=== PATIENT | male | born 1990 | race American Indian/Alaskan Native ===

== ENCOUNTER 2019-09-25 15:46 | Emergency (ER) | payer OTHER ==
[~2019-09-25 15:46] MED LIST: LOTRIMIN AF24 GM TOP; PREDNISONE20 MG PO
== END 2019-09-25 16:51 | disposition short-term general hospital (02) ==
LOC: ED 15:46 → EDBD 15:47 → ED 15:47
DX: S06.5X9A Traumatic subdural hemorrhage with loss of consciousness of unspecified duration, initial encounter (principal); S02.0XXA Fracture of vault of skull, initial encounter for closed fracture; S12.600A Unspecified displaced fracture of seventh cervical vertebra, initial encounter for closed fracture; S01.01XA Laceration without foreign body of scalp, initial encounter; F10.129 Alcohol abuse with intoxication, unspecified; V49.9XXA Car occupant (driver) (passenger) injured in unspecified traffic accident, initial encounter
CPT/HCPCS: 31500; 70450; 70486; 71045; 71260; 72125; 74177; 80053; 81001; 82150; 82550; 83690; 85025; 86850; 86900; 86901; 94002; 99291; G0480

== ENCOUNTER 2020-05-07 10:44 | Emergency (ER) | payer OTHER ==
[~2020-05-07] VITALS: Ht 180.3 cm; Wt 86.2 kg
--- OUTSIDE RECORDS SUMMARY | ~2020-05-07 | XMS | Encounter Summary ---
Demographics + + + | Address | [address] | | | [place] [address] | + + + | Home Phone | | + + + | Preferred Language | Unknown | + + + | Marital Status | Single | + + + | Restorationist Affiliation | NON | + + + | Race | or | + + + | Ethnic Group | Not or | + + + Author + + + | Author | [facility] | + + + | Organization | [facility] | + + + | Address | Unknown | + + + | Phone | Unavailable | + + + Support + + + + + | Name | Relationship | Address | Phone | + + + + + | Kaila Oates | ECON | [place] | | | | | [address] | | + + + + + Care Team Providers + +------+ + | Care Lead Software Developer Name | Role | Phone | + +------+ + | Tomasz Solis MD | PCP | | + +------+ + Encounter Details +--------+ + + + + | Date | Type | Department | Care Team | Description | +--------+ + + + + | 04/29/ | MyChart | Otolaryngology | Cordell Hernandez MD | RE: FW: eye problems | | 2020 | Encounter | Facial Plastics & | [address] | | | | | Reconstructive | [place], | | | | | Services at [facility] | [place] [address] | | | | | [address] | [phone] | | | | | [facility] | | | | | | and Healing, | | | | | | [address], | | | | | | [place], [place] | | | | | | [address] | | | | | | [phone] | | | +--------+ + + + + Social History + + + +--------+ + | Tobacco Use | Types | Packs/Day | Years | Date | | | | | Used | | + + + +--------+ + | Former Smoker | Cigarettes | | | Quit: 2019 | + + + +--------+ + + +---+---+---+ | Smokeless Tobacco: | | | | | Never Used | | | | + +---+---+---+ + + +---------+ + | Alcohol Use | Drinks/Week | oz/Week | Comments | + + +---------+ + | Not Currently | | | | + + +---------+ + + + + | Sex Assigned at | Date Recorded | | | | + + + | Not on file | | + + + + + + + | Job Start Date | Occupation | Industry | + + + + | Not on file | Not on file | Not on file | + + + + + + + + | Travel History | Travel Start | Travel End | + + + + + + | No recent travel history available. | + + documented as of this encounter Functional Status + + + + | Functional Status | Response | Date of Assessment | + + + + | Because of a physical, mental, or emotional | No | 09/26/2019 | | condition, do you have serious difficulty | | | | doing errands alone such as visiting the | | | | doctor? | | | + + + + + + + + | Cognitive Status | Response | Date of Assessment | + + + + | Because of a physical, mental, or emotional | No | 09/26/2019 | | condition, do you have serious difficulty | | | | concentrating, remembering, or making | | | | decisions? (5 years old or older) | | | + + + + documented as of this encounter Plan of Treatment +--------+---------+ + + + | Date | Type | Specialty | Care Team | Description | +--------+---------+ + + + | 08/23/ | Office | Plastic Surgery | Paul Herrera, | | | 2020 | Visit | | MD,PhD [address] | | | | | | [place] | | | | | | [address] | | | | | | [phone] | | | | | | | | +--------+---------+ + + + documented as of this encounter Visit Diagnoses Not on filedocumented in this encounter"
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
--- OUTSIDE RECORDS SUMMARY | ~2020-05-07 | XMS | Encounter Summary ---
Demographics + + + | Address | [address] | | | [place] [address] | + + + | Home Phone | | + + + | Preferred Language | Unknown | + + + | Marital Status | Single | + + + | Moravian Affiliation | NON | + + + | Race | or | + + + | Ethnic Group | Not or | + + + Author + + + | Author | [email or web address] | + + + | Organization | [facility] [employer] [facility] [employer] | + + + | Address | Unknown | + + + | Phone | Unavailable | + + + Support + + + + + | Name | Relationship | Address | Phone | + + + + + | Kaila Oates | ECON | [place] | | | | | [address] | | + + + + + Care Team Providers + +------+ + | Care Buccaro Name | Role | Phone | + +------+ + | Tomasz Solis MD | PCP | | + +------+ + Encounter Details +--------+ + + + + | Date | Type | Department | Care Team | Description | +--------+ + + + + | 04/08/ | MyChart | [facility] | Lawanda Plaza MD | RE: eye surgery | | 2020 | Encounter | [place]/Ophthalmol | [address] | | | | | ogy at [facility] [address] | [address] [place], | | | | | [facility] | [place] [address] | | | | | Health and Healing, | [phone] | | | | | [facility] | | | | | | Floor [place], [place] | | | | | | [address] | | | | | | [phone] | | | +--------+ + + + [...] recent travel history available. | + + + + + + | COVID-19 Exposure | Response | Date Recorded | + + + + | In the last month, have you been in contact | No / Unsure | 03/26/2020 1:47 PM | | with someone who was confirmed or | | PDT | | suspected to have Coronavirus / COVID-19? | | | + + + + [...] Surgery | Paul Herrera, | | | 2019 | Visit | | ,PhD [address] | | | | | | [place], [place] | | | | | | [address] | | | | | | [phone] | | | | | | | | +--------+---------+ + + + documented as of this encounter Visit Diagnoses Not on filedocumented in this encounter"
--- OUTSIDE RECORDS SUMMARY | ~2020-05-07 | XMS | Encounter Summary ---
Demographics + + + | Address | [address] | | | [place] [address] | + + + | Home Phone | | + + + | Preferred Language | Unknown | + + + | Marital Status | Single | + + + | Sikh Affiliation | NON | + + + | Race | or | + + + | Ethnic Group | Not or | + + + Author + + + | Author | [facility] [facility] | + + + | Organization | [facility] | + + + | Address | Unknown | + + + | Phone | Unavailable | + + + Support + + + + + | Name | Relationship | Address | Phone | + + + + + | Kaila Oates | ECON | [place] | | | | | [address] | | + + + + + Care Team Providers + +------+ + | Care Willow Analyst Name | Role | Phone | + +------+ + | Tomasz Solis MD | PCP | | + +------+ + Encounter Details +--------+ + + + + | Date | Type | Department | Care Team | Description | +--------+ + + + + | 10/11/ | Ophth Exam | [facility] | Kyree Moran, | | | 2019 | | [place]/Ophthalmol | [address] [facility] | | | | | kelli at [facility] [address] | [address] | | | | | [address] [facility] for | [place], [place] | | | | | Health and Healing, | [address] | | | | | [facility] | [phone] | | | | | Floor [place], [place] | | | | | | [address] | | | | | | [phone] | | | +--------+ + + + + Social History + +-------+ +--------+------+ | Tobacco Use | Types | Packs/Day | Years | Date | | | | | Used | | + +-------+ +--------+------+ | Unknown If Ever | | | | | | Smoked | | | | | + +-------+ +--------+------+ + + +---------+ + | Alcohol Use | Drinks/Week | oz/Week | Comments | + + +---------+ + | Yes | | | | + + +---------+ [...] | 2019 | Visit | | ,PhD [address] | | | | | | [place], [place] | | | | | | [address] | | | | | | [phone] | | | | | | | | +--------+---------+ + + + documented as of this encounter Visit Diagnoses Not on filedocumented in this encounter"
--- OUTSIDE RECORDS SUMMARY | ~2020-05-07 | XMS | Encounter Summary ---
Demographics + + + | Address | [address] | | | [place] [address] | + + + | Home Phone | | + + + | Preferred Language | Unknown | + + + | Marital Status | Single | + + + | Latter-Day Affiliation | NON | + + + | Race | or | + + + | Ethnic Group | Not or | + + + Author + + + | Organization | Unknown | + + + | Address | Unknown | + + + | Phone | Unavailable | + + + Support + + + + + | Name | Relationship | Address | Phone | + + + + + | Kaila Oates | ECON | [place] | | | | | [address] | | + + + + + Care Team Providers + +------+ + | Care Telemarketing Manager Name | Role | Phone | + +------+ + | Tomasz Solis MD | PCP | | + +------+ + Encounter Details +--------+--------+ + + + | Date | Type | Department | Care Team | Description | +--------+--------+ + + + | 03/04/ | Travel | | | | | 2020 | | | | | +--------+--------+ + + + Social History + + [...] in contact | No / Unsure | 03/04/2020 7:36 AM | | with someone who was confirmed [...] | | 2020 | Visit | | ,PhD [address] | | | | | | [place], [place] | | | | | | [address] | | | | | | [phone] | | | | | | | | +--------+---------+ + + + documented as of this encounter Visit Diagnoses Not on filedocumented in this encounter"
--- OUTSIDE RECORDS SUMMARY | ~2020-05-07 | XMS | Encounter Summary ---
Demographics + + + | Address | [address] | | | [place] [address] | + + + | Home Phone | | + + + | Preferred Language | Unknown | + + + | Marital Status | Single | + + + | Mormonism Affiliation | Unknown | + + + | Race | Unknown | + + + | Ethnic Group | Unknown | + + + Author + + + | Author | [facility]ly [facility] | | | and Nabeelana | + + + | Organization | [facility] | | | and Nabeelana [...] Team Providers + +------+ + | Care Forestry Technical Officer Name | Role | Phone | + +------+ + | No, Physician | PCP | Unavailable | + +------+ + Encounter Details +--------+ + + + + | Date | Type | Department | Care Team | Description | +--------+ + + + + | 02/05/ | Hospital | [facility] | Cordell Dangelo, | Encounter for | | 2020 | Encounter | [facility] | [address] | imaging to screen | | | | [address] | [place], | for metal prior to | | | | [address] | [place] [address] | MRI | | | | [address] | [phone] | | | | | [phone] | | | +--------+ + + + [...] as of this encounter Plan of Treatment + +---------+--------+ + + | Name | Type | Priori | Associated Diagnoses | Order Schedule | | | | ty | | | + +---------+--------+ + + | XR Screening Orbits | Imaging | Routin | Encounter for | 1 Occurrences | | for MRI | | e | imaging to screen | starting 02/06/2020 | | | | | for metal prior to | until 02/06/2020 | | | | | MRI | | + +---------+--------+ + + documented as of this encounter Visit Diagnoses + + | Diagnosis | + + | Encounter for imaging to screen for metal prior to MRI Special screening for other | | specified conditions | + + documented in this encounter"
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
--- OUTSIDE RECORDS SUMMARY | ~2020-05-07 | XMS | Encounter Summary ---
Demographics + + + | Address | [address] | | | [place] [address] | + + + | Home Phone | | + + + | Preferred Language | Unknown | + + + | Marital Status | Single | + + + | Mormonism Affiliation | NON | + + + | Race | or | + + + | Ethnic Group | Not or | + + + Author + + + | Author | [facility] | + + + | Organization | [facility] [employer] [facility] | + + + | Address | Unknown | + + + | Phone | Unavailable | + + + Support + + + + + | Name | Relationship | Address | Phone | + + + + + | Kaila Oates | ECON | [place] | | | | | [address] | | + + + + + Care Team Providers + +------+ + | Care Director Of Hotel Operations Name | Role | Phone | + +------+ + | Tomasz Solis MD | PCP | | + +------+ + Reason for Visit + + + | Reason | Comments | + + + | housing accomodation | | + + + Encounter Details +--------+ + + + + | Date | Type | Department | Care Team | Description | +--------+ + + + + | 03/02/ | Telephone | SOCIAL WORK | Jeanne Pérez | housing accomodation | | 2019 | | [address] | | | | | [address] | [place], | | | | | Mailcode: CH[address]A | [place] [address] | | | | | [place], [place] | | | | | | [address] | | | | | | [phone] | | | +--------+ + + + [...] in contact | No / Unsure | 02/27/2020 9:35 AM | | with someone who was [...] | 2020 | Visit | | ,PhD [address] | | | | | | [place], [place] | | | | | | [address] | | | | | | [phone] | | | | | | | | +--------+---------+ + + + documented as of this encounter Visit Diagnoses Not on filedocumented in this encounter"
--- OUTSIDE RECORDS SUMMARY | ~2020-05-07 | XMS | Encounter Summary ---
Demographics + + + | Address | [address] | | | [place] [address] | + + + | Home Phone | | + + + | Preferred Language | Unknown | + + + | Marital Status | Single | + + + | Hoahaoism Affiliation | NON | + + + | Race | or | + + + | Ethnic Group | Not or | + + + Author + + + | Author | [facility] | + + + | Organization | [facility] | + + + | Address | Unknown | + + + | Phone | Unavailable | + + + Support + + + + + | Name | Relationship | Address | Phone | + + + + + | Kaila Oates | ECON | [place] | | | | | [address] | | + + + + + Care Team Providers + +------+ + | Care Paper Bag Making Machinist Name | Role | Phone | + +------+ + | Tomasz Solis MD | PCP | | + +------+ + Reason for Visit +--------+ + | Reason | Comments | +--------+ + | Other | xray orders | +--------+ + Encounter Details +--------+ + + + + | Date | Type | Department | Care Team | Description | +--------+ + + + + | 03/28/ | Telephone | [facility] | Denise Nicole, | Other (xray orders) | | 2020 | | [facility] [address] | [place] [address] | | | | | [facility] | [place], [place] | | | | | [facility], | [address] | | | | | [facility] [address] | [phone] | | | | | [place], [place] | | | | | | [address] | | | | | | [phone] | | | +--------+ + + + [...] 2019 | Visit | | ,PhD [address] | | | | | | [place] [facility] [place] | | | | | | [address] | | | | | | [phone] | | | | | | | | +--------+---------+ + + + documented as of this encounter Visit Diagnoses Not on filedocumented in this encounter"
--- OUTSIDE RECORDS SUMMARY | ~2020-05-07 | XMS | Encounter Summary ---
Demographics + + + | Address | [address] | | | [place] [address] | + + + | Home Phone | | + + + | Preferred Language | Unknown | + + + | Marital Status | Single | + + + | Restoration Affiliation | NON | + + + | Race | or | + + + | Ethnic Group | Not or | + + + Author + + + | Author | [facility] | + + + | Organization | [facility] | + + + | Address | Unknown | + + + | Phone | Unavailable | + + + Support + + + + + | Name | Relationship | Address | Phone | + + + + + | Kaila Oates | ECON | [place] | | | | | [address] | | + + + + + Care Team Providers + +------+ + | Care Aged Or Disabled Care Worker Name | Role | Phone | + +------+ + | Tomasz Solis MD | PCP | | + +------+ + Encounter Details +--------+ + + + + | Date | Type | Department | Care Team | Description | +--------+ + + + + | 09/25/ | Procedure | Diagnostic Imaging | | | | 2019 | Pass | Services at [facility] | | | | | | [address] | | | | | | [place] | | | | | | [address] | | | | | | [place], [place] | | | | | | [address] | | | | | | [phone] | | | +--------+ + + + [...] | Visit | | ,PhD [address] | | | | | | [place], [place] | | | | | | [address] | | | | | | [phone] | | | | | | | | +--------+---------+ + + + documented as of this encounter Visit Diagnoses Not on filedocumented in this encounter"
--- OUTSIDE RECORDS SUMMARY | ~2020-05-07 | XMS | Encounter Summary ---
Demographics + + + | Address | [address] | | | [place] [address] | + + + | Home Phone | | + + + | Preferred Language | Unknown | + + + | Marital Status | Single | + + + | Zoroastrian Affiliation | NON | + + + | Race | or | + + + | Ethnic Group | Not or | + + + Author + + + | Author | [facility] | + + + | Organization | [facility] [email or web address] [facility] | + + + | Address | Unknown | + + + | Phone | Unavailable | + + + Support + + + + + | Name | Relationship | Address | Phone | + + + + + | Kaila Oates | ECON | [place] | | | | | [address] | | + + + + + Care Team Providers + +------+ + | Care Department Secretary Name | Role | Phone | + +------+ + | Tomasz Solis MD | PCP | | + +------+ + Encounter Details +--------+ + + + + | Date | Type | Department | Care Team | Description | +--------+ + + + + | 09/26/ | Procedure | Diagnostic Imaging | | | | 2019 | Pass | Services at [facility] | | | | | | [address] | | | | | | [place] | | | | | | [facility] | | | | | | [place], [place] | | | | | | [address] | | | | | | [phone] | | | +--------+ + + + [...] 2019 | Visit | | MDPhD [address] | | | | | | [place], [place] | | | | | | [address] | | | | | | [phone] | | | | | | | | +--------+---------+ + + + documented as of this encounter Visit Diagnoses Not on filedocumented in this encounter"
--- OUTSIDE RECORDS SUMMARY | ~2020-05-07 | XMS | Encounter Summary ---
Demographics + + + | Address | [address] | | | [place] [address] | + + + | Home Phone | | + + + | Preferred Language | Unknown | + + + | Marital Status | Single | + + + | Caodaism Affiliation | NON | + + + | Race | or | + + + | Ethnic Group | Not or | + + + Author + + + | Author | [facility] | + + + | Organization | [facility] [employer] [facility] | + + + | Address | Unknown | + + + | Phone | Unavailable | + + + Support + + + + + | Name | Relationship | Address | Phone | + + + + + | Kaila Oates | ECON | [place] | | | | | [address] | | + + + + + Care Team Providers + +------+ + | Care Obstetrician And Gynaecologist Name | Role | Phone | + +------+ + | Tomasz Solis MD | PCP | | + +------+ + Encounter Details +--------+ + + + + | Date | Type | Department | Care Team | Description | +--------+ + + + + | 04/30/ | Hospital | Registration [address] | Michelle [address], | | | 2005 | Activity | [address] | [address] | | | | | [address] Mailcode: [address] | [place], [place] | | | | | [place], [place] | [address] | | | | | [address] | | | | | | [phone] | | | +--------+ + + + [...] | | | | | | [place], [place] | | | | | | [address] | | | | | | [phone] | | | | | | | | +--------+---------+ + + + documented as of this encounter Procedures + +--------+ + + + | Procedure Name | Priori | Date/Time | Associated Diagnosis | Comments | | | ty | | | | + +--------+ + + + | X-RAY SPINE CERVICAL | Routin | 04/30/2006 | | Results for this | | 1 VIEW | e | 3:00 AM | | procedure are in the | | | | PDT | | results section. | + +--------+ + + + documented in this encounter Results SPINE CERVICAL 1 VIEW (04/30/2006 3:00 AM PDT) + + + + + + | Component | Value | Ref Range | Performed | Pathologist | | | | | At | Signature | + + + + + + | SPINE | Radiologist 1: DRE, | | | | | CERVICAL 1 | LOUISSTUDY: Single | | | | | VIEW | lateral view cervical | | | | | | spine COMPARISON: NONE | | | | | | FINDINGS: the cervical | | | | | | spine is visualized from | | | | | | the skull base to the | | | | | | [id number]. | | | | | | Vertebral body height | | | | | | and alignment are normal | | | | | | on thesingle lateral | | | | | | view. There is no | | | | | | prevertebral soft | | | | | | tissueswelling. No | | | | | | radiopaque foreign body | | | | | | or soft tissue gas | | | | | | isidentified. | | | | | | IMPRESSION: Normal | | | | | | single lateral view of | | | | | | the cervical spine. | | | | + + + + + + + + | Specimen | + + | | + + + +---------+ + + | Performing | Address | City/State/Zipcode | Phone Number | | Organization | | | | + +---------+ + + | [facility] DEPARTMENT OF | | | | | RADIOLOGY | | | | + +---------+ + + documented in this encounter Visit Diagnoses Not on filedocumented in this encounter"
--- OUTSIDE RECORDS SUMMARY | ~2020-05-07 | XMS | Encounter Summary ---
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 change in lumbar spinal alignment between | | flexion and extension imaging. I have personally reviewed the images and, if necessary, | | edited the report. I agree with the report as now presented. Final signature: Abdirahman Bernstein | | MD Lexie 01/02/2020 9:28 AM Preliminary: Abdirahman Owen MD Dictation | | initiated: Abdirahman Owen MD 01/02/2020 9:25 AM | |IMPRESSION: | | | |Healed left L1, L2 and L3 transverse process fractures and left 11th and 12th rib fractures unchanged in alignment. | | | |The L4 anterior superior corner fractures are not well demonstrated radiographically. | | | |No significant change in lumbar spinal alignment between flexion and extension imaging. | | | |I have personally reviewed the images and, if necessary, edited the report. I agree with th e report as now presented. | | | |Final signature: Abdirahman Owen MD 01/02/2020 9:28 AM | |Preliminary: Abdirahman Owen MD | |Dictation initiated: Abdirahman Owen MD 01/02/2020 9:25 AM | + + + +---------+ + + | Performing | Address | City/State/Zipcode | Phone Number | | Organization | | | | + +---------+ + + | [facility] | | | | | [facility]ICE RECOGNITION [facility] | | | | + +---------+ + + documented in this encounter Visit Diagnoses + + | Diagnosis | + + | Other closed nondisplaced fracture of seventh cervical vertebra with routine healing, | | subsequent encounter - Primary | + + | Back pain, unspecified back location, unspecified back pain laterality, unspecified | | chronicity | + + | Neck pain Cervicalgia | + + | Injury of left brachial plexus, subsequent encounter | + + | Central cord syndrome, subsequent encounter (HCC) | + + documented in this encounter
--- OUTSIDE RECORDS SUMMARY | ~2020-05-07 | XMS | Encounter Summary ---
Demographics + + + | Address | [address] | | | [place] [address] | + + + | Home Phone | | + + + | Preferred Language | Unknown | + + + | Marital Status | Single | + + + | Orthodox Affiliation | NON | + + + | Race | or | + + + | Ethnic Group | Not or | + + + Author + + + | Author | [facility] [employer] [facility] | + + + | Organization | [facility] | + + + | Address | Unknown | + + + | Phone | Unavailable | + + + Support + + + + + | Name | Relationship | Address | Phone | + + + + + | Kaila Oates | ECON | [place] | | | | | [address] | | + + + + + Care Team Providers + +------+ + | Care Ship'S Electronic Warfare Officer Name | Role | Phone | + +------+ + | Tomasz Solis MD | PCP | | + +------+ + Encounter Details +--------+ + + + + | Date | Type | Department | Care Team | Description | +--------+ + + + + | 11/15/ | Hospital | Radiology/Imaging | Denise Nicole, | | | 2020 | Encounter | Lab at [facility] [address] | [place] [address] | | | | | [address] [facility] [facility] | [place], [place] | | | | | Health and Healing, | [address] | | | | | [facility] | [phone] | | | | | Floor [place], [place] | | | | | | [address] | | | | | | [phone] | | | +--------+ + + + [...] + + documented as of this encounter Medications at Time of Discharge + + + +---------+ + + | Medication | Sig | Dispensed | Refills | Start | End Date | | | | | | Date | | + + + +---------+ + + | aspirin chewable | Chew and swallow 1 | | 0 | 10/14/20 | | | 81 mg oral | tablet once daily. | | | 19 | | | tablet,chewable | | | | | | + + + +---------+ + + | baclofen 10 mg | Take 1 tablet by | | 0 | 10/14/20 | | | oral tablet | mouth three times | | | 19 | | | | daily. | | | | | + + + +---------+ + + | melatonin 3 mg | Take 1 tablet by | | 0 | 10/14/20 | | | oral tablet | mouth once daily in | | | 19 | | | | the evening. | | | | | + + + +---------+ + + documented as of this encounter Plan of Treatment +--------+---------+ + + + | Date | Type | Specialty | Care Team | Description | +--------+---------+ + + + | 08/23/ | Office | Plastic Surgery | Paul Herrera, | | | 2019 | Visit | | ,PhD [address] | | | | | | [place], [place] | | | | | | [address] | | | | | | [phone] | | | | | | | | +--------+---------+ + + + documented as of this encounter Procedures + +--------+ + + + | Procedure Name | Priori | Date/Time | Associated Diagnosis | Comments | | | ty | | | | + +--------+ + + + | X-RAY SPINE CERVICAL | Routin | 11/15/2019 | Neck pain | Results for this | | 3 VIEWS | e | 11:38 AM | | procedure are in the | | | | PST | | results section. | + +--------+ + + + documented in this encounter Results X-RAY SPINE CERVICAL 3 VIEWS (11/15/2019 11:38 AM PST) + + | Specimen | + + | | + + + + + | Narrative | Performed At | + + + | EXAM: SPINE CERVICAL 3 VIEWS HISTORY: neck pain COMPARISON: | [facility] | | 10/13/[address] 09/25/2019. FINDINGS: Right C7 facet/laminar | RADIOLOGY VOICE | | fracture and the fracture at the tip of the odontoid process are again | RECOGNITION 2 | | not well outlined. There is normal alignment of the vertebral bodies. | | | Vertebral body heights are maintained. Disc spaces are maintained | | | with trace endplate spurring. C1-C2 relationship is normal. | | | Prevertebral soft tissues are within normal limits. Plate and screws | | | are seen along the inferior left orbital margin. IMPRESSION: | | | Nonvisualization of known right C7 and odontoid fractures. No new | | | fracture or osseous abnormality. I have personally reviewed the | | | images and, if necessary, edited the report. I agree with the report | | | as now presented. Final signature: Emi Briceño MD | | | 11/15/2019 12:04 PM Preliminary: Emi Briceño MD | | | Dictation initiated: Emi Briceño MD 11/15/2019 11:58 AM | | + + + + + | Procedure Note | + + | Service Account, Radiant Res In Interface - 11/15/2019 12:10 PM PST EXAM: SPINE | | CERVICAL 3 VIEWS HISTORY: neck pain COMPARISON: 10/13/[address] 09/25/2019. FINDINGS: | | Right C7 facet/laminar fracture and the fracture at the tip of the odontoid process are | | again not well outlined. There is normal alignment of the vertebral bodies. Vertebral | | body heights are maintained. Disc spaces are maintained with trace endplate spurring. | | C1-C2 relationship is normal. Prevertebral soft tissues are within normal limits. Plate | | and screws are seen along the inferior left orbital margin. IMPRESSION: Nonvisualization | | of known right C7 and odontoid fractures. No new fracture or osseous abnormality. I | | have personally reviewed the images and, if necessary, edited the report. I agree with | | the report as now presented. Final signature: Emi Briceño MD 11/15/2019 12:04 | | PM Preliminary: Emi Briceño MD Dictation initiated: Emi Briceño MD | | 11/15/2019 11:58 AM | | | |Nonvisualization of known right C7 and odontoid fractures. | | | |No new fracture or osseous abnormality. | | | |I have personally reviewed the images and, if necessary, edited the report. I agree with th e report as now presented. | | | |Final signature: Emi Briceño MD 11/15/2019 12:04 PM | |Preliminary: Emi Briceño MD | |Dictation initiated: Emi Briceño MD 11/15/2019 11:58 AM | + + + +---------+ + + | Performing | Address | City/State/Zipcode | Phone Number | | Organization | | | | + +---------+ + + | [facility] | | | | | [facility] | | | | + +---------+ + + documented in this encounter Visit Diagnoses + + | Diagnosis | + + | Neck pain Cervicalgia | + + documented in this encounter"
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
--- OUTSIDE RECORDS SUMMARY | ~2020-05-07 | XMS | Encounter Summary ---
Demographics + + + | Address | [address] | | | [place] [address] | + + + | Home Phone | | + + + | Preferred Language | Unknown | + + + | Marital Status | Single | + + + | Judaism Affiliation | NON | + + + | Race | or | + + + | Ethnic Group | Not or | + + + Author + + + | Author | [facility] | + + + | Organization | [facility] [employer] [facility] | + + + | Address | Unknown | + + + | Phone | Unavailable | + + + Support + + + + + | Name | Relationship | Address | Phone | + + + + + | Kaila Oates | ECON | [place] | | | | | [address] | | + + + + + Care Team Providers + +------+ + | Care Select Banker Name | Role | Phone | + +------+ + | Tomasz Solis MD | PCP | | + +------+ + Encounter Details +--------+ + + + + | Date | Type | Department | Care Team | Description | +--------+ + + + + | 03/09/ | MyChart | Plastic and | Javier, Paul, | RE: [facility] Hand | | 2020 | Encounter | Reconstructive | ,PhD [address] | Pain | | | | Surgery at [facility] [address] [place], [place] | | | | | [address] [facility] | [address] | | | | | for Health and | [phone] | | | | | Healing, [address], | | | | | | 5th Floor | | | | | | [facility] [place] | | | | | | [address] | | | | | | [phone] | | | +--------+ + + + [...] in contact | No / Unsure | 03/06/2020 5:46 AM | | with someone who was [...] | 2019 | Visit | | ,PhD [address] | | | | | | [place] [facility] [place] | | | | | | [address] | | | | | | [phone] | | | | | | | | +--------+---------+ + + + documented as of this encounter Visit Diagnoses Not on filedocumented in this encounter"
--- OUTSIDE RECORDS SUMMARY | ~2020-05-07 | XMS | Encounter Summary ---
Demographics + + + | Address | [address] | | | [place] [address] | + + + | Home Phone [...] + + + | Author | [facility] [employer] [facility] | + + + | Organization | [facility] | + + + | Address | Unknown | + + + | Phone | Unavailable | + + + Support + + + + + | Name | Relationship | Address | Phone | + + + + + | Kaila Oates | ECON | [place] | | | | | [address] | | + + + + + Care Team Providers + +------+ + | Care Planning Director Name | Role | Phone | + [...] | | | Reconstructive | [address], | | | | | Services at [facility] | [place] [address] | | | | | [address] | [phone] | | | | | [facility] | | | | | | and Healing, | | | | | | [address], | | | | | | [place], [place] | | | | | | [address] | | | | | | [phone] | | | +--------+ + + + [...] | | | | | | [place] | | | | | | [address] | | | | | | [phone] | | | | | | | | +--------+---------+ + + + documented as of this encounter Visit Diagnoses Not on filedocumented in this encounter"
--- OUTSIDE RECORDS SUMMARY | ~2020-05-07 | XMS | Encounter Summary ---
Demographics + + + | Address | [address] | | | [place] [address] | + + + | Home Phone | | + + + | Preferred Language | Unknown | + + + | Marital Status | Single | + + + | Baptism Affiliation | NON | + + + | Race | or | + + + | Ethnic Group | Not or | + + + Author + + + | Author | [facility] [employer] [facility] | + + + | Organization | [facility] [employer] [facility] | + + + | Address | Unknown | + + + | Phone | Unavailable | + + + Support + + + + + | Name | Relationship | Address | Phone | + + + + + | Kaila Oates | ECON | [place] | | | | | [address] | | + + + + + Care Team Providers + +------+ + | Care Trader Fixed Income Name | Role | Phone | + +------+ + | Tomasz Solis MD | PCP | | + +------+ + Encounter Details +--------+ + + + + | Date | Type | Department | Care Team | Description | +--------+ + + + + | 09/26/ | Procedure | Diagnostic Imaging | | | | 2019 | Pass | Services at [facility] | | | | | | [address] | | | | | | [place] | | | | | | [facility] | | | | | | [place], [place] | | | | | | [address] | | | | | | [phone] | | | +--------+ + + + [...] | | | | | | [place], [place] | | | | | | [address] | | | | | | [phone] | | | | | | | | +--------+---------+ + + + documented as of this encounter Visit Diagnoses Not on filedocumented in this encounter"
--- OUTSIDE RECORDS SUMMARY | ~2020-05-07 | XMS | Encounter Summary ---
Demographics + + + | Address | [address] | | | [place] [address] | + + + | Home Phone | | + + + | Preferred Language | Unknown | + + + | Marital Status | Single | + + + | Buddhism Affiliation | NON | + + + | Race | or | + + + | Ethnic Group | Not or | + + + Author + + + | Author | [facility] [facility] | + + + | Organization | [facility] [employer] [facility] | + + + | Address | Unknown | + + + | Phone | Unavailable | + + + Support + + + + + | Name | Relationship | Address | Phone | + + + + + | Kaila Oates | ECON | [place] | | | | | [address] | | + + + + + Care Team Providers + +------+ + | Care Newspaper Columnist Name | Role | Phone | + [...] Pain | | | | Surgery at [facility] [address] [place], [place] | | | | | [address] [facility] | [address] | | | | | for Health and | [phone] | | | | | Healing, [address], | | | | | | 5th Floor | | | | | | [facility] [place] | | | | | | [address] | | | | | | [phone] | | | +--------+ + + + [...] | 2019 | Visit | | ,PhD [address] | | | | | | [place] [facility] [place] | | | | | | [address] | | | | | | [phone] | | | | | | | | +--------+---------+ + + + documented as of this encounter Visit Diagnoses Not on filedocumented in this encounter"
--- OUTSIDE RECORDS SUMMARY | ~2020-05-07 | XMS | Encounter Summary ---
Demographics + + + | Address | [address] | | | [place] [address] | + + + | Home Phone | | + + + | Preferred Language | Unknown | + + + | Marital Status | Single | + + + | Zoroastrianism Affiliation | NON | + + + [...] [place] | | | | | [address] | | + + + + + Care Team Providers + +------+ + | Care Founding Partner Name | Role | Phone | + +------+ + | No Pcp Per Patient | PCP | Unavailable | + +------+ + Encounter Details +--------+--------+ + + + | Date | Type | Department | Care Team | Description | +--------+--------+ + + + | 10/11/ | Travel | | | | | 2019 | | | | | +--------+--------+ + + + Social History + +-------+ [...] 2020 | Visit | | ,PhD [address] | | | | | | [place] | | | | | | [address] | | | | | | [phone] | | | | | | | | +--------+---------+ + + + documented as of this encounter Visit Diagnoses Not on filedocumented in this encounter"
--- OUTSIDE RECORDS SUMMARY | ~2020-05-07 | XMS | Encounter Summary ---
Demographics + + + | Address | [address] | | | [place] [address] | + + + | Home Phone | | + + + | Preferred Language | Unknown | + + + | Marital Status | Single | + + + | Taoism Affiliation | NON | + + + | Race | or | + + + | Ethnic Group | Not or | + + + Author + + + | Author | [facility] | + + + | Organization | [facility] | + + + | Address | Unknown | + + + | Phone | Unavailable | + + + Support + + + + + | Name | Relationship | Address | Phone | + + + + + | Kaila Oates | ECON | [place] | | | | | [address] | | + + + + + Care Team Providers + +------+ + | Care Milieu Manager Name | Role | Phone | + +------+ + | Tomasz Solis MD | PCP | | + +------+ + Encounter Details +--------+ + + + + | Date | Type | Department | Care Team | Description | +--------+ + + + + | 01/01/ | Hospital | Radiology/Imaging | Denise Nicole, | | | 2020 | Encounter | Lab at [facility] [address] | [place] [address] | | | | | [address] [place] for | [place], [place] | | | | | Health and Healing, | [address] | | | | | [facility] | [phone] | | | | | Floor [place], [place] | | | | | | [address] | | | | | | [phone] | | | +--------+ + + + [...] | 2020 | Visit | | ,PhD [address] | | | | | | [place], [place] | | | | | | [address] | | | | | | [phone] | | | | | | | | +--------+---------+ + + + documented as of this encounter Procedures + +--------+ + + + | Procedure Name | Priori | Date/Time | Associated Diagnosis | Comments | | | ty | | | | + +--------+ + + + | X-RAY SPINE | Routin | 01/02/2020 | Back pain, | Results for this | | LUMBOSACRAL 4 VIEWS | e | 9:20 AM | unspecified back | procedure are in the | | | | PDT | location, | results section. | | | | | unspecified back | | | | | | pain laterality, | | | | | | unspecified | | | | | | chronicity | | + +--------+ + + + documented in this encounter Results X-RAY SPINE LUMBOSACRAL 4 VIEWS (01/02/2020 9:20 [...] + | Diagnosis | + + | Back pain, unspecified back location, unspecified back pain laterality, unspecified | | chronicity | + + documented in this encounter"
--- OUTSIDE RECORDS SUMMARY | ~2020-05-07 | XMS | Encounter Summary ---
Demographics + + + | Address | [address] | | | [place] [address] | + + + | Home Phone | | + + + | Preferred Language | Unknown | + + + | Marital Status | Single | + + + | Mandaeism Affiliation | NON | + + + | Race | or | + + + | Ethnic Group | Not or | + + + Author + + + | Author | [facility] | + + + | Organization | [facility] | + + + | Address | Unknown | + + + | Phone | Unavailable | + + + Support + + + + + | Name | Relationship | Address | Phone | + + + + + | Kaila Oates | ECON | [place] | | | | | [address] | | + + + + + Care Team Providers + +------+ + | Care Vocational Auto Body Instructor Name | Role | Phone | + +------+ + | Tomasz Solis MD | PCP | | + +------+ + Encounter Details +--------+ + + + + | Date | Type | Department | Care Team | Description | +--------+ + + + + | 03/06/ | Procedure | 6A Intra Op [address] | | | | 2020 | Pass | [address] | | | | | | [facility] | | | | | | Hospital Admitting | | | | | | Desk Located on the | | | | | | 9th floor | | | | | | [place], [place] | | | | | | [address] | | | +--------+ + + + [...] | 2020 | Visit | | ,PhD [address] | | | | | | [place], [place] | | | | | | [address] | | | | | | [phone] | | | | | | | | +--------+---------+ + + + documented as of this encounter Visit Diagnoses Not on filedocumented in this encounter"
--- OUTSIDE RECORDS SUMMARY | ~2020-05-07 | XMS | Encounter Summary ---
Demographics + + + | Address | [address] | | | [place] [address] | + + + | Home Phone | | + + + | Preferred Language | Unknown | + + + | Marital Status | Single | + + + | Mormon Affiliation | NON | + + + | Race | or | + + + | Ethnic Group | Not or | + + + Author + + + | Author | [facility] | + + + | Organization | [email or web address] | + + + | Address | Unknown | + + + | Phone | Unavailable | + + + Support + + + + + | Name | Relationship | Address | Phone | + + + + + | Kaila Oates | ECON | [place] | | | | | [address] | | + + + + + Care Team Providers + +------+ + | Care Geospatial Systems Integrator Name | Role | Phone | + +------+ + | Tomasz Solis MD | PCP | | + +------+ + Encounter Details +--------+ + + + + | Date | Type | Department | Care Team | Description | +--------+ + + + + | 10/11/ | Ophth Exam | [facility] | Kyree Moran, | | | 2019 | | Barry/Ophthalmol | [address] [facility] | | | | | kelli at [facility] [address] | [address] | | | | | [address] [facility] for | [place], [place] | | | | | Health and Healing, | [address] | | | | | [facility] | [phone] | | | | | Floor [place], [place] | | | | | | [address] | | | | | | [phone] | | | +--------+ + + + [...] | 2019 | Visit | | ,PhD [address] | | | | | | [place], [place] | | | | | | [address] | | | | | | [phone] | | | | | | | | +--------+---------+ + + + documented as of this encounter Visit Diagnoses Not on filedocumented in this encounter"
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
--- OUTSIDE RECORDS SUMMARY | ~2020-05-07 | XMS | Encounter Summary ---
Demographics + + + | Address | [address] | | | [place] [address] | + + + | Home Phone | | + + + | Preferred Language | Unknown | + + + | Marital Status | Single | + + + | Confucianism Affiliation | NON | + + + [...] [place] | | | | | [address] | | + + + + + Care Team Providers + +------+ + | Care Lan Support Specialist Name | Role | Phone | + +------+ + | No Pcp Per Patient | PCP | Unavailable | + +------+ + Encounter Details +--------+--------+ + + + | Date | Type | Department | Care Team | Description | +--------+--------+ + + + | 10/28/ | Travel | | | | | [...] | | 2020 | Visit | | PhD PATRICIA [address] | | | | | | [place], [place] | | | | | | [address] | | | | | | [phone] | | | | | | | | +--------+---------+ + + + documented as of this encounter Visit Diagnoses Not on filedocumented in this encounter"
--- OUTSIDE RECORDS SUMMARY | ~2020-05-07 | XMS | Encounter Summary ---
Demographics + + + | Address | [address] | | | [place] [address] | + + + | Home Phone | | + + + | Preferred Language | Unknown | + + + | Marital Status | Single | + + + | Gnosticism Affiliation | NON | + + + | Race | or | + + + | Ethnic Group | Not or | + + + Author + + + | Author | [facility] [facility] | + + + | Organization | [facility] | + + + | Address | Unknown | + + + | Phone | Unavailable | + + + Support + + + + + | Name | Relationship | Address | Phone | + + + + + | Kaila Oates | ECON | [place] | | | | | [address] | | + + + + + Care Team Providers + +------+ + | Care Amortization Schedule Clerk Name | Role | Phone | + +------+ + | Tomasz Solis MD | PCP | | + +------+ + Encounter Details +--------+ + + + + | Date | Type | Department | Care Team | Description | +--------+ + + + + | 04/25/ | MyChart | Plastic and | Paul Herrera, | RE: Medicine | | 2020 | Encounter | Reconstructive | ,PhD [address] | | | | | Surgery at [facility] [address] | [address] [place], [place] | | | | | [address] [facility] | [address] | | | | | for Health and | [phone] | | | | | Healing, [facility] 1, | | | | | | 5th Floor | | | | | | [place], [place] | | | | | | [address] | | | | | | [phone] | | | +--------+ + + + [...] | | | | | | [place], [place] | | | | | | [address] | | | | | | [phone] | | | | | | | | +--------+---------+ + + + documented as of this encounter Visit Diagnoses Not on filedocumented in this encounter"
--- OUTSIDE RECORDS SUMMARY | ~2020-05-07 | XMS | Encounter Summary ---
Demographics + + + | Address | [address] | | | [place] [address] | + + + | Home Phone [...] + + | Author | [facility] | + + + | Organization | [facility] | + + + | Address | Unknown | + + + | Phone | Unavailable | + + + Support + + + + + | Name | Relationship | Address | Phone | + + + + + | Kaila Oates | ECON | [place] | | | | | [address] | | + + + + + Care Team Providers + +------+ + | Care Bench Examiner Name | Role | Phone | + +------+ + | Tomasz Solis MD | PCP | | + +------+ + Encounter Details +--------+ + + + + | Date | Type | Department | Care Team | Description | +--------+ + + + + | 09/26/ | Procedure | Diagnostic Imaging | | | | 2019 | Pass | Services at [facility] | | | | | | [address] | | | | | | [place] | | | | | | [facility] | | | | | | [place], [place] | | | | | | [address] | | | | | | [phone] | | | +--------+ + + + [...] | | | | | | [place], [place] | | | | | | [address] | | | | | | [phone] | | | | | | | | +--------+---------+ + + + documented as of this encounter Visit Diagnoses Not on filedocumented in this encounter"
--- OUTSIDE RECORDS SUMMARY | ~2020-05-07 | XMS | Encounter Summary ---
Demographics + + + | Address | [address] | | | [place] [address] | + + + | Home Phone [...] [place] | | | | | [address] | | + + + + + Care Team Providers + +------+ + | Care Sign Installer Name | Role | Phone | + +------+ + | Tomasz Solis MD | PCP | | + +------+ + Encounter Details +--------+--------+ + + + | Date | Type | Department | Care Team | Description | +--------+--------+ + + + | 12/18/ | Travel | | | | | [...] | | | | | | [place], [place] | | | | | | [address] | | | | | | [phone] | | | | | | | | +--------+---------+ + + + documented as of this encounter Visit Diagnoses Not on filedocumented in this encounter"
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
--- OUTSIDE RECORDS SUMMARY | ~2020-05-07 | XMS | Encounter Summary ---
Demographics + + + | Address | [address] | | | [place] [address] | + + + | Home Phone | | + + + | Preferred Language | Unknown | + + + | Marital Status | Single | + + + | Denominational Affiliation | NON | + + + | Race | or | + + + | Ethnic Group | Not or | + + + Author + + + | Author | [facility] | + + + | Organization | [facility] | + + + | Address | Unknown | + + + | Phone | Unavailable | + + + Support + + + + + | Name | Relationship | Address | Phone | + + + + + | Kaila Oates | ECON | [place] | | | | | [address] | | + + + + + Care Team Providers + +------+ + | Care Control Systems Specialist Name | Role | Phone | + +------+ + | Tmoasz Solis MD | PCP | | + +------+ + Encounter Details +--------+ + + + + | Date | Type | Department | Care Team | Description | +--------+ + + + + | 09/26/ | Procedure | Diagnostic Imaging | | | | 2019 | Pass | Services at [facility] | | | | | | [address] | | | | | | [place] | | | | | | [facility] | | | | | | [place], [place] | | | | | | [address] | | | | | | [phone] | | | +--------+ + + + [...] | | | | | | [place], [place] | | | | | | [address] | | | | | | [phone] | | | | | | | | +--------+---------+ + + + documented as of this encounter Visit Diagnoses Not on filedocumented in this encounter"
--- OUTSIDE RECORDS SUMMARY | ~2020-05-07 | XMS | Encounter Summary ---
Demographics + + + | Address | [address] | | | [place] [address] | + + + | Home Phone [...] + + | Author | [facility] | + + + | Organization | [facility] [employer] [facility] | + + + | Address | Unknown | + + + | Phone | Unavailable | + + + Support + + + + + | Name | Relationship | Address | Phone | + + + + + | Kaila Oates | ECON | [place] | | | | | [address] | | + + + + + Care Team Providers + +------+ + | Care Clinical Material Handler Name | Role | Phone | + +------+ + | Tomasz Solis MD | PCP | | + +------+ + Encounter Details +--------+ + + + + | Date | Type | Department | Care Team | Description | +--------+ + + + + | 03/04/ | MyChart | Screening Clinic - | | COVID-19 test | | 2020 | Encounter | [address] | | NEGATIVE | | | | [address] | | | | | | [place] [address] | | | +--------+ + + + [...] | | | | | | [place], [place] | | | | | | [address] | | | | | | [phone] | | | | | | | | +--------+---------+ + + + documented as of this encounter Visit Diagnoses Not on filedocumented in this encounter"
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
--- OUTSIDE RECORDS SUMMARY | ~2020-05-07 | XMS | Encounter Summary ---
Demographics + + + | Address | [address] | | | [place] [address] | + + + | Home Phone | | + + + | Preferred Language | Unknown | + + + | Marital Status | Single | + + + | Cheondoism Affiliation | NON | + + + | Race | or | + + + | Ethnic Group | Not or | + + + Author + + + | Author | [facility] | + + + | Organization | [facility] [employer] [facility] | + + + | Address | Unknown | + + + | Phone | Unavailable | + + + Support + + + + + | Name | Relationship | Address | Phone | + + + + + | Kaila Oates | ECON | [place] | | | | | [address] | | + + + + + Care Team Providers + +------+ + | Care Load Out Person Name | Role | Phone | + +------+ + | Tomasz Solis MD | PCP | | + +------+ + Encounter Details +--------+ + + + + | Date | Type | Department | Care Team | Description | +--------+ + + + + | 09/25/ | Procedure | Diagnostic Imaging | | | | 2019 | Pass | Services at [facility] | | | | | | [address] | | | | | | Emilia SUBRAMANIAN | | | | | | [address] | | | | | | [place], [place] | | | | | | [address] | | | | | | [phone] | | | +--------+ + + + [...] | | | | | | [place], [place] | | | | | | [address] | | | | | | [phone] | | | | | | | | +--------+---------+ + + + documented as of this encounter Visit Diagnoses Not on filedocumented in this encounter"
--- OUTSIDE RECORDS SUMMARY | ~2020-05-07 | XMS | Encounter Summary ---
Demographics + + + | Address | [address] | | | [place] [address] | + + + | Home Phone | | + + + | Preferred Language | Unknown | + + + | Marital Status | Single | + + + | Pentecostal Affiliation | NON | + + + | Race | or | + + + | Ethnic Group | Not or | + + + Author + + + | Author | [facility] [employer] [facility] | + + + | Organization | [facility] [employer] [facility] | + + + | Address | Unknown | + + + | Phone | Unavailable | + + + Support + + + + + | Name | Relationship | Address | Phone | + + + + + | Kaila Oates | ECON | [place] | | | | | [address] | | + + + + + Care Team Providers + +------+ + | Care Caustic Cresylate Shift Superintendent Name | Role | Phone | + [...] Encounter | Reconstructive | ,PhD [address] | | | | | Surgery at [facility] [address] [place], [place] | | | | | [address] [facility] | [address] | | | | | for Health and | [phone] | | | | | Healing, [facility] 1, | | | | | | 5th Floor | | | | | | [place], [place] | | | | | | [address] | | | | | | [phone] | | | +--------+ + + + [...] | | | | | | [place], [place] | | | | | | [address] | | | | | | [phone] | | | | | | | | +--------+---------+ + + + documented as of this encounter Visit Diagnoses Not on filedocumented in this encounter"
--- OUTSIDE RECORDS SUMMARY | ~2020-05-07 | XMS | Encounter Summary ---
Demographics + + + | Address | [address] | | | [place] [address] | + + + | Home Phone | | + + + | Preferred Language | Unknown | + + + | Marital Status | Single | + + + | Church Affiliation | NON | + + + | Race | or | + + + | Ethnic Group | Not or | + + + Author + + + | Author | [facility] [employer] [facility] | + + + | Organization | [facility] [employer] [facility] | + + + | Address | Unknown | + + + | Phone | Unavailable | + + + Support + + + + + | Name | Relationship | Address | Phone | + + + + + | Kaila Oates | ECON | [place] | | | | | [address] | | + + + + + Care Team Providers + +------+ + | Care Manager Research And Development Name | Role | Phone | + +------+ + | Tomasz Solis MD | PCP | | + +------+ + Encounter Details +--------+ + + + + | Date | Type | Department | Care Team | Description | +--------+ + + + + | 05/04/ | MyChart | [facility] | Lawanda Plaza MD | RE: Eye Surgery | | 2020 | Encounter | [place]/Ophthalmol | [address] | Referral | | | | ogy at [facility] [address] | [place], | | | | | [facility] | [place] [address] | | | | | Health and Healing, | [phone] | | | | | [facility] | | | | | | Floor [place], [place] | | | | | | [address] | | | | | | [phone] | | | +--------+ + + + [...] | 2020 | Visit | | ,PhD [address] | | | | | | [place], [place] | | | | | | [address] | | | | | | [phone] | | | | | | | | +--------+---------+ + + + documented as of this encounter Visit Diagnoses Not on filedocumented in this encounter"
--- OUTSIDE RECORDS SUMMARY | ~2020-05-07 | XMS | Encounter Summary ---
Demographics + + + | Address | [address] | | | [place] [address] | + + + | Home Phone | | + + + | Preferred Language | Unknown | + + + | Marital Status | Single | + + + | Scientologist Affiliation | NON | + + + [...] [place] | | | | | [address] | | + + + + + Care Team Providers + +------+ + | Care Automatic Dry Starch Operator Name | Role | Phone | + +------+ + | Tomasz Solis MD | PCP | | + +------+ + Encounter Details +--------+--------+ + + + | Date | Type | Department | Care Team | Description | +--------+--------+ + + + | 03/26/ | Travel | | | | | [...] | 2020 | Visit | | ,PhD [address] | | | | | | [place], [place] | | | | | | [address] | | | | | | [phone] | | | | | | | | +--------+---------+ + + + documented as of this encounter Visit Diagnoses Not on filedocumented in this encounter"
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
--- OUTSIDE RECORDS SUMMARY | ~2020-05-07 | XMS | Encounter Summary ---
Demographics + + + | Address | [address] | | | [place] [address] | + + + | Home Phone | | + + + | Preferred Language | Unknown | + + + | Marital Status | Single | + + + | Catholic Affiliation | NON | + + + | Race | or | + + + | Ethnic Group | Not or | + + + Author + + + | Author | [facility] [employer] [facility] | + + + | Organization | [facility] [employer] [facility] | + + + | Address | Unknown | + + + | Phone | Unavailable | + + + Support + + + + + | Name | Relationship | Address | Phone | + + + + + | Kaila Oates | ECON | [place] | | | | | [address] | | + + + + + Care Team Providers + +------+ + | Care Communication Consultant Name | Role | Phone | + +------+ + | Tomasz Solis MD | PCP | | + +------+ + Encounter Details +--------+ + + + + | Date | Type | Department | Care Team | Description | +--------+ + + + + | 09/26/ | Procedure | Diagnostic Imaging | | | | 2019 | Pass | Services at [facility] | | | | | | [address] | | | | | | [place] | | | | | | [facility] | | | | | | [place], [place] | | | | | | [address] | | | | | | [phone] | | | +--------+ + + + [...] | | | | | | [place], [place] | | | | | | [address] | | | | | | [phone] | | | | | | | | +--------+---------+ + + + documented as of this encounter Visit Diagnoses Not on filedocumented in this encounter"
--- OUTSIDE RECORDS SUMMARY | ~2020-05-07 | XMS | Encounter Summary ---
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 Specimen | + + | Blood - Blood | | (substance) | + + + + + + + | Performing | Address | City/State/Zipcode | Phone Number | | Organization | | | | + + + + + | [facility] | [address] | [place] [address] | | | SERVICES, CORE | [address] | | | + + + + + RENAL FUNCTION SET (NA,K,CL,CO2,BUN,CREAT,GLUC,CA,PHOS,ALB ) (03/06/2020 11:01 PM PDT) + + + + + + | Component | Value | Ref Range | Performed | Pathologist | | | | | At | Signature | + + + + + + | GLUCOSE, | 135 (H) | 70 - 99 mg/dL | [facility] | | | PLASMA | | | LABORATORY | | | (LAB) | | | SERVICES, | | | | | | CORE | | + + + + + + | BUN, PLASMA | 12 | 6 - 20 mg/dL | [facility] | | | (LAB) | | | LABORATORY | | | | | | SERVICES, | | | | | | CORE | | + + + + + + | CREATININE | 0.63 (L) | 0.70 - 1.30 | [facility] | | | PLASMA | | mg/dL | LABORATORY | | | (LAB) | | | SERVICES, | | | | | | CORE | | + + + + + + | EGFR | >60 | >60 mL/min | [facility] | | | - | | | LABORATORY | | | MALDIVIAN | | | SERVICES, | | | | | | CORE | | + + + + + + | EGFR NON | >60 | >60 mL/min | [facility] | | | -MARIELLA | | | LABORATORY | | | RICAN | | | SERVICES, | | | | | | CORE | | + + + + + + | SODIUM, | 139 | 136 - 145 | [facility] | | | PLASMA | | mmol/L | LABORATORY | | | (LAB) | | | SERVICES, | | | | | | CORE | | + + + + + + | POTASSIUM, | 3.6 | 3.4 - 5.0 | [facility] | | | PLASMA | | mmol/L | LABORATORY | | | (LAB) | | | SERVICES, | | | | | | CORE | | + + + + + + | CHLORIDE, | 107 | 97 - 108 mmol/L | [facility] | | | PLASMA | | | LABORATORY | | | (LAB) | | | SERVICES, | | | | | | CORE | | + + + + + + | TOTAL CO2, | 28 | 21 - 32 mmol/L | [facility] | | | PLASMA | | | LABORATORY | | | (LAB) | | | SERVICES, | | | | | | CORE | | + + + + + + | CALCIUM, | 8.3 (L) | 8.6 - 10.2 | [facility] | | | PLASMA | | mg/dL | LABORATORY | | | (LAB) | | | SERVICES, | | | | | | CORE | | + + + + + + | CALCIUM(ALB | 8.6 | 8.6 - 10.2 | [facility] | | | CORRECTED) | | mg/dL | LABORATORY | | | | | | SERVICES, | | | | | | CORE | | + + + + + + | ALBUMIN, | 3.6 | 3.5 - 4.7 g/dL | [facility] | | | PLASMA | | | LABORATORY | | | (LAB) | | | SERVICES, | | | | | | CORE | | + + + + + + | PHOSPHORUS, | 2.6 | 2.4 - 4.7 mg/dL | [facility] | | | PLASMA | | | LABORATORY | | | (LAB) | | | SERVICES, | | | | | | CORE | | + + + + + + | POTASSIUM | No Hemo | | [facility] | | | CMNT | | | LABORATORY | | | | | | SERVICES, | | | | | | CORE | | + + + + + + | ANION GAP | 4 | 4 - 11 mmol/L | [facility] | | | | | | LABORATORY | | | | | | SERVICES, | | | | | | CORE | | + + + + + + | ANION | 5 | 4 - 11 mmol/L | [facility] | | | GAP(ALB | | | LABORATORY | | | CORRECTED) | | | SERVICES, | | | | | | CORE | | + + + + + + | BUN/CREATIN | 19 | 8 - 25 | [facility] | | | INE RATIO | | | LABORATORY | | | | | | SERVICES, | | | | | | CORE | | + + + + + + + + | Specimen | + + | Blood - Blood | | (substance) | + + + + + | Narrative | Performed At | + + + | GFR is estimated using the MDRD equation recommended by the National | [facility] | | Kidney Disease Education Program. Estimated GFR Interpretive | LABORATORY | | Information: <60 mL/min/1.73 sq m Chronic Kidney | SERVICES, CORE | | Disease <15 mL/min/1.73 sq m Kidney Failure | | | Estimated GFR greater than 60 mL/min/1.73 sq m is of limited clinical | | | value. The MDRD equation is not valid in the following situations: | | | - Patients under 18 years of age - Severe malnutrition or obesity | | | - Vegetarian diet - Rapidly changing kidney function - Amputees, | | | paraplegics, or other muscle-wasting diseases | | + + + + + + + + | Performing | Address | City/State/Zipcode | Phone Number | | Organization | | | | + + + + + | [facility] | [address] | [place] [address] | | | SERVICES, CORE | [address] | | | + + + + + CAPILLARY BLOOD GLUCOSE (NO CHG), POC (03/06/2020 1:55 PM PDT) + +---------+ + + + | Component | Value | Ref Range | Performed | Pathologist | | | | | At | Signature | + +---------+ + + + | BLOOD | 135 (H) | 70 - 99 mg/dL | [facility] - | | | GLUCOSE, | | | [facility] | | | POC | | | [facility] | | | | | | OF CARE | | | | | | TESTS | | + +---------+ + + + + + | Specimen | + + | Blood | + + + + + + + | Performing | Address | City/State/Zipcode | Phone Number | | Organization | | | | + + + + + | [facility] | [address] | [place], [place] | | | [facility] | [facility] | [address] | | | TESTS | | | | + + + + + CARDIOLOGY (03/06/2020 12:00 AM PDT) + + + | Narrative | Performed At | + + + | | | + + + documented in this encounter Visit Diagnoses + + | Diagnosis | + + | Brachial plexus disorders Brachial plexus lesions | + + documented in this encounter Admitting Diagnoses + + | Diagnosis | + + | Brachial plexus disorders Brachial plexus lesions | + + documented in this encounter Administered Medications + +--------+ + +------+------+ | Medication Order | MAR | Action | Dose | Rate | Site | | | Action | Date | | | | + +--------+ + +------+------+ | acetaminophen (TYLENOL) tablet | Given | 03/07/20 | 1,000 mg | | | | 1,000 mg 1,000 mg, oral, EVERY 6 | | 20 9:29 | | | | | HOURS, First dose on Thu03/06/20 | | AM PDT | | | | | at 1800, Until Discontinued | | | | | | + +--------+ + +------+------+ +-------+ + +---+---+ | Given | 03/06/20 | 1,000 mg | | | | | 20 6:51 | | | | | | PM PDT | | | | +-------+ + +---+---+ +---+---+ | | | +---+---+ + +-------+ +-------+---+---+ | baclofen (LIORESAL) tablet 10 | Given | 03/07/20 | 10 mg | | | | mg 10 mg, oral, THREE TIMES | | 20 9:29 | | | | | DAILY, First dose on Thu03/06/20 | | AM PDT | | | | | at 1600, Until Discontinued | | | | | | + +-------+ +-------+---+---+ +-------+ +-------+---+---+ | Given | 03/06/20 | 10 mg | | | | | 20 9:54 | | | | | | PM PDT | | | | +-------+ +-------+---+---+ +---+---+ | | | +---+---+ + +-------+ +-------+---+ + | bupivacaine | Given | 03/06/20 | 10 mL | | Left Arm | | (MARCAINE,SENSORCAINE) 0.25 % | | 20 1:11 | | | | | (2.5 mg/mL) injection | | PM PDT | | | | | INTRAPROCEDURE PRN, Starting Thu | | | | | | | 03/06/20 at 1100, Until Tue | | | | | | | 03/06/20 at 1400 | | | | | | + +-------+ +-------+---+ + +-------+ +-------+---+------+ | Given | 03/06/20 | 10 mL | | Neck | | | 20 11:00 | | | | | | AM PDT | | | | +-------+ +-------+---+------+ +---+---+ | | | +---+---+ + +-------+ +--------+---+---+ | gabapentin (NEURONTIN) capsule | Given | 03/06/20 | 300 mg | | | | 300 mg 300 mg, oral, THREE TIMES | | 20 9:54 | | | | | DAILY, First dose on Thu03/06/20 | | PM PDT | | | | | at 1600, Until Discontinued | | | | | | + +-------+ +--------+---+---+ +---+---+ | | | +---+---+ + +-------+ +--------+---+---+ | gabapentin (NEURONTIN) capsule | Given | 03/07/20 | 300 mg | | | | 300 mg 300 mg, oral, TWICE | | 20 9:29 | | | | | DAILY, First dose (after last | | AM PDT | | | | | modification) on Thu03/07/20 at | | | | | | | 0900, Until Discontinued | | | | | | + +-------+ +--------+---+---+ + +---+ | | | + +---+ | gabapentin (NEURONTIN) capsule | | | 600 mg 600 mg, oral, AT BEDTIME, | | | First dose on Thu03/07/20 at | | | 2200, Until Discontinued | | + +---+ | | | + +---+ + +---------+ + + +---+ | lactated ringers (LR) infusion | New Bag | 03/06/20 | 10 mL/hr | 10 mL/hr | | | 10 mL/hr, intravenous, PROCEDURE | | 20 6:24 | | | | | CONTINUOUS, Starting Thu03/06/20 | | AM PDT | | | | | at 0615, Until Thu03/06/20 at | | | | | | | 1649 | | | | | | + +---------+ + + +---+ +---+---+ | | | +---+---+ + +-------+ +------+---+---+ | melatonin tablet 3 mg 3 mg, | Given | 03/06/20 | 3 mg | | | | oral, EVERY EVENING, First dose | | 20 9:54 | | | | | on Thu03/06/20 at 2100, Until | | PM PDT | | | | | Discontinued | | | | | | + +-------+ +------+---+---+ +---+---+ | | | +---+---+ + +-------+ +-------+---+---+ | morphine ER (MS CONTIN) tablet | Given | 03/07/20 | 30 mg | | | | 30 mg 30 mg, oral, EVERY 12 | | 20 9:29 | | | | | HOURS, First dose on Thu03/06/20 | | AM PDT | | | | | at 2100, Until Discontinued | | | | | | + +-------+ +-------+---+---+ +-------+ +-------+---+---+ | Given | 03/06/20 | 30 mg | | | | | 20 9:53 | | | | | | PM PDT | | | | +-------+ +-------+---+---+ +---+---+ | | | +---+---+ + +-------+ +------+---+---+ | oxyCODONE (immediate release) | Given | 03/06/20 | 5 mg | | | | (ROXICODONE) tablet 5-15 mg 5-15 | | 20 6:51 | | | | | mg, oral, EVERY 4 HOURS | | PM PDT | | | | | NEEDED, Starting Thu03/06/20 at | | | | | | | 1443, Until Thu03/06/20 at 2347, | | | | | | | moderate pain, unresponsive to | | | | | | | non-opioid medication | | | | | | + +-------+ +------+---+---+ +---+---+ | | | +---+---+ + +-------+ +------+---+---+ | oxyCODONE (immediate release) | Given | 03/07/20 | 5 mg | | | | (ROXICODONE) tablet 5-15 mg 5-15 | | 20 2:12 | | | | | mg, oral, EVERY 3 HOURS | | AM PDT | | | | | NEEDED, Starting Thu03/07/20 at | | | | | | | 0000, Until Thu03/07/20 at 1807, | | | | | | | moderate pain, unresponsive to | | | | | | | non-opioid medication | | | | | | + +-------+ +------+---+---+ +---+---+ | | | +---+---+ + +-------+ +------+---+---+ | polyethylene glycol (MIRALAX) | Given | 03/07/20 | 17 g | | | | packet 17 g 17 g, oral, DAILY, | | 20 9:51 | | | | | First dose on Thu03/06/20 at | | AM PDT | | | | | 1700, Until Discontinued | | | | | | + +-------+ +------+---+---+ +---+---+ | | | +---+---+ + +-------+ +--------+---+---+ | QUEtiapine (SEROQUEL) tablet | Given | 03/06/20 | 100 mg | | | | 100 mg 100 mg, oral, AT BEDTIME, | | 20 9:54 | | | | | First dose on Thu03/06/20 at | | PM PDT | | | | | 2200, Until Discontinued | | | | | | + +-------+ +--------+---+---+ +---+---+ | | | +---+---+ + +-------+ +---------+---+---+ | senna-docusate (SENOKOT S) | Given | 03/07/20 | 2 | | | | 8.6-50 mg 2 tablet 2 tablet, | | 20 8:34 | tablets | | | | oral, TWICE DAILY, First dose on | | AM PDT | | | | | Thu03/06/20 at 2100, Until | | | | | | | Discontinued | | | | | | + +-------+ +---------+---+---+ +-------+ +---------+---+---+ | Given | 03/06/20 | 2 | | | | | 20 9:54 | tablets | | | | | PM PDT | | | | +-------+ +---------+---+---+ +---+---+ | | | +---+---+ documented in this encounter
--- OUTSIDE RECORDS SUMMARY | ~2020-05-07 | XMS | Encounter Summary ---
Demographics + + + | Address | [address] | | | [place] [address] | + + + | Home Phone | | + + + | Preferred Language | Unknown | + + + | Marital Status | Single | + + + | Anabaptist Affiliation | NON | + + + | Race | or | + + + | Ethnic Group | Not or | + + + Author + + + | Author | [facility] | + + + | Organization | [facility] | + + + | Address | Unknown | + + + | Phone | Unavailable | + + + Support + + + + + | Name | Relationship | Address | Phone | + + + + + | Kaila Oates | ECON | [place] | | | | | [address] | | + + + + + Care Team Providers + +------+ + | Care Boot Trimmer Name | Role | Phone | + +------+ + | Tomasz Solis MD | PCP | | + +------+ + Encounter Details +--------+ + + + + | Date | Type | Department | Care Team | Description | +--------+ + + + + | 10/11/ | Ophth Exam | [facility] | Kyree Moran, | | | 2019 | | [place]/Ophthalmol | [address] | | | | | kelli at [facility] [address] | [address]o | | | | | [facility] | [place], [place] | | | | | [facility] and He[facility], | [address] | | | | | [facility] | [phone] | | | | | Floor [place], [place] | | | | | | [address] | | | | | | [phone] | | | +--------+ + + + [...] | 2019 | Visit | | ,PhD [address] | | | | | | [place], [place] | | | | | | [address] | | | | | | [phone] | | | | | | | | +--------+---------+ + + + documented as of this encounter Visit Diagnoses Not on filedocumented in this encounter"
--- OUTSIDE RECORDS SUMMARY | ~2020-05-07 | XMS | Encounter Summary ---
Demographics + + + | Address | [address] | | | [place] [address] | + + + | Home Phone | | + + + | Preferred Language | Unknown | + + + | Marital Status | Single | + + + | Jew Affiliation | NON | + + + [...] [place] | | | | | [address] | | + + + + + Care Team Providers + +------+ + | Care Jv Baseball Coach Name | Role | Phone | + +------+ + | Tomasz Solis MD | PCP | | + +------+ + Encounter Details +--------+--------+ + + + | Date | Type | Department | Care Team | Description | +--------+--------+ + + + | 01/01/ | Travel | | | | | [...] | 2019 | Visit | | ,PhD [address] | | | | | | [place], [place] | | | | | | [address] | | | | | | [phone] | | | | | | | | +--------+---------+ + + + documented as of this encounter Visit Diagnoses Not on filedocumented in this encounter"
--- OUTSIDE RECORDS SUMMARY | ~2020-05-07 | XMS | Encounter Summary ---
Demographics + + + | Address | [address] | | | [place] [address] | + + + | Home Phone | | + + + | Preferred Language | Unknown | + + + | Marital Status | Single | + + + | Voodoo Affiliation | NON | + + + | Race | or | + + + | Ethnic Group | Not or | + + + Author + + + | Author | [facility] | + + + | Organization | [facility] | + + + | Address | Unknown | + + + | Phone | Unavailable | + + + Support + + + + + | Name | Relationship | Address | Phone | + + + + + | Kaila Oates | ECON | [place] | | | | | [address] | | + + + + + Care Team Providers + +------+ + | Care Manager Employment Name | Role | Phone | + +------+ + | Tomasz Solis MD | PCP | | + +------+ + Encounter Details +--------+ + + + + | Date | Type | Department | Care Team | Description | +--------+ + + + + | 09/25/ | Ophth Exam | [facility] | Lynne Lazo MD | | | 2019 | | [place]/[facility]hthalmol | [address] | | | | | ogy at [address] | [place], [place] | | | | | [facility] | [address] | | | | | Health and Healing, | [phone] | | | | | [facility] | | | | | | Floor [place], [place] | | | | | | [address] | | | | | | [phone] | | | +--------+ + + + [...] | | | | | | [place], [place] | | | | | | [address] | | | | | | [phone] | | | | | | | | +--------+---------+ + + + documented as of this encounter Visit Diagnoses Not on filedocumented in this encounter"
--- OUTSIDE RECORDS SUMMARY | ~2020-05-07 | XMS | Encounter Summary ---
Demographics + + + | Address | [address] | | | [place] [address] | + + + | Home Phone | | + + + | Preferred Language | Unknown | + + + | Marital Status | Single | + + + | Anglican Affiliation | NON | + + + [...] [place] | | | | | [address] | | + + + + + Care Team Providers + +------+ + | Care Tag Press Operator Name | Role | Phone | + +------+ + | No Pcp Per Patient | PCP | Unavailable | + +------+ + Encounter Details +--------+--------+ + + + | Date | Type | Department | Care Team | Description | +--------+--------+ + + + | /03/ | Travel | | | | | [...] | | | | | | [place], [place] | | | | | | [address] | | | | | | [phone] | | | | | | | | +--------+---------+ + + + documented as of this encounter Visit Diagnoses Not on filedocumented in this encounter"
--- OUTSIDE RECORDS SUMMARY | ~2020-05-07 | XMS | Encounter Summary ---
Demographics + + + | Address | [address] | | | [place] [address] | + + + | Home Phone | | + + + | Preferred Language | Unknown | + + + | Marital Status | Single | + + + | Islam Affiliation | NON | + + + | Race | or | + + + | Ethnic Group | Not or | + + + Author + + + | Author | [facility] | + + + | Organization | [facility] [employer] [facility] | + + + | Address | Unknown | + + + | Phone | Unavailable | + + + Support + + + + + | Name | Relationship | Address | Phone | + + + + + | Kaila Oates | ECON | [place] | | | | | [address] | | + + + + + Care Team Providers + +------+ + | Care Ice Guard Skating Rink Name | Role | Phone | + [...] + + + + | 03/06/ | Anesthesia | 6A Intra Op 3181 | Alena Roach MD | | | 2020 | Event | [address] | [address] | | | | | [facility] | [place] [facility] | | | | | Hospital Admitting | [place] [address] | | | | | Desk Located on the | [phone] | | | | | 9th floor | | | | | | [facility] [place] | Quentin Harrison CRNA | | | | | [address] | [address] | | | | | | [place] | | | | | | [place] [address] | | | | | | [phone] | | | | | | | | +--------+ + + + + Anesthesia Record + + + + + | Procedure Name | Responsible | Anesthesia Start | Anesthesia Stop Time | | | Anesthesiologist | Time | | + + + + + | LEFT BRACHIAL PLEXUS | Alena Roach MD | 03/06/20 0722 | 03/06/20 1400 | | RECONSTRUCTION WITH | | | | | NERVE TRANSFER | | | | | (Left Arm) | | | | + + + + + +----+---+ + + | Da | T | Event | Comment | | te | i | | | | | m | | | | | e | | | +----+---+ + + | 05 | 0 | Eq Check | Anesthesia machine checked Equipment verified | | /1 | 6 | | | | 9/ | 5 | | | | 20 | 9 | | | | 20 | | | | +----+---+ + + | | 0 | | | | | 7 | | | | | 2 | | | | | 0 | | | +----+---+ + + | | 0 | Pt. Check | Prior to anesthesia start, pt. Identified, examined, chart | | | 7 | | reviewed, PARQ held, anesthetic plan made or approved by | | | 2 | | attending anesthesiologist. NPO status confirmed as appropriate | | | 0 | | for procedure Preoperative evaluation: unchanged | +----+---+ + + | | 0 | An Start | | | | 7 | | | | | 2 | | | | | 2 | | | +----+---+ + + | | 0 | An Start | | | | 7 | Data | | | | 3 | | | | | 5 | | | +----+---+ + + | | 0 | Vitals | Monitors applied Vital signs checked Patient ready for anesthesia | | | 7 | Checked | | | | 4 | | | | | 0 | | | +----+---+ + + | | 0 | ETT | | | | 7 | | | | | 5 | | | | | 0 | | | +----+---+ + + | | 0 | Ready | | | | 7 | | | | | 5 | | | | | 3 | | | +----+---+ + + | | 0 | Abx | | | | 8 | Administere | | | | 1 | d | | | | 0 | | | +----+---+ + + | | 0 | Quick Note | Variability in time interval of data due to previous lack of | | | 8 | | capture of Epic software. | | | 2 | | | | | 0 | | | +----+---+ + + | | 0 | Timeout | | | | 8 | | | | | 2 | | | | | 5 | | | +----+---+ + + | | 0 | Incision | | | | 8 | | | | | 2 | | | | | 6 | | | +----+---+ + + | | 1 | Local | | | | 0 | Anesthetic | | | | 5 | by Surgeon | | | | 9 | | | +----+---+ + + | | 1 | Quick Note | Pulse ox site changed | | | 2 | | | | | 0 | | | | | 2 | | | +----+---+ + + | | 1 | Surgery end | | | | 3 | | | | | 2 | | | | | 8 | | | +----+---+ + + | | 1 | An Extubate | Neuromuscular function Intact. Pharynx suctioned. Patient obeys | | | 3 | | commands. Adequate pulmonary mechanics. | | | 5 | | | | | 1 | | | +----+---+ + + | | 1 | O2 by FM | | | | 3 | | | | | 5 | | | | | 1 | | | +----+---+ + + | | 1 | an stop | | | | 3 | data | | | | 5 | | | | | 1 | | | +----+---+ + + | | 1 | PACU Rpt | | | | 4 | Given | | | | 0 | | | | | 0 | | | +----+---+ + + | | 1 | Anesthesia | | | | 4 | End | | | | 0 | | | | | 0 | | | +----+---+ + + | | 1 | Post-Op | | | | 5 | Page | | | | 3 | | | | | 0 | | | +----+---+ + + +------+ | Meds | +------+ + + + | Name | Total | + + + | midazolam | 2 mg | + + + | lidocaine 2% | 100 mg | + + + | propofoL (DIPRIVAN) 200 mg | 200 mg | + + + | SUFentanil | 10 mcg | + + + | SUFentanil (SUFENTA) INF 50 mcg | 86.63 mcg | + + + | succinylcholine | 140 mg | + + + | ceFAZolin (ANCEF) injection 2 g | 4 g | + + + | ketamine | 30 mg | + + + | ketamine (KETALAR) INF 200 mg | 84,728 mcg | + + + | dexamethasone | 8 mg | + + + | ondansetron | 4 mg | + + + | LR bolus | 1,700 mL | + + + | LR infusion | 250.83 mL | + + + + + | Name | + + | O2 FR Avance (Total Liters) | + + | Air FR Avance (l/min) | + + | Insp Sevo | + + | Et Sevo | + + + + | No blood administrations on file. | + + +--------+ + + + | Type | Details | Placement | Removal | +--------+ + + + | Incisi | 09/26/19; 2149; Mary GOMEZ; Left; | 09/26/192149 by | | | on | face | Carmelita Caban RN | | +--------+ + + + | Drain | 09/26/19; 2338; MD Mary; Katharine | 09/26/192338 by | | | | (10/20"); Left; scalp | Ary Yen RN | | +--------+ + + + | Wound | 09/28/19; 1300; Left; Medial, | 09/28/19 1300 by | | | | Upper; scalp; Laceration | Marguerite Arthur RN | | +--------+ + + + | Wound | 10/06/19; 0800; Yes; Left; | 10/06/19 0800 by | | | | Anterior; knee; Abrasion | Saroj Ruggiero RN | | +--------+ + + + | Wound | 10/06/19; 0800; Yes; Left; | 10/06/19 0800 by | | | | shoulder | Saroj Ruggiero RN | | +--------+ + + + | Wound | 10/07/19; 0800; Yes; Lower, | 10/07/19 08 by | | | | Posterior; head; Laceration | Saroj Ruggiero RN | | +--------+ + + + | Periph | 12/19/19; 1658; Right; | 12/19/191658 by | | | eral | Antecubital; 20 g; None; No; | Comfort Bal RN | | | IV | Positive | | | +--------+ + + + | Incisi | 03/06/20; dr platt; Left; | 03/06/20 0000 by | | | on | Upper; arm | Ray De Dios RN | | +--------+ + + + | Incisi | 03/06/20; 0842; Dr. Platt; | 03/06/20 0842 by | | | on | Left; Lateral, Lower; neck | Susi I | | | | | ALCIDES Norris | | +--------+ + + + | Periph | 03/06/20; 0632; Right; Hand; 20 | 03/06/20 0632 by | 03/07/20 1027 by | | eral | g; 03/07/20; 1027; Discharge | Trina Hassan RN | Gabriela Sanabria RN | | IV | | | | +--------+ + + + | ETT | 03/06/20; 0750 (created via | 03/06/20 0750 by | 03/06/20 1351 by | | | procedure documentation); Quentin | Quentin Harrison CRNA | Quentin Harrison CRNA | | | TRICIA Harrison; Endotracheal Tube; | | | | | 8; Oral; Cuffed; 03/06/20; 1351 | | | +--------+ + + + | Urethr | 03/06/20; 0800; H. rJ, | 03/06/20 0800 by | 03/06/20 1321 by | | delia | ALCIDES; Temp-loyda Croft; 16 Fr.; 10 | Susi I | Susi I | | Cathet | mL; 03/06/20; 1321 | ALCIDES Norris | ALCIDES Norris | | er | | | | +--------+ + + + | Periph | 03/06/20; 0800; Right; | 03/06/20 0800 by | 03/07/20 1026 by | | eral | Antecubital; 16 g; Positive; | Quentin Harrison CRNA | Gabriela Sanabria RN | | IV | 03/07/20; 1026; Discharge | | | +--------+ + + + documented in this encounter Social History + + + +--------+ + [...] | Office | Plastic Surgery | Paul Platt, | | | 2019 | Visit | | MDPhD [address] | | | | | | [place], [place] | | | | | | [address] | | | | | | [phone] | | | | | | | | +--------+---------+ + + + documented as of this encounter Procedures + +--------+ + + + | Procedure Name | Priori | Date/Time | Associated Diagnosis | Comments | | | ty | | | | + +--------+ + + + | ANE ETT | Routin | 03/06/2020 | | Results for this | | | e | 8:54 AM | | procedure are in the | | | | PDT | | results section. | + +--------+ + + + documented in this encounter Results ETT (03/06/2020 8:54 AM PDT) + + + | Narrative | Performed At | + + + | Quentin Harrison CRNA 03/06/2020 8:55 AM AIRWAY MANAGEMENT - ETT | | | Time of Placement: 03/06/2020 7:50 AM Intubation Reason: For | | | surgical procedure Positioning: Supine Location Performed:OR | | | OXYGENATION Patient was preoxygenated Grade: Grade 1 - Ventilated by | | | mask Induction:Routine INTUBATION ATTEMPT 1 | | | Videolaryngoscopy: Glidescope Intubation Adjuncts: w/ Stylet | | | Laryngoscopic View: Grade I ETT DETAILS ETT Type:Standard, Hi-Lo | | | Cuffed Intubation Type: Oral Cuff Status: Cuffed Size: 8 ETT | | | secured with adhesive tape Depth at Teeth: 22 cm Airway Leak: No | | | CONFIRMATION airway not difficult Number of Attempts: 1 | | | Atraumatic placement Positive for EtCO2:Waveform capnography Breath | | | Sounds: Bilateral and equal NARRATIVE Attending was physically | | | present for the critical portions of the procedure as described in | | | the procedure note Attending/Authorizing Provider: Alena Roach MD | | | Performing Provider: Quentin Harrison CRNA | | + + + documented in this encounter Visit Diagnoses Not on filedocumented in this encounter Administered Medications + +--------+ +------+------+------+ | Medication Order | MAR | Action | Dose | Rate | Site | | | Action | Date | | | | + +--------+ +------+------+------+ | ceFAZolin (ANCEF) injection 2 g | Given | 03/06/20 | 2 g | | | | 2 g, intravenous, PREPROCEDURE | | 20 11:57 | | | | | ONCE, 1 dose, Starting Tue | | AM PDT | | | | | 03/06/20 at 0611, Until Tue | | | | | | | 03/06/20 at 1157 | | | | | | + +--------+ +------+------+------+ +-------+ +-----+---+---+ | Given | 03/06/20 | 2 g | | | | | 20 8:10 | | | | | | AM PDT | | | | +-------+ +-----+---+---+ +---+---+ | | | +---+---+ + +-------+ +------+---+---+ | dexamethasone (DECADRON) | Given | 03/06/20 | 8 mg | | | | injection INTRAPROCEDURE PRN, | | 20 8:15 | | | | | Starting e 03/06/20 at 0815, | | AM PDT | | | | | Until e 03/06/20 at 1400 | | | | | | + +-------+ +------+---+---+ +---+---+ | | | +---+---+ + +---------+ + +---+---+ | ketamine (KETALAR) INF 200 mg | New Bag | 03/06/20 | 4 | | | | INTRAPROCEDURE CONTINUOUS PRN, | | 20 9:07 | mcg/kg/m | | | | Starting 03/06/20 at 0907, | | AM PDT | in | | | | Until e 03/06/20 at 1400 | | | | | | + +---------+ + +---+---+ +---+---+ | | | +---+---+ + +-------+ +-------+---+---+ | ketamine (KETALAR) injection | Given | 03/06/20 | 30 mg | | | | INTRAPROCEDURE PRN, Starting Tue | | 20 9:07 | | | | | 03/06/20 at 0907, Until Tue | | AM PDT | | | | | 03/06/20 at 1400 | | | | | | + +-------+ +-------+---+---+ +---+---+ | | | +---+---+ + + + +---+---+---+ | lactated ringers (LR) bolus | given by | 03/06/20 | | | | | INTRAPROCEDURE CONTINUOUS PRN, | | 20 1:11 | | | | | Starting 03/06/20 at 0722, | anesthes | PM PDT | | | | | Until 03/06/20 at 1400 | iology | | | | | + + + +---+---+---+ + + +---+---+---+ | given by anesthesiology | 03/06/20 | | | | | | 20 11:35 | | | | | | AM PDT | | | | + + +---+---+---+ | given by anesthesiology | 03/06/20 | | | | | | 20 8:54 | | | | | | AM PDT | | | | + + +---+---+---+ +---+---+ | | | +---+---+ + +---------+ +---+ +---+ | lactated ringers (LR) infusion | New Bag | 03/06/20 | | 50 mL/hr | | | INTRAPROCEDURE CONTINUOUS PRN, | | 20 8:10 | | | | | Starting 03/06/20 at 0810, | | AM PDT | | | | | Until 03/06/20 at 1400 | | | | | | + +---------+ +---+ +---+ +---+---+ | | | +---+---+ + +-------+ +--------+---+---+ | lidocaine (XYLOCAINE MPF) 2 % | Given | 03/06/20 | 100 mg | | | | (20 mg/mL) injection | | 20 7:47 | | | | | intravenous, INTRAPROCEDURE PRN, | | AM PDT | | | | | Starting 03/06/20 at 0747, | | | | | | | Until 03/06/20 at 1400 | | | | | | + +-------+ +--------+---+---+ +---+---+ | | | +---+---+ + +-------+ +------+---+---+ | midazolam (PF) (VERSED) | Given | 03/06/20 | 2 mg | | | | injection intravenous, | | 20 7:30 | | | | | INTRAPROCEDURE PRN, Starting Tue | | AM PDT | | | | | 03/06/20 at 0730, Until Tue | | | | | | | 03/06/20 at 1400 | | | | | | + +-------+ +------+---+---+ +---+---+ | | | +---+---+ + +-------+ +------+---+---+ | ondansetron (ZOFRAN) injection | Given | 03/06/20 | 4 mg | | | | INTRAPROCEDURE PRN, Starting Tue | | 20 1:04 | | | | | 03/06/20 at 1304, Until Tue | | PM PDT | | | | | 03/06/20 at 1400 | | | | | | + +-------+ +------+---+---+ +---+---+ | | | +---+---+ + +-------+ +-------+---+---+ | propofoL (DIPRIVAN) 200 mg | Bolus | 03/06/20 | 50 mg | | | | intravenous, INTRAPROCEDURE | | 20 7:50 | | | | | CONTINUOUS PRN, Starting Tue | | AM PDT | | | | | 03/06/20 at 0749, Until Tue | | | | | | | 03/06/20 at 1400 | | | | | | + +-------+ +-------+---+---+ +---------+ +--------+---+---+ | New Bag | 03/06/20 | 150 mg | | | | | 20 7:49 | | | | | | AM PDT | | | | +---------+ +--------+---+---+ +---+---+ | | | +---+---+ + +-------+ +--------+---+---+ | succinylcholine (ANECTINE) | Given | 03/06/20 | 140 mg | | | | injection INTRAPROCEDURE PRN, | | 20 7:49 | | | | | Starting 03/06/20 at 0749, | | AM PDT | | | | | Until 03/06/20 at 1400 | | | | | | + +-------+ +--------+---+---+ +---+---+ | | | +---+---+ + +---------+ + +---+---+ | SUFentanil (SUFENTA) INF 50 mcg | New Bag | 03/06/20 | 0.2 | | | | INTRAPROCEDURE CONTINUOUS PRN, | | 20 8:10 | mcg/kg/h | | | | Starting 5/19/20 at 0810, | | AM PDT | r | | | | Until 03/06/20 at 1400 | | | | | | + +---------+ + +---+---+ +---+---+ | | | +---+---+ + +-------+ +-------+---+---+ | SUFentanil (SUFENTA) injection | Given | 03/06/20 | 5 mcg | | | | INTRAPROCEDURE PRN, Starting Tu | | 20 7:55 | | | | | 03/06/20 at 0747, Until Tue | | AM PDT | | | | | 03/06/20 at 1400 | | | | | | + +-------+ +-------+---+---+ +-------+ +-------+---+---+ | Given | 03/06/20 | 5 mcg | | | | | 20 7:47 | | | | | | AM PDT | | | | +-------+ +-------+---+---+ +---+---+ | | | +---+---+ documented in this encounter
--- OUTSIDE RECORDS SUMMARY | ~2020-05-07 | XMS | Encounter Summary ---
Demographics + + + | Address | [address] | | | [place] [address] | + + + | Home Phone [...] | Author | [facility] | + + + | Organization | [facility] | + + + | Address | Unknown | + + + | Phone | Unavailable | + + + Support + + + + + | Name | Relationship | Address | Phone | + + + + + | Kaila Oates | ECON | [place] | | | | | [address] | | + + + + + Care Team Providers + +------+ + | Care New Car Make Ready Mechanic Name | Role | Phone | + +------+ + | Tomasz Solis MD | PCP | | + +------+ + Encounter Details +--------+ + + + + | Date | Type | Department | Care Team | Description | +--------+ + + + + | 04/10/ | MyChart | Plastic and | Paul Herrera, | RE: delma | | 2020 | Encounter | Reconstructive | ,PhD [address] | | | | | Surgery at [facility] [address] [place], [place] | | | | | [address] [facility] | [address] | | | | | for Health and | [phone] | | | | | Healing, [facility] 1, | | | | | | 5th Floor | | | | | | [facility] [place] | | | | | | [address] | | | | | | [phone] | | | +--------+ + + + [...] | Visit | | MDPhD [address] | | | | | | [place], [place] | | | | | | [address] | | | | | | [phone] | | | | | | | | +--------+---------+ + + + documented as of this encounter Visit Diagnoses Not on filedocumented in this encounter"
--- OUTSIDE RECORDS SUMMARY | ~2020-05-07 | XMS | Encounter Summary ---
Demographics + + + | Address | [address] | | | [place] [address] | + + + | Home Phone | | + + + | Preferred Language | Unknown | + + + | Marital Status | Single | + + + | Yarsanism Affiliation | NON | + + + | Race | or | + + + | Ethnic Group | Not or | + + + Author + + + | Author | [facility] | + + + | Organization | [facility] | + + + | Address | Unknown | + + + | Phone | Unavailable | + + + Support + + + + + | Name | Relationship | Address | Phone | + + + + + | Kaila Oates | ECON | [place] | | | | | [address] | | + + + + + Care Team Providers + +------+ + | Care Manager Art Name | Role | Phone | + +------+ + | Tomasz Solis MD | PCP | | + +------+ + Reason for Visit + + + | Reason | Comments | + + + | Covid19 Screening | | + + + Encounter Details +--------+ + + + + | Date | Type | Department | Care Team | Description | +--------+ + + + + | 03/04/ | Clinical | Preoperative | | Covid19 Screening | | 2020 | Support | Medicine Clinic at | | | | | Staff | [facility] | | | | | | [address] | | | | | | [facility] | | | | | | and Healing, | | | | | | [address] | | | | | | [place], [place] | | | | | | [address] | | | | | | [phone] | | | +--------+ + + + [...] | | 2020 | Visit | | MDPhD [address] | | | | | | [place] [facility] [place] | | | | | | [address] | | | | | | [phone] | | | | | | | | +--------+---------+ + + + documented as of this encounter Procedures + +--------+ + + + | Procedure Name | Priori | Date/Time | Associated Diagnosis | Comments | | | ty | | | | + +--------+ + + + | COVID-19 | Urgent | 03/04/2020 | Encounter for | Results for this | | | | 7:55 AM | screening for other | procedure are in the | | | | PDT | viral diseases | results section. | + +--------+ + + + documented in this encounter Results COVID-19 (03/04/2020 7:55 AM PDT) + + + + + + | Component | Value | Ref Range | Performed | Pathologist | | | | | At | Signature | + + + + + + | COVID-19 | Not Detected | Not Detected | [facility] | | | | | | MOLE[facility]ULAR | | | | | | [facility]CRO[facility] | | | | | | Y LAB | | + + + + + + + + | Specimen | + + | Swab - Nasopharynx | + + + + + | Narrative | Performed At | + + + | Not Detected results do not preclude SARS-CoV-2 infection and should | [facility] | | not be used as the sole basis for treatment or other patient | MOLECULAR | | management decisions. Not Detected results must be combined with | MICROBIOLIGY | | clinical observations, patient history, and epidemiological | LAB | | information. Analyte specific reagents are used in many laboratory | | | tests necessary for standard medical care. This test was developed and | | | its performance characteristics determined by [email or web address]. It | | | has not been cleared or approved by the US Food and Drug | | | Administration (FDA). FDA does not require this test to go through | | | premarket FDA review. This test is used for clinical purposes. It | | | should not be regarded as investigational or for research. The | | | laboratory is certified under the Clinical Laboratory Improvement | | | Amendments (CLIA) as qualified to perform high complexity clinical | | | laboratory testing. | | + + + + + + + + | Performing | Address | City/State/Zipcode | Phone Number | | Organization | | | | + + + + + | [facility] | [address] | [place] [address] | | | MICROBIOLOGY LAB | [address] | | | + + + + + | [facility] | [address] | [place], [place] | | | MICROBIOLIGY LAB | [address] | [address], [place] | | + + + + + documented in this encounter Visit Diagnoses + + | Diagnosis | + + | Encounter for screening for other viral diseases - Primary | + + documented in this encounter"
--- OUTSIDE RECORDS SUMMARY | ~2020-05-07 | XMS | Encounter Summary ---
Demographics + + + | Address | [address] | | | [place] [address] | + + + | Home Phone | | + + + | Preferred Language | Unknown | + + + | Marital Status | Single | + + + | Alevism Affiliation | NON | + + + | Race | or | + + + | Ethnic Group | Not or | + + + Author + + + | Author | [facility] | + + + | Organization | [facility] | + + + | Address | Unknown | + + + | Phone | Unavailable | + + + Support + + + + + | Name | Relationship | Address | Phone | + + + + + | Kaila Oates | ECON | [place] | | | | | [address] | | + + + + + Care Team Providers + +------+ + | Care Chief Nurse Executive Name | Role | Phone | + [...] | +--------+ + + + + | 10/06/ | Anesthesia | 6A Intra Op 3181 | Milind Ordonez | | | 2019 | Event | [address] | RMD [address] | | | | | [facility] | [address] | | | | | Hospital Admitting | [place], [place] | | | | | Desk Located on the | [address] | | | | | 9th floor | [phone] | | | | | [place], [place] | | | | | | [address] | Brittny Monge | | | | | | TRICIA Stephenson [address] | | | | | | [address] | | | | | | [place], [place] | | | | | | [address] | | | | | | [phone] | | | | | | | | +--------+ + + + + Anesthesia Record + + + + + | Procedure Name | Responsible | Anesthesia Start | Anesthesia Stop Time | | | Anesthesiologist | Time | | + + + + + | OPEN REDUCTION | Milind Ordonez, | 10/06/190 | 10/07/190 | | INTERNAL FIXATION | MD | | | | left MIDFACE AND | | | | | ORBITAL FRACTUREs, | | | | | revision repair of | | | | | facial and scalp | | | | | lacerations (N/A ) | | | | + + + + + +----+---+ + + | Da | T | Event | Comment | | te | i | | | | | m | | | | | e | | | +----+---+ + + | 12 | 2 | An Start | | | /1 | 2 | | | | 9/ | 0 | | | | 20 | 0 | | | | 19 | | | | +----+---+ + + | | 2 | An Start | | | | 2 | Data | | | | 0 | | | | | 3 | | | +----+---+ + + | | 2 | Vitals | Monitors applied Vital signs checked Patient ready for anesthesia | | | 2 | Checked | | | | 1 | | | | | 1 | | | +----+---+ + + | | 2 | ETT | | | | 2 | | | | | 1 | | | | | 6 | | | +----+---+ + + | | 2 | Ready | | | | 2 | | | | | 2 | | | | | 1 | | | +----+---+ + + | | 2 | Abx | | | | 2 | Administere | | | | 3 | d | | | | 5 | | | +----+---+ + + | | 2 | Local | | | | 2 | Anesthetic | | | | 4 | by Surgeon | | | | 5 | | | +----+---+ + + | | 2 | Incision | | | | 2 | | | | | 4 | | | | | 8 | | | +----+---+ + + | | 2 | Intraop and | - Patient/Allergies/Procedure - Relevant PMH - Relevant data | | | 2 | Med | (labs/imaging) - Anesthetic (airway, infusions, drug redoses) - | | | 5 | Handoff | Lines/Drains - I/O - Current Phase and significant events - | | | 8 | | Emergence/dispo plans, post-op concerns Fentanyl 400 mcg | | | | | Hydromorphone 2mg Other | +----+---+ + + | 12 | 0 | Surgery end | | | /2 | 2 | | | | 0/ | 0 | | | | 20 | 8 | | | | 19 | | | | +----+---+ + + | | 0 | An Extubate | Neuromuscular function Intact. Pharynx suctioned. Patient obeys | | | 2 | | commands. Adequate pulmonary mechanics. | | | 1 | | | | | 2 | | | +----+---+ + + | | 0 | an stop | | | | 2 | data | | | | 2 | | | | | 0 | | | +----+---+ + + | | 0 | Anesthesia | | | | 2 | End | | | | 2 | | | | | 0 | | | +----+---+ + + | | 0 | PACU Rpt | | | | 2 | Given | | | | 3 | | | | | 8 | | | +----+---+ + + | | 0 | Post-Op | | | | 3 | Page | | | | 1 | | | | | 5 | | | +----+---+ + + +------+ | Meds | +------+ + + + | Name | Total | + + + | ceFAZolin | 2,000 mg | + + + | lidocaine 2% | 60 mg | + + + | fentaNYL | 300 mcg | + + + | propofol | 230 mg | + + + | rocuronium | 100 mg | + + + | dexamethasone | 10 mg | + + + | HYDROmorphone | 1 mg | + + + | dexmedetomidine | 40 mcg | + + + | LR bolus | 1,100 mL | + + + + + | Name | + + | O2 FR Avance (Total Liters) | + + | Air FR Avance (l/min) | + + | Insp Sevo | + + | Et Sevo | + + | Insp N2O % | + + + + | No blood administrations on file. | + + +--------+ + + + | Type | Details | Placement | Removal | +--------+ + + + | Incisi | 09/26/19; 2149; Mary GOMEZ; Ruddy; | 09/26/192149 by | | | on | face | Carmelita Caban RN | | +--------+ + + + | Drain | 09/26/19; 233; MD Mary; Katharine | 09/26/192338 by | [...] +--------+ + + + | Periph | Clinic Staff; tova; Right; | 10/06/19 2242 by | 10/07/19 0327 by | | eral | Hand; 18 g; No; Other (comment) | | Hermila Bryant RN | | IV | (IA); No; Positive; 10/07/19; | | | | | 0327; Removed by patient | | | +--------+ + + + | Periph | 10/06/19; 611; Cynthia PRADHAN ; Right; | 10/06/19 06 by | 10/11/19920 by | | eral | Forearm; 22 g; No; None; No; | Karin Silva RN | Aleta Malik RN | | IV | Positive; 10/11/19; 920; | | | | | Infiltrated | | | +--------+ + + + | ETT | 10/06/19; 2215 (created via | 10/06/192215 by | 10/07/19211 by | | | procedure documentation); 7.5; | Brittny Monge, | Lisa So MD | | | Oral; Cuffed; 10/07/19; 211 | CROWN BUFFER | | +--------+ + + + | Urethr | 10/06/19; 2218; Seema Benavides RN; | 10/06/192218 by | 10/07/19248 by | | al | Guerda; 16 Fr.; 10 mL; 10/07/19; | Ibis Benavides, | Ary Yen RN | | Cathet | 248 | RN | | | er | | | | +--------+ + + + documented in this encounter Social History + +-------+ +--------+------+ | Tobacco [...] | 2020 | Visit | | ,PhD [address] | | | | | | [place], [place] | | | | | | [address] | | | | | | [phone] | | | | | | | | +--------+---------+ + + + documented as of this encounter Procedures + +--------+ + + + | Procedure Name | Priori | Date/Time | Associated Diagnosis | Comments | | | ty | | | | + +--------+ + + + | ANE ETT | Routin | 10/06/2019 | | Results for this | | | e | 10:37 PM | | procedure are in the | | | | PST | | results section. | + +--------+ + + + documented in this encounter Results ETT (10/06/2019 10:37 PM PST) + + + | Narrative | Performed At | + + + | Brittny Monge CRNA 10/06/2019 10:40 PM AIRWAY | | | MANAGEMENT - ETT Time of Placement: 10/06/2019 10:16 PM Intubation | | | Reason: For surgical procedure Location Performed:OR OXYGENATION | | | Patient was preoxygenated No apneic oxygenation Grade: Grade 1 - | | | Ventilated by mask Manual in-Line Stabilization: Yes | | | Induction:Routine INTUBATION ATTEMPT 1 Videolaryngoscopy: | | | CMAC Hyperangulated D-blade Intubation Adjuncts: w/ Stylet | | | Laryngoscopic View: Grade I Surgical Airway: Surgical Airway ETT | | | DETAILS ETT Type:Standard, Hi-Lo Cuffed Intubation Type: Oral Cuff | | | Status: Cuffed Size: 7.5 ETT secured with adhesive tape Depth at | | | Lip: 23 cm Airway Leak: No CONFIRMATION airway not difficult | | | Number of Attempts: 1 Atraumatic placement Positive for | | | EtCO2:Waveform capnography Breath Sounds: Bilateral and equal | | | NARRATIVE Attending was physically present for the critical portions | | | of the procedure as described in the procedure note | | | Attending/Authorizing Provider: Milind Ordonez MD Performing | | | Provider: Brittny Monge CRNA Procedure Comments: Kept C | | | collar in place with stabilization. Able to fully view vocal | | | cords, but difficult to reach cords with ETT. Blade and ETT | | | adjusted. Passed ETT atraumatically. C Collar remained in place | | | for entirety of procedure. | | + + + documented in this encounter Visit Diagnoses Not on filedocumented in this encounter Administered Medications + +--------+ + +------+------+ | Medication Order | MAR | Action | Dose | Rate | Site | | | Action | Date | | | | + +--------+ + +------+------+ | ceFAZolin (ANCEF) injection | Given | 10/06/20 | 2,000 mg | | | | INTRAPROCEDURE PRN, Starting Cecile | | 19 10:35 | | | | | 10/06/19 at 2235, Until Fri | | PM PST | | | | | 10/07/19 at 0220 | | | | | | + +--------+ + +------+------+ +---+---+ | | | +---+---+ + +-------+ +-------+---+---+ | dexamethasone (DECADRON) | Given | 10/06/20 | 10 mg | | | | injection INTRAPROCEDURE PRN, | | 19 10:47 | | | | | Starting Cecile 10/06/19 at 2247, | | PM PST | | | | | Until Thu10/07/19 at 0220 | | | | | | + +-------+ +-------+---+---+ +---+---+ | | | +---+---+ + +-------+ +--------+---+---+ | dexMEDEtomidine (PRECEDEX) | Given | 10/07/20 | 20 mcg | | | | injection INTRAPROCEDURE PRN, | | 19 2:51 | | | | | Starting 10/07/19 at 0241, | | AM PST | | | | | Until 10/07/19 at 0242 | | | | | | + +-------+ +--------+---+---+ +-------+ +--------+---+---+ | Given | 10/07/20 | 20 mcg | | | | | 19 2:41 | | | | | | AM PST | | | | +-------+ +--------+---+---+ +---+---+ | | | +---+---+ + +-------+ +--------+---+---+ | fentaNYL (SUBLIMAZE) injection | Given | 10/07/20 | 50 mcg | | | | INTRAPROCEDURE PRN, Starting Cecile | | 19 2:39 | | | | | 10/06/19 at 2215, Until Fri | | AM PST | | | | | 10/07/19 at 0220 | | | | | | + +-------+ +--------+---+---+ +-------+ +--------+---+---+ | Given | 10/07/20 | 50 mcg | | | | | 19 12:48 | | | | | | AM PST | | | | +-------+ +--------+---+---+ | Given | 10/07/20 | 50 mcg | | | | | 19 12:40 | | | | | | AM PST | | | | +-------+ +--------+---+---+ +---+---+ | | | +---+---+ + +-------+ +--------+---+---+ | HYDROmorphone (DILAUDID) | Given | 10/07/20 | 0.5 mg | | | | injection INTRAPROCEDURE PRN, | | 19 12:28 | | | | | Starting Cecile 10/06/19 at 2312, | | AM PST | | | | | Until Thu10/07/19 at 0220 | | | | | | + +-------+ +--------+---+---+ +-------+ +--------+---+---+ | Given | 10/06/20 | 0.5 mg | | | | | 19 11:12 | | | | | | PM PST | | | | +-------+ +--------+---+---+ +---+---+ | | | +---+---+ + + + +---+---+---+ | lactated ringers (LR) bolus | given by | 10/07/20 | | | | | INTRAPROCEDURE CONTINUOUS PRN, | | 19 1:56 | | | | | Starting Cecile 10/06/19 at 2200, | anesthes | AM PST | | | | | Until Thu10/07/19 at 0220 | iology | | | | | + + + +---+---+---+ + + +---+---+---+ | given by anesthesiology | 10/07/20 | | | | | | 19 1:35 | | | | | | AM PST | | | | + + +---+---+---+ | given by anesthesiology | 10/07/20 | | | | | | 19 12:54 | | | | | | AM PST | | | | + + +---+---+---+ +---+---+ | | | +---+---+ + +-------+ +-------+---+---+ | lidocaine (XYLOCAINE MPF) 2 % | Given | 10/06/20 | 60 mg | | | | (20 mg/mL) injection | | 19 10:15 | | | | | INTRAPROCEDURE PRN, Starting Cecile | | PM PST | | | | | 10/06/19 at 2215, Until Fri | | | | | | | 10/07/19 at 0220 | | | | | | + +-------+ +-------+---+---+ +---+---+ | | | +---+---+ + +-------+ +-------+---+---+ | propofol (DIPRIVAN) injection | Given | 10/07/20 | 30 mg | | | | INTRAPROCEDURE PRN, Starting Cecile | | 19 1:52 | | | | | 10/06/19 at 2216, Until Fri | | AM PST | | | | | 10/07/19 at 0220 | | | | | | + +-------+ +-------+---+---+ +-------+ +--------+---+---+ | Given | 10/06/20 | 80 mg | | | | | 19 10:17 | | | | | | PM PST | | | | +-------+ +--------+---+---+ | Given | 10/06/20 | 120 mg | | | | | 19 10:16 | | | | | | PM PST | | | | +-------+ +--------+---+---+ +---+---+ | | | +---+---+ + +-------+ +--------+---+---+ | rocuronium injection | Given | 10/06/20 | 100 mg | | | | INTRAPROCEDURE PRN, Starting Cecile | | 19 10:17 | | | | | 10/06/19 at 2217, Until Fri | | PM PST | | | | | 10/07/19 at 0220 | | | | | | + +-------+ +--------+---+---+ +---+---+ | | | +---+---+ documented in this encounter
--- OUTSIDE RECORDS SUMMARY | ~2020-05-07 | XMS | Encounter Summary ---
Demographics + + + | Address | [address] | | | [place] [address] | + + + | Home Phone | | + + + | Preferred Language | Unknown | + + + | Marital Status | Single | + + + | Latter Day Affiliation | NON | + + + | Race | or | + + + | Ethnic Group | Not or | + + + Author + + + | Author | [facility] | + + + | Organization | [facility] | + + + | Address | Unknown | + + + | Phone | Unavailable | + + + Support + + + + + | Name | Relationship | Address | Phone | + + + + + | Kaila Oates | ECON | [place] | | | | | [address] | | + + + + + Care Team Providers + +------+ + | Care Metal Sprayer Machined Parts Name | Role | Phone | + +------+ + | Tomasz Solis MD | PCP | | + +------+ + Encounter Details +--------+ + + + + | Date | Type | Department | Care Team | Description | +--------+ + + + + | 03/11/ | MyChart | Plastic and | Paul Herrera, | RE: Question | | 2020 | Encounter | Reconstructive | ,PhD [address] | regarding CBC AND | | | | Surgery at [facility] [address] [place], [place] | AUTO DIFF | | | | [address] [place] | [address] | | | | | for Health and | [phone] | | | | | Healing, [address], | | | | | | 5th Floor | | | | | | [place], [place] | | | | | | [address] | | | | | | [phone] | | | +--------+ + + + [...] | | | | | | [place], [place] | | | | | | [address] | | | | | | [phone] | | | | | | | | +--------+---------+ + + + documented as of this encounter Visit Diagnoses Not on filedocumented in this encounter"
--- OUTSIDE RECORDS SUMMARY | ~2020-05-07 | XMS | Encounter Summary ---
Demographics + + + | Address | [address] | | | [place] [address] | + + + | Home Phone | | + + + | Preferred Language | Unknown | + + + | Marital Status | Single | + + + | Holiness Affiliation | NON | + + + [...] [place] | | | | | [address] | | + + + + + Care Team Providers + +------+ + | Care Diesel Truck Crane Operator Name | Role | Phone | [...] | 2020 | Visit | | ,PhD [address] | | | | | | [place], [place] | | | | | | [address] | | | | | | [phone] | | | | | | | | +--------+---------+ + + + documented as of this encounter Visit Diagnoses Not on filedocumented in this encounter"
--- OUTSIDE RECORDS SUMMARY | ~2020-05-07 | XMS | Encounter Summary ---
Demographics + + + | Address | [address] | | | [place] [address] | + + + | Home Phone | | + + + | Preferred Language | Unknown | + + + | Marital Status | Single | + + + | Mu-Ism Affiliation | NON | + + + [...] [place] | | | | | [address] | | + + + + + Care Team Providers + +------+ + | Care Herbologist Name | Role | Phone | + +------+ + | Tomasz Solis MD | PCP | | + +------+ + Encounter Details +--------+--------+ + + + | Date | Type | Department | Care Team | Description | +--------+--------+ + + + | 02/26/ | Travel | | | | | [...] | 2019 | Visit | | ,PhD [address] | | | | | | [place], [place] | | | | | | [address] | | | | | | [phone] | | | | | | | | +--------+---------+ + + + documented as of this encounter Visit Diagnoses Not on filedocumented in this encounter"
--- OUTSIDE RECORDS SUMMARY | ~2020-05-07 | XMS | Encounter Summary ---
Demographics + + + | Address | [address] | | | [place] [address] | + + + | Home Phone [...] + | Author | [facility] | + + + | Organization | [facility] | + + + | Address | Unknown | + + + | Phone | Unavailable | + + + Support + + + + + | Name | Relationship | Address | Phone | + + + + + | Kaila Oates | ECON | [place] | | | | | [address] | | + + + + + Care Team Providers + +------+ + | Care Brazer Furnace Name | Role | Phone | + [...] | | | [facility] | [place], [place] | | | | | Health and Healing, | [address] | | | | | [facility] [address] | [phone] | | | | | [place], [place] | | | | | | [address] | | | | | | [phone] | | | +--------+ + + + [...] | | | | | | [place] [facility] [place] | | | | | | [address] | | | | | | [phone] | | | | | | | | +--------+---------+ + + + documented as of this encounter Visit Diagnoses Not on filedocumented in this encounter"
--- OUTSIDE RECORDS SUMMARY | ~2020-05-07 | XMS | Encounter Summary ---
Demographics + + + | Address | [address] | | | [place] [address] | + + + | Home Phone | | + + + | Preferred Language | Unknown | + + + | Marital Status | Single | + + + | Quaker Affiliation | NON | + + + | Race | or | + + + | Ethnic Group | Not or | + + + Author + + + | Author | [facility] | + + + | Organization | [facility] | + + + | Address | Unknown | + + + | Phone | Unavailable | + + + Support + + + + + | Name | Relationship | Address | Phone | + + + + + | Kaila Oates | ECON | [place] | | | | | [address] | | + + + + + Care Team Providers + +------+ + | Care Wax Pattern Coater Name | Role | Phone | + [...] floor | | | | | | [place], [place] | | | | | | [address] | | | +--------+ + + + [...] | 2020 | Visit | | ,PhD [address] | | | | | | [place], [place] | | | | | | [address] | | | | | | [phone] | | | | | | | | +--------+---------+ + + + documented as of this encounter Visit Diagnoses Not on filedocumented in this encounter"
--- OUTSIDE RECORDS SUMMARY | ~2020-05-07 | XMS | Encounter Summary ---
Demographics + + + | Address | [address] | | | [place] [address] | + + + | Home Phone | | + + + | Preferred Language | Unknown | + + + | Marital Status | Single | + + + | Worship Affiliation | NON | + + + | Race | or | + + + | Ethnic Group | Not or | + + + Author + + + | Author | [facility] | + + + | Organization | [facility] | + + + | Address | Unknown | + + + | Phone | Unavailable | + + + Support + + + + + | Name | Relationship | Address | Phone | + + + + + | Kaila Oates | ECON | [place] | | | | | [address] | | + + + + + Care Team Providers + +------+ + | Care Jet Handler Name | Role | Phone | + +------+ + | Tomasz Solis MD | PCP | | + +------+ + Encounter Details +--------+ + + + + | Date | Type | Department | Care Team | Description | +--------+ + + + + | 10/21/ | Telephone | Otolaryngology | Cordell Hernandez MD | | | 2020 | | Facial Plastics & | [address] | | | | | Fel[place] | [facility], | | | | | Services at [facility] | [place] [address] | | | | | [address] | [phone] | | | | | [facility] | | | | | | and Healing, | | | | | | Building [address], 5th | | | | | | Floor [place], [place] | | | | | | [address] | | | | | | [phone] | | | +--------+ + + + [...] | 2020 | Visit | | MDPhD [address] | | | | | | [place], [place] | | | | | | [address] | | | | | | [phone] | | | | | | | | +--------+---------+ + + + documented as of this encounter Visit Diagnoses Not on filedocumented in this encounter"
--- OUTSIDE RECORDS SUMMARY | ~2020-05-07 | XMS | Encounter Summary ---
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 09/25/2019 | | Results for this | | | e | 8:31 PM | | procedure are in the | | | | PST | | results section. | + +--------+ + + + | ART LINE | Routin | 09/25/2019 | | Results for this | | | e | 8:29 PM | | procedure are in the | | | | PST | | results section. | + +--------+ + + + | CBC (HEMOGRAM) ONLY | Urgent | 09/25/2019 | | Results for this | | | | 8:21 PM | | procedure are in the | | | | PST | | results section. | + +--------+ + + + | CBC ONLY | Urgent | 09/25/2019 | | Results for this | | | | 8:21 PM | | procedure are in the | | | | PST | | results section. | + +--------+ + + + | LACTATE | Urgent | 09/25/2019 | | Results for this | | | | 8:21 PM | | procedure are in the | | | | PST | | results section. | + +--------+ + + + | BLOOD GASES, | Routin | 09/25/2019 | | Results for this | | ARTERIAL - LAB | e | 8:21 PM | | procedure are in the | | | | PST | | results section. | + +--------+ + + + | THROMBELASTOGRAPH, | Urgent | 09/25/2019 | | Results for this | | POC | | 8:18 PM | | procedure are in the | | | | PST | | results section. | + +--------+ + + + | CTA NECK W CONTRAST | Urgent | 09/25/2019 | | Results for this | | | | 7:56 PM | | procedure are in the | | | | PST | | results section. | + +--------+ + + + | CT CHEST, ABDOMEN | Urgent | 09/25/2019 | | Results for this | | AND PELVIS W IV | | 7:55 PM | | procedure are in the | | CONTRAST | | PST | | results section. | + +--------+ + + + | CT MAXILLOFACIAL WO | Urgent | 09/25/2019 | | Results for this | | CONTRAST | | 7:50 PM | | procedure are in the | | | | PST | | results section. | + +--------+ + + + | CT SPINE TOTAL WO | Urgent | 09/25/2019 | | Results for this | | CONTRAST | | 7:49 PM | | procedure are in the | | | | PST | | results section. | + +--------+ + + + | CT HEAD WO CONTRAST | Urgent | 09/25/2019 | | Results for this | | | | 7:49 PM | | procedure are in the | | | | PST | | results section. | + +--------+ + + + | PRODUCT - WHOLE | Routin | 09/25/2019 | | Results for this | | BLOOD | e | 7:02 PM | | procedure are in the | | | | PST | | results section. | + +--------+ + + + | PRODUCT - WHOLE | Routin | 09/25/2019 | | Results for this | | BLOOD | e | 7:02 PM | | procedure are in the | | | | PST | | results section. | + +--------+ + + + | PRODUCT - WHOLE | Routin | 09/25/2019 | | Results for this | | BLOOD | e | 7:02 PM | | procedure are in the | | | | PST | | results section. | + +--------+ + + + | PRODUCT - WHOLE | Routin | 09/25/2019 | | Results for this | | BLOOD | e | 7:02 PM | | procedure are in the | | | | PST | | results section. | + +--------+ + + + | PRODUCT - WHOLE | Routin | 09/25/2019 | | Results for this | | BLOOD | e | 7:02 PM | | procedure are in the | | | | PST | | results section. | + +--------+ + + + documented in this encounter Results X-RAY SPINE CERVICAL 2 VIEWS (10/13/2019 3:11 PM PST) + + | Specimen | + + | | + + + + + | Narrative | Performed At | + + + | EXAM: SPINE CERVICAL 2 VIEWS HISTORY: eval fracture | [facility] | | COMPARISON: 10/07/2019, 09/28/2019, 09/25/2019 FINDINGS: | RADIOLOGY VOICE | | Limited examination due to patient factors. The cervical spine is | RECOGNITION 2 | | well-visualized through the level of C6. The previously noted right C7 | | | facet fracture extending into the lamina and C2 tip of the dens | | | fracture are better appreciated on prior cross-sectional imaging. | | | There is straightening of normal cervical lordosis. The visualized | | | vertebral body heights are maintained. The intervertebral disc spaces | | | are relatively maintained. There is no abnormal prevertebral soft | | | tissue swelling. The previously noted facial fractures are better | | | appreciated on prior cross-sectional imaging. IMPRESSION: The | | | previously noted right C7 fracture which extends into the lamina, tip | | | of the dens fracture, and multiple facial fractures are better | | | appreciated prior cross-sectional imaging. No evidence of new fracture | | | or focal osseous destruction. I have personally reviewed the | | | images and, if necessary, edited the report. I agree with the report | | | as now presented. Final signature: Abdirahman Owen MD | | | 10/13/2019 3:30 PM Preliminary: Enrique Noel MD Dictation | | | initiated: Enrique Noel MD 10/13/2019 3:11 PM | | + + + + + | Procedure Note | + + | Service Account, Radiant Res In Interface - 10/13/2019 3:32 PM PST EXAM: SPINE | | CERVICAL 2 VIEWS HISTORY: eval fracture COMPARISON: 10/07/2019, 09/28/2019, 09/25/2019 | | FINDINGS: Limited examination due to patient factors. The cervical spine is | | well-visualized through the level of C6. The previously noted right C7 facet fracture | | extending into the lamina and C2 tip of the dens fracture are better appreciated on | | prior cross-sectional imaging. There is straightening of normal cervical lordosis. The | | visualized vertebral body heights are maintained. The intervertebral disc spaces are | | relatively maintained. There is no abnormal prevertebral soft tissue swelling. The | | previously noted facial fractures are better appreciated on prior cross-sectional | | imaging. IMPRESSION: The previously noted right C7 fracture which extends into the | | lamina, tip of the dens fracture, and multiple facial fractures are better appreciated | | prior cross-sectional imaging. No evidence of new fracture or focal osseous destruction. | | I have personally reviewed the images and, if necessary, edited the report. I agree | | with the report as now presented. Final signature: Abdirahman Owen MD 10/13/2019 | | 3:30 PM Preliminary: Enrique Noel MD Dictation initiated: Enrique Noel MD | | 10/13/2019 3:11 PM | |I have personally reviewed the images and, if necessary, edited the report. I agree with e report as now presented. | | | |Final signature: Abdirahman Owen MD 10/13/2019 3:30 PM | |Preliminary: Enrique Noel MD | |Dictation initiated: Enrique Noel MD 10/13/2019 3:11 PM | + + + +---------+ + + | Performing | Address | City/State/Zipcode | Phone Number | | Organization | | | | + +---------+ + + | [facility] | | | | | VOICE RECOGNITION 2 | | | | + +---------+ + + VASC LAB VENOUS DUPLEX LOWER EXTREMITY BILAT COMP (10/13/2019 11:47 AM PST) + + | Specimen | + + | | + + + + + | Narrative | Performed At | + + + | Bilateral: The duplex scanner was used to examine the deep and | [facility] | | superficial veins of the right and left lower extremities. The | RADIOLOGY VASC | | veins are patent bilaterally with normal flow and responses to | US | | augmentation and compression maneuvers and no thrombus is noted. | | | Conclusions: A normal venous examination of the bilateral lower | | | extremities. No venous thrombosis was detected. I have | | | personally reviewed the images and, if necessary, edited the report. | | | I agree with the report as now presented. | | + + + + + | Procedure Note | + + | Service Account, Retention Education Res In Interface - 10/13/2019 4:14 PM PST Bilateral: The | | duplex scanner was used to examine the deep and superficial veins of the right and left | | lower extremities. The veins are patent bilaterally with normal flow and responses to | | augmentation and compression maneuvers and no thrombus is noted.Conclusions: A normal | | venous examination of the bilateral lower extremities. No venous thrombosis was | | detected.I have personally reviewed the images and, if necessary, edited the report. I | | agree with the report as now presented. | | | | | |I have personally reviewed the images and, if necessary, edited the report. I agree with t he report as now presented. | + + + +---------+ + + | Performing | Address | City/State/Zipcode | Phone Number | | Organization | | | | + +---------+ + + | [facility] | | | | | VASC US | | | | + +---------+ + + CBC (HEMOGRAM) ONLY (10/13/2019 7:50 AM PST) + + + + + + | Component | Value | Ref Range | Performed | Pathologist | | | | | At | Signature | + + + + + + | WHITE CELL | 12.72 (H) | 3.50 - 10.80 | [facility] | | | COUNT | | K/cu mm | LABORATORY | | | | | | SERVICES, | | | | | | CORE | | + + + + + + | RED CELL | 3.35 (L) | 4.50 - 6.00 | [facility] | | | COUNT | | M/cu mm | LABORATORY | | | | | | SERVICES, | | | | | | CORE | | + + + + + + | HEMOGLOBIN | 8.7 (L) | 13.5 - 17.5 | [facility] | | | | | g/dL | LABORATORY | | | | | | SERVICES, | | | | | | CORE | | + + + + + + | HEMATOCRIT | 29.1 (L) | 41.0 - 53.0 % | [facility] | | | | | | LABORATORY | | | | | | SERVICES, | | | | | | CORE | | + + + + + + | MCV | 86.9 | 80.0 - 100.0 fL | [facility] | | | | | | LABORATORY | | | | | | SERVICES, | | | | | | CORE | | + + + + + + | MCHC | 29.9 (L) | 32.0 - 36.0 | [facility] | | | | | g/dL | LABORATORY | | | | | | SERVICES, | | | | | | CORE | | + + + + + + | RDW SD | 53.4 (H) | 35.1 - 46.3 fL | [facility] | | | | | | LABORATORY | | | | | | SERVICES, | | | | | | CORE | | + + + + + + | PLATELET | 559 (H) | 150 - 400 K/cu | [facility] | | | COUNT | | mm | LABORATORY | | | | | | SERVICES, | | | | | | CORE | | + + + + + + | MPV | 9.2 (L) | 9.7 - 12.3 fL | [facility] [...] + | [facility] | [address] | [place] [address] | | | SERVICES, CORE | [address] | | | + + + + + X-RAY PORTABLE CHEST 1 VIEW (10/12/2019 9:05 AM PST) + + | Specimen | + + | | + + + + + | Narrative | Performed At | + + + | EXAM: [place] CHEST 1 VIEW HISTORY: cough, fever COMPARISON: | [facility] | | 10/03/2019 FINDINGS: There are low lung volumes. Right pleural | RADIOLOGY VOICE | | effusion has resolved. Decreased trace left pleural effusion. | RECOGNITION 2 | | Persistent retrocardiac opacification/atelectasis. The cardiac and | | | mediastinal borders are stable. There is no pulmonary edema, focal | | | consolidation or pulmonary edema. No acute osseous abnormality | | | IMPRESSION: Low lung volumes with trace left pleural effusion and | | | persistent left basilar atelectasis. I have personally reviewed | | | the images and, if necessary, edited the report. I agree with the | | | report as now presented. Final signature: Emi Briceño MD | | | 10/12/2019 10:08 AM Preliminary: Emi Briceño MD | | | Dictation initiated: Emi Briceño MD 10/12/2019 10:04 AM | | + + + + + | Procedure Note | + + | Service Account, Radiant Res In Interface - 10/12/2019 10:09 AM PST EXAM: [place] CHEST 1 | | VIEW HISTORY: cough, fever COMPARISON: 10/03/2019 FINDINGS: There are low lung | | volumes. Right pleural effusion has resolved. Decreased trace left pleural effusion. | | Persistent retrocardiac opacification/atelectasis. The cardiac and mediastinal borders | | are stable. There is no pulmonary edema, focal consolidation or pulmonary edema. No | | acute osseous abnormality IMPRESSION: Low lung volumes with trace left pleural effusion | | and persistent left basilar atelectasis. I have personally reviewed the images and, if | | necessary, edited the report. I agree with the report as now presented. Final | | signature: Emi Briceño MD 10/12/2019 10:08 AM Preliminary: Emi Briceño | | Dictation initiated: Emi Briceño MD 10/12/2019 10:04 AM | | | |IMPRESSION: | | | |Low lung volumes with trace left pleural effusion and persistent left basilar atelectasis. | | | |I have personally reviewed the images and, if necessary, edited the report. I agree with e report as now presented. | | | |Final signature: Emi Briceño MD 10/12/2019 10:08 AM | |Preliminary: Emi Briceño MD | |Dictation initiated: Emi Briceño MD 10/12/2019 10:04 AM | + + + +---------+ + + | Performing | Address | City/State/Zipcode | Phone Number | | Organization | | | | + +---------+ + + | [facility] | | | | | VOICE RECOGNITION 2 | | | | + +---------+ + + CULTURE, SPUTUM (10/12/2019 8:32 AM PST) + + + + + + | Component | Value | Ref Range | Performed | Pathologist | | | | | At | Signature | + + + + + + | CULTURE | Staphylococcus aureus | | [facility] | | | RESULT | (A) | | [facility] | | | | | | [facility] | | + + + + + + + + | Specimen | + + | Sputum - Airway | + + + + + | Narrative | Performed At | + + + | Culture Report: 1+ Staphylococcus aureus 3+ Oral Cyndi Gram | [facility] | | Stain: No squamous epithelial cells Few polymorphonuclear cells | [facility] - | | Few Mixed cyndi | [place] | + + + + + + + + | Organism | Antibiotic | Method | Susceptibility | + + + + + | Staphylococcus | Cefazolin | [facility]US[facility]-JENNIF[facility] | Sensitive | | aureus | | | | + + + + + | Staphylococcus | Clindamycin | SUSCEPTIBILITY-JENNIFER | Sensitive | | aureus | | | | + + + + + | Staphylococcus | Erythromycin | SUSCEPTIBILITY-JENNIFER | Sensitive | | aureus | | | | + + + + + | Staphylococcus | Oxacillin | SUSCEPTIBILITY-JENNIFER | Sensitive | | aureus | | | | + + + + + | Staphylococcus | Trimethoprim/Sulfa | SUSCEPTIBILITY-JENNIFER | Sensitive | | aureus | | | | + + + + + | Staphylococcus | Tetracycline | SUSCEPTIBILITY-JENNIFER | Sensitive | | aureus | | | | + + + + + | Staphylococcus | Vancomycin | SUSCEPTIBILITY-JENNIFER | Sensitive | | aureus | | | | + + + + + + + + + + | Performing | Address | City/State/Zipcode | Phone Number | | Organization | | | | + + + + + | [facility] | [address] | [place] [address] | | | [place] | | | | + + + + + URINE SCREEN FOR CULTURE (10/12/2019 8:04 AM PST) + + + + + + | Component | Value | Ref Range | Performed | Pathologist | | | | | At | Signature | + + + + + + | URINE | Negative | Negative | [facility] | | | SCREEN FOR | | | LABORATORY | | | CULTURE | | | SERVICES, | | | | | | CORE | | + + + + + + + + | Specimen | + + | Urine - Voided | + + + + + | Narrative | Performed At | + + + | Culture Screen Negative. Culture not indicated. | [facility] | | | LABORATORY | | | SERVICES, CORE | + + + + + + + + | Performing | Address | City/State/Zipcode | Phone Number | | Organization | | | | + + + + + | [facility] | [address] | [place] [address] | | | SERVICES, CORE | [address] | | | + + + + + CULTURE, BLOOD BACTI & YEAST [facility] (10/12/2019 7:23 AM PST) + + + + + + | Component | Value | Ref Range | Performed | Pathologist | | | | | At | Signature | + + + + + + | CULTURE | Final Report:No Bacteria | | [facility] | | | RESULT | or Yeast isolated at 5 | | LABORATORY | | | | days. | | SERVICES, | | | | | | CORE | | + + + + + + + + | Specimen | + + | Blood - Antecubital | | region structure | | (body structure) | + + + + + + + | Performing | Address | City/State/Zipcode | Phone Number | | Organization | | | | + + + + + | [facility] | [address] | [place] [address] | | | SERVICES, [place] | [address] | | | + + + + + CBC (HEMOGRAM) ONLY (10/12/2019 7:23 AM PST) + + + + + + | Component | Value | Ref Range | Performed | Pathologist | | | | | At | Signature | + + + + + + | WHITE CELL | 17.16 (H) | 3.50 - 10.80 | [facility] | | | COUNT | | K/cu mm | LABORATORY | | | | | | SERVICES, | | | | | | CORE | | + + + + + + | RED CELL | 3.65 (L) | 4.50 - 6.00 | [facility] | | | COUNT | | M/cu mm | LABORATORY | | | | | | SERVICES, | | | | | | CORE | | + + + + + + | HEMOGLOBIN | 9.5 (L) | 13.5 - 17.5 | [facility] | | | | | g/dL | LABORATORY | | | | | | SERVICES, | | | | | | CORE | | + + + + + + | HEMATOCRIT | 31.5 (L) | 41.0 - 53.0 % | [facility] | | | | | | LABORATORY | | | | | | SERVICES, | | | | | | CORE | | + + + + + + | MCV | 86.3 | 80.0 - 100.0 fL | [facility] | | | | | | LABORATORY | | | | | | SERVICES, | | | | | | CORE | | + + + + + + | MCHC | 30.2 (L) | 32.0 - 36.0 | [facility] | | | | | g/dL | LABORATORY | | | | | | SERVICES, | | | | | | CORE | | + + + + + + | RDW SD | 53.1 (H) | 35.1 - 46.3 fL | [facility] | | | | | | LABORATORY | | | | | | SERVICES, | | | | | | CORE | | + + + + + + | PLATELET | 651 (H) | 150 - 400 K/cu | [facility] | | | COUNT | | mm | LABORATORY | | | | | | SERVICES, | | | | | | CORE | | + + + + + + | MPV | 9.3 (L) | 9.7 - 12.3 fL | [facility] [...] | + + + + + | [facility] | [address] | [place] [address] | | | SERVICES, CORE | [address] | | | + + + + + RENAL FUNCTION SET (NA,K,CL,CO2,BUN,CREAT,GLUC,CA,PHOS,ALB ) (10/12/2019 1:39 AM PST) + + + + + + | Component | Value | Ref Range | Performed | Pathologist | | | | | At | Signature | + + + + + + | GLUCOSE, | 137 (H) | 70 - 99 mg/dL | [facility] | | | PLASMA | | | LABORATORY | | | (LAB) | | | SERVICES, | | | | | | CORE | | + + + + + + | BUN, PLASMA | 8 | 6 - 20 mg/dL | [facility] | | | (LAB) | | | LABORATORY | | | | | | SERVICES, | | | | | | CORE | | + + + + + + | CREATININE | 0.53 (L) | 0.70 - 1.30 | [facility] | | | PLASMA | | mg/dL | LABORATORY | | | (LAB) | | | SERVICES, | | | | | | CORE | | + + + + + + | EGFR | >60 | >60 mL/min | [facility] | | | - | | | LABORATORY | | | [place] | | | SERVICES, | | | | | | CORE | | + + + + + + | EGFR NON | >60 | >60 mL/min | [facility] | | | -MARIELLA | | | LABORATORY | | | RICAN | | | SERVICES, | | | | | | CORE | | + + + + + + | SODIUM, | 137 | 136 - 145 | [facility] | | | PLASMA | | mmol/L | LABORATORY | | | (LAB) | | | SERVICES, | | | | | | CORE | | + + + + + + | POTASSIUM, | 4.0 | 3.4 - 5.0 | [facility] | | | PLASMA | | mmol/L | LABORATORY | | | (LAB) | | | SERVICES, | | | | | | CORE | | + + + + + + | CHLORIDE, | 104 | 97 - 108 mmol/L | [facility] | | | PLASMA | | | LABORATORY | | | (LAB) | | | SERVICES, | | | | | | CORE | | + + + + + + | TOTAL CO2, | 25 | 21 - 32 mmol/L | [facility] | | | PLASMA | | | LABORATORY | | | (LAB) | | | SERVICES, | | | | | | CORE | | + + + + + + | CALCIUM, | 8.5 (L) | 8.6 - 10.2 | [facility] | | | PLASMA | | mg/dL | LABORATORY | | | (LAB) | | | SERVICES, | | | | | | CORE | | + + + + + + | CALCIUM(ALB | 9.4 | 8.6 - 10.2 | [facility] | | | CORRECTED) | | mg/dL | LABORATORY | | | | | | SERVICES, | | | | | | CORE | | + + + + + + | ALBUMIN, | 2.9 (L) | 3.5 - 4.7 g/dL | [facility] | | | PLASMA | | | LABORATORY | | | (LAB) | | | SERVICES, | | | | | | CORE | | + + + + + + | PHOSPHORUS, | 4.4 | 2.4 - 4.7 mg/dL | [facility] [...] + + + | ANION GAP | 8 | 4 - 11 mmol/L | [facility] | | | | | | LABORATORY | | | | | | SERVICES, | | | | | | CORE | | + + + + + + | ANION | 10 | 4 - 11 mmol/L | [facility] | | | GAP(ALB | | | LABORATORY | | | CORRECTED) | | | SERVICES, | | | | | | CORE | | + + + + + + | BUN/CREATIN | 15 | 8 - 25 | [facility] | [...] MDRD equation recommended by the National | [facility] | | Kidney Disease Education Program. Estimated [...] | + + + + + | [employer] [facility] | [address] | [place] [address] | | | SERVICES, CORE | [address] | | | + + + + + CBC (HEMOGRAM) ONLY (10/11/2019 3:51 AM PST) + + + + + + | Component | Value | Ref Range | Performed | Pathologist | | | | | At | Signature | + + + + + + | WHITE CELL | 9.35 | 3.50 - 10.80 | [facility] | | | COUNT | | K/cu mm | LABORATORY | | | | | | SERVICES, | | | | | | CORE | | + + + + + + | RED CELL | 3.73 (L) | 4.50 - 6.00 | [facility] | | | COUNT | | M/cu mm | LABORATORY | | | | | | SERVICES, | | | | | | CORE | | + + + + + + | HEMOGLOBIN | 9.9 (L) | 13.5 - 17.5 | [facility] | | | | | g/dL | LABORATORY | | | | | | SERVICES, | | | | | | CORE | | + + + + + + | HEMATOCRIT | 32.2 (L) | 41.0 - 53.0 % | [facility] | | | | | | LABORATORY | | | | | | SERVICES, | | | | | | CORE | | + + + + + + | MCV | 86.3 | 80.0 - 100.0 fL | [facility] | | | | | | LABORATORY | | | | | | SERVICES, | | | | | | CORE | | + + + + + + | MCHC | 30.7 (L) | 32.0 - 36.0 | [facility] | | | | | g/dL | LABORATORY | | | | | | SERVICES, | | | | | | CORE | | + + + + + + | RDW SD | 54.4 (H) | 35.1 - 46.3 fL | [facility] | | | | | | LABORATORY | | | | | | SERVICES, | | | | | | CORE | | + + + + + + | PLATELET | 684 (H) | 150 - 400 K/cu | [facility] | | | COUNT | | mm | LABORATORY | | | | | | SERVICES, | | | | | | CORE | | + + + + + + | MPV | 9.1 (L) | 9.7 - 12.3 fL | [facility] [...] + | [facility] | [address] | [place] [address] | | | SERVICES, CORE | [address] | | | + + + + + MAGNESIUM, PLASMA (10/11/2019 3:51 AM PST) + +-------+ + + + | Component | Value | Ref Range | Performed | Pathologist | | | | | At | Signature | + +-------+ + + + | MAGNESIUM,P | 2.3 | 1.6 - 2.6 mg/dL | [facility] | | | LASMA | | | LABORATORY | | | | | | GARRY, | | | | | | CORE | | + +-------+ + + + + + | Specimen | + + | Blood - Blood | | (substance) | + + + + + + + | Performing | Address | City/State/Zipcode | Phone Number | | Organization | | | | + + + + + | [facility] | [address] | [place] [address] | | | SERVICES, CORE | [address] | | | + + + + + RENAL FUNCTION SET (NA,K,CL,CO2,BUN,CREAT,GLUC,CA,PHOS,ALB ) (10/11/2019 3:51 AM PST) + + + + + + | Component | Value | Ref Range | Performed | Pathologist | | | | | At | Signature | + + + + + + | GLUCOSE, | 128 (H) | 70 - 99 mg/dL | [facility] | | | PLASMA | | | LABORATORY | | | (LAB) | | | SERVICES, | | | | | | CORE | | + + + + + + | BUN, PLASMA | 10 | 6 - 20 mg/dL | [facility] | | | (LAB) | | | LABORATORY | | | | | | SERVICES, | | | | | | CORE | | + + + + + + | CREATININE | 0.58 (L) | 0.70 - 1.30 | [facility] | | | PLASMA | | mg/dL | LABORATORY | | | (LAB) | | | SERVICES, | | | | | | CORE | | + + + + + + | EGFR | >60 | >60 mL/min | [facility] | | | - | | | LABORATORY | | | [facility] | | | SERVICES, | | | | | | CORE | | + + + + + + | EGFR NON | >60 | >60 mL/min | [facility] | | | -[facility] | | | LABORATORY | | | [facility] | | | SERVICES, | | | | | | CORE | | + + + + + + | SODIUM, | 136 | 136 - 145 | [facility] | | | PLASMA | | mmol/L | LABORATORY | | | (LAB) | | | SERVICES, | | | | | | CORE | | + + + + + + | POTASSIUM, | 3.7 | 3.4 - 5.0 | [facility] | | | PLASMA | | mmol/L | LABORATORY | | | (LAB) | | | SERVICES, | | | | | | CORE | | + + + + + + | CHLORIDE, | 104 | 97 - 108 mmol/L | [facility] | | | PLASMA | | | LABORATORY | | | (LAB) | | | SERVICES, | | | | | | CORE | | + + + + + + | TOTAL CO2, | 26 | 21 - 32 mmol/L | [facility] | | | PLASMA | | | LABORATORY | | | (LAB) | | | SERVICES, | | | | | | CORE | | + + + + + + | CALCIUM, | 8.8 | 8.6 - 10.2 | [facility] | | | PLASMA | | mg/dL | LABORATORY | | | (LAB) | | | SERVICES, | | | | | | CORE | | + + + + + + | CALCIUM(ALB | 9.7 | 8.6 - 10.2 | [facility] | | | CORRECTED) | | mg/dL | LABORATORY | | | | | | SERVICES, | | | | | | CORE | | + + + + + + | ALBUMIN, | 2.9 (L) | 3.5 - 4.7 g/dL | [facility] | | | PLASMA | | | LABORATORY | | | (LAB) | | | SERVICES, | | | | | | CORE | | + + + + + + | PHOSPHORUS, | 4.5 | 2.4 - 4.7 mg/dL | [facility] [...] + + + | ANION GAP | 6 | 4 - 11 mmol/L | [facility] | | | | | | LABORATORY | | | | | | SERVICES, | | | | | | CORE | | + + + + + + | ANION | 8 | 4 - 11 mmol/L | [facility] | | | GAP(ALB | | | LABORATORY | | | CORRECTED) | | | SERVICES, | | | | | | CORE | | + + + + + + | BUN/CREATIN | 17 | 8 - 25 | [facility] | | | INE RATIO | | [...] MDRD equation recommended by the National | [facility] | | Kidney Disease Education Program. Estimated [...] | + + + + + | [facility] | [address] | [place] [address] | | | SERVICES, CORE | [address] | | | + + + + + PROCEDURE NOTE (10/10/2019 1:45 PM PST)CBC (HEMOGRAM) ONLY (10/10/2019 3:55 AM PST) + + + + + + | Component | Value | Ref Range | Performed | Pathologist | | | | | At | Signature | + + + + + + | WHITE CELL | 12.52 (H) | 3.50 - 10.80 | [facility] | | | COUNT | | K/cu mm | LABORATORY | | | | | | SERVICES, | | | | | | CORE | | + + + + + + | RED CELL | 3.97 (L) | 4.50 - 6.00 | [facility] | | | COUNT | | M/cu mm | LABORATORY | | | | | | SERVICES, | | | | | | CORE | | + + + + + + | HEMOGLOBIN | 10.4 (L) | 13.5 - 17.5 | [facility] | | | | | g/dL | LABORATORY | | | | | | SERVICES, | | | | | | CORE | | + + + + + + | HEMATOCRIT | 34.2 (L) | 41.0 - 53.0 % | [facility] | | | | | | LABORATORY | | | | | | SERVICES, | | | | | | CORE | | + + + + + + | MCV | 86.1 | 80.0 - 100.0 fL | [facility] | | | | | | LABORATORY | | | | | | SERVICES, | | | | | | CORE | | + + + + + + | MCHC | 30.4 (L) | 32.0 - 36.0 | [facility] | | | | | g/dL | LABORATORY | | | | | | SERVICES, | | | | | | CORE | | + + + + + + | RDW SD | 55.9 (H) | 35.1 - 46.3 fL | [facility] | | | | | | LABORATORY | | | | | | SERVICES, | | | | | | CORE | | + + + + + + | PLATELET | 782 (H) | 150 - 400 K/cu | [facility] | | | COUNT | | mm | LABORATORY | | | | | | SERVICES, | | | | | | CORE | | + + + + + + | MPV | 9.0 (L) | 9.7 - 12.3 fL | [facility] [...] | + + + + + | [facility] | [address] | [place] [address] | | | SERVICES, CORE | [address] | | | + + + + + RENAL FUNCTION SET (NA,K,CL,CO2,BUN,CREAT,GLUC,CA,PHOS,ALB ) (10/10/2019 3:55 AM PST) + + + + + + | Component | Value | Ref Range | Performed | Pathologist | | | | | At | Signature | + + + + + + | GLUCOSE, | 113 (H) | 70 - 99 mg/dL | [facility] | | | PLASMA | | | LABORATORY | | | (LAB) | | | SERVICES, | | | | | | CORE | | + + + + + + | BUN, PLASMA | 8 | 6 - 20 mg/dL | [facility] | | | (LAB) | | | LABORATORY | | | | | | SERVICES, | | | | | | CORE | | + + + + + + | CREATININE | 0.56 (L) | 0.70 - 1.30 | [facility] | | | PLASMA | | mg/dL | LABORATORY | | | (LAB) | | | SERVICES, | | | | | | CORE | | + + + + + + | EGFR | >60 | >60 mL/min | [facility] | | | - | | | LABORATORY | | | [facility] | | | SERVICES, | | | | | | CORE | | + + + + + + | EGFR NON | >60 | >60 mL/min | [facility] | | | -MARIELL[facility] | | | LABORATORY | | | RICAN | | | SERVICES, | | | | | | CORE | | + + + + + + | SODIUM, | 136 | 136 - 145 | [facility] | | | PLASMA | | mmol/L | LABORATORY | | | (LAB) | | | SERVICES, | | | | | | CORE | | + + + + + + | POTASSIUM, | 4.3 | 3.4 - 5.0 | [facility] | | | PLASMA | | mmol/L | LABORATORY | | | (LAB) | | | SERVICES, | | | | | | CORE | | + + + + + + | CHLORIDE, | 106 | 97 - 108 mmol/L | [facility] | | | PLASMA | | | LABORATORY | | | (LAB) | | | SERVICES, | | | | | | CORE | | + + + + + + | TOTAL CO2, | 24 | 21 - 32 mmol/L | [facility] | | | PLASMA | | | LABORATORY | | | (LAB) | | | SERVICES, | | | | | | CORE | | + + + + + + | CALCIUM, | 8.8 | 8.6 - 10.2 | [facility] | | | PLASMA | | mg/dL | LABORATORY | | | (LAB) | | | SERVICES, | | | | | | CORE | | + + + + + + | CALCIUM(ALB | 9.6 | 8.6 - 10.2 | [facility] | | | CORRECTED) | | mg/dL | LABORATORY | | | | | | SERVICES, | | | | | | CORE | | + + + + + + | ALBUMIN, | 3.0 (L) | 3.5 - 4.7 g/dL | [facility] | | | PLASMA | | | LABORATORY | | | (LAB) | | | SERVICES, | | | | | | CORE | | + + + + + + | PHOSPHORUS, | 5.2 (H) | 2.4 - 4.7 mg/dL | [facility] [...] + + + | ANION GAP | 6 | 4 - 11 mmol/L | [facility] | | | | | | LABORATORY | | | | | | SERVICES, | | | | | | CORE | | + + + + + + | ANION | 8 | 4 - 11 mmol/L | [facility] | | | GAP(ALB | | | LABORATORY | | | CORRECTED) | | | SERVICES, | | | | | | CORE | | + + + + + + | BUN/CREATIN | 14 | 8 - 25 | [facility] | [...] MDRD equation recommended by the National | [facility] | | Kidney Disease Education Program. Estimated [...] | + + + + + | [facility] | [address] | [place] [address] | | | SERVICES, CORE | [address] | | | + + + + + CBC (HEMOGRAM) ONLY (10/08/2019 12:23 AM PST) + + + + + + | Component | Value | Ref Range | Performed | Pathologist | | | | | At | Signature | + + + + + + | WHITE CELL | 11.42 (H) | 3.50 - 10.80 | [facility] | | | COUNT | | K/cu mm | LABORATORY | | | | | | SERVICES, | | | | | | CORE | | + + + + + + | RED CELL | 3.46 (L) | 4.50 - 6.00 | [facility] | | | COUNT | | M/cu mm | LABORATORY | | | | | | SERVICES, | | | | | | CORE | | + + + + + + | HEMOGLOBIN | 8.9 (L) | 13.5 - 17.5 | [facility] | | | | | g/dL | LABORATORY | | | | | | SERVICES, | | | | | | CORE | | + + + + + + | HEMATOCRIT | 30.1 (L) | 41.0 - 53.0 % | [facility] | | | | | | LABORATORY | | | | | | SERVICES, | | | | | | CORE | | + + + + + + | MCV | 87.0 | 80.0 - 100.0 fL | [facility] | | | | | | LABORATORY | | | | | | SERVICES, | | | | | | CORE | | + + + + + + | MCHC | 29.6 (L) | 32.0 - 36.0 | [facility] | | | | | g/dL | LABORATORY | | | | | | SERVICES, | | | | | | CORE | | + + + + + + | RDW SD | 55.9 (H) | 35.1 - 46.3 fL | [facility] | | | | | | LABORATORY | | | | | | SERVICES, | | | | | | CORE | | + + + + + + | PLATELET | 727 (H) | 150 - 400 K/cu | [facility] | | | COUNT | | mm | LABORATORY | | | | | | SERVICES, | | | | | | CORE | | + + + + + + | MPV | 9.1 (L) | 9.7 - 12.3 fL | [facility] | | | | | | LABORATORY | | | | | | SERVICES, | | | | | | CORE | | + + + + + + | NRBC% | 0.2 | 0.0 - 0.3 % | [facility] | | | | | | LABORATORY | | | | | | SERVICES, | | | | | | CORE | | + + + + + + | NRBC# | 0.02 | 0.00 - 0.02 | [facility] | [...] | + + + + + | [facility] | [address] | [place] [address] | | | SERVICES, CORE | [address] | | | + + + + + RENAL FUNCTION SET (NA,K,CL,CO2,BUN,CREAT,GLUC,CA,PHOS,ALB ) (10/08/2019 12:23 AM PST) + + + + + + | Component | Value | Ref Range | Performed | Pathologist | | | | | At | Signature | + + + + + + | GLUCOSE, | 132 (H) | 70 - 99 mg/dL | [facility] | | | PLASMA | | | LABORATORY | | | (LAB) | | | SERVICES, | | | | | | CORE | | + + + + + + | BUN, PLASMA | 18 | 6 - 20 mg/dL | [facility] | | | (LAB) | | | LABORATORY | | | | | | SERVICES, | | | | | | CORE | | + + + + + + | CREATININE | 0.52 (L) | 0.70 - 1.30 | [facility] | | | PLASMA | | mg/dL | LABORATORY | | | (LAB) | | | SERVICES, | | | | | | CORE | | + + + + + + | EGFR | >60 | >60 mL/min | [facility] | | | - | | | LABORATORY | | | [facility] | | | SERVICES, | | | [...] + + + + | POTASSIUM, | 3.4 | 3.4 - 5.0 | [facility] | [...] + + + | TOTAL CO2, | 25 | 21 - 32 mmol/L | [facility] | | | PLASMA | | | LABORATORY | | | (LAB) | | | SERVICES, | | | | | | CORE | | + + + + + + | CALCIUM, | 8.2 (L) | 8.6 - 10.2 | [facility] | | | PLASMA | | mg/dL | LABORATORY | | | (LAB) | | | SERVICES, | | | | | | CORE | | + + + + + + | CALCIUM(ALB | 9.2 | 8.6 - 10.2 | [facility] | | | CORRECTED) | | mg/dL | LABORATORY | | | | | | SERVICES, | | | | | | CORE | | + + + + + + | ALBUMIN, | 2.7 (L) | 3.5 - 4.7 g/dL | [facility] | | | PLASMA | | | LABORATORY | | | (LAB) | | | SERVICES, | | | | | | CORE | | + + + + + + | PHOSPHORUS, | 3.5 | 2.4 - 4.7 mg/dL | [facility] [...] + + + | ANION GAP | 7 | 4 - 11 mmol/L | [facility] | | | | | | LABORATORY | | | | | | SERVICES, | | | | | | CORE | | + + + + + + | ANION | 10 | 4 - 11 mmol/L | [facility] | | | GAP(ALB | | | LABORATORY | | | CORRECTED) | | | SERVICES, | | | | | | CORE | | + + + + + + | BUN/CREATIN | 35 (H) | 8 - 25 | [facility] | [...] MDRD equation recommended by the National | [facility] | | Kidney Disease Education Program. Estimated [...] | + + + + + | [facility] | [address] | [place] [address] | | | SERVICES, CORE | [address] | | | + + + + + CT HEAD AND MAXFACIAL WO CONT AND 3D (10/07/2019 4:09 PM PST) + + | Specimen | + + | | + + + + + | Narrative | Performed At | + + + | EXAM: CT HEAD AND FACE WITH 3D RECONSTRUCTIONS HISTORY: Post-op | [facility] | | s/p ORIF COMPARISON: 09/26/2019 TECHNIQUE: CT head and face | RADIOLOGY VOICE | | without contrast, with 3D reconstructions created on an independent | RECOGNITION 2 | | workstation FINDINGS: 3D SKULL AND SKULL BASE: The fractures | | | of the left frontal bone, temporal bone, and left-sided facial | | | structures is again noted. Since the previous exam there is been | | | fixation of the anterior maxillary fracture and some renal alignment | | | of fracture fragments. The overall appearance of the skull fracture is | | | essentially unchanged. Sagittal reattachment of scalp flap is noted. | | | Mastoids and middle ears are unremarkable. 3-D reconstruction images | | | reveal alignment of left-sided fractures and position of fixation | | | plate. BRAIN: The area of hemorrhage in the left temporal lobe is | | | again noted although this study is not optimized for intracranial | | | imaging thus comparison is difficult however no gross change. No | | | definite new intracranial findings. Ventricles are stable in | | | appearance. FACE/ORBITS: Left-sided facial fractures are again | | | noted now with fixation plate in place. PARANASAL SINUSES: Partial | | | opacification of paranasal sinuses with the exception of the frontal | | | sinuses. IMPRESSION: Interval surgical changes including | | | fixation plate of the anterior maxillary fracture and scalp | | | reattachment. Imaging is not optimized for intracranial findings | | | however hemorrhage in the left temporal lobe is again noted and does | | | not appear substantially changed. No definite new intracranial | | | abnormalities. I have personally reviewed the images and, if | | | necessary, edited the report. I agree with the report as now | | | presented. Final signature: Dariel Faustin MD 10/07/2019 7:41 | | | PM Preliminary: Dariel Faustin MD Dictation initiated: Dariel | | | MD Clifford 10/07/2019 7:36 PM | | + + + + + | Procedure Note | + + | Service Account, Radiant Res In Interface - 10/07/2019 7:42 PM PST EXAM: CT HEAD AND | | FACE WITH 3D RECONSTRUCTIONS HISTORY: Post-op s/p ORIF COMPARISON: 09/26/2019 | | TECHNIQUE: CT head and face without contrast, with 3D reconstructions created on an | | independent workstation FINDINGS: 3D SKULL AND SKULL BASE: The fractures of the left | | frontal bone, temporal bone, and left-sided facial structures is again noted. Since the | | previous exam there is been fixation of the anterior maxillary fracture and some renal | | alignment of fracture fragments. The overall appearance of the skull fracture is | | essentially unchanged. Sagittal reattachment of scalp flap is noted. Mastoids and middle | | ears are unremarkable. 3-D reconstruction images reveal alignment of left-sided | | fractures and position of fixation plate. BRAIN: The area of hemorrhage in the left | | temporal lobe is again noted although this study is not optimized for intracranial | | imaging thus comparison is difficult however no gross change. No definite new | | intracranial findings. Ventricles are stable in appearance. FACE/ORBITS: Left-sided | | facial fractures are again noted now with fixation plate in place. PARANASAL SINUSES: | | Partial opacification of paranasal sinuses with the exception of the frontal sinuses. | | IMPRESSION: Interval surgical changes including fixation plate of the anterior maxillary | | fracture and scalp reattachment. Imaging is not optimized for intracranial findings | | however hemorrhage in the left temporal lobe is again noted and does not appear | | substantially changed. No definite new intracranial abnormalities. I have personally | | reviewed the images and, if necessary, edited the report. I agree with the report as now | | presented. Final signature: Dariel Faustin MD 10/07/2019 7:41 PM Preliminary: Dariel | | MD Clifford Dictation initiated: Dariel Faustin MD 10/07/2019 7:36 PM | | | |Interval surgical changes including fixation plate of the anterior maxillary fracture and s calp reattachment. | | | |Imaging is not optimized for intracranial findings however hemorrhage in the left temporal lobe is again noted and does not appear substantially changed. No definite new intracranial abnormalities. | | | |I have personally reviewed the images and, if necessary, edited the report. I agree with th e report as now presented. | | | |Final signature: Dariel Faustin MD 10/07/2019 7:41 PM | |Preliminary: Dariel Faustin MD | |Dictation initiated: Dariel Faustin MD 10/07/2019 7:36 PM | + + + +---------+ + + | Performing | Address | City/State/Zipcode | Phone Number | | Organization | | | | + +---------+ + + | [facility] | | | | | VOICE RECOGNITION 2 | | | | + +---------+ + + CBC (HEMOGRAM) ONLY (10/07/2019 6:50 AM PST) + + + + + + | Component | Value | Ref Range | Performed | Pathologist | | | | | At | Signature | + + + + + + | WHITE CELL | 16.02 (H) | 3.50 - 10.80 | [facility] | | | COUNT | | K/cu mm | LABORATORY | | | | | | SERVICES, | | | | | | CORE | | + + + + + + | RED CELL | 3.70 (L) | 4.50 - 6.00 | [facility] | | | COUNT | | M/cu mm | LABORATORY | | | | | | SERVICES, | | | | | | CORE | | + + + + + + | HEMOGLOBIN | 9.5 (L) | 13.5 - 17.5 | [facility] | | | | | g/dL | LABORATORY | | | | | | SERVICES, | | | | | | CORE | | + + + + + + | HEMATOCRIT | 31.6 (L) | 41.0 - 53.0 % | [facility] | | | | | | LABORATORY | | | | | | SERVICES, | | | | | | CORE | | + + + + + + | MCV | 85.4 | 80.0 - 100.0 fL | [facility] | | | | | | LABORATORY | | | | | | SERVICES, | | | | | | CORE | | + + + + + + | MCHC | 30.1 (L) | 32.0 - 36.0 | [facility] | | | | | g/dL | LABORATORY | | | | | | SERVICES, | | | | | | CORE | | + + + + + + | RDW SD | 53.8 (H) | 35.1 - 46.3 fL | [facility] | | | | | | LABORATORY | | | | | | SERVICES, | | | | | | CORE | | + + + + + + | PLATELET | 824 (H) | 150 - 400 K/cu | [facility] | | | COUNT | | mm | LABORATORY | | | | | | SERVICES, | | | | | | CORE | | + + + + + + | MPV | 8.8 (L) | 9.7 - 12.3 fL | [facility] [...] | + + + + + | [facility] | [address] | [place] [address] | | | SERVICES, CORE | [address] | | | + + + + + CAPILLARY BLOOD GLUCOSE (NO CHG), POC (10/06/2019 9:40 PM PST) + +---------+ + + + | Component | Value | Ref Range | Performed | Pathologist | | | | | At | Signature | + +---------+ + + + | BLOOD | 109 (H) | 70 - 99 mg/dL | [facility] - | | | GLUCOSE, | | [...] + | [facility] | [address] | [place], [place] | | | [facility] POINT OF CARE | [address] | [address] | | | TESTS | | | | + + + + + CAPILLARY BLOOD GLUCOSE (NO CHG), POC (10/06/2019 5:23 PM PST) + +---------+ + + + | Component | Value | Ref Range | Performed | Pathologist | | | | | At | Signature | + +---------+ + + + | BLOOD | 127 (H) | 70 - 99 mg/dL | [facility] - | | | GLUCOSE, | | [...] + + + + + | [facility] | [address] | [place], [place] | | | EMM[facility] POINT OF CARE | [address] | [address] | | | TESTS | | | | + + + + + ANTIBODY SCREEN (10/06/2019 12:57 AM PST) + + + + + + | Component | Value | Ref Range | Performed | Pathologist | | | | | At | Signature | + + + + + + | Antibody | Negative | | [facility] | | | Screen | | | LABORATORY | | | | | | SERVICES, | | | | | | TRANSFUSION | | | | | | MEDICINE | | + + + + + + + + | Specimen | + + | Blood - Blood | | (substance) | + + + + + + + | Performing | Address | City/State/Zipcode | Phone Number | | Organization | | | | + + + + + | [facility] | [address] | [place] [address] | | | SERVICES, | [address] | | | | TRANSFUSION MEDICINE | | | | + + + + + ABO & RH TYPE (10/06/2019 12:57 AM PST) + + + + + + | Component | Value | Ref Range | Performed | Pathologist | | | | | At | Signature | + + + + + + | ABO Group | O | | [facility] | | | | | | LABORATORY | | | | | | SERVICES, | | | | | | TRANSFUSION | | | | | | MEDICINE | | + + + + + + | Rh Type | Positive | | [facility] | | | | | | LABORATORY | | | | | | SERVICES, | | | | | | TRANSFUSION | | | | | | MEDICINE | | + + + + + + + + | Specimen | + + | Blood - Blood | | (substance) | + + + + + + + | Performing | Address | City/State/Zipcode | Phone Number | | Organization | | | | + + + + + | [facility] | [address] | [place] [address] | | | SERVICES, | [address] | | | | TRANSFUSION MEDICINE | | | | + + + + + CBC (HEMOGRAM) ONLY (10/06/2019 12:57 AM PST) + + + + + + | Component | Value | Ref Range | Performed | Pathologist | | | | | At | Signature | + + + + + + | WHITE CELL | 15.44 (H) | 3.50 - 10.80 | [facility] | | | COUNT | | K/cu mm | LABORATORY | | | | | | SERVICES, | | | | | | CORE | | + + + + + + | RED CELL | 3.72 (L) | 4.50 - 6.00 | [facility] | | | COUNT | | M/cu mm | LABORATORY | | | | | | SERVICES, | | | | | | CORE | | + + + + + + | HEMOGLOBIN | 9.9 (L) | 13.5 - 17.5 | [facility] | | | | | g/dL | LABORATORY | | | | | | SERVICES, | | | | | | CORE | | + + + + + + | HEMATOCRIT | 31.1 (L) | 41.0 - 53.0 % | [facility] | | | | | | LABORATORY | | | | | | SERVICES, | | | | | | CORE | | + + + + + + | MCV | 83.6 | 80.0 - 100.0 fL | [facility] | | | | | | LABORATORY | | | | | | SERVICES, | | | | | | CORE | | + + + + + + | MCHC | 31.8 (L) | 32.0 - 36.0 | [facility] | | | | | g/dL | LABORATORY | | | | | | SERVICES, | | | | | | CORE | | + + + + + + | RDW SD | 51.5 (H) | 35.1 - 46.3 fL | [facility] | | | | | | LABORATORY | | | | | | SERVICES, | | | | | | CORE | | + + + + + + | PLATELET | 768 (H) | 150 - 400 K/cu | [facility] | | | COUNT | | mm | LABORATORY | | | | | | SERVICES, | | | | | | CORE | | + + + + + + | MPV | 9.1 (L) | 9.7 - 12.3 fL | [facility] [...] | + + + + + | [facility] | [address] | [place] [address] | | | SERVICES, ENRIKE | [address] | | | + + + + + RENAL FUNCTION SET (NA,K,CL,CO2,BUN,CREAT,GLUC,CA,PHOS,ALB ) (10/06/2019 12:57 AM PST) + + + + + + | Component | Value | Ref Range | Performed | Pathologist | | | | | At | Signature | + + + + + + | GLUCOSE, | 141 (H) | 70 - 99 mg/dL | [facility] | | | PLASMA | | | LABORATORY | | | (LAB) | | | SERVICES, | | | | | | CORE | | + + + + + + | BUN, PLASMA | 15 | 6 - 20 mg/dL | [facility] | | | (LAB) | | | LABORATORY | | | | | | SERVICES, | | | | | | CORE | | + + + + + + | CREATININE | 0.44 (L) | 0.70 - 1.30 | [facility] | | | PLASMA | | mg/dL | LABORATORY | | | (LAB) | | | SERVICES, | | | | | | CORE | | + + + + + + | EGFR | >60 | >60 mL/min | [facility] | | | - | | | LABORATORY | | | [facility] | | | SERVICES, | | | | | | CORE | | + + + + + + | EGFR NON | >60 | >60 mL/min | [facility] | | | -[facility] | | | LABORATORY | | | RICAN | | | SERVICES, | | | | | | CORE | | + + + + + + | SODIUM, | 137 | 136 - 145 | [facility] | | | PLASMA | | mmol/L | LABORATORY | | | (LAB) | | | SERVICES, | | | | | | CORE | | + + + + + + | POTASSIUM, | 4.3 | 3.4 - 5.0 | [facility] | | | PLASMA | | mmol/L | LABORATORY | | | (LAB) | | | SERVICES, | | | | | | CORE | | + + + + + + | CHLORIDE, | 106 | 97 - 108 mmol/L | [facility] | | | PLASMA | | | LABORATORY | | | (LAB) | | | SERVICES, | | | | | | CORE | | + + + + + + | TOTAL CO2, | 24 | 21 - 32 mmol/L | [facility] | | | PLASMA | | | LABORATORY | | | (LAB) | | | SERVICES, | | | | | | CORE | | + + + + + + | CALCIUM, | 8.5 (L) | 8.6 - 10.2 | [facility] | | | PLASMA | | mg/dL | LABORATORY | | | (LAB) | | | SERVICES, | | | | | | CORE | | + + + + + + | CALCIUM(ALB | 9.5 | 8.6 - 10.2 | [facility] | | | CORRECTED) | | mg/dL | LABORATORY | | | | | | SERVICES, | | | | | | CORE | | + + + + + + | ALBUMIN, | 2.8 (L) | 3.5 - 4.7 g/dL | [facility] | | | PLASMA | | | LABORATORY | | | (LAB) | | | SERVICES, | | | | | | CORE | | + + + + + + | PHOSPHORUS, | 3.0 | 2.4 - 4.7 mg/dL | [facility] [...] + + + | ANION GAP | 7 | 4 - 11 mmol/L | [facility] | | | | | | LABORATORY | | | | | | SERVICES, | | | | | | CORE | | + + + + + + | ANION | 10 | 4 - 11 mmol/L | [facility] | | | GAP(ALB | | | LABORATORY | | | CORRECTED) | | | SERVICES, | | | | | | CORE | | + + + + + + | BUN/CREATIN | 34 (H) | 8 - 25 | [facility] | | | INE RATIO | | [...] MDRD equation recommended by the National | [facility] | | Kidney Disease Education [...] | + + + + + | [facility] | [id number] | [place] [address] | | | SERVICES, CORE | [address] | | | + + + + + VASC LAB VENOUS DUPLEX LOWER EXTREMITY BILAT COMP (10/05/2019 10:43 AM PST) + + | Specimen | + + | | + + + + + | Narrative | Performed At | + + + | Bilateral: The duplex scanner was used to examine the deep and | [facility] | | superficial veins of the right and left lower extremities. The | RADIOLOGY VASC | | veins are patent bilaterally with normal flow and responses to | US | | augmentation and compression maneuvers and no thrombus is noted. | | | Conclusions: A normal venous examination of the bilateral lower | | | extremities. No venous thrombosis was detected. I have | | | personally reviewed the images and, if necessary, edited the report. | | | I agree with the report as now presented. | | + + + + + | Procedure Note | + + | Service Account, [place] In Interface - 10/05/2019 11:05 AM PST Bilateral: The | | duplex scanner was used to examine the deep and superficial veins of the right and left | | lower extremities. The veins are patent bilaterally with normal flow and responses to | | augmentation and compression maneuvers and no thrombus is noted.Conclusions: A normal | | venous examination of the bilateral lower extremities. No venous thrombosis was | | detected.I have personally reviewed the images and, if necessary, edited the report. I | | agree with the report as now presented. | | | | | |I have personally reviewed the images and, if necessary, edited the report. I agree with t he report as now presented. | + + + +---------+ + + | Performing | Address | City/State/Zipcode | Phone Number | | Organization | | | | + +---------+ + + | [facility] | | | | | VASC US | | | | + +---------+ + + CBC (HEMOGRAM) ONLY (10/05/2019 3:54 AM PST) + + + + + + | Component | Value | Ref Range | Performed | Pathologist | | | | | At | Signature | + + + + + + | WHITE CELL | 12.16 (H) | 3.50 - 10.80 | [facility] | | | COUNT | | K/cu mm | LABORATORY | | | | | | SERVICES, | | | | | | CORE | | + + + + + + | RED CELL | 3.68 (L) | 4.50 - 6.00 | [facility] | | | COUNT | | M/cu mm | LABORATORY | | | | | | SERVICES, | | | | | | CORE | | + + + + + + | HEMOGLOBIN | 9.7 (L) | 13.5 - 17.5 | [facility] | | | | | g/dL | LABORATORY | | | | | | SERVICES, | | | | | | CORE | | + + + + + + | HEMATOCRIT | 31.0 (L) | 41.0 - 53.0 % | [facility] | | | | | | LABORATORY | | | | | | SERVICES, | | | | | | CORE | | + + + + + + | MCV | 84.2 | 80.0 - 100.0 fL | [facility] | | | | | | LABORATORY | | | | | | SERVICES, | | | | | | CORE | | + + + + + + | MCHC | 31.3 (L) | 32.0 - 36.0 | [facility] | | | | | g/dL | LABORATORY | | | | | | SERVICES, | | | | | | CORE | | + + + + + + | RDW SD | 51.6 (H) | 35.1 - 46.3 fL | [facility] | | | | | | LABORATORY | | | | | | SERVICES, | | | | | | CORE | | + + + + + + | PLATELET | 654 (H) | 150 - 400 K/cu | [facility] | | | COUNT | | mm | LABORATORY | | | | | | SERVICES, | | | | | | CORE | | + + + + + + | MPV | 9.1 (L) | 9.7 - 12.3 fL | [facility] [...] + + + + + | [facility] | [id number] | [place] [address] | | | GARRY, CORE | [address] | | | + + + + + RENAL FUNCTION SET (NA,K,CL,CO2,BUN,CREAT,GLUC,CA,PHOS,ALB ) (10/05/2019 3:54 AM PST) + + + + + + | Component | Value | Ref Range | Performed | Pathologist | | | | | At | Signature | + + + + + + | GLUCOSE, | 124 (H) | 70 - 99 mg/dL | [facility] | | | PLASMA | | | LABORATORY | | | (LAB) | | | SERVICES, | | | | | | CORE | | + + + + + + | BUN, PLASMA | 20 | 6 - 20 mg/dL | [facility] | | | (LAB) | | | LABORATORY | | | | | | SERVICES, | | | | | | CORE | | + + + + + + | CREATININE | 0.54 (L) | 0.70 - 1.30 | [facility] | | | PLASMA | | mg/dL | LABORATORY | | | (LAB) | | | SERVICES, | | | | | | CORE | | + + + + + + | EGFR | >60 | >60 mL/min | [facility] | | | - | | | LABORATORY | | | [facility] | | | SERVICES, | | | | | | CORE | | + + + + + + | EGFR NON | >60 | >60 mL/min | [facility] | | | -[facility] | | | LABORATORY | | | RICAN | | | SERVICES, | | | | | | CORE | | + + + + + + | SODIUM, | 137 | 136 - 145 | [facility] | | | PLASMA | | mmol/L | LABORATORY | | | (LAB) | | | SERVICES, | | | | | | CORE | | + + + + + + | POTASSIUM, | 3.7 | 3.4 - 5.0 | [facility] | | | PLASMA | | mmol/L | LABORATORY | | | (LAB) | | | SERVICES, | | | | | | CORE | | + + + + + + | CHLORIDE, | 105 | 97 - 108 mmol/L | [facility] | | | PLASMA | | | LABORATORY | | | (LAB) | | | SERVICES, | | | | | | CORE | | + + + + + + | TOTAL CO2, | 26 | 21 - 32 mmol/L | [facility] | | | PLASMA | | | LABORATORY | | | (LAB) | | | SERVICES, | | | | | | CORE | | + + + + + + | CALCIUM, | 8.6 | 8.6 - 10.2 | [facility] | | | PLASMA | | mg/dL | LABORATORY | | | (LAB) | | | SERVICES, | | | | | | CORE | | + + + + + + | CALCIUM(ALB | 9.6 | 8.6 - 10.2 | [facility] | | | CORRECTED) | | mg/dL | LABORATORY | | | | | | SERVICES, | | | | | | CORE | | + + + + + + | ALBUMIN, | 2.7 (L) | 3.5 - 4.7 g/dL | [facility] | | | PLASMA | | | LABORATORY | | | (LAB) | | | SERVICES, | | | | | | CORE | | + + + + + + | PHOSPHORUS, | 3.9 | 2.4 - 4.7 mg/dL | [facility] [...] + + + | ANION GAP | 6 | 4 - 11 mmol/L | [facility] | | | | | | LABORATORY | | | | | | SERVICES, | | | | | | CORE | | + + + + + + | ANION | 9 | 4 - 11 mmol/L | [facility] [...] MDRD equation recommended by the National | [facility] | | Kidney Disease Education [...] | + + + + + | [facility] | [address] | [place] [address] | | | SERVICES, CORE | [address] | | | + + + + + X-RAY ABD LTD FEEDING TUBE EVAL PORTABLE (10/05/2019 12:45 AM PST) + + | Specimen | + + | | + + + + + | Narrative | Performed At | + + + | EXAM: [place] ABD LTD FEEDING TUBE EVAL INDICATION: 29M s/p DHT | [facility] | | placement traumatic brain injury TECHNIQUE: Semi-upright | RADIOLOGY VOICE | | portable view of the upper abdomen. Comparison: Abdominal | RECOGNITION 2 | | radiograph 10/04/2019 FINDINGS/IMPRESSION: The weighted tip | | | feeding tube has been repositioned, with the distal tip and side port | | | terminating within the distal gastric body. The bowel gas pattern is | | | nonobstructive. Unchanged dense left retrocardiac opacification. | | | Unchanged small bilateral pleural effusions. I have personally | | | reviewed the images and, if necessary, edited the report. I agree with | | | the report as now presented. Final signature: Joaquina Norton | | | 10/05/2019 10:30 AM Preliminary: Neil Vaughan MD | | | 10/05/2019 10:15 AM Dictation initiated: Neil Vaughan MD | | | 10/05/2019 9:01 AM | | + + + + + | Procedure Note | + + | Service Account, Radiant Res In Interface - 10/05/2019 10:31 AM PST EXAM: KY OTONIEL LTD | | FEEDING TUBE EVAL INDICATION: 29M s/p DHT placement traumatic brain injury TECHNIQUE: | | Semi-upright portable view of the upper abdomen. Comparison: Abdominal radiograph | | 10/04/2019 FINDINGS/IMPRESSION: The weighted tip feeding tube has been repositioned, | | with the distal tip and side port terminating within the distal gastric body. The bowel | | gas pattern is nonobstructive. Unchanged dense left retrocardiac opacification. | | Unchanged small bilateral pleural effusions. I have personally reviewed the images and, | | if necessary, edited the report. I agree with the report as now presented. Final | | signature: Joaquina Norton MD 10/05/2019 10:30 AM Preliminary: Neil Vaughan MD | | 10/05/2019 10:15 AM Dictation initiated: Neil Vaughan MD 10/05/2019 9:01 AM | |The weighted tip feeding tube has been repositioned, with the distal tip and side port term inating within the distal gastric body. The bowel gas pattern is nonobstructive. Unchanged d ense left retrocardiac | |opacification. Unchanged small bilateral pleural effusions. | | | |I have personally reviewed the images and, if necessary, edited the report. I agree with th e report as now presented. | | | |Final signature: Joaquina Norton MD 10/05/2019 10:30 AM | |Preliminary: Neil Vaughan MD 10/05/2019 10:15 AM | |Dictation initiated: Neil Vaughan MD 10/05/2019 9:01 AM | + + + +---------+ + + | Performing | Address | City/State/Zipcode | Phone Number | | Organization | | | | + +---------+ + + | [facility] | | | | | VOICE RECOGNITION 2 | | | | + +---------+ + + CAPILLARY BLOOD GLUCOSE (NO CHG), POC (10/04/2019 11:03 PM PST) + +---------+ + + + | Component | Value | Ref Range | Performed | Pathologist | | | | | At | Signature | + +---------+ + + + | BLOOD | 107 (H) | 70 - 99 mg/dL | [facility] - | | | GLUCOSE, | | [...] + | [facility] | [address] | [place], [place] | | | [facility] | [address] | [address] | | | TESTS | | | | + + + + + CAPILLARY BLOOD GLUCOSE (NO CHG), POC (10/04/2019 8:46 PM PST) + +-------+ + + + | Component | Value | Ref Range | Performed | Pathologist | | | | | At | Signature | + +-------+ + + + | BLOOD | 98 | 70 - 99 mg/dL | [facility] | | | GLUCOSE, | | | [facility] | | | POC | | | [facility] | | | | | | OF CARE | | | | | | TESTS | | + +-------+ + + + + + | Specimen | + + | Blood | + + + + + + + | Performing | Address | City/State/Zipcode | Phone Number | | Organization | | | | + + + + + | [facility] | [address] | [place], [place] | | | [facility] | [address] | [address] | | | TESTS | | | | + + + + + X-RAY ABD LTD FEEDING TUBE EVAL (10/04/2019 8:43 AM PST) + + | Specimen | + + | | + + + + + | Narrative | Performed At | + + + | EXAM: ABD LTD FEEDING TUBE EVAL INDICATION: feeding tube eval | [facility] | | TBI TECHNIQUE: Semi-upright portable view of the upper abdomen. | RADIOLOGY VOICE | | Comparison: Abdominal radiograph 09/30/2019. | RECOGNITION 2 | | FINDINGS/IMPRESSION: The weighted tip feeding tube has been | | | advanced with the distal tip and sidehole terminating in the proximal | | | gastric body. The bowel gas pattern is non-obstructive. Bibasilar | | | atelectasis is noted. I have personally reviewed the images and, | | | if necessary, edited the report. I agree with the report as now | | | presented. Final signature: Jj Dobbs MD 10/04/2019 9:54 | | | AM Preliminary: Neil Vaughan MD Dictation initiated: | | | Neil Vaughan MD 10/04/2019 9:16 AM | | + + + + + | Procedure Note | + + | Service Account, Radiant Res In Interface - 10/04/2019 9:55 AM PST EXAM: ABD LTD | | FEEDING TUBE EVAL INDICATION: feeding tube eval TBI TECHNIQUE: Semi-upright portable | | view of the upper abdomen. Comparison: Abdominal radiograph 09/30/2019. | | FINDINGS/IMPRESSION: The weighted tip feeding tube has been advanced with the distal | | tip and sidehole terminating in the proximal gastric body. The bowel gas pattern is | | non-obstructive. Bibasilar atelectasis is noted. I have personally reviewed the images | | and, if necessary, edited the report. I agree with the report as now presented. Final | | signature: Jj Dobbs MD 10/04/2019 9:54 AM Preliminary: Neil Vaughan MD | | Dictation initiated: Neil Vaughan MD 10/04/2019 9:16 AM | | | |The weighted tip feeding tube has been advanced with the distal tip and sidehole terminatin g in the proximal gastric body. The bowel gas pattern is non-obstructive. Bibasilar atelecta sis is noted. | | | |I have personally reviewed the images and, if necessary, edited the report. I agree with th e report as now presented. | | | |Final signature: Jj Dobbs MD 10/04/2019 9:54 AM | |Preliminary: Neil Vaughan MD | |Dictation initiated: Neil Vaughan MD 10/04/2019 9:16 AM | + + + +---------+ + + | Performing | Address | City/State/Zipcode | Phone Number | | Organization | | | | + +---------+ + + | [facility] | | | | | VOICE RECOGNITION 2 | | | | + +---------+ + + LACTATE (10/04/2019 7:45 AM PST) + +-------+ + + + | Component | Value | Ref Range | Performed | Pathologist | | | | | At | Signature | + +-------+ + + + | LACTATE | 0.7 | mmol/L | [facility] | | | | | | LABORATORY | | | | | | SERVICES, | | | | | | CORE | | + +-------+ + + + + + | Specimen | + + | Blood - Blood | | (substance) | + + + + + | Narrative | Performed At | + + + | Reference Range: Venous blood: 0.5 - 2.2 mmol/L Critical >= | [facility] | | 4.0 mmol/L Arterial blood: 0.5 - 1.6 mmol/L Critical >= 4.0 | LABORATORY | | mmol/L | SERVICES, CORE | + + + + + + + + | Performing | Address | City/State/Zipcode | Phone Number | | Organization | | | | + + + + + | [facility] | [address] | [place] [address] | | | SERVICES, CORE | [address] | | | + + + + + BLOOD GASES, ARTERIAL - LAB (10/04/2019 7:45 AM PST) + + + + + + | Component | Value | Ref Range | Performed | Pathologist | | | | | At | Signature | + + + + + + | FIO2 | Comment: room air | | [facility] | | | ARTERIAL | | | LABORATORY | | | | | | SERVICES, | | | | | | CORE | | + + + + + + | PH ARTERIAL | 7.42 | 7.37 - 7.44 | [facility] | | | | | | LABORATORY | | | | | | SERVICES, | | | | | | CORE | | + + + + + + | PCO2 | 38 | 32 - 43 mmHg | [facility] | | | ARTERIAL | | | LABORATORY | | | | | | SERVICES, | | | | | | CORE | | + + + + + + | PO2 | 60 (L) | 83 - 108 mmHg | [facility] | | | ARTERIAL | | | LABORATORY | | | | | | SERVICES, | | | | | | CORE | | + + + + + + | HCO3 | 24 | 21 - 28 mmol/L | [facility] | | | ARTERIAL | | | LABORATORY | | | | | | SERVICES, | | | | | | CORE | | + + + + + + | TOTAL CO2 | 25 | 22 - 28 mmol/L | [facility] | | | ARTERIAL | | | LABORATORY | | | | | | SERVICES, | | | | | | CORE | | + + + + + + | BASE EXCESS | 0.2 | -2.0 - 2.0 | [facility] | | | ARTERIAL | | mmol/L | LABORATORY | | | | | | SERVICES, | | | | | | CORE | | + + + + + + | O2 SAT, | 89.7 (L) | 92.0 - 98.0 % | [facility] | | | ARTERIAL | | | LABORATORY | | | | | | SERVICES, | | | | | | CORE | | + + + + + + | PAT TEMP | 37.9 | Degree C | [facility] | | | ARTERIAL | | | LABORATORY | | | [...] | + + + + + | [facility] | [address] | [place] [address] | | | SERVICES, CORE | [address] | | | + + + + + DIFFERENTIAL, ADD ON (10/04/2019 1:20 AM PST) + + + + + + | Component | Value | Ref Range | Performed | Pathologist | | | | | At | Signature | + + + + + + | NEUTROPHIL | 81.8 (H) | 50.0 - 70.0 % | [facility] | | | % | | | LABORATORY | | | | | | SERVICES, | | | | | | CORE | | + + + + + + | LYMPHOCYTE | 10.0 (L) | 18.0 - 42.0 % | [facility] | | | % | | | LABORATORY | | | | | | SERVICES, | | | | | | CORE | | + + + + + + | MONOCYTE % | 5.6 | 3.5 - 9.0 % | [facility] | | | | | | LABORATORY | | | | | | SERVICES, | | | | | | CORE | | + + + + + + | EOS % | 1.5 | 1.0 - 3.0 % | [facility] | | | | | | LABORATORY | | | | | | SERVICES, | | | | | | CORE | | + + + + + + | BASO % | 0.2 | 0.0 - 2.0 % | [facility] | | | | | | LABORATORY | | | | | | SERVICES, | | | | | | CORE | | + + + + + + | IG% | 0.9 | 0.0 - 1.0 % | [facility] | | | | | | LABORATORY | | | | | | SERVICES, | | | | | | CORE | | + + + + + + | NEUTROPHIL | 13.79 (H) | 1.80 - 7.70 | [facility] | | | # | | K/cu mm | LABORATORY | | | | | | SERVICES, | | | | | | CORE | | + + + + + + | LYMPHOCYTE | 1.69 | 1.00 - 4.80 | [facility] | | | # | | K/cu mm | LABORATORY | | | | | | SERVICES, | | | | | | CORE | | + + + + + + | MONOCYTE # | 0.94 (H) | 0.10 - 0.90 | [facility] | | | | | K/cu mm | LABORATORY | | | | | | SERVICES, | | | | | | CORE | | + + + + + + | EOS # | 0.26 | 0.00 - 0.50 | [facility] | | | | | K/cu mm | LABORATORY | | | | | | SERVICES, | | | | | | CORE | | + + + + + + | BASO # | 0.04 | 0.00 - 0.10 | [facility] | | | | | K/cu mm | LABORATORY | | | | | | SERVICES, | | | | | | CORE | | + + + + + + | IG# | 0.16 (H) | 0.00 - 0.10 | [facility] | [...] | + + + + + | [facility] | [address] | [place] [address] | | | SERVICES, CORE | [address] | | | + + + + + CBC (HEMOGRAM) ONLY (10/04/2019 1:20 AM PST) + + + + + + | Component | Value | Ref Range | Performed | Pathologist | | | | | At | Signature | + + + + + + | WHITE CELL | 16.35 (H) | 3.50 - 10.80 | [facility] | | | COUNT | | K/cu mm | LABORATORY | | | | | | SERVICES, | | | | | | CORE | | + + + + + + | RED CELL | 3.98 (L) | 4.50 - 6.00 | [facility] | | | COUNT | | M/cu mm | LABORATORY | | | | | | SERVICES, | | | | | | CORE | | + + + + + + | HEMOGLOBIN | 10.6 (L) | 13.5 - 17.5 | [facility] | | | | | g/dL | LABORATORY | | | | | | SERVICES, | | | | | | CORE | | + + + + + + | HEMATOCRIT | 33.6 (L) | 41.0 - 53.0 % | [facility] | | | | | | LABORATORY | | | | | | SERVICES, | | | | | | CORE | | + + + + + + | MCV | 84.4 | 80.0 - 100.0 fL | [facility] | | | | | | LABORATORY | | | | | | SERVICES, | | | | | | CORE | | + + + + + + | MCHC | 31.5 (L) | 32.0 - 36.0 | [facility] | | | | | g/dL | LABORATORY | | | | | | SERVICES, | | | | | | CORE | | + + + + + + | RDW SD | 51.3 (H) | 35.1 - 46.3 fL | [facility] | | | | | | LABORATORY | | | | | | SERVICES, | | | | | | CORE | | + + + + + + | PLATELET | 506 (H) | 150 - 400 K/cu | [facility] | | | COUNT | | mm | LABORATORY | | | | | | SERVICES, | | | | | | CORE | | + + + + + + | MPV | 10.3 | 9.7 - 12.3 fL | [facility] [...] + | [facility] | [address] | [place] [address] | | | SERVICES, CORE | [address] | | | + + + + + RENAL FUNCTION SET (NA,K,CL,CO2,BUN,CREAT,GLUC,CA,PHOS,ALB ) (10/04/2019 1:20 AM PST) + + + + + + | Component | Value | Ref Range | Performed | Pathologist | | | | | At | Signature | + + + + + + | GLUCOSE, | 117 (H) | 70 - 99 mg/dL | [facility] | | | PLASMA | | | LABORATORY | | | (LAB) | | | SERVICES, | | | | | | CORE | | + + + + + + | BUN, PLASMA | 32 (H) | 6 - 20 mg/dL | [facility] | | | (LAB) | | | LABORATORY | | | | | | SERVICES, | | | | | | CORE | | + + + + + + | CREATININE | 0.66 (L) | 0.70 - 1.30 | [facility] | | | PLASMA | | mg/dL | LABORATORY | | | (LAB) | | | SERVICES, | | | | | | CORE | | + + + + + + | EGFR | >60 | >60 mL/min | [facility] | | | - | | | LABORATORY | | | [facility] | | | SERVICES, | | | | | | CORE | | + + + + + + | EGFR NON | >60 | >60 mL/min | [facility] | | | -[facility] | | | LABORATORY | | | RICAN | | | SERVICES, | | | | | | CORE | | + + + + + + | SODIUM, | 141 | 136 - 145 | [facility] | | | PLASMA | | mmol/L | LABORATORY | | | (LAB) | | | SERVICES, | | | | | | CORE | | + + + + + + | POTASSIUM, | 4.2 | 3.4 - 5.0 | [facility] | | | PLASMA | | mmol/L | LABORATORY | | | (LAB) | | | SERVICES, | | | | | | CORE | | + + + + + + | CHLORIDE, | 113 (H) | 97 - 108 mmol/L | [facility] | | | PLASMA | | | LABORATORY | | | (LAB) | | | SERVICES, | | | | | | CORE | | + + + + + + | TOTAL CO2, | 15 (L) | 21 - 32 mmol/L | [facility] | | | PLASMA | | | LABORATORY | | | (LAB) | | | SERVICES, | | | | | | CORE | | + + + + + + | CALCIUM, | 8.5 (L) | 8.6 - 10.2 | [facility] | | | PLASMA | | mg/dL | LABORATORY | | | (LAB) | | | SERVICES, | | | | | | CORE | | + + + + + + | CALCIUM(ALB | 9.6 | 8.6 - 10.2 | [facility] | | | CORRECTED) | | mg/dL | LABORATORY | | | | | | SERVICES, | | | | | | CORE | | + + + + + + | ALBUMIN, | 2.6 (L) | 3.5 - 4.7 g/dL | [facility] | | | PLASMA | | | LABORATORY | | | (LAB) | | | SERVICES, | | | | | | CORE | | + + + + + + | PHOSPHORUS, | 3.8 | 2.4 - 4.7 mg/dL | [facility] [...] + + + | ANION GAP | 13 (H) | 4 - 11 mmol/L | [facility] | | | | | | LABORATORY | | | | | | SERVICES, | | | | | | CORE | | + + + + + + | ANION | 16 (H) | 4 - 11 mmol/L | [facility] [...] MDRD equation recommended by the National | [facility] | | Kidney Disease Education Program. Estimated [...] | + + + + + | [facility] | [address] | [place] [address] | | | ENRIKE CASTAÑEDA | [address] | | | + + + + + CAPILLARY BLOOD GLUCOSE (NO CHG), POC (10/03/2019 8:38 PM PST) + +---------+ + + + | Component | Value | Ref Range | Performed | Pathologist | | | | | At | Signature | + +---------+ + + + | BLOOD | 134 (H) | 70 - 99 mg/dL | [facility] - | | | GLUCOSE, | | [...] + + + + + | [facility] | [address] | [place], [place] | | | [facility] | [address] | [address] | | | TESTS | | | | + + + + + 12 LEAD ECG (10/03/2019 5:30 PM PST) + + + + + + | Component | Value | Ref Range | Performed | Pathologist | | | | | At | Signature | + + + + + + | VENTRICULAR | 115 | bpm | [facility] | | | RATE | | | OF | | | | | | CARDIOLOGY | | + + + + + + | ATRIAL RATE | 115 | ms | [facility] | | | | | | OF | | | | | | CARDIOLOGY | | + + + + + + | P-R | 143 | ms | [facility] | | | INTERVAL | | | OF | | | | | | CARDIOLOGY | | + + + + + + | P AXIS | 4 | deg | [facility] | | | | | | OF | | | | | | CARDIOLOGY | | + + + + + + | QRS | 99 | ms | [facility] | | | DURATION | | | OF | | | | | | CARDIOLOGY | | + + + + + + | QT | 316 | ms | [facility] | | | | | | OF | | | | | | CARDIOLOGY | | + + + + + + | QTC[place] | 437 | ms | [facility] | | | | | | OF | | | | | | CARDIOLOGY | | + + + + + + | R AXIS | -75 | deg | [facility] | | | | | | OF | | | | | | CARDIOLOGY | | + + + + + + | T AXIS | 5 | deg | [facility] | | [...] DEPT | | | IMPRESSION | by: PRESLEY DALAL | | OF | | | | 10-03-2019 18:05:07 | | CARDIOLOGY | | + + [...] + | [facility] | [address] | [place], [place] | | | CARDIOLOGY | [address] | [address] | | + + + + + X-RAY PORTABLE CHEST 1 VIEW (10/03/2019 8:15 AM PST) + + | Specimen | + + | | + + + + + | Narrative | Performed At | + + + | EXAM: [place] CHEST 1 VIEW HISTORY: hypoxia COMPARISON: | [facility] | | 10/01/2019, 09/30/2019, CT from 09/28/2019 FINDINGS: Feeding | RADIOLOGY VOICE | | tube coursing into the stomach beyond the [id number]. Lung | RECOGNITION 2 | | volumes are small with bibasilar and perihilar atelectasis, worsened | | | compared to prior imaging. Small bilateral pleural effusions noted. No | | | pneumothorax. Left retrocardiac opacity is favored to reflect | | | atelectasis. The cardiomediastinal silhouette is stable in appearance. | | | No new acute osseous abnormality. IMPRESSION: Lung | | | volumes are small with bibasilar and perihilar atelectasis that, | | | worsened compared to prior imaging. Left retrocardiac opacity is | | | favored to reflect atelectasis. Small bilateral pleural effusions. | | | I have personally reviewed the images and, if necessary, edited | | | the report. I agree with the report as now presented. Final | | | signature: Janneth Flores MD 10/03/2019 9:43 AM Preliminary: Janneth Jimenez | | MD Mark Dictation initiated: Janneth Flores MD 10/03/2019 | | | 9:40 AM | | + + + + + | Procedure Note | + + | Service Account, Radiant Res In Interface - 10/03/2019 9:44 AM PST EXAM: [place] CHEST 1 | | VIEW HISTORY: hypoxia COMPARISON: 10/01/2019, 09/30/2019, CT from 09/28/2019 FINDINGS: | | Feeding tube coursing into the stomach beyond the [id number]. Lung volumes are small | | with bibasilar and perihilar atelectasis, worsened compared to prior imaging. Small | | bilateral pleural effusions noted. No pneumothorax. Left retrocardiac opacity is favored | | to reflect atelectasis. The cardiomediastinal silhouette is stable in appearance. No | | new acute osseous abnormality. IMPRESSION: Lung volumes are small with bibasilar and | | perihilar atelectasis that, worsened compared to prior imaging. Left retrocardiac | | opacity is favored to reflect atelectasis. Small bilateral pleural effusions. I have | | personally reviewed the images and, if necessary, edited the report. I agree with the | | report as now presented. Final signature: Janneth Flores MD 10/03/2019 9:43 AM | | Preliminary: Janneth Flores MD Dictation initiated: Janneth Flores MD 10/03/2019 9:40 | | AM | |No new acute osseous abnormality. | | | |IMPRESSION: | | | |Lung volumes are small with bibasilar and perihilar atelectasis that, worsened compared to prior imaging. Left retrocardiac opacity is favored to reflect atelectasis. | | | |Small bilateral pleural effusions. | | | |I have personally reviewed the images and, if necessary, edited the report. I agree with th e report as now presented. | | | |Final signature: Janneth Flores MD 10/03/2019 9:43 AM | |Preliminary: Janneth Flores MD | |Dictation initiated: Janneth Flores MD 10/03/2019 9:40 AM | + + + +---------+ + + | Performing | Address | City/State/Zipcode | Phone Number | | Organization | | | | + +---------+ + + | [facility] | | | | | VOICE RECOGNITION 2 | | | | + +---------+ + + BLOOD GASES, ARTERIAL - LAB (10/03/2019 2:18 AM PST) + + + + + + | Component | Value | Ref Range | Performed | Pathologist | | | | | At | Signature | + + + + + + | FIO2 | Comment: 5LNC | | [facility] | | | ARTERIAL | | | LABORATORY | | | | | | SERVICES, | | | | | | CORE | | + + + + + + | PH ARTERIAL | 7.39 | 7.37 - 7.44 | [facility] | | | | | | LABORATORY | | | | | | SERVICES, | | | | | | CORE | | + + + + + + | PCO2 | 37 | 32 - 43 mmHg | [facility] | | | ARTERIAL | | | LABORATORY | | | | | | SERVICES, | | | | | | CORE | | + + + + + + | PO2 | 69 (L) | 83 - 108 mmHg | [facility] | | | ARTERIAL | | | LABORATORY | | | | | | SERVICES, | | | | | | CORE | | + + + + + + | HCO3 | 22 | 21 - 28 mmol/L | [facility] | | | ARTERIAL | | | LABORATORY | | | | | | SERVICES, | | | | | | CORE | | + + + + + + | TOTAL CO2 | 23 | 22 - 28 mmol/L | [facility] | | | ARTERIAL | | | LABORATORY | | | | | | SERVICES, | | | | | | CORE | | + + + + + + | BASE EXCESS | -2.5 (L) | -2.0 - 2.0 | [facility] | | | ARTERIAL | | mmol/L | LABORATORY | | | | | | SERVICES, | | | | | | CORE | | + + + + + + | O2 SAT, | 92.1 | 92.0 - 98.0 % | [facility] | | | ARTERIAL | | | LABORATORY | | | | | | SERVICES, | | | | | | CORE | | + + + + + + | PAT TEMP | 37.6 | Degree C | [facility] | | | ARTERIAL | | | LABORATORY | | | [...] + | [facility] | [id number] | [place] [address] | | | SERVICES, CORE | [address] | | | + + + + + CBC (HEMOGRAM) ONLY (10/03/2019 1:40 AM PST) + + + + + + | Component | Value | Ref Range | Performed | Pathologist | | | | | At | Signature | + + + + + + | WHITE CELL | 12.25 (H) | 3.50 - 10.80 | [facility] | | | COUNT | | K/cu mm | LABORATORY | | | | | | SERVICES, | | | | | | CORE | | + + + + + + | RED CELL | 4.16 (L) | 4.50 - 6.00 | [facility] | | | COUNT | | M/cu mm | LABORATORY | | | | | | SERVICES, | | | | | | CORE | | + + + + + + | HEMOGLOBIN | 10.7 (L) | 13.5 - 17.5 | [facility] | | | | | g/dL | LABORATORY | | | | | | SERVICES, | | | | | | CORE | | + + + + + + | HEMATOCRIT | 35.1 (L) | 41.0 - 53.0 % | [facility] | | | | | | LABORATORY | | | | | | SERVICES, | | | | | | CORE | | + + + + + + | MCV | 84.4 | 80.0 - 100.0 fL | [facility] | | | | | | LABORATORY | | | | | | SERVICES, | | | | | | CORE | | + + + + + + | MCHC | 30.5 (L) | 32.0 - 36.0 | [facility] | | | | | g/dL | LABORATORY | | | | | | SERVICES, | | | | | | CORE | | + + + + + + | RDW SD | 50.0 (H) | 35.1 - 46.3 fL | [facility] | | | | | | LABORATORY | | | | | | SERVICES, | | | | | | CORE | | + + + + + + | PLATELET | 531 (H) | 150 - 400 K/cu | [facility] | | | COUNT | | mm | LABORATORY | | | | | | SERVICES, | | | | | | CORE | | + + + + + + | MPV | 9.8 | 9.7 - 12.3 fL | [facility] | | | | | | LABORATORY | | | | | | SERVICES, | | | | | | CORE | | + + + + + + | NRBC% | 0.2 | 0.0 - 0.3 % | [facility] | | | | | | LABORATORY | | | | | | SERVICES, | | | | | | CORE | | + + + + + + | NRBC# | 0.02 | 0.00 - 0.02 | [facility] | [...] + + + + + | [facility] | [address] | [place] [address] | | | GARR[place], CORE | [address] | | | + + + + + RENAL FUNCTION SET (NA,K,CL,CO2,BUN,CREAT,GLUC,CA,PHOS,ALB ) (10/03/2019 1:40 AM PST) + + + + + + | Component | Value | Ref Range | Performed | Pathologist | | | | | At | Signature | + + + + + + | GLUCOSE, | 111 (H) | 70 - 99 mg/dL | [facility] | | | PLASMA | | | LABORATORY | | | (LAB) | | | SERVICES, | | | | | | CORE | | + + + + + + | BUN, PLASMA | 25 (H) | 6 - 20 mg/dL | [facility] | | | (LAB) | | | LABORATORY | | | | | | SERVICES, | | | | | | CORE | | + + + + + + | CREATININE | 0.56 (L) | 0.70 - 1.30 | [facility] | | | PLASMA | | mg/dL | LABORATORY | | | (LAB) | | | SERVICES, | | | | | | CORE | | + + + + + + | EGFR | >60 | >60 mL/min | [facility] | | | - | | | LABORATORY | | | [facility] | | | SERVICES, | | | | | | CORE | | + + + + + + | EGFR NON | >60 | >60 mL/min | [facility] | | | -[facility] | | | LABORATORY | | | RICAN | | | SERVICES, | | | | | | CORE | | + + + + + + | SODIUM, | 142 | 136 - 145 | [facility] | | | PLASMA | | mmol/L | LABORATORY | | | (LAB) | | | SERVICES, | | | | | | CORE | | + + + + + + | POTASSIUM, | 4.2 | 3.4 - 5.0 | [facility] | | | PLASMA | | mmol/L | LABORATORY | | | (LAB) | | | SERVICES, | | | | | | CORE | | + + + + + + | CHLORIDE, | 113 (H) | 97 - 108 mmol/L | [facility] | | | PLASMA | | | LABORATORY | | | (LAB) | | | SERVICES, | | | | | | CORE | | + + + + + + | TOTAL CO2, | 23 | 21 - 32 mmol/L | [facility] | | | PLASMA | | | LABORATORY | | | (LAB) | | | SERVICES, | | | | | | CORE | | + + + + + + | CALCIUM, | 8.7 | 8.6 - 10.2 | [facility] | | | PLASMA | | mg/dL | LABORATORY | | | (LAB) | | | SERVICES, | | | | | | CORE | | + + + + + + | CALCIUM(ALB | 9.8 | 8.6 - 10.2 | [facility] | | | CORRECTED) | | mg/dL | LABORATORY | | | | | | SERVICES, | | | | | | CORE | | + + + + + + | ALBUMIN, | 2.6 (L) | 3.5 - 4.7 g/dL | [facility] | | | PLASMA | | | LABORATORY | | | (LAB) | | | SERVICES, | | | | | | CORE | | + + + + + + | PHOSPHORUS, | 4.3 | 2.4 - 4.7 mg/dL | [facility] [...] + + + | ANION GAP | 6 | 4 - 11 mmol/L | [facility] | | | | | | LABORATORY | | | | | | SERVICES, | | | | | | CORE | | + + + + + + | ANION | 9 | 4 - 11 mmol/L | [facility] | | | GAP(ALB | | | [...] MDRD equation recommended by the National | [facility] | | Kidney Disease Education Program. Estimated [...] | + + + + + | [facility] | [address] | [place] [address] | | | SERVICES, CORE | [address] | | | + + + + + CBC (HEMOGRAM) ONLY (10/02/2019 1:18 AM PST) + + + + + + | Component | Value | Ref Range | Performed | Pathologist | | | | | At | Signature | + + + + + + | WHITE CELL | 11.30 (H) | 3.50 - 10.80 | [facility] | | | COUNT | | K/cu mm | LABORATORY | | | | | | SERVICES, | | | | | | CORE | | + + + + + + | RED CELL | 3.70 (L) | 4.50 - 6.00 | [facility] | | | COUNT | | M/cu mm | LABORATORY | | | | | | SERVICES, | | | | | | CORE | | + + + + + + | HEMOGLOBIN | 9.7 (L) | 13.5 - 17.5 | [facility] | | | | | g/dL | LABORATORY | | | | | | SERVICES, | | | | | | CORE | | + + + + + + | HEMATOCRIT | 30.8 (L) | 41.0 - 53.0 % | [facility] | | | | | | LABORATORY | | | | | | SERVICES, | | | | | | CORE | | + + + + + + | MCV | 83.2 | 80.0 - 100.0 fL | [facility] | | | | | | LABORATORY | | | | | | SERVICES, | | | | | | CORE | | + + + + + + | MCHC | 31.5 (L) | 32.0 - 36.0 | [facility] | | | | | g/dL | LABORATORY | | | | | | SERVICES, | | | | | | CORE | | + + + + + + | RDW SD | 48.9 (H) | 35.1 - 46.3 fL | [facility] | | | | | | LABORATORY | | | | | | SERVICES, | | | | | | CORE | | + + + + + + | PLATELET | 420 (H) | 150 - 400 K/cu | [facility] | | | COUNT | | mm | LABORATORY | | | | | | SERVICES, | | | | | | CORE | | + + + + + + | MPV | 9.5 (L) | 9.7 - 12.3 fL | [facility] | | | | | | LABORATORY | | | | | | SERVICES, | | | | | | CORE | | + + + + + + | NRBC% | 0.2 | 0.0 - 0.3 % | [facility] | | | | | | LABORATORY | | | | | | SERVICES, | | | | | | CORE | | + + + + + + | NRBC# | 0.02 | 0.00 - 0.02 | [facility] | [...] | + + + + + | [facility] | [address] | [place] [address] | | | SERVICES, CORE | [address] | | | + + + + + RENAL FUNCTION SET (NA,K,CL,CO2,BUN,CREAT,GLUC,CA,PHOS,ALB ) (10/02/2019 1:18 AM PST) + + + + + + | Component | Value | Ref Range | Performed | Pathologist | | | | | At | Signature | + + + + + + | GLUCOSE, | 116 (H) | 70 - 99 mg/dL | [facility] | | | PLASMA | | | LABORATORY | | | (LAB) | | | SERVICES, | | | | | | CORE | | + + + + + + | BUN, PLASMA | 18 | 6 - 20 mg/dL | [facility] | | | (LAB) | | | LABORATORY | | | | | | SERVICES, | | | | | | CORE | | + + + + + + | CREATININE | 0.49 (L) | 0.70 - 1.30 | [facility] | | | PLASMA | | mg/dL | LABORATORY | | | (LAB) | | | SERVICES, | | | | | | CORE | | + + + + + + | EGFR | >60 | >60 mL/min | [facility] | | | - | | | LABORATORY | | | BANGLADESHI | | | SERVICES, | | | | | | CORE | | + + + + + + | EGFR NON | >60 | >60 mL/min | [facility] | | | -MAREILL[facility] | | | LABORATORY | | | RICAN | | | SERVICES, | | | | | | CORE | | + + + + + + | SODIUM, | 144 | 136 - 145 | [facility] | | | PLASMA | | mmol/L | LABORATORY | | | (LAB) | | | SERVICES, | | | | | | CORE | | + + + + + + | POTASSIUM, | 3.7 | 3.4 - 5.0 | [facility] | | | PLASMA | | mmol/L | LABORATORY | | | (LAB) | | | SERVICES, | | | | | | CORE | | + + + + + + | CHLORIDE, | 114 (H) | 97 - 108 mmol/L | [facility] | | | PLASMA | | | LABORATORY | | | (LAB) | | | SERVICES, | | | | | | CORE | | + + + + + + | TOTAL CO2, | 24 | 21 - 32 mmol/L | [facility] | | | PLASMA | | | LABORATORY | | | (LAB) | | | SERVICES, | | | | | | CORE | | + + + + + + | CALCIUM, | 8.5 (L) | 8.6 - 10.2 | [facility] | | | PLASMA | | mg/dL | LABORATORY | | | (LAB) | | | SERVICES, | | | | | | CORE | | + + + + + + | CALCIUM(ALB | 9.9 | 8.6 - 10.2 | [facility] | | | CORRECTED) | | mg/dL | LABORATORY | | | | | | SERVICES, | | | | | | CORE | | + + + + + + | ALBUMIN, | 2.3 (L) | 3.5 - 4.7 g/dL | [facility] | | | PLASMA | | | LABORATORY | | | (LAB) | | | SERVICES, | | | | | | CORE | | + + + + + + | PHOSPHORUS, | 3.0 | 2.4 - 4.7 mg/dL | [facility] [...] + + + | ANION GAP | 6 | 4 - 11 mmol/L | [facility] | | | | | | LABORATORY | | | | | | SERVICES, | | | | | | CORE | | + + + + + + | ANION | 10 | 4 - 11 mmol/L | [facility] [...] MDRD equation recommended by the National | [facility] | | Kidney Disease Education [...] | + + + + + | [facility] | [address] | [place] [address] | | | GARRY, CORE | [address] | | | + + + + + BLOOD GASES, ARTERIAL - LAB (10/02/2019 1:18 AM PST) + + + + + + | Component | Value | Ref Range | Performed | Pathologist | | | | | At | Signature | + + + + + + | FIO2 | 0.40 | | [facility] | | | ARTERIAL | | | LABORATORY | | | | | | GARRY, | | | | | | CORE | | + + + + + + | PH ARTERIAL | 7.47 (H) | 7.37 - 7.44 | [facility] | | | | | | LABORATORY | | | | | | SERVICES, | | | | | | CORE | | + + + + + + | PCO2 | 32 | 32 - 43 mmHg | [facility] | | | ARTERIAL | | | LABORATORY | | | | | | SERVICES, | | | | | | CORE | | + + + + + + | PO2 | 95 | 83 - 108 mmHg | [facility] | | | ARTERIAL | | | LABORATORY | | | | | | SERVICES, | | | | | | CORE | | + + + + + + | HCO3 | 23 | 21 - 28 mmol/L | [facility] | | | ARTERIAL | | | LABORATORY | | | | | | SERVICES, | | | | | | CORE | | + + + + + + | TOTAL CO2 | 24 | 22 - 28 mmol/L | [facility] | | | ARTERIAL | | | LABORATORY | | | | | | SERVICES, | | | | | | CORE | | + + + + + + | BASE EXCESS | 0.1 | -2.0 - 2.0 | [facility] | | | ARTERIAL | | mmol/L | LABORATORY | | | | | | SERVICES, | | | | | | CORE | | + + + + + + | O2 SAT, | 97.5 | 92.0 - 98.0 % | [facility] | | | ARTERIAL | | | LABORATORY | | | | | | SERVICES, | | | | | | CORE | | + + + + + + | PAO2/FIO2 | 238 (L) | >300 mmHg | [facility] | | | RATIO | | | LABORATORY | | | | | | SERVICES, | | | | | | CORE | | + + + + + + | PAT TEMP | 37.2 | Degree C | [facility] | | | ARTERIAL | | | LABORATORY | | | [...] | + + + + + | [facility] | [address] | [place] [address] | | | SERVICES, CORE | [address] | | | + + + + + BLOOD GASES, ARTERIAL - LAB (10/01/2019 3:51 PM PST) + + + + + + | Component | Value | Ref Range | Performed | Pathologist | | | | | At | Signature | + + + + + + | FIO2 | 0.40Comment: This is an | | [facility] | | | ARTERIAL | addended result. | | LABORATORY | | | | Previous result was | | SERVICES, | | | | blank on 10/01/2019 at | | CORE | | | | 1607 PST. | | | | + + + + + + | PH ARTERIAL | 7.46 (H) | 7.37 - 7.44 | [facility] | | | | | | LABORATORY | | | | | | SERVICES, | | | | | | CORE | | + + + + + + | PCO2 | 35 | 32 - 43 mmHg | [facility] | | | ARTERIAL | | | LABORATORY | | | | | | SERVICES, | | | | | | CORE | | + + + + + + | PO2 | 102 | 83 - 108 mmHg | [facility] | | | ARTERIAL | | | LABORATORY | | | | | | SERVICES, | | | | | | CORE | | + + + + + + | HCO3 | 24 | 21 - 28 mmol/L | [facility] | | | ARTERIAL | | | LABORATORY | | | | | | SERVICES, | | | | | | CORE | | + + + + + + | TOTAL CO2 | 25 | 22 - 28 mmol/L | [facility] | | | ARTERIAL | | | LABORATORY | | | | | | SERVICES, | | | | | | CORE | | + + + + + + | BASE EXCESS | 1.1 | -2.0 - 2.0 | [facility] | | | ARTERIAL | | mmol/L | LABORATORY | | | | | | SERVICES, | | | | | | CORE | | + + + + + + | O2 SAT, | 97.9 | 92.0 - 98.0 % | [facility] | | | ARTERIAL | | | LABORATORY | | | | | | SERVICES, | | | | | | CORE | | + + + + + + | PAO2/FIO2 | 255 (L)Comment: This is | >300 mmHg | [facility] | | | RATIO | an addended result. | | LABORATORY | | | | Previous result was | | SERVICES, | | | | blank on 10/01/2019 at | | CORE | | | | 1607 PST. | | | | + + + + + + + + | Specimen | + + | Blood - Blood | | (substance) | + + + + + + + | Performing | Address | City/State/Zipcode | Phone Number | | Organization | | | | + + + + + | [facility] | [address] | [place] [address] | | | SERVICES, CORE | [address] | | | + + + + + BLOOD GASES, ARTERIAL - LAB (10/01/2019 12:50 PM PST) + + + + + + | Component | Value | Ref Range | Performed | Pathologist | | | | | At | Signature | + + + + + + | FIO2 | 0.40 | | [facility] | | | ARTERIAL | | | LABORATORY | | | | | | SERVICES, | | | | | | CORE | | + + + + + + | PH ARTERIAL | 7.44 | 7.37 - 7.44 | [facility] | | | | | | LABORATORY | | | | | | SERVICES, | | | | | | CORE | | + + + + + + | PCO2 | 35 | 32 - 43 mmHg | [facility] | | | ARTERIAL | | | LABORATORY | | | | | | SERVICES, | | | | | | CORE | | + + + + + + | PO2 | 59 (L) | 83 - 108 mmHg | [facility] | | | ARTERIAL | | | LABORATORY | | | | | | SERVICES, | | | | | | CORE | | + + + + + + | HCO3 | 23 | 21 - 28 mmol/L | [facility] | | | ARTERIAL | | | LABORATORY | | | | | | SERVICES, | | | | | | CORE | | + + + + + + | TOTAL CO2 | 24 | 22 - 28 mmol/L | [facility] | | | ARTERIAL | | | LABORATORY | | | | | | SERVICES, | | | | | | CORE | | + + + + + + | BASE EXCESS | 0.3 | -2.0 - 2.0 | [facility] | | | ARTERIAL | | mmol/L | LABORATORY | | | | | | SERVICES, | | | | | | CORE | | + + + + + + | O2 SAT, | 89.2 (L) | 92.0 - 98.0 % | [facility] | | | ARTERIAL | | | LABORATORY | | | | | | SERVICES, | | | | | | CORE | | + + + + + + | PAO2/FIO2 | 148 (L) | >300 mmHg | [facility] | | | RATIO | | | LABORATORY | | | | | | SERVICES, | | | | | | CORE | | + + + + + + | PAT TEMP | 37.3 | Degree C | [facility] | | | ARTERIAL | | | LABORATORY | | | [...] | + + + + + | [facility] | [address] | [place] [address] | | | SERVICES, ENRIKE | [address] | | | + + + + + X-RAY CHEST 1 VIEW (10/01/2019 3:59 AM PST) + + | Specimen | + + | | + + + + + | Narrative | Performed At | + + + | EXAM: CHEST 1 VIEW HISTORY: evaluate for pulmonary edema, | [facility] | | pneumonia, LLL COMPARISON: 09/30/2019 FINDINGS: | RADIOLOGY VOICE | | Endotracheal tube has been removed. Enteric tube has been removed. | RECOGNITION 2 | | Feeding tube with tip below the diaphragm and beyond the | | | [id number]. Stable dense left lower lobe retrocardiac | | | opacification. Stable patchy right basilar opacity. Small left pleural | | | effusion. No right pleural effusion. No pneumothorax. No definite | | | pulmonary edema. IMPRESSION: Stable dense left lower lobe | | | retrocardiac opacification, most likely related to a combination of | | | atelectasis and aspiration. Stable patchy right basilar opacity also | | | most likely related to atelectasis and aspiration. I have | | | personally reviewed the images and, if necessary, edited the report. I | | | agree with the report as now presented. Final signature: Enrique | | | MD Bert 10/01/2019 10:01 AM Preliminary: Zakia Chau MD | | | Dictation initiated: Zkaia Chau MD 10/01/2019 8:29 AM | | + + + + + | Procedure Note | + + | Service Account, Radiant Res In Interface - 10/01/2019 10:02 AM PST EXAM: CHEST 1 | | VIEW HISTORY: evaluate for pulmonary edema, pneumonia, LLL COMPARISON: 09/30/2019 | | FINDINGS: Endotracheal tube has been removed. Enteric tube has been removed. Feeding | | tube with tip below the diaphragm and beyond the [id number]. Stable dense left lower | | lobe retrocardiac opacification. Stable patchy right basilar opacity. Small left pleural | | effusion. No right pleural effusion. No pneumothorax. No definite pulmonary edema. | | IMPRESSION: Stable dense left lower lobe retrocardiac opacification, most likely related | | to a combination of atelectasis and aspiration. Stable patchy right basilar opacity | | also most likely related to atelectasis and aspiration. I have personally reviewed the | | images and, if necessary, edited the report. I agree with the report as now presented. | | Final signature: Enrique Noel MD 10/01/2019 10:01 AM Preliminary: Zakia Chau MD | | Dictation initiated: Zakia Chau MD 10/01/2019 8:29 AM | | | |Stable dense left lower lobe retrocardiac opacification, most likely related to a combinati on of atelectasis and aspiration. Stable patchy right basilar opacity also most likely relat ed to atelectasis and aspiration. | | | |I have personally reviewed the images and, if necessary, edited the report. I agree with th e report as now presented. | | | |Final signature: Enrique Noel MD 10/01/2019 10:01 AM | |Preliminary: Zakia Chau MD | |Dictation initiated: Zakia Chau MD 10/01/2019 8:29 AM | + + + +---------+ + + | Performing | Address | City/State/Zipcode | Phone Number | | Organization | | | | + +---------+ + + | [facility] | | | | | VOICE RECOGNITION 2 | | | | + +---------+ + + BLOOD GASES, ARTERIAL - LAB (10/01/2019 3:48 AM PST) + + + + + + | Component | Value | Ref Range | Performed | Pathologist | | | | | At | Signature | + + + + + + | FIO2 | 0.40 | | [facility] | | | ARTERIAL | | | LABORATORY | | | | | | SERVICES, | | | | | | CORE | | + + + + + + | PH ARTERIAL | 7.45 (H) | 7.37 - 7.44 | [facility] | | | | | | LABORATORY | | | | | | SERVICES, | | | | | | CORE | | + + + + + + | PCO2 | 36 | 32 - 43 mmHg | [facility] | | | ARTERIAL | | | LABORATORY | | | | | | SERVICES, | | | | | | CORE | | + + + + + + | PO2 | 86 | 83 - 108 mmHg | [facility] | | | ARTERIAL | | | LABORATORY | | | | | | SERVICES, | | | | | | CORE | | + + + + + + | HCO3 | 24 | 21 - 28 mmol/L | [facility] | | | ARTERIAL | | | LABORATORY | | | | | | SERVICES, | | | | | | CORE | | + + + + + + | TOTAL CO2 | 25 | 22 - 28 mmol/L | [facility] | | | ARTERIAL | | | LABORATORY | | | | | | SERVICES, | | | | | | CORE | | + + + + + + | BASE EXCESS | 1.0 | -2.0 - 2.0 | [facility] | | | ARTERIAL | | mmol/L | LABORATORY | | | | | | SERVICES, | | | | | | CORE | | + + + + + + | O2 SAT, | 96.3 | 92.0 - 98.0 % | [facility] | | | ARTERIAL | | | LABORATORY | | | | | | SERVICES, | | | | | | CORE | | + + + + + + | PAO2/FIO2 | 215 (L) | >300 mmHg | [facility] | | | RATIO | | | LABORATORY | | | | | | SERVICES, | | | | | | CORE | | + + + + + + | PAT TEMP | 38.4 | Degree C | [facility] | | | ARTERIAL | | | LABORATORY | | | [...] | + + + + + | [facility] | [address] | [place] [address] | | | GARRY, ENRIKE | [address] | | | + + + + + 12 LEAD ECG (10/01/2019 2:45 AM PST) + + + + + + | Component | Value | Ref Range | Performed | Pathologist | | | | | At | Signature | + + + + + + | VENTRICULAR | 85 | bpm | [facility] | | | RATE | | | OF | | | | | | CARDIOLOGY | | + + + + + + | ATRIAL RATE | 85 | ms | [facility] | | | | | | OF | | | | | | CARDIOLOGY | | + + + + + + | P-R | 150 | ms | [facility] | | | INTERVAL | | | OF | | | | | | CARDIOLOGY | | + + + + + + | P AXIS | 4 | deg | [facility] | | | | | | OF | | | | | | CARDIOLOGY | | + + + + + + | QRS | 98 | ms | [facility] | | | DURATION | | | OF | | | | | | CARDIOLOGY | | + + + + + + | QT | 370 | ms | [facility] | | | | | | OF | | | | | | CARDIOLOGY | | + + + + + + | QTC-BAZETT | 440 | ms | [facility] | | | | | | OF | | | | | | CARDIOLOGY | | + + + + + + | R AXIS | -52 | deg | [facility] | | | | | | OF | | | | | | CARDIOLOGY | | + + + + + + | T AXIS | 1 | deg | [facility] | | | | | | OF | | | | | | CARDIOLOGY | | + + + + + + | ECG | Sinus rhythm- NORMAL ECG | | [facility] | | | IMPRESSION | - | | OF | | | | | | CARDIOLOGY | | + + + + + + | ECG | Electronically signed | | [facility] | | | IMPRESSION | by: ARNIE WONG | | OF | | | | 10-02-2019 20:44:47 | | CARDIOLOGY | | + + [...] + + + + + | [facility] | [address] | [place], [place] | | | CARDIOLOGY | [address] | [id number] | | + + + + + TROPONIN I, PLASMA (09/30/2019 11:59 PM PST) + +-------+ + + + | Component | Value | Ref Range | Performed | Pathologist | | | | | At | Signature | + +-------+ + + + | TROPONIN I | <0.02 | <0.80 ng/mL | [facility] | | | | | | LABORATORY | | | | | | SERVICES, | | | | | | CORE | | + +-------+ + + + + + | Specimen | + + | Blood - Blood | | (substance) | + + + + + + + | Performing | Address | City/State/Zipcode | Phone Number | | Organization | | | | + + + + + | [facility] | [address] | [place] [address] | | | SERVICES, CORE | [address] | | | + + + + + BLOOD GASES, ARTERIAL - LAB (09/30/2019 11:59 PM PST) + + + + + + | Component | Value | Ref Range | Performed | Pathologist | | | | | At | Signature | + + + + + + | FIO2 | 0.40 | | [facility] | | | ARTERIAL | | | LABORATORY | | | | | | SERVICES, | | | | | | CORE | | + + + + + + | PH ARTERIAL | 7.51 (H) | 7.37 - 7.44 | [facility] | | | | | | LABORATORY | | | | | | SERVICES, | | | | | | CORE | | + + + + + + | PCO2 | 29 (L) | 32 - 43 mmHg | [facility] | | | ARTERIAL | | | LABORATORY | | | | | | SERVICES, | | | | | | CORE | | + + + + + + | PO2 | 94 | 83 - 108 mmHg | [facility] | | | ARTERIAL | | | LABORATORY | | | | | | SERVICES, | | | | | | CORE | | + + + + + + | HCO3 | 23 | 21 - 28 mmol/L | [facility] | | | ARTERIAL | | | LABORATORY | | | | | | SERVICES, | | | | | | CORE | | + + + + + + | TOTAL CO2 | 24 | 22 - 28 mmol/L | [facility] | | | ARTERIAL | | | LABORATORY | | | | | | SERVICES, | | | | | | CORE | | + + + + + + | BASE EXCESS | 1.1 | -2.0 - 2.0 | [facility] | | | ARTERIAL | | mmol/L | LABORATORY | | | | | | SERVICES, | | | | | | CORE | | + + + + + + | O2 SAT, | 97.5 | 92.0 - 98.0 % | [facility] | | | ARTERIAL | | | LABORATORY | | | | | | SERVICES, | | | | | | CORE | | + + + + + + | PAO2/FIO2 | 235 (L) | >300 mmHg | [facility] | | | RATIO | | | LABORATORY | | | | | | SERVICES, | | | | | | CORE | | + + + + + + | PAT TEMP | 38.5 | Degree C | [facility] | | | ARTERIAL | | | LABORATORY | | | [...] | + + + + + | [facility] | [address] | [place] [address] | | | SERVICES, CORE | [address] | | | + + + + + CBC (HEMOGRAM) ONLY (09/30/2019 11:59 PM PST) + + + + + + | Component | Value | Ref Range | Performed | Pathologist | | | | | At | Signature | + + + + + + | WHITE CELL | 15.61 (H) | 3.50 - 10.80 | [facility] | | | COUNT | | K/cu mm | LABORATORY | | | | | | SERVICES, | | | | | | CORE | | + + + + + + | RED CELL | 3.72 (L) | 4.50 - 6.00 | [facility] | | | COUNT | | M/cu mm | LABORATORY | | | | | | SERVICES, | | | | | | CORE | | + + + + + + | HEMOGLOBIN | 9.7 (L) | 13.5 - 17.5 | [facility] | | | | | g/dL | LABORATORY | | | | | | SERVICES, | | | | | | CORE | | + + + + + + | HEMATOCRIT | 30.5 (L) | 41.0 - 53.0 % | [facility] | | | | | | LABORATORY | | | | | | SERVICES, | | | | | | CORE | | + + + + + + | MCV | 82.0 | 80.0 - 100.0 fL | [facility] | | | | | | LABORATORY | | | | | | SERVICES, | | | | | | CORE | | + + + + + + | MCHC | 31.8 (L) | 32.0 - 36.0 | [facility] | | | | | g/dL | LABORATORY | | | | | | SERVICES, | | | | | | CORE | | + + + + + + | RDW SD | 48.8 (H) | 35.1 - 46.3 fL | [facility] | | | | | | LABORATORY | | | | | | SERVICES, | | | | | | CORE | | + + + + + + | PLATELET | 327 | 150 - 400 K/cu | [facility] | | | COUNT | | mm | LABORATORY | | | | | | SERVICES, | | | | | | CORE | | + + + + + + | MPV | 9.8 | 9.7 - 12.3 fL | [facility] | | | | | | LABORATORY | | | | | | SERVICES, | | | | | | CORE | | + + + + + + | NRBC% | 0.8 (H) | 0.0 - 0.3 % | [facility] | | | | | | LABORATORY | | | | | | SERVICES, | | | | | | CORE | | + + + + + + | NRBC# | 0.12 (H) | 0.00 - 0.02 | [facility] | [...] + | [facility] | [address] | [place] [address] | | | SERVICES, CORE | [address] | | | + + + + + RENAL FUNCTION SET (NA,K,CL,CO2,BUN,CREAT,GLUC,CA,PHOS,ALB ) (09/30/2019 11:59 PM PST) + + + + + + | Component | Value | Ref Range | Performed | Pathologist | | | | | At | Signature | + + + + + + | GLUCOSE, | 127 (H) | 70 - 99 mg/dL | [facility] | | | PLASMA | | | LABORATORY | | | (LAB) | | | SERVICES, | | | | | | CORE | | + + + + + + | BUN, PLASMA | 17 | 6 - 20 mg/dL | [facility] | | | (LAB) | | | LABORATORY | | | | | | SERVICES, | | | | | | CORE | | + + + + + + | CREATININE | 0.46 (L) | 0.70 - 1.30 | [facility] | | | PLASMA | | mg/dL | LABORATORY | | | (LAB) | | | SERVICES, | | | | | | CORE | | + + + + + + | EGFR | >60 | >60 mL/min | [facility] | | | - | | | LABORATORY | | | [facility] | | | SERVICES, | | | | | | CORE | | + + + + + + | EGFR NON | >60 | >60 mL/min | [facility] | | | -MARIELL[facility] | | | LABORATORY | | | RICAN | | | SERVICES, | | | | | | CORE | | + + + + + + | SODIUM, | 141 | 136 - 145 | [facility] | | | PLASMA | | mmol/L | LABORATORY | | | (LAB) | | | SERVICES, | | | | | | CORE | | + + + + + + | POTASSIUM, | 4.0 | 3.4 - 5.0 | [facility] | | | PLASMA | | mmol/L | LABORATORY | | | (LAB) | | | SERVICES, | | | | | | CORE | | + + + + + + | CHLORIDE, | 110 (H) | 97 - 108 mmol/L | [facility] | | | PLASMA | | | LABORATORY | | | (LAB) | | | SERVICES, | | | | | | CORE | | + + + + + + | TOTAL CO2, | 25 | 21 - 32 mmol/L | [facility] | | | PLASMA | | | LABORATORY | | | (LAB) | | | SERVICES, | | | | | | CORE | | + + + + + + | CALCIUM, | 8.4 (L) | 8.6 - 10.2 | [facility] | | | PLASMA | | mg/dL | LABORATORY | | | (LAB) | | | SERVICES, | | | | | | CORE | | + + + + + + | CALCIUM(ALB | 9.8 | 8.6 - 10.2 | [facility] | | | CORRECTED) | | mg/dL | LABORATORY | | | | | | SERVICES, | | | | | | CORE | | + + + + + + | ALBUMIN, | 2.3 (L) | 3.5 - 4.7 g/dL | [facility] | | | PLASMA | | | LABORATORY | | | (LAB) | | | SERVICES, | | | | | | CORE | | + + + + + + | PHOSPHORUS, | 3.5 | 2.4 - 4.7 mg/dL | [facility] [...] + + + | ANION GAP | 6 | 4 - 11 mmol/L | [facility] | | | | | | LABORATORY | | | | | | SERVICES, | | | | | | CORE | | + + + + + + | ANION | 10 | 4 - 11 mmol/L | [facility] [...] MDRD equation recommended by the National | [facility] | | Kidney Disease Education [...] | + + + + + | [facility] | [address] | [place] [address] | | | GARRY, ENRIKE | [address] | | | + + + + + CAPILLARY BLOOD GLUCOSE (NO CHG), POC (09/30/2019 11:45 PM PST) + +---------+ + + + | Component | Value | Ref Range | Performed | Pathologist | | | | | At | Signature | + +---------+ + + + | BLOOD | 122 (H) | 70 - 99 mg/dL | [facility] - | | | GLUCOSE, | | [...] + + | MARILYNN LARA | [address] [address] | [place], [place] | | | [facility] | [address] | [phone] | | | TESTS | | | | + + + + + X-RAY ABD LTD FEEDING TUBE EVAL (09/30/2019 9:28 PM PST) + + | Specimen | + + | | + + + + + | Narrative | Performed At | + + + | EXAM: ABD LTD FEEDING TUBE EVAL INDICATION: evaluate DHT | [facility] | | TECHNIQUE: Semi-upright portable view of the upper abdomen. | RADIOLOGY VOICE | | Comparison: 09/30/2019. FINDINGS/IMPRESSION: Interval removal | RECOGNITION 2 | | of NG tube and placement of enteric feeding tube with tip coiled at | | | the gastric fundus. Bibasilar atelectasis/opacities are again noted. | | | I have personally reviewed the images and, if necessary, edited the | | | report. I agree with the report as now presented. Final | | | signature: Enrique Noel MD 10/01/2019 9:28 AM Preliminary: Enrique Jimenez | | MD Bert Dictation initiated: Enrique Noel MD | | | 10/01/2019 9:27 AM | | + + + + + | Procedure Note | + + | Service Account, KassiGELI Res In Interface - 10/01/2019 9:29 AM PST EXAM: ABD LTD | | FEEDING TUBE EVAL INDICATION: evaluate DHT TECHNIQUE: Semi-upright portable view of | | the upper abdomen. Comparison: 09/30/2019. FINDINGS/IMPRESSION: Interval removal of NG | | tube and placement of enteric feeding tube with tip coiled at the gastric fundus. | | Bibasilar atelectasis/opacities are again noted. I have personally reviewed the images | | and, if necessary, edited the report. I agree with the report as now presented. Final | | signature: Enrique Noel MD 10/01/2019 9:28 AM Preliminary: Enrique Noel MD | | Dictation initiated: Enrique Noel MD 10/01/2019 9:27 AM | |FINDINGS/IMPRESSION: | | | |Interval removal of NG tube and placement of enteric feeding tube with tip coiled at the ga stric fundus. Bibasilar atelectasis/opacities are again noted. | | | |I have personally reviewed the images and, if necessary, edited the report. I agree with th e report as now presented. | | | |Final signature: Enrique Noel MD 10/01/2019 9:28 AM | |Preliminary: Enrique Noel MD | |Dictation initiated: Enrique Noel MD 10/01/2019 9:27 AM | + + + +---------+ + + | Performing | Address | City/State/Zipcode | Phone Number | | Organization | | | | + +---------+ + + | [facility] | | | | | VOICE RECOGNITION 2 | | | | + +---------+ + + CULTURE, BLOOD BACTI & YEAST [facility] (09/30/2019 9:12 PM PST) + + + + + + | Component | Value | Ref Range | Performed | Pathologist | | | | | At | Signature | + + + + + + | CULTURE | Final Report:No Bacteria | | [facility] | | | RESULT | or Yeast isolated at 5 | | LABORATORY | | | | days. | | SERVICES, | | | | | | CORE | | + + + + + + + + | Specimen | + + | Blood - Entire right | | upper arm (body | | structure) | + + + + + + + | Performing | Address | City/State/Zipcode | Phone Number | | Organization | | | | + + + + + | [facility] | [address] | [place] [address] | | | GARRY, ENRIKE | [address] | | | + + + + + CULTURE, BLOOD BACTI & YEAST [facility] (09/30/2019 8:39 PM PST) + + + + + + | Component | Value | Ref Range | Performed | Pathologist | | | | | At | Signature | + + + + + + | CULTURE | Final Report:No Bacteria | | [facility] | | | RESULT | or Yeast isolated at 5 | | LABORATORY | | | | days. | | SERVICES, | | | | | | CORE | | + + + + + + + + | Specimen | + + | Blood - Entire right | | upper arm (body | | structure) | + + + + + + + | Performing | Address | City/State/Zipcode | Phone Number | | Organization | | | | + + + + + | [facility] | [address] | [place] [address] | | | SERVICES, CORE | [address] | | | + + + + + URINE SCREEN FOR CULTURE (09/30/2019 8:30 PM PST) + + + + + + | Component | Value | Ref Range | Performed | Pathologist | | | | | At | Signature | + + + + + + | URINE | Negative | Negative | [facility] | | | SCREEN FOR | | | LABORATORY | | | CULTURE | | | SERVICES, | | | | | | CORE | | + + + + + + + + | Specimen | + + | Urine - Catheter, | | device (physical | | object) | + + + + + | Narrative | Performed At | + + + | Culture Screen Negative. Culture not indicated. | [facility] | | | LABORATORY | | | SERVICES, CORE | + + + + + + + + | Performing | Address | City/State/Zipcode | Phone Number | | Organization | | | | + + + + + | [facility] | [address] | [place] [address] | | | SERVICES, CORE | [address] | | | + + + + + URINE, MICROSCOPIC EXAM (09/30/2019 8:30 PM PST) + +-------+ + + + | Component | Value | Ref Range | Performed | Pathologist | | | | | At | Signature | + +-------+ + + + | RED CELLS | 1 | 0 - 3 /hpf | [facility] | | | | | | LABORATORY | | | | | | SERVICES, | | | | | | CORE | | + +-------+ + + + | WHITE CELLS | 1 | 0 - 5 /hpf | [facility] | | | | | | LABORATORY | | | | | | SERVICES, | | | | | | CORE | | + +-------+ + + + | BACTERIA | None | None /hpf | [facility] | | | | | | LABORATORY | | | | | | SERVICES, | | | | | | CORE | | + +-------+ + + + | YEAST (LAB) | None | None /hpf | [facility] | | | | | | LABORATORY | | | | | | SERVICES, | | | | | | CORE | | + +-------+ + + + | SQUAMOUS | None | None, Few /hpf | [facility] | | | EPITHELIAL | | | LABORATORY | | | | | | SERVICES, | | | | | | CORE | | + +-------+ + + + | MUCOUS | None | None, Few /hpf | [facility] | | | | | | LABORATORY | | | | | | SERVICES, | | | | | | CORE | | + +-------+ + + + | NON-SQUAMOU | None | None /hpf | [facility] | | | S EPITH | | | LABORATORY | | | | | | SERVICES, | | | | | | CORE | | + +-------+ + + + | HYALINE | 0 | 0 - 2 /lpf | [facility] | | | CASTS | | | LABORATORY | | | | | | SERVICES, | | | | | | CORE | | + +-------+ + + + | GRANULAR | 0 | 0 - 2 /lpf | [facility] | | | CASTS | | | LABORATORY | | | | | | SERVICES, | | | | | | CORE | | + +-------+ + + + | CELLULAR | 0 | <=0 /lpf | [facility] | | | CASTS | | | LABORATORY | | | | | | SERVICES, | | | | | | CORE | | + +-------+ + + + | TRIPLE P04 | None | None, Few /hpf | [facility] | | | CRYSTALS | | | LABORATORY | | | | | | SERVICES, | | | | | | CORE | | + +-------+ + + + | CALCIUM | None | None, Few /hpf | [facility] | | | OXALATE | | | LABORATORY | | | NANCY | | | SERVICES, | | | | | | CORE | | + +-------+ + + + | URIC ACID | None | None, Few /hpf | [facility] | | | CRYSTALS | | | LABORATORY | | | | | | SERVICES, | | | | | | CORE | | + +-------+ + + + | AMORPHOUS | None | None, Few /hpf | [facility] | | | CRYSTALS | | | LABORATORY | | | | | | SERVICES, | | | | | | CORE | | + +-------+ + + + + + | Specimen | + + | Urine - Catheter, | | device (physical | | object) | + + + + + + + | Performing | Address | City/State/Zipcode | Phone Number | | Organization | | | | + + + + + | [facility] | [address] | [place] [address] | | | GARRY, CORE | [address] | | | + + + + + BLOOD GASES, ARTERIAL - LAB (09/30/2019 8:28 PM PST) + + + + + + | Component | Value | Ref Range | Performed | Pathologist | | | | | At | Signature | + + + + + + | FIO2 | 0.50 | | [facility] | | | ARTERIAL | | | LABORATORY | | | | | | GARRY, | | | | | | CORE | | + + + + + + | PH ARTERIAL | 7.48 (H) | 7.37 - 7.44 | [facility] | | | | | | LABORATORY | | | | | | SERVICES, | | | | | | CORE | | + + + + + + | PCO2 | 34 | 32 - 43 mmHg | [facility] | | | ARTERIAL | | | LABORATORY | | | | | | SERVICES, | | | | | | CORE | | + + + + + + | PO2 | 78 (L) | 83 - 108 mmHg | [facility] | | | ARTERIAL | | | LABORATORY | | | | | | SERVICES, | | | | | | CORE | | + + + + + + | HCO3 | 25 | 21 - 28 mmol/L | [facility] | | | ARTERIAL | | | LABORATORY | | | | | | SERVICES, | | | | | | CORE | | + + + + + + | TOTAL CO2 | 26 | 22 - 28 mmol/L | [facility] | | | ARTERIAL | | | LABORATORY | | | | | | SERVICES, | | | | | | CORE | | + + + + + + | BASE EXCESS | 2.1 (H) | -2.0 - 2.0 | [facility] | | | ARTERIAL | | mmol/L | LABORATORY | | | | | | SERVICES, | | | | | | CORE | | + + + + + + | O2 SAT, | 95.6 | 92.0 - 98.0 % | [facility] | | | ARTERIAL | | | LABORATORY | | | | | | SERVICES, | | | | | | CORE | | + + + + + + | PAO2/FIO2 | 156 (L) | >300 mmHg | [facility] | | | RATIO | | | LABORATORY | | | | | | SERVICES, | | | | | | CORE | | + + + + + + | PAT TEMP | 38.5 | Degree C | [facility] | | | ARTERIAL | | | LABORATORY | | | [...] | + + + + + | [facility] | [address] | [place] [address] | | | SERVICES, CORE | [address] | | | + + + + + CBC (HEMOGRAM) ONLY (09/30/2019 1:26 PM PST) + + + + + + | Component | Value | Ref Range | Performed | Pathologist | | | | | At | Signature | + + + + + + | WHITE CELL | 11.50 (H) | 3.50 - 10.80 | [facility] | | | COUNT | | K/cu mm | LABORATORY | | | | | | SERVICES, | | | | | | CORE | | + + + + + + | RED CELL | 3.60 (L) | 4.50 - 6.00 | [facility] | | | COUNT | | M/cu mm | LABORATORY | | | | | | SERVICES, | | | | | | CORE | | + + + + + + | HEMOGLOBIN | 9.3 (L) | 13.5 - 17.5 | [facility] | | | | | g/dL | LABORATORY | | | | | | SERVICES, | | | | | | CORE | | + + + + + + | HEMATOCRIT | 30.0 (L) | 41.0 - 53.0 % | [facility] | | | | | | LABORATORY | | | | | | SERVICES, | | | | | | CORE | | + + + + + + | MCV | 83.3 | 80.0 - 100.0 fL | [facility] | | | | | | LABORATORY | | | | | | SERVICES, | | | | | | CORE | | + + + + + + | MCHC | 31.0 (L) | 32.0 - 36.0 | [facility] | | | | | g/dL | LABORATORY | | | | | | SERVICES, | | | | | | CORE | | + + + + + + | RDW SD | 49.5 (H) | 35.1 - 46.3 fL | [facility] | | | | | | LABORATORY | | | | | | SERVICES, | | | | | | CORE | | + + + + + + | PLATELET | 225 | 150 - 400 K/cu | [facility] | | | COUNT | | mm | LABORATORY | | | | | | SERVICES, | | | | | | CORE | | + + + + + + | MPV | 11.4 | 9.7 - 12.3 fL | [facility] | | | | | | LABORATORY | | | | | | SERVICES, | | | | | | CORE | | + + + + + + | NRBC% | 2.1 (H) | 0.0 - 0.3 % | [facility] | | | | | | LABORATORY | | | | | | SERVICES, | | | | | | CORE | | + + + + + + | NRBC# | 0.24 (H) | 0.00 - 0.02 | [facility] | [...] | + + + + + | [facility] | [address] | [place] [address] | | | SERVICES, CORE | [address] | | | + + + + + X-RAY PORTABLE CHEST 1 VIEW (09/30/2019 11:01 AM PST) + + | Specimen | + + | | + + + + + | Narrative | Performed At | + + + | EXAM: [place] CHEST 1 VIEW HISTORY: interval assessment | [facility] | | COMPARISON: 09/29/2019 FINDINGS: Endotracheal tube and enteric | RADIOLOGY VOICE | | tube remain in place. Left lower lobe retrocardiac opacification has | RECOGNITION 2 | | increased. Left-sided pleural effusion has increased. Minimal patchy | | | right basilar opacity slightly more conspicuous. There is no | | | pneumothorax. No definite pulmonary edema. IMPRESSION: | | | Increased dense left lower lobe retrocardiac opacification most likely | | | related to a combination of atelectasis and aspiration. Evolving | | | pneumonia could be considered. Increased patchy right basilar opacity | | | also most likely related to atelectasis and aspiration. Increased | | | left pleural effusion. I have personally reviewed the images and, | | | if necessary, edited the report. I agree with the report as now | | | presented. Final signature: Aaron Morel MD 09/30/2019 12:06 | | | PM Preliminary: Aaron Morel MD Dictation initiated: Aaron | | | MD Maria Teresa 09/30/2019 12:04 PM | | + + + + + | Procedure Note | + + | Service Account, Retention Education Res In Interface - 09/30/2019 12:07 PM PST EXAM: [place] CHEST 1 | | VIEW HISTORY: interval assessment COMPARISON: 09/29/2019 FINDINGS: Endotracheal tube | | and enteric tube remain in place. Left lower lobe retrocardiac opacification has | | increased. Left-sided pleural effusion has increased. Minimal patchy right basilar | | opacity slightly more conspicuous. There is no pneumothorax. No definite pulmonary | | edema. IMPRESSION: Increased dense left lower lobe retrocardiac opacification most | | likely related to a combination of atelectasis and aspiration. Evolving pneumonia could | | be considered. Increased patchy right basilar opacity also most likely related to | | atelectasis and aspiration. Increased left pleural effusion. I have personally reviewed | | the images and, if necessary, edited the report. I agree with the report as now | | presented. Final signature: Aaron Morel MD 09/30/2019 12:06 PM Preliminary: Aaron | | MD Maria Teresa Dictation initiated: Aaron Morel MD 09/30/2019 12:04 PM | | | |Increased dense left lower lobe retrocardiac opacification most likely related to a combina tion of atelectasis and aspiration. Evolving pneumonia could be considered. Increased patchy right basilar opacity also most | |likely related to atelectasis and aspiration. | | | |Increased left pleural effusion. | | | |I have personally reviewed the images and, if necessary, edited the report. I agree with e report as now presented. | | | |Final signature: Aaron Morel MD 09/30/2019 12:06 PM | |Preliminary: Aaron Morel MD | |Dictation initiated: Aaron Morel MD 09/30/2019 12:04 PM | + + + +---------+ + + | Performing | Address | City/State/Zipcode | Phone Number | | Organization | | | | + +---------+ + + | [facility] | | | | | VOICE RECOGNITION 2 | | | | + +---------+ + + TRIGLYCERIDES, PLASMA (09/30/2019 5:48 AM PST) + +---------+ + + + | Component | Value | Ref Range | Performed | Pathologist | | | | | At | Signature | + +---------+ + + + | TRIGLYCERID | 357 (H) | <150 mg/dL | [facility] | | | ES | | | LABORATORY | | | | | | SERVICES, | | | | | | CORE | | + +---------+ + + + + + | Specimen | + + | Blood - Blood | | (substance) | + + + + + | Narrative | Performed At | + + + | Triglyceride Reference Range: Normal: <150 mg/dL | [facility] | | Borderline High: 150-199 mg/dL High: | LABORATORY | | 200-499 mg/dL Very High: >=500 mg/dL | SERVICES, CORE | + + + + + + + + | Performing | Address | City/State/Zipcode | Phone Number | | Organization | | | | + + + + + | [facility] | [address] | [place] [address] | | | SERVICES, CORE | [address] | | | + + + + + CBC (HEMOGRAM) ONLY (09/30/2019 12:14 AM PST) + + + + + + | Component | Value | Ref Range | Performed | Pathologist | | | | | At | Signature | + + + + + + | WHITE CELL | 9.68 | 3.50 - 10.80 | [facility] | | | COUNT | | K/cu mm | LABORATORY | | | | | | SERVICES, | | | | | | CORE | | + + + + + + | RED CELL | 3.29 (L) | 4.50 - 6.00 | [facility] | | | COUNT | | M/cu mm | LABORATORY | | | | | | SERVICES, | | | | | | CORE | | + + + + + + | HEMOGLOBIN | 8.5 (L) | 13.5 - 17.5 | [facility] | | | | | g/dL | LABORATORY | | | | | | SERVICES, | | | | | | CORE | | + + + + + + | HEMATOCRIT | 27.3 (L) | 41.0 - 53.0 % | [facility] | | | | | | LABORATORY | | | | | | SERVICES, | | | | | | CORE | | + + + + + + | MCV | 83.0 | 80.0 - 100.0 fL | [facility] | | | | | | LABORATORY | | | | | | SERVICES, | | | | | | CORE | | + + + + + + | MCHC | 31.1 (L) | 32.0 - 36.0 | [facility] | | | | | g/dL | LABORATORY | | | | | | SERVICES, | | | | | | CORE | | + + + + + + | RDW SD | 49.8 (H) | 35.1 - 46.3 fL | [facility] | | | | | | LABORATORY | | | | | | SERVICES, | | | | | | CORE | | + + + + + + | PLATELET | 219 | 150 - 400 K/cu | [facility] | | | COUNT | | mm | LABORATORY | | | | | | SERVICES, | | | | | | CORE | | + + + + + + | MPV | 11.0 | 9.7 - 12.3 fL | [facility] | | | | | | LABORATORY | | | | | | SERVICES, | | | | | | CORE | | + + + + + + | NRBC% | 2.1 (H) | 0.0 - 0.3 % | [facility] | | | | | | LABORATORY | | | | | | SERVICES, | | | | | | CORE | | + + + + + + | NRBC# | 0.20 (H) | 0.00 - 0.02 | [facility] | [...] + | [facility] | [address] | [place] [address] | | | SERVICES, CORE | [address] | | | + + + + + SODIUM TOTAL, URINE (09/30/2019 12:14 AM PST) + +--------+ + + + | Component | Value | Ref Range | Performed | Pathologist | | | | | At | Signature | + +--------+ + + + | SODIUM CONC | 64 | mmol/L | [facility] | | | URINE | | | LABORATORY | | | | | | SERVICES, | | | | | | CORE | | + +--------+ + + + | URINE | Random | | [facility] | | | INTERVAL | | | LABORATORY | | | | | | SERVICES, | | | | | | CORE | | + +--------+ + + + | URINE | Spot | | [facility] | | | VOLUME | | | LABORATORY | | | | | | SERVICES, | | | | | | CORE | | + +--------+ + + + + + | Specimen | + + | Urine - Urine | | (substance) | + + + + + | Narrative | Performed At | + + + | Reference range based on 24 hour collection time. Patient results | [facility] | | are calculated from actual collection time. | LABORATORY | | | SERVICES, CORE | + + + + + + + + | Performing | Address | City/State/Zipcode | Phone Number | | Organization | | | | + + + + + | [facility] | [address] | [place] [address] | | | SERVICES, CORE | [address] | | | + + + + + CREATININE, URINE (09/30/2019 12:14 AM PST) + +--------+ + + + | Component | Value | Ref Range | Performed | Pathologist | | | | | At | Signature | + +--------+ + + + | CREATININE | 28.90 | mg/dL | [facility] | | | CONC UR | | | LABORATORY | | | | | | SERVICES, | | | | | | CORE | | + +--------+ + + + | URINE | Random | | [facility] | | | INTERVAL | | | LABORATORY | | | | | | SERVICES, | | | | | | CORE | | + +--------+ + + + | URINE | Spot | | [facility] | | | VOLUME | | | LABORATORY | | | | | | SERVICES, | | | | | | CORE | | + +--------+ + + + + + | Specimen | + + | Urine - Urine | | (substance) | + + + + + | Narrative | Performed At | + + + | Reference range based on 24 hour collection time. Patient results | [facility] | | are calculated from actual collection time. | LABORATORY | | | SERVICES, CORE | + + + + + + + + | Performing | Address | City/State/Zipcode | Phone Number | | Organization | | | | + + + + + | [facility] | [address] | [place] [address] | | | SERVICES, CORE | [address] | | | + + + + + RENAL FUNCTION SET (NA,K,CL,CO2,BUN,CREAT,GLUC,CA,PHOS,ALB ) (09/30/2019 12:14 AM PST) + + + + + + | Component | Value | Ref Range | Performed | Pathologist | | | | | At | Signature | + + + + + + | GLUCOSE, | 121 (H) | 70 - 99 mg/dL | [...] + + + + | CREATININE | 0.53 (L) | 0.70 - 1.30 | [facility] | | | PLASMA | | mg/dL | LABORATORY | | | (LAB) | | | SERVICES, | | | | | | CORE | | + + + + + + | EGFR | >60 | >60 mL/min | [facility] | | | - | | | LABORATORY | | | BANGLADESHI | | | SERVICES, | | | | | | CORE | | + + + + + + | EGFR NON | >60 | >60 mL/min | [facility] | | | -MARIELLA | | | LABORATORY | | | RICAN | | | SERVICES, | | | | | | CORE | | + + + + + + | SODIUM, | 146 (H) | 136 - 145 | [facility] | | | PLASMA | | mmol/L | LABORATORY | | | (LAB) | | | SERVICES, | | | | | | CORE | | + + + + + + | POTASSIUM, | 3.7 | 3.4 - 5.0 | [facility] | | | PLASMA | | mmol/L | LABORATORY | | | (LAB) | | | SERVICES, | | | | | | CORE | | + + + + + + | CHLORIDE, | 115 (H) | 97 - 108 mmol/L | [facility] | | | PLASMA | | | LABORATORY | | | (LAB) | | | SERVICES, | | | | | | CORE | | + + + + + + | TOTAL CO2, | 26 | 21 - 32 mmol/L | [facility] | | | PLASMA | | | LABORATORY | | | (LAB) | | | SERVICES, | | | | | | CORE | | + + + + + + | CALCIUM, | 7.8 (L) | 8.6 - 10.2 | [facility] | | | PLASMA | | mg/dL | LABORATORY | | | (LAB) | | | SERVICES, | | | | | | CORE | | + + + + + + | CALCIUM(ALB | 9.5 | 8.6 - 10.2 | [facility] | | | CORRECTED) | | mg/dL | LABORATORY | | | | | | SERVICES, | | | | | | CORE | | + + + + + + | ALBUMIN, | 1.9 (L) | 3.5 - 4.7 g/dL | [facility] | | | PLASMA | | | LABORATORY | | | (LAB) | | | SERVICES, | | | | | | CORE | | + + + + + + | PHOSPHORUS, | 2.9 | 2.4 - 4.7 mg/dL | [facility] | | | PLASMA | | | LABORATORY | | | (LAB) | | | SERVICES, | | | | | | CORE | | + + + + + + | POTASSIUM | Sl Hemo | | [facility] | | | CMNT | | | LABORATORY | | | | | | SERVICES, | | | | | | CORE | | + + + + + + | ANION GAP | 5 | 4 - 11 mmol/L | [facility] | | | | | | LABORATORY | | | | | | SERVICES, | | | | | | CORE | | + + + + + + | ANION | 10 | 4 - 11 mmol/L | [facility] [...] Performed At | + + + | Sample hemolyzed. Results for LD, K, and AST may be inaccurate. | [facility] | | Refer to comment under test. GFR is estimated using the MDRD | LABORATORY | | equation recommended by the National Kidney Disease Education Program. | SERVICES, CORE | | Estimated GFR Interpretive Information: <60 mL/min/1.73 sq m | | | Chronic Kidney Disease <15 mL/min/1.73 sq m | | | Kidney Failure Estimated GFR greater than 60 | | | mL/min/1.73 sq m is of limited clinical value. The MDRD equation | | | is not valid in the following situations: - Patients under 18 years | | | of age - Severe malnutrition or obesity - Vegetarian diet - Rapidly | | | changing kidney function - Amputees, paraplegics, or other | | | muscle-wasting diseases | | + + + + + + + + | Performing | Address | City/State/Zipcode | Phone Number | | Organization | | | | + + + + + | [facility] | [address] | [place] [address] | | | SERVICES, CORE | [address] | | | + + + + + CBC (HEMOGRAM) ONLY (09/29/2019 3:54 PM PST) + + + + + + | Component | Value | Ref Range | Performed | Pathologist | | | | | At | Signature | + + + + + + | WHITE CELL | 10.25 | 3.50 - 10.80 | [facility] | | | COUNT | | K/cu mm | LABORATORY | | | | | | SERVICES, | | | | | | CORE | | + + + + + + | RED CELL | 3.06 (L) | 4.50 - 6.00 | [facility] | | | COUNT | | M/cu mm | LABORATORY | | | | | | SERVICES, | | | | | | CORE | | + + + + + + | HEMOGLOBIN | 8.3 (L) | 13.5 - 17.5 | [facility] | | | | | g/dL | LABORATORY | | | | | | SERVICES, | | | | | | CORE | | + + + + + + | HEMATOCRIT | 24.8 (L) | 41.0 - 53.0 % | [facility] | | | | | | LABORATORY | | | | | | SERVICES, | | | | | | CORE | | + + + + + + | MCV | 81.0 | 80.0 - 100.0 fL | [facility] | | | | | | LABORATORY | | | | | | SERVICES, | | | | | | CORE | | + + + + + + | MCHC | 33.5 | 32.0 - 36.0 | [facility] | | | | | g/dL | LABORATORY | | | | | | SERVICES, | | | | | | CORE | | + + + + + + | RDW SD | 48.1 (H) | 35.1 - 46.3 fL | [facility] | | | | | | LABORATORY | | | | | | SERVICES, | | | | | | CORE | | + + + + + + | PLATELET | 278 | 150 - 400 K/cu | [facility] | | | COUNT | | mm | LABORATORY | | | | | | SERVICES, | | | | | | CORE | | + + + + + + | MPV | 10.7 | 9.7 - 12.3 fL | [facility] | | | | | | LABORATORY | | | | | | SERVICES, | | | | | | CORE | | + + + + + + | NRBC% | 1.8 (H) | 0.0 - 0.3 % | [facility] | | | | | | LABORATORY | | | | | | SERVICES, | | | | | | CORE | | + + + + + + | NRBC# | 0.18 (H) | 0.00 - 0.02 | [facility] | [...] + | [facility] | [address] | [place] [address] | | | SERVICES, CORE | [address] | | | + + + + + X-RAY CHEST 1 VIEW (09/29/2019 5:44 AM PST) + + | Specimen | + + | | + + + + + | Narrative | Performed At | + + + | EXAM: CHEST 1 VIEW HISTORY: atelectasis COMPARISON: | [facility] | | 09/28/2019 FINDINGS: Endotracheal tube in place approximately | RADIOLOGY VOICE | | 2.5 cm above the level of the kameron. Enteric tube coiled in the | RECOGNITION 2 | | fundus of the stomach. Interval removal of the right subclavian | | | catheter. Layering small left pleural effusion. Bibasilar | | | atelectasis that greater on the left than the right. Left retrocardiac | | | opacity may reflect component of consolidation. No pneumothorax | | | demonstrated. No pulmonary edema. The cardiomediastinal silhouette is | | | stable in appearance. No new acute osseous abnormality | | | IMPRESSION: Layering small left pleural effusion and bibasilar | | | atelectasis greater on the left than the right. Left retrocardiac | | | opacity may reflect component of consolidation possibly related to | | | aspiration. Interval removal of right subclavian catheter. No | | | pneumothorax. I have personally reviewed the images and, if | | | necessary, edited the report. I agree with the report as now | | | presented. Final signature: Janneth Flores MD 09/29/2019 10:08 | | | AM Preliminary: Janneth Flores MD Dictation initiated: Janneth Jimenze | Barbara Flores MD 09/29/2019 10:05 AM | | + + + + + | Procedure Note | + + | Service Account, Radiant Res In Interface - 09/29/2019 10:09 AM PST EXAM: CHEST 1 | | VIEW HISTORY: atelectasis COMPARISON: 09/28/2019 FINDINGS: Endotracheal tube in place | | approximately 2.5 cm above the level of the kameron. Enteric tube coiled in the fundus of | | the stomach. Interval removal of the right subclavian catheter. Layering small left | | pleural effusion. Bibasilar atelectasis that greater on the left than the right. Left | | retrocardiac opacity may reflect component of consolidation. No pneumothorax | | demonstrated. No pulmonary edema. The cardiomediastinal silhouette is stable in | | appearance. No new acute osseous abnormality IMPRESSION: Layering small left pleural | | effusion and bibasilar atelectasis greater on the left than the right. Left retrocardiac | | opacity may reflect component of consolidation possibly related to aspiration. Interval | | removal of right subclavian catheter. No pneumothorax. I have personally reviewed the | | images and, if necessary, edited the report. I agree with the report as now presented. | | Final signature: Janneth Flores MD 09/29/2019 10:08 AM Preliminary: Janneth Flores MD | | Dictation initiated: Janneth Flores MD 09/29/2019 10:05 AM | | | |IMPRESSION: | | | |Layering small left pleural effusion and bibasilar atelectasis greater on the left than the right. Left retrocardiac opacity may reflect component of consolidation possibly related to aspiration. | | | |Interval removal of right subclavian catheter. No pneumothorax. | | | |I have personally reviewed the images and, if necessary, edited the report. I agree with e report as now presented. | | | |Final signature: Janneth Flores MD 09/29/2019 10:08 AM | |Preliminary: Janneth Flores MD | |Dictation initiated: Janneth Flores MD 09/29/2019 10:05 AM | + + + +---------+ + + | Performing | Address | City/State/Zipcode | Phone Number | | Organization | | | | + +---------+ + + | [facility] | | | | | [facility] | | | | + +---------+ + + CBC (HEMOGRAM) ONLY (09/29/2019 4:31 AM PST) + + + + + + | Component | Value | Ref Range | Performed | Pathologist | | | | | At | Signature | + + + + + + | WHITE CELL | 9.65 | 3.50 - 10.80 | [facility] | | | COUNT | | K/cu mm | LABORATORY | | | | | | SERVICES, | | | | | | CORE | | + + + + + + | RED CELL | 3.00 (L) | 4.50 - 6.00 | [facility] | | | COUNT | | M/cu mm | LABORATORY | | | | | | SERVICES, | | | | | | CORE | | + + + + + + | HEMOGLOBIN | 7.8 (L) | 13.5 - 17.5 | [facility] | | | | | g/dL | LABORATORY | | | | | | SERVICES, | | | | | | CORE | | + + + + + + | HEMATOCRIT | 24.6 (L) | 41.0 - 53.0 % | [facility] | | | | | | LABORATORY | | | | | | SERVICES, | | | | | | CORE | | + + + + + + | MCV | 82.0 | 80.0 - 100.0 fL | [facility] | | | | | | LABORATORY | | | | | | SERVICES, | | | | | | CORE | | + + + + + + | MCHC | 31.7 (L) | 32.0 - 36.0 | [facility] | | | | | g/dL | LABORATORY | | | | | | SERVICES, | | | | | | CORE | | + + + + + + | RDW SD | 48.7 (H) | 35.1 - 46.3 fL | [facility] | | | | | | LABORATORY | | | | | | SERVICES, | | | | | | CORE | | + + + + + + | PLATELET | 189 | 150 - 400 K/cu | [facility] | | | COUNT | | mm | LABORATORY | | | | | | SERVICES, | | | | | | CORE | | + + + + + + | MPV | 10.4 | 9.7 - 12.3 fL | [facility] | | | | | | LABORATORY | | | | | | SERVICES, | | | | | | CORE | | + + + + + + | NRBC% | 1.6 (H) | 0.0 - 0.3 % | [facility] | | | | | | LABORATORY | | | | | | SERVICES, | | | | | | CORE | | + + + + + + | NRBC# | 0.15 (H) | 0.00 - 0.02 | [facility] | [...] | + + + + + | [facility] | [address] | [place] [address] | | | SERVICES, CORE | [address] | | | + + + + + TRIGLYCERIDES, PLASMA (09/29/2019 4:31 AM PST) + +---------+ + + + | Component | Value | Ref Range | Performed | Pathologist | | | | | At | Signature | + +---------+ + + + | TRIGLYCERID | 370 (H) | <150 mg/dL | [facility] | | | ES | | | LABORATORY | | | | | | SERVICES, | | | | | | CORE | | + +---------+ + + + + + | Specimen | + + | Blood - Blood | | (substance) | + + + + + | Narrative | Performed At | + + + | Triglyceride Reference Range: Normal: <150 mg/dL | [facility] | | Borderline High: 150-199 mg/dL High: | LABORATORY | | 200-499 mg/dL Very High: >=500 mg/dL | SERVICES, CORE | + + + + + + + + | Performing | Address | City/State/Zipcode | Phone Number | | Organization | | | | + + + + + | [facility] | [address] | [place] [address] | | | SERVICES, CORE | [address] | | | + + + + + RENAL FUNCTION SET (NA,K,CL,CO2,BUN,CREAT,GLUC,CA,PHOS,ALB ) (09/29/2019 4:31 AM PST) + + + + + + | Component | Value | Ref Range | Performed | Pathologist | | | | | At | Signature | + + + + + + | GLUCOSE, | 113 (H) | 70 - 99 mg/dL | [facility] | | | PLASMA | | | LABORATORY | | | (LAB) | | | SERVICES, | | | | | | CORE | | + + + + + + | BUN, PLASMA | 14 | 6 - 20 mg/dL | [facility] | | | (LAB) | | | LABORATORY | | | | | | SERVICES, | | | | | | CORE | | + + + + + + | CREATININE | 0.56 (L) | 0.70 - 1.30 | [facility] | | | PLASMA | | mg/dL | LABORATORY | | | (LAB) | | | SERVICES, | | | | | | CORE | | + + + + + + | EGFR | >60 | >60 mL/min | [facility] | | | - | | | LABORATORY | | | BANGLADESHI | | | SERVICES, | | | | | | CORE | | + + + + + + | EGFR NON | >60 | >60 mL/min | [facility] | | | -MARIELLA | | | LABORATORY | | | RICAN | | | SERVICES, | | | | | | CORE | | + + + + + + | SODIUM, | 145 | 136 - 145 | [facility] | | | PLASMA | | mmol/L | LABORATORY | | | (LAB) | | | SERVICES, | | | | | | CORE | | + + + + + + | POTASSIUM, | 3.2 (L) | 3.4 - 5.0 | [facility] | | | PLASMA | | mmol/L | LABORATORY | | | (LAB) | | | SERVICES, | | | | | | CORE | | + + + + + + | CHLORIDE, | 114 (H) | 97 - 108 mmol/L | [facility] | | | PLASMA | | | LABORATORY | | | (LAB) | | | SERVICES, | | | | | | CORE | | + + + + + + | TOTAL CO2, | 24 | 21 - 32 mmol/L | [facility] | | | PLASMA | | | LABORATORY | | | (LAB) | | | SERVICES, | | | | | | CORE | | + + + + + + | CALCIUM, | 7.7 (L) | 8.6 - 10.2 | [facility] | | | PLASMA | | mg/dL | LABORATORY | | | (LAB) | | | SERVICES, | | | | | | CORE | | + + + + + + | CALCIUM(ALB | 9.5 | 8.6 - 10.2 | [facility] | | | CORRECTED) | | mg/dL | LABORATORY | | | | | | SERVICES, | | | | | | CORE | | + + + + + + | ALBUMIN, | 1.8 (L) | 3.5 - 4.7 g/dL | [facility] | | | PLASMA | | | LABORATORY | | | (LAB) | | | SERVICES, | | | | | | CORE | | + + + + + + | PHOSPHORUS, | 2.2 (L) | 2.4 - 4.7 mg/dL | [facility] [...] + + + | ANION GAP | 7 | 4 - 11 mmol/L | [facility] | | | | | | LABORATORY | | | | | | SERVICES, | | | | | | CORE | | + + + + + + | ANION | 12 (H) | 4 - 11 mmol/L | [facility] [...] MDRD equation recommended by the National | [facility] | | Kidney Disease Education [...] | + + + + + | [facility] | [address] | [place] [address] | | | SERVICES, CORE | [address] | | | + + + + + STAPH SCREEN, MRSA BY PCR, NASAL ONLY (09/28/2019 6:12 PM PST) + + + + + + | Component | Value | Ref Range | Performed | Pathologist | | | | | At | Signature | + + + + + + | MRSA/MSSA | MSSA (methicillin | Not Detected | [facility] | | | | susceptible S. aureus) | | LABORATORY | | | | detected (A) | | SERVICES, | | | | | | CORE | | + + + + + + + + | Specimen | + + | Swab - Nasal | | (qualifier value) | + + + + + + + | Performing | Address | City/State/Zipcode | Phone Number | | Organization | | | | + + + + + | [facility] | [address] | [place] [address] | | | SERVICES, CORE | [address] | | | + + + + + BRONCHOSCOPY (09/28/2019 4:16 PM PST) + + + | Narrative | Performed At | + + + | Sasha Harrington MD 09/28/2019 6:29 PM BRONCHOSCOPY | | | Performed by: Sasha Harrington MD Authorized by: Corina Ruiz MD | | | Written consent obtained: Yes Consent given by: Next of kin | | | Patient identity confirmed per policy: Yes Procedural pause: | | | Immediately prior to the procedure a pause per universal protocol | | | was called . A pause verifies correct patient, procedure, | | | equipment, underwriting support manager and site/side marked as required. With | | | questions refer to [facility] policy: Indications:: Diagnostic and | | | therapeutic Diagnosis indicating procedure:: Respiratory | | | insufficiency Location performed: Responsible Provider: | | | Operators: Fellow Attending physically present: Yes | | | Fellow name: Juany Sedation: Sedation: Propofol and | | | fentanyl Vital signs monitored during sedation The | | | patient | | | | | | s endotracheal tube was connected to a Topical anesthesia mL of 2% | | | plain lidocaineLubricated bronchoscope type: Adult Mainstem bronci | | | Bronchoscope advanced to: RUL, RML, RLL, SHILPI and LLL Airway | | | advanced to: subsegmental The airways were other Left lower | | | lower lobe with some mucous but overall there was minimal secretions | | | in the left lung. Right middle lobe also had some mucous | | | secretions but overall had minimal secretions.BAL: Not performed | | | At the end of the procedure, the bronchoscope was withdrawn | | | carefully and removed from the endotracheal tube without incident. | | | | | + + + CBC (HEMOGRAM) ONLY (09/28/2019 2:58 PM PST) + + + + + + | Component | Value | Ref Range | Performed | Pathologist | | | | | At | Signature | + + + + + + | WHITE CELL | 10.40 | 3.50 - 10.80 | [facility] | | | COUNT | | K/cu mm | LABORATORY | | | | | | SERVICES, | | | | | | CORE | | + + + + + + | RED CELL | 3.23 (L) | 4.50 - 6.00 | [facility] | | | COUNT | | M/cu mm | LABORATORY | | | | | | SERVICES, | | | | | | CORE | | + + + + + + | HEMOGLOBIN | 8.4 (L) | 13.5 - 17.5 | [facility] | | | | | g/dL | LABORATORY | | | | | | SERVICES, | | | | | | CORE | | + + + + + + | HEMATOCRIT | 26.6 (L) | 41.0 - 53.0 % | [facility] | | | | | | LABORATORY | | | | | | SERVICES, | | | | | | CORE | | + + + + + + | MCV | 82.4 | 80.0 - 100.0 fL | [facility] | | | | | | LABORATORY | | | | | | SERVICES, | | | | | | CORE | | + + + + + + | MCHC | 31.6 (L) | 32.0 - 36.0 | [facility] | | | | | g/dL | LABORATORY | | | | | | SERVICES, | | | | | | CORE | | + + + + + + | RDW SD | 48.7 (H) | 35.1 - 46.3 fL | [facility] | | | | | | LABORATORY | | | | | | SERVICES, | | | | | | CORE | | + + + + + + | PLATELET | 180 | 150 - 400 K/cu | [facility] | | | COUNT | | mm | LABORATORY | | | | | | SERVICES, | | | | | | CORE | | + + + + + + | MPV | 10.7 | 9.7 - 12.3 fL | [facility] | | | | | | LABORATORY | | | | | | SERVICES, | | | | | | CORE | | + + + + + + | NRBC% | 1.3 (H) | 0.0 - 0.3 % | [facility] | | | | | | LABORATORY | | | | | | SERVICES, | | | | | | CORE | | + + + + + + | NRBC# | 0.13 (H) | 0.00 - 0.02 | [facility] | | | | | K/cu mm | LABORATORY | | | | | | GARRY, | | | | | | CORE [...] + | [facility] | [address] | [place] [address] | | | GARRY, CORE | [address] | | | + + + + + CT CHEST, ABDOMEN AND PELVIS W IV CONTRAST (09/28/2019 12:49 PM PST) + + | Specimen | + + | | + + + + + | Narrative | Performed At | + + + | EXAM: CT of the chest, abdomen and pelvis WITH intravenous contrast. | [facility] | | HISTORY: ongoing bleeding of known etiology COMPARISON: | RADIOLOGY VOICE | | 09/25/2019. TECHNIQUE: CT of the chest, abdomen and pelvis WITH | RECOGNITION 2 | | intravenous contrast. Coronal and sagittal reformats were generated | | | and reviewed. FINDINGS: CHEST: Endotracheal tube tip | | | terminates 3 cm above the kameron. The heart and great vessels are | | | unremarkable. No thoracic adenopathy. Lower lobe predominant | | | tree-in-bud nodularity and airway debris with near complete left lower | | | lobe atelectasis/aspiration and moderate right lower lobe | | | atelectasis/aspiration. Trace left pleural effusion, new since | | | 09/25/2019. LIVER: Mild hepatic steatosis. BILIARY: Unremarkable. | | | PANCREAS: Unremarkable. SPLEEN: Few linear hypoattenuating foci | | | in the spleen reflecting known small lacerations, not significantly | | | changed. Decreased, small perisplenic blood products. No active | | | bleeding identified. ADRENALS: Unremarkable. KIDNEYS/URETERS: | | | Unremarkable. PELVIC ORGANS/BLADDER: The bladder is mildly distended | | | with Croft catheter in place. Anti--dependent gas is likely due to | | | instrumentation. GI TRACT: Enteric tube tip at the gastric fundus. | | | No obstruction. PERITONEUM: Trace hemoperitoneum, likely | | | redistributed from the previously noted perisplenic blood. No free | | | air. No new hematoma identified. LYMPH NODES: No | | | lymphadenopathy. VESSELS: Unremarkable. BONES AND SOFT TISSUES: | | | Mildly displaced left seventh, 10th, 11th ribs, as before. Soft tissue | | | hematoma at the left flank is less conspicuous. Fracture at the | | | superior L4 vertebral body and left L1 and L2 transverse process | | | fractures, unchanged. IMPRESSION: 1. Lower lobe predominant | | | aspiration with near complete left lower lobe atelectasis/aspiration | | | and moderate right lower lobe atelectasis/aspiration. 2. | | | Redemonstrated small splenic lacerations with slightly redistributed, | | | trace pneumoperitoneum. No new hematoma identified. Discussed with | | | Olga RASHEED at 1347 on 09/28/[address] Nuñez. 3. | | | Redemonstrated fractures, as described above. I have personally | | | reviewed the images and, if necessary, edited the report. I agree with | | | the report as now presented. Final signature: Willie Nuñez MD | | | 09/28/2019 1:52 PM Preliminary: Willie Nuñez MD | | | Dictation initiated: Willie Nuñez MD 09/28/2019 12:45 PM | | + + + + + | Procedure Note | + + | Service Account, Radiant Res In Interface - 09/28/2019 1:53 PM PST EXAM: CT of the | | chest, abdomen and pelvis WITH intravenous contrast. HISTORY: ongoing bleeding of known | | etiology COMPARISON: 09/25/2019. TECHNIQUE: CT of the chest, abdomen and pelvis WITH | | intravenous contrast. Coronal and sagittal reformats were generated and reviewed. | | FINDINGS: CHEST: Endotracheal tube tip terminates 3 cm above the kameron. The heart and | | great vessels are unremarkable. No thoracic adenopathy. Lower lobe predominant | | tree-in-bud nodularity and airway debris with near complete left lower lobe | | atelectasis/aspiration and moderate right lower lobe atelectasis/aspiration. Trace left | | pleural effusion, new since 09/25/2019. LIVER: Mild hepatic steatosis.BILIARY: | | Unremarkable.PANCREAS: Unremarkable. SPLEEN: Few linear hypoattenuating foci in the | | spleen reflecting known small lacerations, not significantly changed. Decreased, small | | perisplenic blood products. No active bleeding identified.ADRENALS: | | Unremarkable.KIDNEYS/URETERS: Unremarkable.PELVIC ORGANS/BLADDER: The bladder is mildly | | distended with Croft catheter in place. Anti--dependent gas is likely due to | | instrumentation. GI TRACT: Enteric tube tip at the gastric fundus. No | | obstruction.PERITONEUM: Trace hemoperitoneum, likely redistributed from the previously | | noted perisplenic blood. No free air. No new hematoma identified. LYMPH NODES: No | | lymphadenopathy.VESSELS: Unremarkable. BONES AND SOFT TISSUES: Mildly displaced left | | seventh, 10th, 11th ribs, as before. Soft tissue hematoma at the left flank is less | | conspicuous. Fracture at the superior L4 vertebral body and left L1 and L2 transverse | | process fractures, unchanged. IMPRESSION: 1. Lower lobe predominant aspiration with | | near complete left lower lobe atelectasis/aspiration and moderate right lower lobe | | atelectasis/aspiration. 2. Redemonstrated small splenic lacerations with slightly | | redistributed, trace pneumoperitoneum. No new hematoma identified. Discussed with | | Olga RASHEED at 1347 on 09/28/[address] Nuñez. 3. Redemonstrated fractures, as | | described above. I have personally reviewed the images and, if necessary, edited the | | report. I agree with the report as now presented. Final signature: Willie Nuñez MD | | 09/28/2019 1:52 PM Preliminary: Willie Nuñez MD Dictation initiated: Willie Nuñez | | 09/28/2019 12:45 PM | | | |BONES AND SOFT TISSUES: Mildly displaced left seventh, 10th, 11th ribs, as before. Soft tis harshal hematoma at the left flank is less conspicuous. Fracture at the superior L4 vertebral asher dy and left L1 and L2 transverse process fractures, unchanged. | | | |IMPRESSION: | | | |1. Lower lobe predominant aspiration with near complete left lower lobe atelectasis/aspirat ion and moderate right lower lobe atelectasis/aspiration. | | | |2. Redemonstrated small splenic lacerations with slightly redistributed, trace pneumoperito neum. No new hematoma identified. | | | |Discussed with Olga RASHEED at 1347 on 09/28/[address] Nuñez. | | | |3. Redemonstrated fractures, as described above. | | | |I have personally reviewed the images and, if necessary, edited the report. I agree with e report as now presented. | | | |Final signature: Willie Nuñez MD 09/28/2019 1:52 PM | |Preliminary: Willie Nuñez MD | |Dictation initiated: Willie Nuñez MD 09/28/2019 12:45 PM | + + + +---------+ + + | Performing | Address | City/State/Zipcode | Phone Number | | Organization | | | | + +---------+ + + | [facility] | | | | | VOICE RECOGNITION 2 | | | | + +---------+ + + CULTURE, BLOOD BACTI & YEAST [facility] (09/28/2019 11:39 AM PST) + + + + + + | Component | Value | Ref Range | Performed | Pathologist | | | | | At | Signature | + + + + + + | CULTURE | Final Report:No Bacteria | | [facility] | | | RESULT | or Yeast isolated at 5 | | LABORATORY | | | | days. | | SERVICES, | | | | | | CORE | | + + + + + + + + | Specimen | + + | Blood - Structure of | | right foot (body | | structure) | + + + + + + + | Performing | Address | City/State/Zipcode | Phone Number | | Organization | | | | + + + + + | [facility] | [address] | [place] [address] | | | SERVICES, CORE | [address] | | | + + + + + CULTURE, BLOOD BACTI & YEAST [facility] (09/28/2019 11:39 AM PST) + + + + + + | Component | Value | Ref Range | Performed | Pathologist | | | | | At | Signature | + + + + + + | CULTURE | Final Report:No Bacteria | | [facility] | | | RESULT | or Yeast isolated at 5 | | LABORATORY | | | | days. | | SERVICES, | | | | | | CORE | | + + + + + + + + | Specimen | + + | Blood - Structure of | | left foot (body | | structure) | + + + + + + + | Performing | Address | City/State/Zipcode | Phone Number | | Organization | | | | + + + + + | [facility] | [address] | [place] [address] | | | SERVICES, CORE | [address] | | | + + + + + PRODUCT - RED CELLS LEUKOREDUCED (09/28/2019 11:09 AM PST) + + + + + + | Component | Value | Ref Range | Performed | Pathologist | | | | | At | Signature | + + + + + + | PRODUCT | -1 RED BLOOD CELLS | | [facility] | | | DESCRIPTION | LEUKOREDUCED | | LABORATORY | | | | | | SERVICES, | | | | | | TRANSFUSION | | | | | | MEDICINE | | + + + + + + | PRODUCT | [id number] | | [facility] | | | UNIT # | | | LABORATORY | | | | | | SERVICES, | | | | | | TRANSFUSION | | | | | | MEDICINE | | + + + + + + | UNIT ABO | O | | [facility] | | | | | | LABORATORY | | | | | | SERVICES, | | | | | | TRANSFUSION | | | | | | MEDICINE | | + + + + + + | UNIT RH | POS | | [facility] | | | | | | LABORATORY | | | | | | SERVICES, | | | | | | TRANSFUSION | | | | | | MEDICINE | | + + + + + + | STATUS OF | Returned to Blood Bank | | [facility] | | | UNIT | | | LABORATORY | | | | | | SERVICES, | | | | | | TRANSFUSION | | | | | | MEDICINE | | + + + + + + | EXPIRATION | [id number] | | [facility] | | | DATE | | | LABORATORY | | | | | | SERVICES, | | | | | | TRANSFUSION | | | | | | MEDICINE | | + + + + + + | BLOOD TYPE | [phone] | | [facility] | | | BARCODE | | | LABORATORY | | | | | | SERVICES, | | | | | | TRANSFUSION | | | | | | MEDICINE | | + + + + + + | BLOOD | [id number] | | [facility] | | | PRODUCT | | | LABORATORY | | | CODE | | | SERVICES, | | | | | | TRANSFUSION | | | | | | MEDICINE | | + + + + + + + + | Specimen | + + | | + + + + + + + | Performing | Address | City/State/Zipcode | Phone Number | | Organization | | | | + + + + + | [facility] | [address] | [place] [address] | | | SERVICES, | [address] | | | | TRANSFUSION MEDICINE | | | | + + + + + PRODUCT - RED CELLS LEUKOREDUCED (09/28/2019 11:09 AM PST) + + + + + + | Component | Value | Ref Range | Performed | Pathologist | | | | | At | Signature | + + + + + + | PRODUCT | -1 RED BLOOD CELLS | | [facility] | | | DESCRIPTION | LEUKOREDUCED | | LABORATORY | | | | | | SERVICES, | | | | | | TRANSFUSION | | | | | | MEDICINE | | + + + + + + | PRODUCT | [id number] | | [facility] | | | UNIT # | | | LABORATORY | | | | | | SERVICES, | | | | | | TRANSFUSION | | | | | | MEDICINE | | + + + + + + | UNIT ABO | O | | [facility] | | | | | | LABORATORY | | | | | | SERVICES, | | | | | | TRANSFUSION | | | | | | MEDICINE | | + + + + + + | UNIT RH | POS | | [facility] | | | | | | LABORATORY | | | | | | SERVICES, | | | | | | TRANSFUSION | | | | | | MEDICINE | | + + + + + + | STATUS OF | Presumed Transfused | | [facility] | | | UNIT | | | LABORATORY | | | | | | SERVICES, | | | | | | TRANSFUSION | | | | | | MEDICINE | | + + + + + + | EXPIRATION | [id number] | | [facility] | | | DATE | | | LABORATORY | | | | | | SERVICES, | | | | | | TRANSFUSION | | | | | | MEDICINE | | + + + + + + | BLOOD TYPE | 5100 | | [facility] | | | BARCODE | | | LABORATORY | | | | | | SERVICES, | | | | | | TRANSFUSION | | | | | | MEDICINE | | + + + + + + | BLOOD | [id number] | | [facility] | | | PRODUCT | | | LABORATORY | | | CODE | | | SERVICES, | | | | | | TRANSFUSION | | | | | | MEDICINE | | + + + + + + + + | Specimen | + + | | + + + + + + + | Performing | Address | City/State/Zipcode | Phone Number | | Organization | | | | + + + + + | [facility] | [address] | [place] [address] | | | SERVICES, | [address] | | | | TRANSFUSION MEDICINE | | | | + + + + + VASC LAB VENOUS DUPLEX LOWER EXTREMITY BILAT COMP (09/28/2019 10:13 AM PST) + + | Specimen | + + | | + + + + + | Narrative | Performed At | + + + | Bilateral: The duplex scanner was used to examine the deep and | [facility] | | superficial veins of the right and left lower extremities. The | RADIOLOGY VASC | | veins are patent bilaterally with normal flow and responses to | US | | augmentation and compression maneuvers and no thrombus is noted. | | | Conclusions: A normal venous examination of the bilateral lower | | | extremities. No venous thrombosis was detected. I have | | | personally reviewed the images and, if necessary, edited the report. | | | I agree with the report as now presented. | | + + + + + | Procedure Note | + + | Service Account, [facility] yourdelivery In Interface - 09/28/2019 10:53 AM PST Bilateral: The | | duplex scanner was used to examine the deep and superficial veins of the right and left | | lower extremities. The veins are patent bilaterally with normal flow and responses to | | augmentation and compression maneuvers and no thrombus is noted.Conclusions: A normal | | venous examination of the bilateral lower extremities. No venous thrombosis was | | detected.I have personally reviewed the images and, if necessary, edited the report. I | | agree with the report as now presented. | | | | | |I have personally reviewed the images and, if necessary, edited the report. I agree with t he report as now presented. | + + + +---------+ + + | Performing | Address | City/State/Zipcode | Phone Number | | Organization | | | | + +---------+ + + | [facility] | | | | | [facility] | | | | + +---------+ + + CBC (HEMOGRAM) ONLY (09/28/2019 8:54 AM PST) + + + + + + | Component | Value | Ref Range | Performed | Pathologist | | | | | At | Signature | + + + + + + | WHITE CELL | 9.44 | 3.50 - 10.80 | [facility] | | | COUNT | | K/cu mm | LABORATORY | | | | | | SERVICES, | | | | | | CORE | | + + + + + + | RED CELL | 2.50 (L) | 4.50 - 6.00 | [facility] | | | COUNT | | M/cu mm | LABORATORY | | | | | | SERVICES, | | | | | | CORE | | + + + + + + | HEMOGLOBIN | 6.6 (L) | 13.5 - 17.5 | [facility] | | | | | g/dL | LABORATORY | | | | | | SERVICES, | | | | | | CORE | | + + + + + + | HEMATOCRIT | 20.4 (L) | 41.0 - 53.0 % | [facility] | | | | | | LABORATORY | | | | | | SERVICES, | | | | | | CORE | | + + + + + + | MCV | 81.6 | 80.0 - 100.0 fL | [facility] | | | | | | LABORATORY | | | | | | SERVICES, | | | | | | CORE | | + + + + + + | MCHC | 32.4 | 32.0 - 36.0 | [facility] | | | | | g/dL | LABORATORY | | | | | | SERVICES, | | | | | | CORE | | + + + + + + | RDW SD | 47.9 (H) | 35.1 - 46.3 fL | [facility] | | | | | | LABORATORY | | | | | | SERVICES, | | | | | | CORE | | + + + + + + | PLATELET | 161 | 150 - 400 K/cu | [facility] | | | COUNT | | mm | LABORATORY | | | | | | SERVICES, | | | | | | CORE | | + + + + + + | MPV | 10.4 | 9.7 - 12.3 fL | [facility] | | | | | | LABORATORY | | | | | | SERVICES, | | | | | | CORE | | + + + + + + | NRBC% | 1.0 (H) | 0.0 - 0.3 % | [facility] | | | | | | LABORATORY | | | | | | SERVICES, | | | | | | CORE | | + + + + + + | NRBC# | 0.09 (H) | 0.00 - 0.02 | [facility] | [...] | + + + + + | [facility] | [address] | [place] [address] | | | SERVICES, CORE | [address] | | | + + + + + BLOOD GASES, ARTERIAL - LAB (09/28/2019 8:54 AM PST) + + + + + + | Component | Value | Ref Range | Performed | Pathologist | | | | | At | Signature | + + + + + + | FIO2 | 0.25 | | [facility] | | | ARTERIAL | | | LABORATORY | | | | | | SERVICES, | | | | | | CORE | | + + + + + + | PH ARTERIAL | 7.48 (H) | 7.37 - 7.44 | [facility] | | | | | | LABORATORY | | | | | | SERVICES, | | | | | | CORE | | + + + + + + | PCO2 | 37 | 32 - 43 mmHg | [facility] | | | ARTERIAL | | | LABORATORY | | | | | | SERVICES, | | | | | | CORE | | + + + + + + | PO2 | 68 (L) | 83 - 108 mmHg | [facility] | | | ARTERIAL | | | LABORATORY | | | | | | SERVICES, | | | | | | CORE | | + + + + + + | HCO3 | 27 | 21 - 28 mmol/L | [facility] | | | ARTERIAL | | | LABORATORY | | | | | | SERVICES, | | | | | | CORE | | + + + + + + | TOTAL CO2 | 28 | 22 - 28 mmol/L | [facility] | | | ARTERIAL | | | LABORATORY | | | | | | SERVICES, | | | | | | CORE | | + + + + + + | BASE EXCESS | 3.4 (H) | -2.0 - 2.0 | [facility] | | | ARTERIAL | | mmol/L | LABORATORY | | | | | | SERVICES, | | | | | | CORE | | + + + + + + | O2 SAT, | 94.5 | 92.0 - 98.0 % | [facility] | | | ARTERIAL | | | LABORATORY | | | | | | SERVICES, | | | | | | CORE | | + + + + + + | PAO2/FIO2 | 272 (L) | >300 mmHg | [facility] | | | RATIO | | | LABORATORY | | | | | | SERVICES, | | | | | | CORE | | + + + + + + | PAT TEMP | 37.4 | Degree C | [facility] | | | ARTERIAL | | | LABORATORY | | | [...] + | [facility] | [id number] | [place] [address] | | | SERVICES, CORE | [address] | | | + + + + + CTA NECK W CONTRAST (09/28/2019 5:55 AM PST) + + | Specimen | + + | | + + + + + | Narrative | Performed At | + + + | EXAM: CTA NECK HISTORY: Vertebral artery injury, history of | [facility] | | trauma COMPARISON: 09/25/2019 TECHNIQUE: CT angiogram of the | RADIOLOGY VOICE | | neck with iodine based intravenous contrast. Multiplanar MIP 3D | RECOGNITION 2 | | reconstructions. Stenoses are reported relative to the distal normal | | | vessel. FINDINGS: LEFT CAROTID: No aneurysm, dissection, | | | traumatic vascular injury, or hemodynamically significant stenoses. | | | RIGHT CAROTID: No aneurysm, dissection, traumatic vascular injury, | | | or hemodynamically significant stenoses. VERTEBROBASILAR: | | | Redemonstration of a dissection flap involving the V2 segment of the | | | right vertebral artery at the level of the C3 vertebral body. | | | Contrast opacification distally. Limited evaluation of the | | | intracranial portions of the vessels due to poor bolus timing and | | | venous contamination. NON-VASCULAR STRUCTURES: Endotracheal tube | | | present within the trachea. Enteric tube within the esophagus. Right | | | subclavian approach central line is partially visualized. Minimal | | | dependent atelectasis in the visualized lungs. Incompletely evaluated | | | left frontal and temporal calvarium fractures, and left | | | zygomaticomaxillary fracture. There is persistent partially visualized | | | blood products along the left temporal lobe and left temporal lobe | | | contusion. Swelling within the left supraclavicular fossa is partially | | | visualized as seen on prior imaging. Redemonstration of right C7 | | | facet fracture which extends into the lamina, similar in appearance to | | | prior imaging. 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 I have personally reviewed the images and, if | | | necessary, edited the report. I agree with the report as now | | | presented. Final signature: Natividad Salgado MD 09/28/2019 | | | 10:47 AM Preliminary: Teodora Latif MD 09/28/2019 10:23 AM | | | Dictation initiated: Teodora Latif MD 09/28/2019 7:15 AM | | + + + + + | Procedure Note | + + | Service Account, Radiant Res In Interface - 09/28/2019 10:48 AM PST EXAM: CTA NECK | | HISTORY: Vertebral artery injury, history of trauma COMPARISON: 09/25/2019 TECHNIQUE: CT | | angiogram of the neck with iodine based intravenous contrast. Multiplanar MIP 3D | | reconstructions. Stenoses are reported relative to the distal normal vessel. FINDINGS: | | LEFT CAROTID: No aneurysm, dissection, traumatic vascular injury, or hemodynamically | | significant stenoses.RIGHT CAROTID: No aneurysm, dissection, traumatic vascular injury, | | or hemodynamically significant stenoses.VERTEBROBASILAR: Redemonstration of a | | dissection flap involving the V2 segment of the right vertebral artery at the level of | | the C3 vertebral body. Contrast opacification distally. Limited evaluation of the | | intracranial portions of the vessels due to poor bolus timing and venous contamination. | | NON-VASCULAR STRUCTURES: Endotracheal tube present within the trachea. Enteric tube | | within the esophagus. Right subclavian approach central line is partially visualized. | | Minimal dependent atelectasis in the visualized lungs. Incompletely evaluated left | | frontal and temporal calvarium fractures, and left zygomaticomaxillary fracture. There | | is persistent partially visualized blood products along the left temporal lobe and left | | temporal lobe contusion. Swelling within the left supraclavicular fossa is partially | | visualized as seen on prior imaging. Redemonstration of right C7 facet fracture which | | extends into the lamina, similar in appearance to prior imaging. 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 I have personally reviewed the images and, if necessary, edited | | the report. I agree with the report as now presented. Final signature: Natividad Rivas | | MD Damian 09/28/2019 10:47 AM Preliminary: Teodora Latif MD 09/28/2019 10:23 | | AM Dictation initiated: Teodora Latif MD 09/28/2019 7:15 AM | | | |I have personally reviewed the images and, if necessary, edited the report. I agree with héctor bardales report as now presented. | | | |Final signature: Natividad Salgado MD 09/28/2019 10:47 AM | |Preliminary: Teodora Latif MD 09/28/2019 10:23 AM | |Dictation initiated: Teodora Latif MD 09/28/2019 7:15 AM | + + + +---------+ + + | Performing | Address | City/State/Zipcode | Phone Number | | Organization | | | | + +---------+ + + | [facility] | | | | | VOICE RECOGNITION 2 | | | | + +---------+ + + X-RAY CHEST 1 VIEW (09/28/2019 5:39 AM PST) + + | Specimen | + + | | + + + + + | Narrative | Performed At | + + + | EXAM: CHEST 1 VIEW HISTORY: increased secretions | [facility] | | COMPARISON: Yesterday FINDINGS: The support equipment is | RADIOLOGY VOICE | | unchanged. The cardiomediastinal silhouette is stable. Bilateral | RECOGNITION 2 | | nodular groundglass and consolidative opacities have increased in | | | conspicuity. There is trace left but no right-sided pleural effusion. | | | There is no pneumothorax. IMPRESSION: Worsening dependent | | | bilateral groundglass and consolidative opacities likely a combination | | | of mucous plugging/retained secretion and possible aspiration. I | | | have personally reviewed the images and, if necessary, edited the | | | report. I agree with the report as now presented. Final | | | signature: Briseyda Genao MD 09/28/2019 8:41 AM Preliminary: | | | Briseyda Genao MD Dictation initiated: Briseyda Genao MD | | | 09/28/2019 8:40 AM | | + + + + + | Procedure Note | + + | Service Account, Radiant Res In Interface - 09/28/2019 8:42 AM PST EXAM: CHEST 1 | | VIEW HISTORY: increased secretions COMPARISON: Yesterday FINDINGS: The support | | equipment is unchanged. The cardiomediastinal silhouette is stable. Bilateral nodular | | groundglass and consolidative opacities have increased in conspicuity. There is trace | | left but no right-sided pleural effusion. There is no pneumothorax. IMPRESSION: | | Worsening dependent bilateral groundglass and consolidative opacities likely a | | combination of mucous plugging/retained secretion and possible aspiration. I have | | personally reviewed the images and, if necessary, edited the report. I agree with the | | report as now presented. Final signature: Briseyda Genao MD 09/28/2019 8:41 AM | | Preliminary: Briseyda Genao MD Dictation initiated: Briseyda Genao MD 09/28/2019 | | 8:40 AM | | | |Worsening dependent bilateral groundglass and consolidative opacities likely a combination of mucous plugging/retained secretion and possible aspiration. | | | |I have personally reviewed the images and, if necessary, edited the report. I agree with th e report as now presented. | | | |Final signature: Briseyda Genao MD 09/28/2019 8:41 AM | |Preliminary: Briseyda Genao MD | |Dictation initiated: Briseyda Genao MD 09/28/2019 8:40 AM | + + + +---------+ + + | Performing | Address | City/State/Zipcode | Phone Number | | Organization | | | | + +---------+ + + | [facility] | | | | | VOICE RECOGNITION 2 | | | | + +---------+ + + PRODUCT - RED CELLS LEUKOREDUCED (09/28/2019 2:39 AM PST) + + + + + + | Component | Value | Ref Range | Performed | Pathologist | | | | | At | Signature | + + + + + + | PRODUCT | -1 RED BLOOD CELLS | | [facility] | | | DESCRIPTION | LEUKOREDUCED | | LABORATORY | | | | | | SERVICES, | | | | | | TRANSFUSION | | | | | | MEDICINE | | + + + + + + | PRODUCT | [id number] | | [facility] | | | UNIT # | | | LABORATORY | | | | | | SERVICES, | | | | | | TRANSFUSION | | | | | | MEDICINE | | + + + + + + | UNIT ABO | O | | [facility] | | | | | | LABORATORY | | | | | | SERVICES, | | | | | | TRANSFUSION | | | | | | MEDICINE | | + + + + + + | UNIT RH | POS | | [facility] | | | | | | LABORATORY | | | | | | SERVICES, | | | | | | TRANSFUSION | | | | | | MEDICINE | | + + + + + + | STATUS OF | Presumed Transfused | | [facility] | | | UNIT | | | LABORATORY | | | | | | SERVICES, | | | | | | TRANSFUSION | | | | | | MEDICINE | | + + + + + + | EXPIRATION | [id number] | | [facility] | | | DATE | | | LABORATORY | | | | | | SERVICES, | | | | | | TRANSFUSION | | | | | | MEDICINE | | + + + + + + | BLOOD TYPE | [phone] | | [facility] | | | BARCODE | | | LABORATORY | | | | | | SERVICES, | | | | | | TRANSFUSION | | | | | | MEDICINE | | + + + + + + | BLOOD | [id number] | | [facility] | | | PRODUCT | | | LABORATORY | | | CODE | | | SERVICES, | | | | | | TRANSFUSION | | | | | | MEDICINE | | + + + + + + + + | Specimen | + + | | + + + + + + + | Performing | Address | City/State/Zipcode | Phone Number | | Organization | | | | + + + + + | [facility] | [id number] | [place] [address] | | | SERVICES, | [address] | | | | TRANSFUSION MEDICINE | | | | + + + + + ANTIBODY SCREEN (09/28/2019 2:01 AM PST) + + + + + + | Component | Value | Ref Range | Performed | Pathologist | | | | | At | Signature | + + + + + + | Antibody | Negative | | [facility] | | | Screen | | | LABORATORY | | | | | | SERVICES, | | | | | | TRANSFUSION | | | | | | MEDICINE | | + + + + + + + + | Specimen | + + | Blood - Blood | | (substance) | + + + + + + + | Performing | Address | City/State/Zipcode | Phone Number | | Organization | | | | + + + + + | [facility] | [phone] | [place] [address] | | | SERVICES, | [address] | | | | TRANSFUSION MEDICINE | | | | + + + + + ABO & RH TYPE (09/28/2019 2:01 AM PST) + + + + + + | Component | Value | Ref Range | Performed | Pathologist | | | | | At | Signature | + + + + + + | ABO Group | O | | [facility] | | | | | | LABORATORY | | | | | | SERVICES, | | | | | | TRANSFUSION | | | | | | MEDICINE | | + + + + + + | Rh Type | Positive | | [facility] | | | | | | LABORATORY | | | | | | SERVICES, | | | | | | TRANSFUSION | | | | | | MEDICINE | | + + + + + + + + | Specimen | + + | Blood - Blood | | (substance) | + + + + + + + | Performing | Address | City/State/Zipcode | Phone Number | | Organization | | | | + + + + + | [facility] | [id number] | [place] [address] | | | SERVICES, | [address] | | | | TRANSFUSION MEDICINE | | | | + + + + + PRODUCT - RED CELLS LEUKOREDUCED (09/28/2019 1:50 AM PST) + + + + + + | Component | Value | Ref Range | Performed | Pathologist | | | | | At | Signature | + + + + + + | PRODUCT | -3 RED BLOOD CELLS | | [facility] | | | DESCRIPTION | LEUKOREDUCED | | LABORATORY | | | | | | SERVICES, | | | | | | TRANSFUSION | | | | | | MEDICINE | | + + + + + + | PRODUCT | [id number] | | [facility] | | | UNIT # | | | LABORATORY | | | | | | SERVICES, | | | | | | TRANSFUSION | | | | | | MEDICINE | | + + + + + + | UNIT ABO | O | | [facility] | | | | | | LABORATORY | | | | | | SERVICES, | | | | | | TRANSFUSION | | | | | | MEDICINE | | + + + + + + | UNIT RH | POS | | [facility] | | | | | | LABORATORY | | | | | | SERVICES, | | | | | | TRANSFUSION | | | | | | MEDICINE | | + + + + + + | STATUS OF | Presumed Transfused | | [facility] | | | UNIT | | | LABORATORY | | | | | | SERVICES, | | | | | | TRANSFUSION | | | | | | MEDICINE | | + + + + + + | EXPIRATION | [id number] | | [facility] | | | DATE | | | LABORATORY | | | | | | SERVICES, | | | | | | TRANSFUSION | | | | | | MEDICINE | | + + + + + + | BLOOD TYPE | [phone] | | [facility] | | | BARCODE | | | LABORATORY | | | | | | SERVICES, | | | | | | TRANSFUSION | | | | | | MEDICINE | | + + + + + + | BLOOD | [id number] | | [facility] | | | PRODUCT | | | LABORATORY | | | CODE | | | SERVICES, | | | | | | TRANSFUSION | | | | | | MEDICINE | | + + + + + + + + | Specimen | + + | | + + + + + + + | Performing | Address | City/State/Zipcode | Phone Number | | Organization | | | | + + + + + | [facility] | [id number] | [place] [address] | | | SERVICES, | [address] | | | | TRANSFUSION MEDICINE | | | | + + + + + CBC (HEMOGRAM) ONLY (09/28/2019 12:09 AM PST) + + + + + + | Component | Value | Ref Range | Performed | Pathologist | | | | | At | Signature | + + + + + + | WHITE CELL | 10.54 | 3.50 - 10.80 | [facility] | | | COUNT | | K/cu mm | LABORATORY | | | | | | SERVICES, | | | | | | CORE | | + + + + + + | RED CELL | 2.40 (L) | 4.50 - 6.00 | [facility] | | | COUNT | | M/cu mm | LABORATORY | | | | | | SERVICES, | | | | | | CORE | | + + + + + + | HEMOGLOBIN | 6.4 (L) | 13.5 - 17.5 | [facility] | | | | | g/dL | LABORATORY | | | | | | SERVICES, | | | | | | CORE | | + + + + + + | HEMATOCRIT | 19.7 (L) | 41.0 - 53.0 % | [facility] | | | | | | LABORATORY | | | | | | SERVICES, | | | | | | CORE | | + + + + + + | MCV | 82.1 | 80.0 - 100.0 fL | [facility] | | | | | | LABORATORY | | | | | | SERVICES, | | | | | | CORE | | + + + + + + | MCHC | 32.5 | 32.0 - 36.0 | [facility] | | | | | g/dL | LABORATORY | | | | | | SERVICES, | | | | | | CORE | | + + + + + + | RDW SD | 48.2 (H) | 35.1 - 46.3 fL | [facility] | | | | | | LABORATORY | | | | | | SERVICES, | | | | | | CORE | | + + + + + + | PLATELET | 187 | 150 - 400 K/cu | [facility] | | | COUNT | | mm | LABORATORY | | | | | | SERVICES, | | | | | | CORE | | + + + + + + | MPV | 10.7 | 9.7 - 12.3 fL | [facility] | | | | | | LABORATORY | | | | | | SERVICES, | | | | | | CORE | | + + + + + + | NRBC% | 0.5 (H) | 0.0 - 0.3 % | [facility] | | | | | | LABORATORY | | | | | | SERVICES, | | | | | | CORE | | + + + + + + | NRBC# | 0.05 (H) | 0.00 - 0.02 | [facility] | | | | | K/cu mm | LABORATORY | | | | | | GARRY, | | | | | | CORE [...] + | [facility] | [id number] | [place] [address] | | | SERVICES, CORE | [address] | | | + + + + + RENAL FUNCTION SET (NA,K,CL,CO2,BUN,CREAT,GLUC,CA,PHOS,ALB ) (09/28/2019 12:09 AM PST) + + + + + + | Component | Value | Ref Range | Performed | Pathologist | | | | | At | Signature | + + + + + + | GLUCOSE, | 136 (H) | 70 - 99 mg/dL | [facility] | | | PLASMA | | | LABORATORY | | | (LAB) | | | SERVICES, | | | | | | CORE | | + + + + + + | BUN, PLASMA | 13 | 6 - 20 mg/dL | [facility] | | | (LAB) | | | LABORATORY | | | | | | SERVICES, | | | | | | CORE | | + + + + + + | CREATININE | 0.58 (L) | 0.70 - 1.30 | [facility] | | | PLASMA | | mg/dL | LABORATORY | | | (LAB) | | | SERVICES, | | | | | | CORE | | + + + + + + | EGFR | >60 | >60 mL/min | [facility] | | | - | | | LABORATORY | | | BANGLADESHI | | | SERVICES, | | | | | | CORE | | + + + + + + | EGFR NON | >60 | >60 mL/min | [facility] | | | -MARIELLA | | | LABORATORY | | | RICAN | | | SERVICES, | | | | | | CORE | | + + + + + + | SODIUM, | 146 (H) | 136 - 145 | [facility] | | | PLASMA | | mmol/L | LABORATORY | | | (LAB) | | | SERVICES, | | | | | | CORE | | + + + + + + | POTASSIUM, | 3.8 | 3.4 - 5.0 | [facility] | | | PLASMA | | mmol/L | LABORATORY | | | (LAB) | | | SERVICES, | | | | | | CORE | | + + + + + + | CHLORIDE, | 113 (H) | 97 - 108 mmol/L | [facility] | | | PLASMA | | | LABORATORY | | | (LAB) | | | SERVICES, | | | | | | CORE | | + + + + + + | TOTAL CO2, | 26 | 21 - 32 mmol/L | [facility] | | | PLASMA | | | LABORATORY | | | (LAB) | | | SERVICES, | | | | | | CORE | | + + + + + + | CALCIUM, | 7.3 (L) | 8.6 - 10.2 | [facility] | | | PLASMA | | mg/dL | LABORATORY | | | (LAB) | | | SERVICES, | | | | | | CORE | | + + + + + + | CALCIUM(ALB | 9.1 | 8.6 - 10.2 | [facility] | | | CORRECTED) | | mg/dL | LABORATORY | | | | | | SERVICES, | | | | | | CORE | | + + + + + + | ALBUMIN, | 1.8 (L) | 3.5 - 4.7 g/dL | [facility] | | | PLASMA | | | LABORATORY | | | (LAB) | | | SERVICES, | | | | | | CORE | | + + + + + + | PHOSPHORUS, | 1.6 (L) | 2.4 - 4.7 mg/dL | [facility] [...] + + + | ANION GAP | 7 | 4 - 11 mmol/L | [facility] | | | | | | LABORATORY | | | | | | SERVICES, | | | | | | CORE | | + + + + + + | ANION | 12 (H) | 4 - 11 mmol/L | [facility] | | | GAP(ALB | | | [...] MDRD equation recommended by the National | [place] | | Kidney Disease Education Program. Estimated [...] | + + + + + | [facility] | [address] | [place] [address] | | | SERVICES, CORE | [address] | | | + + + + + BLOOD GASES, ARTERIAL - LAB (09/27/2019 8:29 AM PST) + + + + + + | Component | Value | Ref Range | Performed | Pathologist | | | | | At | Signature | + + + + + + | PH ARTERIAL | 7.46 (H) | 7.37 - 7.44 | [facility] | | | | | | LABORATORY | | | | | | SERVICES, | | | | | | CORE | | + + + + + + | PCO2 | 35 | 32 - 43 mmHg | [facility] | | | ARTERIAL | | | LABORATORY | | | | | | SERVICES, | | | | | | CORE | | + + + + + + | PO2 | 163 (H) | 83 - 108 mmHg | [facility] | | | ARTERIAL | | | LABORATORY | | | | | | SERVICES, | | | | | | CORE | | + + + + + + | HCO3 | 24 | 21 - 28 mmol/L | [facility] | | | ARTERIAL | | | LABORATORY | | | | | | SERVICES, | | | | | | CORE | | + + + + + + | TOTAL CO2 | 25 | 22 - 28 mmol/L | [facility] | | | ARTERIAL | | | LABORATORY | | | | | | SERVICES, | | | | | | CORE | | + + + + + + | BASE EXCESS | 0.8 | -2.0 - 2.0 | [facility] | | | ARTERIAL | | mmol/L | LABORATORY | | | | | | SERVICES, | | | | | | CORE | | + + + + + + | O2 SAT, | 99.5 (H) | 92.0 - 98.0 % | [facility] | | | ARTERIAL | | | LABORATORY | | | [...] + + + + + | [facility] | [address] | [place] [address] | | | SERVICES, CORE | [address] | | | + + + + + X-RAY PORTABLE CHEST 1 VIEW (09/27/2019 8:05 AM PST) + + | Specimen | + + | | + + + + + | Narrative | Performed At | + + + | EXAM: [place] CHEST 1 VIEW HISTORY: pneumonia COMPARISON: | [facility] | | 09/25/2019 FINDINGS: Endotracheal tube tip terminates 4 cm | RADIOLOGY VOICE | | above the kameron. Right subclavian central venous catheter with tip | RECOGNITION 2 | | terminating in the mid superior vena cava. Enteric tube transverses | | | midline below the diaphragm tip projects over the stomach. Low lung | | | volumes with slight increase in the bibasilar atelectasis. There is a | | | right basilar retrocardiac opacity, more conspicuous than in the | | | prior, which may be related to positioning. Left lower lobe | | | retrocardiac opacity also slightly increased. No definite pleural | | | effusion or pneumothorax. IMPRESSION: Slightly increased | | | patchy bibasilar/infrahilar opacities, increased atelectasis or | | | potentially aspiration or evolving pneumonia could be considered. | | | I have personally reviewed the images and, if necessary, edited the | | | report. I agree with the report as now presented. Final | | | signature: Aaron Morel MD 09/27/2019 8:34 AM Preliminary: Zakia | | | Arjun Chau MD Dictation initiated: Zakia Chau MD | | | 09/27/2019 7:50 AM | | + + + + + | Procedure Note | + + | Service Account, [place] In Interface - 09/27/2019 8:35 AM PST EXAM: [place] CHEST 1 | | VIEW HISTORY: pneumonia COMPARISON: 09/25/2019 FINDINGS: Endotracheal tube tip | | terminates 4 cm above the kameron. Right subclavian central venous catheter with tip | | terminating in the mid superior vena cava. Enteric tube transverses midline below the | | diaphragm tip projects over the stomach. Low lung volumes with slight increase in the | | bibasilar atelectasis. There is a right basilar retrocardiac opacity, more conspicuous | | than in the prior, which may be related to positioning. Left lower lobe retrocardiac | | opacity also slightly increased. No definite pleural effusion or pneumothorax. | | IMPRESSION: Slightly increased patchy bibasilar/infrahilar opacities, increased | | atelectasis or potentially aspiration or evolving pneumonia could be considered. I have | | personally reviewed the images and, if necessary, edited the report. I agree with the | | report as now presented. Final signature: Aaron Morel MD 09/27/2019 8:34 AM | | Preliminary: Zakia Chau MD Dictation initiated: Zakia Chau MD | | 09/27/2019 7:50 AM | |Slightly increased patchy bibasilar/infrahilar opacities, increased atelectasis or potentia lly aspiration or evolving pneumonia could be considered. | | | |I have personally reviewed the images and, if necessary, edited the report. I agree with th e report as now presented. | | | |Final signature: Aaron Morel MD 09/27/2019 8:34 AM | |Preliminary: Zakia Chau MD | |Dictation initiated: Zakia Chau MD 09/27/2019 7:50 AM | + + + +---------+ + + | Performing | Address | City/State/Zipcode | Phone Number | | Organization | | | | + +---------+ + + | [facility] | | | | | VOICE RECOGNITION 2 | | | | + +---------+ + + CULTURE, SPUTUM (09/27/2019 6:47 AM PST) + + + + + + | Component | Value | Ref Range | Performed | Pathologist | | | | | At | Signature | + + + + + + | CULTURE | Staphylococcus aureus | | [facility] | | | RESULT | (A) | | [facility] - | | | | | | [place] | | + + + + + + | CULTURE | Klebsiella oxytoca (A) | | [facility] | | | RESULT | | | [facility] - | | | | | | [place] | | + + + + + + + + | Specimen | + + | Sputum - Specimen | | from endotracheal | | tube (specimen) | + + + + + | Narrative | Performed At | + + + | Culture Report: 1+ Staphylococcus aureus 1+ Klebsiella oxytoca | [facility] | | Gram Stain: Few squamous epithelial cells Many | [facility] - | | polymorphonuclear cells Moderate Mixed cyndi | [place] | + + + + + + + + | Organism | Antibiotic | Method | Susceptibility | + + + + + | Staphylococcus | Cefazolin | [facility] | Sensitive | | aureus | | | | + + + + + | Staphylococcus | Clindamycin | SUSCEPTIBILITY-[facility]ENN[facility] | Sensitive | | aureus | | | | + + + + + | Staphylococcus | Erythromycin | SUSCEPTIBILITY-[facility]ENN[facility] | Sensitive | | aureus | | | | + + + + + | Staphylococcus | Oxacillin | SUSCEPTIBILITY-JENNIFER | Sensitive | | aureus | | | | + + + + + | Staphylococcus | Trimethoprim/Sulfa | SUSCEPTIBILITY-JENNIFER | Sensitive | | aureus | | | | + + + + + | Staphylococcus | Tetracycline | SUSCEPTIBILITY-JENN[facility] | Sensitive | | aureus | | | | + + + + + | Staphylococcus | Vancomycin | SUSCEPT[facility] | Sensitive | | aureus | | | | + + + + + | Klebsiella oxytoca | Amoxicillin/Clavulan | SUSCEPTIBILITY-[facility]ENN[facility] | Sensitive | | | ate | | | + + + + + | Klebsiella oxytoca | Ampicillin | SUSCEPTIBILITY-JENNIFER | Resistant | + + + + + | Klebsiella oxytoca | Cefazolin | SUSCEPTIBILITY-JENN[facility] | Resistant | + + + + + | Klebsiella oxytoca | Ceftriaxone | SUSCEPTIBILITY-[facility] | Sensitive | + + + + + | Klebsiella oxytoca | Ciprofloxacin | [facility]CEPT[facility] | Sensitive | + + + + + | Klebsiella oxytoca | Gentamicin | SUSCEPTIBILITY-[facility] | Sensitive | + + + + + | Klebsiella oxytoca | Piperacillin/Tazobac | SUSCEPTIBILITY-JENNIFER | Sensitive | | | donnelly | | | + + + + + | Klebsiella oxytoca | Tobramycin | SUSCEPTIBILITY-[facility]ENN[facility] | Sensitive | + + + + + | Klebsiella oxytoca | Trimethoprim/Sulfa | SUSCEPTIBILITY-[facility]ENN[facility] | Sensitive | + + + + + + + + + + | Performing | Address | City/State/Zipcode | Phone Number | | Organization | | | | + + + + + | [facility] | [address] | [place] [address] | | | [place] | | | | + + + + + MRI BRACHIAL NIURKA LT [place] (09/27/2019 6:14 AM PST) + + | Specimen | + + | | + + + + + | Narrative | Performed At | + + + | EXAM: MRI BRACHIAL PLEX LT W/WO CONT HISTORY: Brachial | [facility] | | plexopathy, traumatic COMPARISON: None. TECHNIQUE: | RADIOLOGY VOICE | | Multiplanar multi-sequence MRI of the left brachial plexus with and | RECOGNITION 2 | | without intravenous contrast. FINDINGS: BRACHIAL PLEXUS: | | | There is extensive subcutaneous and intramuscular edema in the left | | | paraspinal musculature and supraclavicular fossa, which obscures the | | | brachial plexus. No enhancing mass. VISUALIZED CERVICAL SPINE: See | | | dedicated concurrent cervical spine MRI. IMPRESSION: Left | | | brachial plexus is poorly visualized due to the presence of extensive | | | subcutaneous and paraspinal intramuscular edema. Traumatic plexopathy | | | is not excluded, and follow-up after the resolution of edema may be | | | necessary if clinically indicated. Of note, the patient does have a | | | left-sided mid cervical cord injury. I have personally reviewed | | | the images and, if necessary, edited the report. I agree with the | | | report as now presented. Final signature: Titus Mitchell MD | | | 09/27/2019 8:20 AM Preliminary: Royce Puri MD Dictation | | | initiated: Royce Puri MD 09/27/2019 7:43 AM | | + + + + + | Procedure Note | + + | Service Account, Radiant Res In Interface - 09/27/2019 8:21 AM PST EXAM: MRI | | BRACHIAL PLEX LT W/WO CONT HISTORY: Brachial plexopathy, traumatic COMPARISON: None. | | TECHNIQUE: Multiplanar multi-sequence MRI of the left brachial plexus with and without | | intravenous contrast. FINDINGS: BRACHIAL PLEXUS: There is extensive subcutaneous and | | intramuscular edema in the left paraspinal musculature and supraclavicular fossa, which | | obscures the brachial plexus. No enhancing mass. VISUALIZED CERVICAL SPINE: See | | dedicated concurrent cervical spine MRI. IMPRESSION:Left brachial plexus is poorly | | visualized due to the presence of extensive subcutaneous and paraspinal intramuscular | | edema. Traumatic plexopathy is not excluded, and follow-up after the resolution of edema | | may be necessary if clinically indicated. Of note, the patient does have a left-sided | | mid cervical cord injury. I have personally reviewed the images and, if necessary, | | edited the report. I agree with the report as now presented. Final signature: Titus | | MD Paula 09/27/2019 8:20 AM Preliminary: Royce Puri MD Dictation | | initiated: Royce Puri MD 09/27/2019 7:43 AM | |IMPRESSION: | |Left brachial plexus is poorly visualized due to the presence of extensive subcutaneous and paraspinal intramuscular edema. Traumatic plexopathy is not excluded, and follow-up after t he resolution of edema may be necessary | |if clinically indicated. Of note, the patient does have a left-sided mid cervical cord inju ry. | | | |I have personally reviewed the images and, if necessary, edited the report. I agree with th e report as now presented. | | | |Final signature: Titus Mitchell MD 09/27/2019 8:20 AM | |Preliminary: Royce Puri MD | |Dictation initiated: Royce Puri MD 09/27/2019 7:43 AM | + + + +---------+ + + | Performing | Address | City/State/Zipcode | Phone Number | | Organization | | | | + +---------+ + + | [facility] | | | | | VOICE RECOGNITION 2 | | | | + +---------+ + + MRI SPINE CERVICAL WO - TRAUMA (09/27/2019 5:21 AM PST) + + | Specimen | + + | | + + + + + | Narrative | Performed At | + + + | MRI CERVICAL SPINE WITHOUT CONTRAST HISTORY: C-spine fracture, | [facility] | | traumatic COMPARISON: CT 09/25/2019 TECHNIQUE: | RADIOLOGY VOICE | | Multiplanar multi-sequence MRI cervical spine without contrast | RECOGNITION 2 | | FINDINGS: ALIGNMENT: Normal. There is STIR hyperintensity within | | | the facet joints throughout the mid cervical spine on the left and | | | involving the right C5-6 and C6-7 facet joints. MARROW: Increased | | | T2/STIR hyperintensity involves the right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 | 19 2:25 | | | | | | PM PST | | | | +-------+ +--------+---+---+ +---+---+ | | | +---+---+ + +-------+ +--------+---+---+ | guaiFENesin LA (MUCINEX) tablet | Given | 10/13/20 | 600 mg | | | | 600 mg 600 mg, oral, TWICE | | 19 10:17 | | | | | DAILY, First dose on Thu10/11/19 | | AM PST | | | | | at 1030, Until Discontinued | | | | | | + +-------+ +--------+---+---+ +-------+ +--------+---+---+ | Given | 10/12/20 | 600 mg | | | | | 19 9:21 | | | | | | PM PST | | | | +-------+ +--------+---+---+ | Given | 10/12/20 | 600 mg | | | | | 19 8:38 | | | | | | AM PST | | | | +-------+ +--------+---+---+ +---+---+ | | | +---+---+ + +-------+ +------+---+---+ | haloperidol lactate (HALDOL) | Given | 10/03/20 | 5 mg | | | | injection 5 mg 5 mg, | | 19 5:12 | | | | | intravenous, ONCE, 1 dose, Mon | | AM PST | | | | | 10/03/19 at 0545 | | | | | | + +-------+ +------+---+---+ +---+---+ | | | +---+---+ + +-------+ +------+---+---+ | HYDROmorphone (DILAUDID) | Given | 09/25/20 | 1 mg | | | | injection 0.5-1 mg 0.5-1 mg, | | 19 8:59 | | | | | intravenous, EVERY 2 HOURS | | PM PST | | | | | NEEDED, Starting 09/25/19 at | | | | | | | 2016, Until 09/25/19 at 2129, | | | | | | | severe pain | | | | | | + +-------+ +------+---+---+ +---+---+ | | | +---+---+ + +-------+ +------+---+---+ | HYDROmorphone (DILAUDID) | Given | 09/26/20 | 1 mg | | | | injection 0.5-1 mg 0.5-1 mg, | | 19 2:17 | | | | | intravenous, EVERY 1 HOUR | | PM PST | | | | | NEEDED, Starting 09/25/19 at | | | | | | | 2130, Until 09/26/19 at 1651, | | | | | | | severe pain | | | | | | + +-------+ +------+---+---+ +-------+ +------+---+---+ | Given | 09/26/20 | 1 mg | | | | | 19 10:34 | | | | | | AM PST | | | | +-------+ +------+---+---+ | Given | 09/26/20 | 1 mg | | | | | 19 8:50 | | | | | | AM PST | | | | +-------+ +------+---+---+ +---+---+ | | | +---+---+ + +-------+ +------+---+---+ | HYDROmorphone (DILAUDID) | Given | 10/05/20 | 1 mg | | | | injection 0.5-1 mg 0.5-1 mg, | | 19 3:48 | | | | | intravenous, EVERY 2 HOURS | | AM PST | | | | | NEEDED, Starting [facility] 09/29/19 at | | | | | | | 0947, Until Thu10/14/19 at 205, | | | | | | | severe pain | | | | | | + +-------+ +------+---+---+ +-------+ +------+---+---+ | Given | 10/04/20 | 1 mg | | | | | 19 11:17 | | | | | | PM PST | | | | +-------+ +------+---+---+ | Given | 10/04/20 | 1 mg | | | | | 19 9:02 | | | | | | PM PST | | | | +-------+ +------+---+---+ + +---+ | | | + +---+ | HYDROmorphone (DILAUDID) | | | injection 1 dose, Starting Sun | | | 09/25/19 at 2018, Until Sun | | | 09/25/19 at 2058 | | + +---+ | | | + +---+ + +---------+ +--------+---+---+ | iohexol (OMNIPAQUE) 350 mg | IV Push | 09/28/20 | 100 mL | | | | iodine/mL injection 100 mL 100 | | 19 12:41 | | | | | mL, intravenous, ONCE, 1 dose, | | PM PST | | | | | 09/28/19 at 1315 | | | | | | + +---------+ +--------+---+---+ +---+---+ | | | +---+---+ + +---------+ +--------+---+---+ | iohexol (OMNIPAQUE) 350 mg | IV Push | 09/25/20 | 150 mL | | | | iodine/mL injection 150 mL 150 | | 19 7:56 | | | | | mL, intravenous, ONCE, 1 dose, | | PM PST | | | | | 09/25/19 at 2030 | | | | | | + +---------+ +--------+---+---+ +---+---+ | | | +---+---+ + +---------+ +-------+---+---+ | iohexol (OMNIPAQUE) 350 mg | IV Push | 09/28/20 | 50 mL | | | | iodine/mL injection 50 mL 50 mL, | | 19 6:30 | | | | | intravenous, ONCE, 1 dose, Wed | | AM PST | | | | | 12/11/19 at 0630 | | | | | | + +---------+ +-------+---+---+ +---+---+ | | | +---+---+ + +-------+ +-------+---+---+ | labetalol (TRANDATE) IV | Given | 09/27/20 | 10 mg | | | | injection 10 mg 10 mg, | | 19 1:48 | | | | | intravenous, EVERY 10 MINUTES | | AM PST | | | | | NEEDED, Starting Tu09/27/19 at | | | | | | | 0128, Until Thu10/14/19 at 2059, | | | | | | | hypertension, first line | | | | | | + +-------+ +-------+---+---+ +-------+ +-------+---+---+ | Given | 09/27/20 | 10 mg | | | | | 19 1:38 | | | | | | AM PST | | | | +-------+ +-------+---+---+ +---+---+ | | | +---+---+ + +---------+ + +---+---+ | lactated ringers IV 1,000 mL, | New Bag | 09/25/20 | 1,000 mL | | | | intravenous, ONCE, 1 dose, Sun | | 19 8:30 | | | | | 09/25/19 at 2100 | | PM PST | | | | + +---------+ + +---+---+ +---+---+ | | | +---+---+ + +---------+ + +---+---+ | lactated ringers IV 1,000 mL, | New Bag | 09/25/20 | 1,000 mL | | | | intravenous, ONCE, 1 dose, Sun | | 19 10:30 | | | | | 09/25/19 at 2245 | | PM PST | | | | + +---------+ + +---+---+ +---+---+ | | | +---+---+ + + + + + +---+ | lactated ringers IV 10 mL/hr, | Rate/Dos | 09/26/20 | 10 mL/hr | 10 mL/hr | | | intravenous, CONTINUOUS, Starting | e Verify | 19 7:00 | | | | | 09/25/19 at 2245, Until Tue | | PM PST | | | | | 09/27/19 at 1006 | | | | | | + + + + + +---+ + + + + +---+ | Rate/Dose Verify | 09/26/20 | 10 mL/hr | 10 mL/hr | | | | 19 6:00 | | | | | | PM PST | | | | + + + + +---+ | Rate/Dose Verify | 09/26/20 | 10 mL/hr | 10 mL/hr | | | | 19 5:00 | | | | | | PM PST | | | | + + + + +---+ +---+---+ | | | +---+---+ + +-------+ +--------+---+---+ | levETIRAcetam (KEPPRA) | Given | 09/28/20 | 500 mg | | | | injection 500 mg 500 mg, | | 19 8:19 | | | | | intravenous, TWICE DAILY, 14 | | AM PST | | | | | doses, First dose on 09/26/19 | | | | | | | at 1000, Last dose on Sun | | | | | | | 10/02/19 at 2100 | | | | | | + +-------+ +--------+---+---+ +-------+ +--------+---+---+ | Given | 09/27/20 | 500 mg | | | | | 19 8:09 | | | | | | PM PST | | | | +-------+ +--------+---+---+ | Given | 09/27/20 | 500 mg | | | | | 19 7:51 | | | | | | AM PST | | | | +-------+ +--------+---+---+ +---+---+ | | | +---+---+ + +-------+ +--------+---+---+ | levETIRAcetam (KEPPRA) liquid | Given | 10/02/20 | 500 mg | | | | 500 mg 500 mg, feeding tube, | | 19 8:38 | | | | | TWICE DAILY, 9 doses, First dose | | PM PST | | | | | on 09/28/19 at 2100, Last | | | | | | | dose on 10/02/19 at 2100 | | | | | | + +-------+ +--------+---+---+ +-------+ +--------+---+---+ | Given | 10/02/20 | 500 mg | | | | | 19 12:07 | | | | | | PM PST | | | | +-------+ +--------+---+---+ | Given | 10/01/20 | 500 mg | | | | | 19 7:59 | | | | | | PM PST | | | | +-------+ +--------+---+---+ +---+---+ | | | +---+---+ + +-------+ +--------+---+---+ | lidocaine (XYLOCAINE) 20 mg/mL | Given | 09/26/20 | 400 mg | | | | (2 %) injection infiltration, | | 19 4:58 | | | | | ONCE, 1 dose, 09/26/19 at 0530 | | AM PST | | | | + +-------+ +--------+---+---+ +---+---+ | | | +---+---+ + +-------+ +---+---+---+ | lidocaine PF (XYLOCAINE MPF) 20 | Given | 09/28/20 | | | | | mg/mL (2 %) injection 1 dose, | | 19 4:00 | | | | | Starting Thu09/28/19 at 1536, | | PM PST | | | | | Until Thu09/28/19 at 1600 | | | | | | + +-------+ +---+---+---+ +---+---+ | | | +---+---+ + +-------+ +------+---+---+ | LORazepam (ATIVAN) injection | Given | 09/30/20 | 1 mg | | | | 0.5-1 mg 0.5-1 mg, intravenous, | | 19 3:05 | | | | | NEEDED, Starting Thu09/30/19 | | PM PST | | | | | at 1457, Until Thu09/30/19 at | | | | | | | 1520, Per [facility] Protocol | | | | | | + +-------+ +------+---+---+ +---+---+ | | | +---+---+ + +-------+ +------+---+---+ | LORazepam (ATIVAN) injection 1 | Given | 09/30/20 | 2 mg | | | | mg 1 mg, intravenous, NEEDED, | | 19 3:59 | | | | | 1 dose, Starting Thu09/30/19 at | | PM PST | | | | | 1557, Until Thu09/30/19 at | | | | | | | 1559, escalating agitation | | | | | | | unresponsive to oral medication | | | | | | | per [facility] protocol | | | | | | + +-------+ +------+---+---+ +---+---+ | | | +---+---+ + +-------+ +------+---+---+ | LORazepam (ATIVAN) injection | Given | 10/01/20 | 4 mg | | | | 2-10 mg 2-10 mg, intravenous, | | 19 5:44 | | | | | EVERY 15 MINUTES NEEDED, | | AM PST | | | | | Starting Thu09/30/19 at 1713, | | | | | | | Until 10/01/19 at 1142, | | | | | | | alcohol withdrawal symptoms | | | | | | + +-------+ +------+---+---+ +-------+ +------+---+---+ | Given | 09/30/20 | 8 mg | | | | | 19 11:27 | | | | | | PM PST | | | | +-------+ +------+---+---+ | Given | 09/30/20 | 8 mg | | | | | 19 9:55 | | | | | | PM PST | | | | +-------+ +------+---+---+ + +---+ | | | + +---+ | LORazepam (ATIVAN) injection 1 | | | dose, Starting Thu09/30/19 at | | | 1503, Until Thu09/30/19 at 1505 | | + +---+ | | | + +---+ + +-------+ +------+---+---+ | LORazepam (ATIVAN) tablet 0.5-3 | Given | 10/03/20 | 2 mg | | | | mg 0.5-3 mg, oral, NEEDED, | | 19 2:53 | | | | | Starting 10/01/19 at 1141, | | AM PST | | | | | Until 10/03/19 at 1042, | | | | | | | [facility] protocol | | | | | | + +-------+ +------+---+---+ +---+---+ | | | +---+---+ + +---------+ +-----+---+---+ | magnesium sulfate in water IV | New Bag | 09/25/20 | 2 g | | | | (RTU) 2 g 2 g, intravenous, | | 19 9:58 | | | | | ONCE, 1 dose, 09/25/19 at 2230 | | PM PST | | | | + +---------+ +-----+---+---+ +---+---+ | | | +---+---+ + +-------+ +------+---+---+ | melatonin tablet 3 mg 3 mg, | Given | 10/02/20 | 3 mg | | | | oral, EVERY EVENING, First dose | | 19 8:38 | | | | | on 10/02/19 at 2100, Until | | PM PST | | | | | Discontinued | | | | | | + +-------+ +------+---+---+ +---+---+ | | | +---+---+ + +-------+ +------+---+---+ | melatonin tablet 3 mg 3 mg, | Given | 10/05/20 | 3 mg | | | | feeding tube, EVERY EVENING, | | 19 9:24 | | | | | First dose (after last | | PM PST | | | | | modification) on 10/03/19 at | | | | | | | 2100, Until Discontinued | | | | | | + +-------+ +------+---+---+ +-------+ +------+---+---+ | Given | 10/04/20 | 3 mg | | | | | 19 8:04 | | | | | | PM PST | | | | +-------+ +------+---+---+ | Given | 10/03/20 | 3 mg | | | | | 19 7:36 | | | | | | PM PST | | | | +-------+ +------+---+---+ +---+---+ | | | +---+---+ + +-------+ +------+---+---+ | melatonin tablet 3 mg 3 mg, | Given | 10/13/20 | 3 mg | | | | oral, EVERY EVENING, First dose | | 19 10:07 | | | | | (after last modification) on Fri | | PM PST | | | | | 10/07/19 at 2100, Until | | | | | | | Discontinued | | | | | | + +-------+ +------+---+---+ +-------+ +------+---+---+ | Given | 10/12/20 | 3 mg | | | | | 19 9:22 | | | | | | PM PST | | | | +-------+ +------+---+---+ | Given | 10/11/20 | 3 mg | | | | | 19 8:40 | | | | | | PM PST | | | | +-------+ +------+---+---+ +---+---+ | | | +---+---+ + +-------+ +---+---+---+ | methyl salicylate-menthol (ICY | Given | 10/12/20 | | | | | HOT) ointment topical, | | 19 9:33 | | | | | NEEDED, Starting Thu10/12/19 at | | PM PST | | | | | 1145, Until Thu10/14/19 at 2059, | | | | | | | mild pain | | | | | | + +-------+ +---+---+---+ +-------+ +---+---+---+ | Given | 10/12/20 | | | | | | 19 2:12 | | | | | | PM PST | | | | +-------+ +---+---+---+ +---+---+ | | | +---+---+ + +-------+ +------+---+---+ | midazolam (PF) (VERSED) | Given | 09/30/20 | 1 mg | | | | injection 1-2 mg 1-2 mg, | | 19 11:48 | | | | | intravenous, EVERY 1 HOUR | | AM PST | | | | | NEEDED, Starting 09/28/19 at | | | | | | | 2224, Until Thu09/30/19 at 1236, | | | | | | | agitation | | | | | | + +-------+ +------+---+---+ +-------+ +------+---+---+ | Given | 09/30/20 | 2 mg | | | | | 19 10:24 | | | | | | AM PST | | | | +-------+ +------+---+---+ | Given | 09/30/20 | 2 mg | | | | | 19 9:29 | | | | | | AM PST | | | | +-------+ +------+---+---+ +---+---+ | | | +---+---+ + +-------+ +------+---+---+ | midazolam (PF) (VERSED) | Given | 09/25/20 | 5 mg | | | | injection INTRAPROCEDURE PRN, | | 19 7:18 | | | | | Starting 09/25/19 at 1918, | | PM PST | | | | | Until 09/25/19 at 1918 | | | | | | + +-------+ +------+---+---+ + +---+ | | | + +---+ | NaCl 3 % IV infusion | | | (hypertonic) 1 dose, Starting | | | 09/25/19 at 1907, Until Sun | | | 09/25/19 at 1927 | | + +---+ | | | + +---+ + +-------+ +--------+---+---+ | | Given | 10/14/20 | 0.5 | | | | phcqyujn-xwwrexdpy-cwatmqaolkubi | | 19 9:23 | inches | | | | (MAXITROL) 3.5 mg/g-10,000 | | AM PST | | | | | unit/g-0.1 % ophthalmic ointment | | | | | | | 0.5 inch 0.5 inch, Left Eye, | | | | | | | THREE TIMES DAILY, First dose on | | | | | | | 10/12/19 at 1600, Until | | | | | | | Discontinued | | | | | | + +-------+ +--------+---+---+ +-------+ +--------+---+---+ | Given | 10/13/20 | 0.5 | | | | | 19 10:08 | inches | | | | | PM PST | | | | +-------+ +--------+---+---+ | Given | 10/13/20 | 0.5 | | | | | 19 4:37 | inches | | | | | PM PST | | | | +-------+ +--------+---+---+ +---+---+ | | | +---+---+ + +-------+ +------+---+---+ | ondansetron ODT (ZOFRAN ODT) | Given | 10/11/20 | 8 mg | | | | tablet 8 mg 8 mg, oral, EVERY 12 | | 19 7:45 | | | | | HOURS NEEDED, Starting Fri | | AM PST | | | | | 10/07/19 at 1233, Until Fri | | | | | | | 10/14/19 at 2058, | | | | | | | nausea/vomiting, first line | | | | | | + +-------+ +------+---+---+ +---+---+ | | | +---+---+ + +-------+ +-------+---+---+ | oxyCODONE (immediate release) | Given | 10/07/ | 20 mg | | | | (ROXICODONE) tablet 10-20 mg | | 19 8:59 | | | | | 10-20 mg, feeding tube, EVERY 3 | | AM PST | | | | | HOURS NEEDED, Starting [facility] | | | | | | | 09/29/19 at 0956, Until Fri | | | | | | | 10/07/19 at 1234, moderate pain | | | | | | + +-------+ +-------+---+---+ +-------+ +-------+---+---+ | Given | 10/07/20 | 15 mg | | | | | 19 5:13 | | | | | | AM PST | | | | +-------+ +-------+---+---+ | Given | 10/06/20 | 15 mg | | | | | 19 6:02 | | | | | | PM PST | | | | +-------+ +-------+---+---+ +---+---+ | | | +---+---+ + +-------+ +-------+---+---+ | oxyCODONE (immediate release) | Given | 10/14/20 | 20 mg | | | | (ROXICODONE) tablet 10-20 mg | | 19 12:42 | | | | | 10-20 mg, oral, EVERY 3 HOURS | | PM PST | | | | | NEEDED, Starting Thu10/07/19 at | | | | | | | 1233, Until Thu10/14/19 at 2058, | | | | | | | moderate pain | | | | | | + +-------+ +-------+---+---+ +-------+ +-------+---+---+ | Given | 10/14/20 | 20 mg | | | | | 19 9:23 | | | | | | AM PST | | | | +-------+ +-------+---+---+ | Given | 10/14/20 | 20 mg | | | | | 19 6:12 | | | | | | AM PST | | | | +-------+ +-------+---+---+ +---+---+ | | | +---+---+ + +-------+ +-------+---+---+ | oxyCODONE (immediate release) | Given | 09/26/20 | 10 mg | | | | (ROXICODONE) tablet 5-15 mg 5-15 | | 19 2:17 | | | | | mg, feeding tube, EVERY 4 HOURS | | PM PST | | | | | NEEDED, Starting 09/26/19 | | | | | | | at 1154, Until 09/26/19 at | | | | | | | 1645, moderate pain | | | | | | + +-------+ +-------+---+---+ +-------+ +------+---+---+ | Given | 09/26/20 | 5 mg | | | | | 19 12:55 | | | | | | PM PST | | | | +-------+ +------+---+---+ +---+---+ | | | +---+---+ + +-------+ +-------+---+---+ | oxyCODONE (immediate release) | Given | 09/29/20 | 15 mg | | | | (ROXICODONE) tablet 5-15 mg 5-15 | | 19 7:24 | | | | | mg, feeding tube, EVERY 3 HOURS | | AM PST | | | | | NEEDED, Starting 09/27/19 | | | | | | | at 0959, Until [facility] 09/29/19 at | | | | | | | 0956, moderate pain | | | | | | + +-------+ +-------+---+---+ +-------+ +-------+---+---+ | Given | 09/29/20 | 15 mg | | | | | 19 4:15 | | | | | | AM PST | | | | +-------+ +-------+---+---+ | Given | 09/29/20 | 15 mg | | | | | 19 1:15 | | | | | | AM PST | | | | +-------+ +-------+---+---+ +---+---+ | | | +---+---+ + +-------+ +--------+---+---+ | PHENYLEPHrine (MYDFRIN) 2.5 % | Given | 09/30/20 | 1 drop | | | | ophthalmic drops 1 drop 1 drop, | | 19 5:15 | | | | | Both Eyes, [facility] PROCEDURE ONCE, 1 | | PM PST | | | | | dose, 09/30/19 at 1715 | | | | | | + +-------+ +--------+---+---+ +---+---+ | | | +---+---+ + +---------+ +---------+---+---+ | piperacillin-tazobactam (ZOSYN) | New Bag | 09/30/20 | 3.375 g | | | | IV (minibag+) 3.375 g 3.375 g, | | 19 8:07 | | | | | intravenous, EVERY 8 HOURS, First | | AM PST | | | | | dose on [facility] 09/29/19 at 0000, | | | | | | | Until Discontinued | | | | | | + +---------+ +---------+---+---+ +---------+ +---------+---+---+ | New Bag | 09/29/20 | 3.375 g | | | | | 19 11:39 | | | | | | PM PST | | | | +---------+ +---------+---+---+ | New Bag | 09/29/20 | 3.375 g | | | | | 19 4:33 | | | | | | PM PST | | | | +---------+ +---------+---+---+ +---+---+ | | | +---+---+ + +---------+ +-------+---+---+ | piperacillin-tazobactam (ZOSYN) | New Bag | 09/28/20 | 4.5 g | | | | IV (minibag+) 4.5 g 4.5 g, | | 19 6:49 | | | | | intravenous, ONCE, 1 dose, Wed | | PM PST | | | | | 09/28/19 at 1745 | | | | | | + +---------+ +-------+---+---+ +---+---+ | | | +---+---+ + +-------+ +--------+---+---------+ | pneumococcal (13-kalina) conjugate | Given | 09/30/20 | 0.5 mL | | Right | | vaccine (PREVNAR 13) injection | | 19 8:08 | | | Deltoid | | 0.5 mL 0.5 mL, intramuscular, | | AM PST | | | | | ONE TIME IN THE MORNING, 1 dose, | | | | | | | First dose on Thu09/27/19 at | | | | | | | 0900 | | | | | | + +-------+ +--------+---+---------+ +---+---+ | | | +---+---+ + +-------+ +------+---+---+ | polyethylene glycol (MIRALAX) | Given | 09/29/20 | 17 g | | | | packet 17 g 17 g, feeding tube, | | 19 9:17 | | | | | EVERY EVENING, First dose on Sun | | PM PST | | | | | 09/25/19 at 2130, Until | | | | | | | Discontinued | | | | | | + +-------+ +------+---+---+ +-------+ +------+---+---+ | Given | 09/28/20 | 17 g | | | | | 19 8:57 | | | | | | PM PST | | | | +-------+ +------+---+---+ | Given | 09/27/20 | 17 g | | | | | 19 8:09 | | | | | | PM PST | | | | +-------+ +------+---+---+ +---+---+ | | | +---+---+ + +-------+ +------+---+---+ | polyethylene glycol (MIRALAX) | Given | 10/12/20 | 17 g | | | | packet 17 g 17 g, oral, TWICE | | 19 8:38 | | | | | DAILY NEEDED, Starting Sun | | AM PST | | | | | 09/25/19 at 2015, Until Fri | | | | | | | 10/14/19 at 2058, No BM x 48 | | | | | | | hours | | | | | | + +-------+ +------+---+---+ +-------+ +------+---+---+ | Given | 09/28/20 | 17 g | | | | | 19 8:19 | | | | | | AM PST | | | | +-------+ +------+---+---+ +---+---+ | | | +---+---+ + +-------+ +--------+---+---+ | potassium chloride (KLOR-CON) | Given | 10/05/20 | 20 mEq | | | | packet 20 mEq 20 mEq, feeding | | 19 10:02 | | | | | tube, ONCE, 1 dose, 10/05/19 | | AM PST | | | | | at 0845 | | | | | | + +-------+ +--------+---+---+ +---+---+ | | | +---+---+ + +-------+ +--------+---+---+ | potassium chloride (KLOR-CON) | Given | 09/29/20 | 40 mEq | | | | packet 40 mEq 40 mEq, oral, | | 19 5:54 | | | | | ONCE, 1 dose, [facility] 09/29/19 at | | AM PST | | | | | 0600 | | | | | | + +-------+ +--------+---+---+ +---+---+ | | | +---+---+ + +-------+ +--------+---+---+ | potassium chloride (KLOR-CON) | Given | 09/30/20 | 40 mEq | | | | packet 40 mEq 40 mEq, feeding | | 19 6:43 | | | | | tube, ONCE, 1 dose, [facility] 09/30/19 | | AM PST | | | | | at 0715 | | | | | | + +-------+ +--------+---+---+ +---+---+ | | | +---+---+ + +-------+ +--------+---+---+ | potassium chloride (KLOR-CON) | Given | 10/02/20 | 40 mEq | | | | packet 40 mEq 40 mEq, feeding | | 19 1:41 | | | | | tube, ONCE, 1 dose, 10/02/19 | | PM PST | | | | | at 1400 | | | | | | + +-------+ +--------+---+---+ +---+---+ | | | +---+---+ + +---------+ +--------+---+---+ | potassium chloride in water IV | New Bag | 09/26/20 | 20 mEq | | | | (CENTRAL LINE-ICU) 20 mEq 20 | | 19 2:24 | | | | | mEq, intravenous, EVERY 1 HOUR, 3 | | AM PST | | | | | doses, First dose on 09/26/19 | | | | | | | at 0100, Last dose on Thu | | | | | | | 09/26/19 at 0300 | | | | | | + +---------+ +--------+---+---+ +---------+ +--------+---+---+ | New Bag | 09/26/20 | 20 mEq | | | | | 19 12:56 | | | | | | AM PST | | | | +---------+ +--------+---+---+ | New Bag | 09/26/20 | 20 mEq | | | | | 19 12:05 | | | | | | AM PST | | | | +---------+ +--------+---+---+ +---+---+ | | | +---+---+ + +---------+ +--------+---+---+ | potassium chloride IV | New Bag | 09/29/20 | 20 mEq | | | | (peripheral line) 20 mEq 20 mEq, | | 19 6:46 | | | | | intravenous, ONCE, 1 dose, [facility] | | AM PST | | | | | 09/29/19 at 0630 | | | | | | + +---------+ +--------+---+---+ +---+---+ | | | +---+---+ + +-------+ + +---+---+ | potassium, sodium phosphates | Given | 09/28/20 | 1 packet | | | | (NEUTRA-PHOS, PHOS-NAK) | | 19 5:18 | | | | | 280-160-250 mg packet 1 packet 1 | | AM PST | | | | | packet, feeding tube, ONCE, 1 | | | | | | | dose, [facility] 09/28/19 at 0515 | | | | | | + +-------+ + +---+---+ +---+---+ | | | +---+---+ + +-------+ + +---+---+ | potassium, sodium phosphates | Given | 09/29/20 | 1 packet | | | | (NEUTRA-PHOS, PHOS-NAK) | | 19 5:54 | | | | | 280-160-250 mg packet 1 packet 1 | | AM PST | | | | | packet, feeding tube, ONCE, 1 | | | | | | | dose, [facility] 09/29/19 at 0600 | | | | | | + +-------+ + +---+---+ +---+---+ | | | +---+---+ + + + +---+---+---+ | probiotic kefir ([facility] KEFIR) | Given - | 10/03/20 | | | | | feeding tube, TWICE DAILY, | Food | 19 9:24 | | | | | First dose on [facility] 09/29/19 at | | PM PST | | | | | 1100, Until Discontinued | | | | | | + + + +---+---+---+ + + +---+---+---+ | Given - Food | 10/03/20 | | | | | | 19 9:36 | | | | | | AM PST | | | | + + +---+---+---+ | Given - Food | 10/02/20 | | | | | | 19 9:14 | | | | | | PM PST | | | | + + +---+---+---+ +---+---+ | | | +---+---+ + + + +---+---+---+ | probiotic yogurt ([facility] | Given - | 10/04/20 | | | | | YOGURT) oral, TWICE DAILY, First | Food | 19 8:04 | | | | | dose on Thu10/04/19 at 1030, | | PM PST | | | | | Until Discontinued | | | | | | + + + +---+---+---+ +---+---+ | | | +---+---+ + + + +-------+---+---+ | propofol (DIPRIVAN) bolus from | Bolus | 09/28/20 | 15 mg | | | | continuous infusion 10-20 mg | from | 19 10:45 | | | | | intravenous, EVERY 15 MINUTES | Same Bag | AM PST | | | | | NEEDED, Starting 09/25/19 at | | | | | | | 1906, Until Thu09/28/19 at 0824, | | | | | | | RASS greater than or equal to +2 | | | | | | | OR BSAS greater than +3 OR | | | | | | | breath stacking greater than 5 | | | | | | | per minute | | | | | | + + + +-------+---+---+ + + +-------+---+---+ | Bolus from Same Bag | 09/28/20 | 20 mg | | | | | 19 9:40 | | | | | | AM PST | | | | + + +-------+---+---+ | Bolus from Same Bag | 09/28/20 | 20 mg | | | | | 19 9:15 | | | | | | AM PST | | | | + + +-------+---+---+ +---+---+ | | | +---+---+ + + + +-------+---+---+ | propofol (DIPRIVAN) bolus from | Bolus | 09/30/20 | 20 mg | | | | continuous infusion 10-20 mg | from | 19 8:20 | | | | | intravenous, EVERY 15 MINUTES | Same Bag | AM PST | | | | | NEEDED, Starting 09/28/19 at | | | | | | | 1657, Until Thu09/30/19 at 1236, | | | | | | | RASS greater than or equal to +2 | | | | | | | OR BSAS greater than +3 OR | | | | | | | breath stacking greater than 5 | | | | | | | per minute | | | | | | + + + +-------+---+---+ + + +-------+---+---+ | Bolus from Same Bag | 09/29/20 | 20 mg | | | | | 19 11:43 | | | | | | PM PST | | | | + + +-------+---+---+ | Bolus from Same Bag | 09/29/20 | 20 mg | | | | | 19 4:45 | | | | | | PM PST | | | | + + +-------+---+---+ +---+---+ | | | +---+---+ + +-------+ +-------+---+---+ | propofol (DIPRIVAN) bolus from | Given | 09/28/20 | 20 mg | | | | continuous infusion intravenous, | | 19 4:00 | | | | | INTRAPROCEDURE PRN, Starting Wed | | PM PST | | | | | 09/28/19 at 1554, Until Wed | | | | | | | 09/28/19 at 1600 | | | | | | + +-------+ +-------+---+---+ +-------+ +-------+---+---+ | Given | 09/28/20 | 20 mg | | | | | 19 3:54 | | | | | | PM PST | | | | +-------+ +-------+---+---+ + +---+ | | | + +---+ | propofol (DIPRIVAN) injection | | | 1 dose, Starting [place] 09/25/19 at | | | 1857, Until [place] 09/25/19 at 1916 | | + +---+ | | | + +---+ + + + + + +---+ | propofol (DIPRIVAN) injection | Rate/Dos | 09/28/20 | 25 | 12 mL/hr | | | 0.5-50 mcg/kg/min | e Change | 19 11:20 | mcg/kg/m | | | | 80 kg (0.24-24 mL/hr), | | AM PST | in | | | | intravenous, CONTINUOUS, Starting | | | | | | | [place] 09/25/19 at 1945, Until Wed | | | | | | | 09/28/19 at 0824 | | | | | | + + + + + +---+ + + + +-------+---+ | Rate/Dose Change | 09/28/20 | 15 | 7.2 | | | | 19 10:00 | mcg/kg/m | mL/hr | | | | AM PST | in | | | + + + +-------+---+ | Rate/Dose Verify | 09/28/20 | 20 | 9.6 | | | | 19 9:00 | mcg/kg/m | mL/hr | | | | AM PST | in | | | + + + +-------+---+ +---+---+ | | | +---+---+ + + + + +--------+---+ | propofol (DIPRIVAN) injection | Rate/Dos | 09/28/20 | 30 | 15.88 | | | 0.5-50 mcg/kg/min | e Change | 19 4:24 | mcg/kg/m | mL/hr | | | 88.2 kg Dosing weight | | PM PST | in | | | | (0.2646-26.46 mL/hr, rounded to | | | | | | | 0.26-26.46 mL/hr), intravenous, | | | | | | | CONTINUOUS, Starting 09/28/19 | | | | | | | at 1245, Until Thu09/28/19 at | | | | | | | 1657 | | | | | | + + + + +--------+---+ + + + +--------+---+ | New Bag | 09/28/20 | 25 | 13.23 | | | | 19 3:39 | mcg/kg/m | mL/hr | | | | PM PST | in | | | + + + +--------+---+ | Rate/Dose Verify | 09/28/20 | 25 | 13.23 | | | | 19 3:00 | mcg/kg/m | mL/hr | | | | PM PST | in | | | + + + +--------+---+ +---+---+ | | | +---+---+ + + + + +--------+---+ | propofol (DIPRIVAN) injection | Rate/Dos | 09/30/20 | 25 | 13.23 | | | 0.5-50 mcg/kg/min | e Verify | 19 11:00 | mcg/kg/m | mL/hr | | | 88.2 kg Dosing weight | | AM PST | in | | | | (0.2646-26.46 mL/hr, rounded to | | | | | | | 0.26-26.46 mL/hr), intravenous, | | | | | | | CONTINUOUS, Starting Thu09/28/19 | | | | | | | at 1730, Until Thu09/30/19 at | | | | | | | 1236 | | | | | | + + + + +--------+---+ + + + +--------+---+ | Rate/Dose Verify | 09/30/20 | 25 | 13.23 | | | | 19 10:00 | mcg/kg/m | mL/hr | | | | AM PST | in | | | + + + +--------+---+ | Rate/Dose Verify | 09/30/20 | 25 | 13.23 | | | | 19 9:00 | mcg/kg/m | mL/hr | | | | AM PST | in | | | + + + +--------+---+ +---+---+ | | | +---+---+ + +---------+ + +--------+---+ | propofol IV infusion (DIPRIVAN) | New Bag | 09/28/20 | 35 | 18.52 | | | IV infusion emul intravenous, | | 19 3:44 | mcg/kg/m | mL/hr | | | INTRAPROCEDURE CONTINUOUS PRN, | | PM PST | in | | | | Starting 09/28/19 at 1544, | | | | | | | Until 09/28/19 at 1544 | | | | | | + +---------+ + +--------+---+ +---+---+ | | | +---+---+ + +-------+ +-------+---+---+ | propranolol (INDERAL) liquid 20 | Given | 10/01/20 | 20 mg | | | | mg 20 mg, oral, THREE TIMES | | 19 6:01 | | | | | DAILY, First dose (after last | | AM PST | | | | | modification) on 10/01/19 at | | | | | | | 0445, Until Discontinued | | | | | | + +-------+ +-------+---+---+ +---+---+ | | | +---+---+ + +-------+ +-------+---+---+ | propranolol (INDERAL) tablet 10 | Given | 10/13/20 | 10 mg | | | | mg 10 mg, oral, EVERY 8 HOURS, | | 19 10:07 | | | | | First dose (after last | | PM PST | | | | | modification) on 10/10/19 at | | | | | | | 1600, Until Discontinued | | | | | | + +-------+ +-------+---+---+ +-------+ +-------+---+---+ | Given | 10/13/20 | 10 mg | | | | | 19 4:37 | | | | | | PM PST | | | | +-------+ +-------+---+---+ | Given | 10/13/20 | 10 mg | | | | | 19 7:40 | | | | | | AM PST | | | | +-------+ +-------+---+---+ +---+---+ | | | +---+---+ + +-------+ +-------+---+---+ | propranolol (INDERAL) tablet 20 | Given | 10/03/20 | 20 mg | | | | mg 20 mg, oral, EVERY 8 HOURS, | | 19 4:00 | | | | | First dose (after last | | AM PST | | | | | modification) on 10/01/19 at | | | | | | | 1400, Until Discontinued | | | | | | + +-------+ +-------+---+---+ +-------+ +-------+---+---+ | Given | 10/02/20 | 20 mg | | | | | 19 9:13 | | | | | | PM PST | | | | +-------+ +-------+---+---+ | Given | 10/02/20 | 20 mg | | | | | 19 1:41 | | | | | | PM PST | | | | +-------+ +-------+---+---+ +---+---+ | | | +---+---+ + +-------+ +-------+---+---+ | propranolol (INDERAL) tablet 20 | Given | 10/10/20 | 20 mg | | | | mg 20 mg, oral, EVERY 8 HOURS, | | 19 7:53 | | | | | First dose (after last | | AM PST | | | | | modification) on 10/08/19 at | | | | | | | 1600, Until Discontinued | | | | | | + +-------+ +-------+---+---+ +-------+ +-------+---+---+ | Given | 10/10/20 | 20 mg | | | | | 19 1:07 | | | | | | AM PST | | | | +-------+ +-------+---+---+ | Given | 10/09/20 | 20 mg | | | | | 19 4:14 | | | | | | PM PST | | | | +-------+ +-------+---+---+ +---+---+ | | | +---+---+ + +-------+ +-------+---+---+ | propranolol (INDERAL) tablet 40 | Given | 10/07/20 | 40 mg | | | | mg 40 mg, feeding tube, EVERY 8 | | 19 9:55 | | | | | HOURS, First dose (after last | | AM PST | | | | | modification) on 10/03/19 at | | | | | | | 1400, Until Discontinued | | | | | | + +-------+ +-------+---+---+ +-------+ +-------+---+---+ | Given | 10/06/20 | 40 mg | | | | | 19 4:25 | | | | | | PM PST | | | | +-------+ +-------+---+---+ | Given | 10/06/20 | 40 mg | | | | | 19 9:03 | | | | | | AM PST | | | | +-------+ +-------+---+---+ +---+---+ | | | +---+---+ + +-------+ +-------+---+---+ | propranolol (INDERAL) tablet 40 | Given | 10/08/20 | 40 mg | | | | mg 40 mg, oral, EVERY 8 HOURS, | | 19 8:39 | | | | | First dose (after last | | AM PST | | | | | modification) on Thu10/07/19 at | | | | | | | 1600, Until Discontinued | | | | | | + +-------+ +-------+---+---+ +-------+ +-------+---+---+ | Given | 10/07/20 | 40 mg | | | | | 19 4:51 | | | | | | PM PST | | | | +-------+ +-------+---+---+ +---+---+ | | | +---+---+ + +-------+ +--------+---+---+ | QUEtiapine (SEROQUEL) tablet | Given | 10/03/20 | 100 mg | | | | 100 mg 100 mg, feeding tube, | | 19 9:36 | | | | | THREE TIMES DAILY, First dose | | AM PST | | | | | (after last modification) on [place] | | | | | | | 09/29/19 at 1600, Until | | | | | | | Discontinued | | | | | | + +-------+ +--------+---+---+ +-------+ +--------+---+---+ | Given | 10/02/20 | 100 mg | | | | | 19 8:38 | | | | | | PM PST | | | | +-------+ +--------+---+---+ | Given | 10/02/20 | 100 mg | | | | | 19 3:55 | | | | | | PM PST | | | | +-------+ +--------+---+---+ +---+---+ | | | +---+---+ + +-------+ +--------+---+---+ | QUEtiapine (SEROQUEL) tablet | Given | 10/07/20 | 100 mg | | | | 100 mg 100 mg, feeding tube, | | 19 8:59 | | | | | TWICE DAILY, First dose (after | | AM PST | | | | | last modification) on Mon | | | | | | | 10/03/19 at 1500, Until | | | | | | | Discontinued | | | | | | + +-------+ +--------+---+---+ +-------+ +--------+---+---+ | Given | 10/06/20 | 100 mg | | | | | 19 2:17 | | | | | | PM PST | | | | +-------+ +--------+---+---+ | Given | 10/06/20 | 100 mg | | | | | 19 9:03 | | | | | | AM PST | | | | +-------+ +--------+---+---+ +---+---+ | | | +---+---+ + +-------+ +--------+---+---+ | QUEtiapine (SEROQUEL) tablet | Given | 10/10/20 | 100 mg | | | | 100 mg 100 mg, oral, TWICE | | 19 7:53 | | | | | DAILY, First dose (after last | | AM PST | | | | | modification) on Thu10/07/19 at | | | | | | | 1500, Until Discontinued | | | | | | + +-------+ +--------+---+---+ +-------+ +--------+---+---+ | Given | 10/09/20 | 100 mg | | | | | 19 3:16 | | | | | | PM PST | | | | +-------+ +--------+---+---+ | Given | 10/09/20 | 100 mg | | | | | 19 8:00 | | | | | | AM PST | | | | +-------+ +--------+---+---+ +---+---+ | | | +---+---+ + +-------+ +--------+---+---+ | QUEtiapine (SEROQUEL) tablet | Given | 10/13/20 | 150 mg | | | | 150 mg 150 mg, oral, AT BEDTIME, | | 19 10:07 | | | | | First dose (after last | | PM PST | | | | | modification) on Thu10/13/19 at | | | | | | | 2200, Until Discontinued | | | | | | + +-------+ +--------+---+---+ +---+---+ | | | +---+---+ + +-------+ +--------+---+---+ | QUEtiapine (SEROQUEL) tablet | Given | 10/12/20 | 175 mg | | | | 175 mg 175 mg, oral, AT BEDTIME, | | 19 9:22 | | | | | First dose (after last | | PM PST | | | | | modification) on Thu10/11/19 at | | | | | | | 2200, Until Discontinued | | | | | | + +-------+ +--------+---+---+ +-------+ +--------+---+---+ | Given | 10/11/20 | 175 mg | | | | | 19 8:40 | | | | | | PM PST | | | | +-------+ +--------+---+---+ +---+---+ | | | +---+---+ + +-------+ +--------+---+---+ | QUEtiapine (SEROQUEL) tablet | Given | 10/05/20 | 200 mg | | | | 200 mg 200 mg, feeding tube, AT | | 19 9:24 | | | | | BEDTIME, First dose on Mon | | PM PST | | | | | 10/03/19 at 2200, Until | | | | | | | Discontinued | | | | | | + +-------+ +--------+---+---+ +-------+ +--------+---+---+ | Given | 10/05/20 | 200 mg | | | | | 19 1:14 | | | | | | AM PST | | | | +-------+ +--------+---+---+ | Given | 10/03/20 | 200 mg | | | | | 19 9:23 | | | | | | PM PST | | | | +-------+ +--------+---+---+ +---+---+ | | | +---+---+ + +-------+ +--------+---+---+ | QUEtiapine (SEROQUEL) tablet | Given | 10/10/20 | 200 mg | | | | 200 mg 200 mg, oral, AT BEDTIME, | | 19 10:00 | | | | | First dose (after last | | PM PST | | | | | modification) on Thu10/07/19 at | | | | | | | 2200, Until Discontinued | | | | | | + +-------+ +--------+---+---+ +-------+ +--------+---+---+ | Given | 10/09/20 | 200 mg | | | | | 19 8:40 | | | | | | PM PST | | | | +-------+ +--------+---+---+ | Given | 10/08/20 | 200 mg | | | | | 19 9:27 | | | | | | PM PST | | | | +-------+ +--------+---+---+ +---+---+ | | | +---+---+ + +-------+ +-------+---+---+ | QUEtiapine (SEROQUEL) tablet 25 | Given | 09/28/20 | 25 mg | | | | mg 25 mg, feeding tube, TWICE | | 19 8:19 | | | | | DAILY, First dose on Thu09/27/19 | | AM PST | | | | | at 1200, Until Discontinued | | | | | | + +-------+ +-------+---+---+ +-------+ +-------+---+---+ | Given | 09/27/20 | 25 mg | | | | | 19 7:23 | | | | | | PM PST | | | | +-------+ +-------+---+---+ | Given | 09/27/20 | 25 mg | | | | | 19 11:16 | | | | | | AM PST | | | | +-------+ +-------+---+---+ +---+---+ | | | +---+---+ + +-------+ +-------+---+---+ | QUEtiapine (SEROQUEL) tablet 50 | Given | 09/29/20 | 50 mg | | | | mg 50 mg, feeding tube, THREE | | 19 7:44 | | | | | TIMES DAILY, First dose (after | | AM PST | | | | | last modification) on Thu | | | | | | | 09/28/19 at 1600, Until | | | | | | | Discontinued | | | | | | + +-------+ +-------+---+---+ +-------+ +-------+---+---+ | Given | 09/28/20 | 50 mg | | | | | 19 9:46 | | | | | | PM PST | | | | +-------+ +-------+---+---+ | Given | 09/28/20 | 50 mg | | | | | 19 4:11 | | | | | | PM PST | | | | +-------+ +-------+---+---+ +---+---+ | | | +---+---+ + +-------+ +-------+---+---+ | QUEtiapine (SEROQUEL) tablet 50 | Given | 10/03/20 | 50 mg | | | | mg 50 mg, oral, EVERY 8 HOURS | | 19 3:58 | | | | | NEEDED, Starting 10/02/19 | | AM PST | | | | | at 1944, Until 10/03/19 at | | | | | | | 1124, agitation | | | | | | + +-------+ +-------+---+---+ +-------+ +-------+---+---+ | Given | 10/02/20 | 50 mg | | | | | 19 10:00 | | | | | | PM PST | | | | +-------+ +-------+---+---+ +---+---+ | | | +---+---+ + +-------+ +-------+---+---+ | QUEtiapine (SEROQUEL) tablet 50 | Given | 10/07/20 | 50 mg | | | | mg 50 mg, feeding tube, EVERY 8 | | 19 5:14 | | | | | HOURS NEEDED, Starting Mon | | AM PST | | | | | 10/03/19 at 1124, Until Fri | | | | | | | 10/07/19 at 1234, agitation | | | | | | + +-------+ +-------+---+---+ +-------+ +-------+---+---+ | Given | 10/06/20 | 50 mg | | | | | 19 7:39 | | | | | | PM PST | | | | +-------+ +-------+---+---+ | Given | 10/04/20 | 50 mg | | | | | 19 3:40 | | | | | | AM PST | | | | +-------+ +-------+---+---+ + +---+ | | | + +---+ | QUEtiapine (SEROQUEL) tablet 50 | | | mg 50 mg, oral, EVERY 8 HOURS | | | NEEDED, Starting Thu10/07/19 | | | at 1233, Until Thu10/14/19 at | | | 2059, agitation | | + +---+ | | | + +---+ + +-------+ +-------+---+---+ | QUEtiapine (SEROQUEL) tablet 50 | Given | 10/14/20 | 50 mg | | | | mg 50 mg, oral, TWICE DAILY, | | 19 9:23 | | | | | First dose (after last | | AM PST | | | | | modification) on Thu10/13/19 at | | | | | | | 0900, Until Discontinued | | | | | | + +-------+ +-------+---+---+ +-------+ +-------+---+---+ | Given | 10/13/20 | 50 mg | | | | | 19 2:25 | | | | | | PM PST | | | | +-------+ +-------+---+---+ | Given | 10/13/20 | 50 mg | | | | | 19 10:17 | | | | | | AM PST | | | | +-------+ +-------+---+---+ +---+---+ | | | +---+---+ + +-------+ +-------+---+---+ | QUEtiapine (SEROQUEL) tablet 75 | Given | 10/12/20 | 75 mg | | | | mg 75 mg, oral, TWICE DAILY, | | 19 4:00 | | | | | First dose (after last | | PM PST | | | | | modification) on Thu10/10/19 at | | | | | | | 1500, Until Discontinued | | | | | | + +-------+ +-------+---+---+ +-------+ +-------+---+---+ | Given | 10/12/20 | 75 mg | | | | | 19 8:38 | | | | | | AM PST | | | | +-------+ +-------+---+---+ | Given | 10/11/20 | 75 mg | | | | | 19 5:26 | | | | | | PM PST | | | | +-------+ +-------+---+---+ +---+---+ | | | +---+---+ + +-------+ +---------+---+---+ | senna (SENOKOT) tablet 2 tablet | Given | 10/01/20 | 2 | | | | 2 tablet, feeding tube, TWICE | | 19 8:00 | tablets | | | | DAILY, First dose on 09/25/19 | | AM PST | | | | | at 2100, Until Discontinued | | | | | | + +-------+ +---------+---+---+ +-------+ +---------+---+---+ | Given | 09/29/20 | 2 | | | | | 19 9:17 | tablets | | | | | PM PST | | | | +-------+ +---------+---+---+ | Given | 09/29/20 | 2 | | | | | 19 7:44 | tablets | | | | | AM PST | | | | +-------+ +---------+---+---+ +---+---+ | | | +---+---+ + +-------+ +------+---+---+ | sodium chloride (HYPER-CHANNING) 7 % | Given | 10/08/20 | 4 mL | | | | nebulizer solution 4 mL 4 mL, | | 19 3:16 | | | | | inhalation, EVERY 6 HOURS, First | | PM PST | | | | | dose (after last modification) on | | | | | | | 10/01/19 at 0815, Until | | | | | | | Discontinued | | | | | | + +-------+ +------+---+---+ +-------+ +------+---+---+ | Given | 10/08/20 | 4 mL | | | | | 19 8:11 | | | | | | AM PST | | | | +-------+ +------+---+---+ | Given | 10/08/20 | 4 mL | | | | | 19 4:37 | | | | | | AM PST | | | | +-------+ +------+---+---+ +---+---+ | | | +---+---+ + +-------+ +------+---+---+ | sodium chloride (HYPER-CHANNING) 7 % | Given | 10/11/20 | 4 mL | | | | nebulizer solution 4 mL 4 mL, | | 19 12:48 | | | | | inhalation, TWICE DAILY, First | | PM PST | | | | | dose on Thu10/11/19 at 1115, | | | | | | | Until Discontinued | | | | | | + +-------+ +------+---+---+ +---+---+ | | | +---+---+ + +-------+ +------+---+---+ | sodium chloride (HYPER-CHANNING) 7 % | Given | 10/14/20 | 4 mL | | | | nebulizer solution 4 mL 4 mL, | | 19 9:02 | | | | | inhalation, TWICE DAILY, First | | AM PST | | | | | dose on Thu10/12/19 at 1300, | | | | | | | Until Discontinued | | | | | | + +-------+ +------+---+---+ +-------+ +------+---+---+ | Given | 10/13/20 | 4 mL | | | | | 19 8:53 | | | | | | PM PST | | | | +-------+ +------+---+---+ | Given | 10/13/20 | 4 mL | | | | | 19 8:06 | | | | | | AM PST | | | | +-------+ +------+---+---+ +---+---+ | | | +---+---+ + +-------+ +--------+---+---+ | sodium chloride 3% IV infusion | Given | 09/25/20 | 250 mL | | | | (hypertonic) 250 mL, | | 19 7:12 | | | | | intravenous, ONCE, 1 dose, Sun | | PM PST | | | | | 09/25/19 at 1945 | | | | | | + +-------+ +--------+---+---+ +---+---+ | | | +---+---+ + +---------+ +---------+---+---+ | sodium phosphate IV 15 mmol 15 | New Bag | 09/26/20 | 15 mmol | | | | mmol, intravenous, ONCE, 1 dose, | | 19 12:53 | | | | | 09/26/19 at 0045 | | AM PST | | | | + +---------+ +---------+---+---+ +---+---+ | | | +---+---+ + +---------+ +---------+---+---+ | sodium phosphate IV 15 mmol 15 | New Bag | 09/27/20 | 15 mmol | | | | mmol, intravenous, ONCE, 1 dose, | | 19 8:24 | | | | | 09/27/19 at 0245 | | AM PST | | | | + +---------+ +---------+---+---+ +---+---+ | | | +---+---+ + +-------+ +--------+---+---+ | thiamine (VITAMIN B-1) | Given | 10/02/20 | 100 mg | | | | injection 100 mg 100 mg, | | 19 9:23 | | | | | intravenous, DAILY, 3 doses, | | AM PST | | | | | First dose on Thu09/30/19 at | | | | | | | 1645, Last dose on 10/02/19 | | | | | | | at 0900 | | | | | | + +-------+ +--------+---+---+ +-------+ +--------+---+---+ | Given | 10/01/20 | 100 mg | | | | | 19 8:00 | | | | | | AM PST | | | | +-------+ +--------+---+---+ | Given | 09/30/20 | 100 mg | | | | | 19 4:45 | | | | | | PM PST | | | | +-------+ +--------+---+---+ +---+---+ | | | +---+---+ + +-------+ +--------+---+---+ | tropicamide (MYDRIACYL) 1 % | Given | 09/30/20 | 1 drop | | | | ophthalmic drops 1 drop 1 drop, | | 19 5:15 | | | | | Both Eyes, CEI PROCEDURE ONCE, 1 | | PM PST | | | | | dose, 09/30/19 at 1715 | | | | | | + +-------+ +--------+---+---+ +---+---+ | | | +---+---+ + +---------+ + +---+---+ | vancomycin (VANCOCIN) IV 1,500 | New Bag | 09/29/20 | 1,500 mg | | | | mg 1,500 mg, intravenous, EVERY | | 19 6:00 | | | | | 12 HOURS, First dose (after last | | AM PST | | | | | modification) on [facility] 09/29/19 at | | | | | | | 0600, Until Discontinued | | | | | | + +---------+ + +---+---+ +---+---+ | | | +---+---+ + +---------+ + +---+---+ | vancomycin (VANCOCIN) IV 2,000 | New Bag | 09/28/20 | 2,000 mg | | | | mg 2,000 mg, intravenous, ONCE, | | 19 6:20 | | | | | 1 dose, 09/28/19 at 1815 | | PM PST | | | | + +---------+ + +---+---+ +---+---+ | | | +---+---+ + +-------+ +---+---+---+ | white petrolatum-mineral oil | Given | 09/28/20 | | | | | (ROSIE) ophthalmic ointment Both | | 19 4:20 | | | | | Eyes, EVERY 6 HOURS, First dose | | AM PST | | | | | on 09/25/19 at 2200, Until | | | | | | | Discontinued | | | | | | + +-------+ +---+---+---+ +-------+ +---+---+---+ | Given | 09/27/20 | | | | | | 19 9:58 | | | | | | PM PST | | | | +-------+ +---+---+---+ | Given | 09/27/20 | | | | | | 19 3:11 | | | | | | PM PST | | | | +-------+ +---+---+---+ +---+---+ | | | +---+---+ + +-------+ +---+---+---+ | white petrolatum-mineral oil | Given | 10/13/20 | | | | | (STYE) ophthalmic ointment Both | | 19 10:16 | | | | | Eyes, AT BEDTIME, First dose | | PM PST | | | | | (after last modification) on Wed | | | | | | | 09/28/19 at 2200, Until | | | | | | | Discontinued | | | | | | + +-------+ +---+---+---+ +-------+ +---+---+---+ | Given | 10/12/20 | | | | | | 19 9:23 | | | | | | PM PST | | | | +-------+ +---+---+---+ | Given | 10/11/20 | | | | | | 19 8:41 | | | | | | PM PST | | | | +-------+ +---+---+---+ +---+---+ | | | +---+---+ documented in this encounter
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
--- OUTSIDE RECORDS SUMMARY | ~2020-05-07 | XMS | Encounter Summary ---
Demographics + + + | Address | [address] | | | [place] [address] | + + + | Home Phone | | + + + | Preferred Language | Unknown | + + + | Marital Status | Single | + + + | Shinto Affiliation | NON | + + + | Race | or | + + + | Ethnic Group | Not or | + + + Author + + + | Author | [facility] | + + + | Organization | [facility] | + + + | Address | Unknown | + + + | Phone | Unavailable | + + + Support + + + + + | Name | Relationship | Address | Phone | + + + + + | Kaila Oates | ECON | [place] | | | | | [address] | | + + + + + Care Team Providers + +------+ + | Care Bone Process Operator Name | Role | Phone | [...] | | | | [address] [place] for | [place], [place] | | | | | Health and Healing, | [address] | | | | | [facility] | [phone] | | | | | Floor [place], [place] | | | | | | [address] | | | | | | [phone] | | | +--------+ + + + [...] | 2020 | Visit | | ,PhD [address] | | | | | | [place], [place] | | | | | | [address] | | | | | | [phone] | | | | | | | | +--------+---------+ + + + documented as of this encounter Procedures + +--------+ + + + | Procedure Name | Priori | Date/Time | Associated Diagnosis | Comments | | | ty | | | | + +--------+ + + + | X-RAY SPINE CERV 5 | Routin | 01/02/2020 | Neck pain | Results for this | | VIEWS | e | 9:22 AM | | procedure are in the | | | | PDT | | results section. | + +--------+ + + + documented in this encounter Results X-RAY SPINE CERVICAL 5 [...] as now | | presented. Final signature: Abdriahman Owen MD 01/02/2020 9:25 AM Preliminary: | [...]
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
--- OUTSIDE RECORDS SUMMARY | ~2020-05-07 | XMS | Encounter Summary ---
Demographics + + + | Address | [address] | | | [place] [address] | + + + | Home Phone | | + + + | Preferred Language | Unknown | + + + | Marital Status | Single | + + + | Yarsani Affiliation | NON | + + + | Race | or | + + + | Ethnic Group | Not or | + + + Author + + + | Author | [facility] | + + + | Organization | [facility] | + + + | Address | Unknown | + + + | Phone | Unavailable | + + + Support + + + + + | Name | Relationship | Address | Phone | + + + + + | Kaila Oates | ECON | [place] | | | | | [address] | | + + + + + Care Team Providers + +------+ + | Care Mica Layer Name | Role | Phone | + [...] Surgery | | 2020 | Encounter | [place]/[facility]hthalmol | [address] | Referral | | | | ogy at [facility] [address] | [address] [place], | | | | | [address] [facility] | [place] [address] | | | | | Health and Healing, | [phone] | | | | | [facility] | | | | | | Floor [place], [place] | | | | | | [address] | | | | | | [phone] | | | +--------+ + + + [...] | 2020 | Visit | | ,PhD [address] | | | | | | [place], [place] | | | | | | [address] | | | | | | [phone] | | | | | | | | +--------+---------+ + + + documented as of this encounter Visit Diagnoses Not on filedocumented in this encounter"
--- OUTSIDE RECORDS SUMMARY | ~2020-05-07 | XMS | Encounter Summary ---
Demographics + + + | Address | [address] | | | [place] [address] | + + + | Home Phone [...] + + + | Author | [facility] | + + + | Organization | [facility] | + + + | Address | Unknown | + + + | Phone | Unavailable | + + + Support + + + + + | Name | Relationship | Address | Phone | + + + + + | Kaila Oates | ECON | [place] | | | | | [address] | | + + + + + Care Team Providers + +------+ + | Care Actuarial Associate Name | Role | Phone | + +------+ + PCP | Unavailable | + +------+ + Encounter Details +--------+ + + + + | Date | Type | Department | Care Team | Description | +--------+ + + + + | 04/30/ | Results | Emergency Medicine | Andre, | | | 2005 | Only | [address] | MD Lucas [address] | | | | [address] | [facility] | | | | | [place], [place] | Road [place], [place] | | | | | [address] | [address] | | | | | | | [...] | Office | Plastic Surgery | Paul Herrrea, | | | 2020 | Visit | | ,PhD [address] | | | | | | [place] [facility] [place] | | | | | | [address] | | | | | | [phone] | | | | | | | [...] | | | | | arch of [id number] | | | | | | fracture [...] | | + +---------+ + + | [facility] DEPARTMENT OF | | | | | RADIOLOGY | | | | + +---------+ + + documented in this encounter Visit Diagnoses Not on filedocumented in this encounter"
--- OUTSIDE RECORDS SUMMARY | ~2020-05-07 | XMS | Encounter Summary ---
Demographics + + + | Address | [address] | | | [place] [address] | + + + | Home Phone [...] Author + + + | Author | [facility] | + + + | Organization | [facility] | + + + | Address | Unknown | + + + | Phone | Unavailable | + + + Support + + + + + | Name | Relationship | Address | Phone | + + + + + | Kaila Oates | ECON | [place] | | | | | [address] | | + + + + + Care Team Providers + +------+ + | Care Digital Service Engineer Name | Role | Phone | + +------+ + | Tomasz Solis MD | PCP | | + +------+ + Encounter Details +--------+ + + + + | Date | Type | Department | Care Team | Description | +--------+ + + + + | 04/12/ | MyChart | Plastic and | Javier, Paul, | RE: pain management | | 2020 | Encounter | Reconstructive | ,PhD [address] | | | | | Surgery at [facility] [address] [place], [place] | | | | | [address] [facility] | [address] | | | | | for Health and | [phone] | | | | | Healing, [address], | | | | | | 5th Floor | | | | | | [place], [place] | | | | | | [address] | | | | | | [phone] | | | +--------+ + + + [...] | 2020 | Visit | | ,PhD [address] | | | | | | [place], [place] | | | | | | [address] | | | | | | [phone] | | | | | | | | +--------+---------+ + + + documented as of this encounter Visit Diagnoses Not on filedocumented in this encounter"
--- OUTSIDE RECORDS SUMMARY | ~2020-05-07 | XMS | Encounter Summary ---
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 follow Please contact the neurosurgery on-call pager [phone] with questions. Ole Kay M.D. Neurosurgery PGY-2 [facility] - 09/29/2019 2:30 [...] cheek/infraorbital area Resp: on vent Removed left catholic candy drain Medications: Current Facility-Administered Medications Medication [...] PGY-5 Otolaryngology/ Head & Neck Surgery Pager [phone] Nik Renee MD,PhD - 09/29/2019 9:46 AM [...] and procedures. Nik Shaffer MD, PhD, FACS ticket dispatcher Division of Trauma, Critical Care & Acute Care Surgery [facility] [phone] Katya Esquivel M D - 09/29/2019 7:03 AM PST [...] 3.375 g 3.375 g, IV, Q8H New Ba09/29 751 pneumococcal (13-kalina) conjugate vaccine (PREVNAR 13) injection [...] 1,500 mg 1,500 mg, IV, Q12H New Ba/12 06 white petrolatum-mineral oil (STYE) ophthalmic ointment No Dose/Rate, Both Eyes, HS Given: 09/28 2206 PRN Medication Dose/Rate, Route, Frequency Last Action bisacodyl (DULCOLAX) suppository 10 mg 10 mg, rect, DAILY PRN Ordered fentaNYL (SUBLIMAZE) bolus from continuous infusion 50-100 mcg 100 mcg, IV, Q30MIN PRN Jennifer us from Same Ba/12 06 labetalol (TRANDATE) IV injection 10 mg 10 mg, IV, Q10MIN PRN Given: 09/27 014 midazolam (PF) (VERSED) injection 1-2 mg 2 mg, IV, Q1H PRN Given: 09/29 08 ondansetron ODT (ZOFRAN ODT) tablet 8 mg 8 mg, ftub, Q12H PRN Ordered oxyCODONE (immediate release) (ROXICODONE) tablet 5-15 mg 15 mg, ftub, Q3H PRN Given: 09/18 0724 polyethylene glycol (MIRALAX) packet 17 g 17 g, oral, BID PRN Given: 09/28 08 prochlorperazine (COMPAZINE) injection 5-10 mg 5-10 mg, IV, Q6H PRN Ordered prochlorperazine (COMPAZINE) tablet 5-10 mg 5-10 mg, ftub, Q6H PRN Ordered propofol (DIPRIVAN) bolus from continuous infusion 10-20 mg 20 mg, IV, Q15MIN PRN Bolus fr om Same Ba/12 08 Assessment 29 y.o. man admitted 09/25/19 for [...] Gastrointestinal Grade II splenic laceration Repeat FAST / PM without evidence of free fluid, hemodynamically [...] Call team 11/05 for questions: Team Pager [phone] Associated attestation - Nik Shaffer MD,PhD - 09/29/2019 3:55 PM PSTEmergency General Young rgery/Trauma Attending Addendum Date of Service: 09/29/2019 I saw and examined Sonia Benton ([id number]) with the resident and agree with the assessm ent and plan as outlined in this note and participated in the planning of care. Nik Shaffer MD, PhD, FACS ticket dispatcher Division of Trauma, Critical Care & Acute Care Surgery [facility] [phone] Ole Kay MD - 09/29/2019 4:33 AM [...] Current Shift I/O/Drains Last 3 Completed Shifts 12/11 2301 - 09/29 0700 In: 617.9 [I.V.:187.9] [...] the last 8640 hours. Chemistry Recent Labs 09/25/19204809/26/19201009/27/19 0125 09/28/19 0009 NA 147* < > [...] neurology Please contact the neurosurgery on-call pager [phone] with questions. Ole Kay M.D. Neurosurgery PGY-2 [...] Shift I/O/Drains Last 3 Completed Shifts 09/28 701 - 09/28 1500 In: 360.1 [I.V.:180.1] Out: 235 [Urine:235] 09/27 701 - 09/28 0700 In: 2168.5 [I.V.:778.5] Out: 1175 [Urine:1175] No data recorded No data recorded Labs: Complete Blood Count/Coags Recent Labs 09/27/19 0125 09/28/19 0009 09/28/19 0854 WBC 9.06 10.54 9.44 HB 7.9* 6.4* 6.6* HCT 24.2* 19.7* 20.4* PLT 155 187 161 Invalid input(s): INR CSF Results No results for input(s): WBCCSF, RBCCSF, GLUCOSECSF, PROTEINCSF in the last 8640 hours. Chemistry Recent Labs 09/25/19204809/26/19201009/27/19 0125 09/28/19 0009 NA 147* < > [...] dissection Please contact the neurosurgery on-call pager [phone] with questions. Ole Kay M.D. Neurosurgery PGY-2 Toño Wall MD,DDS - 09/28/2019 11:53 AM PSTVascular Surgery Brief Progress Note Attending Surgeon: Domi Gould MD Author: Toño Snow MD DDS Date: 09/28/2019 Consult question: management of right vertebral artery injury History of Present Illness: [facility] is a 89 year old adult for [...] Domi Gould MD Vascular and Endovascular Surgeon, [facility] Director, Aortic Program, Nik Granda MD,PhD - 09/28/2019 10:56 AM PSTTSICU Attending [...] and procedures. Nik Shaffer MD, PhD, FACS ticket dispatcher Division of Trauma, Critical Care & Acute Care Surgery [facility] [phone] [facility] - 09/28/2019 10:05 AM PST [...] 72 Hours (or 3 results): Recent Labs 09/25/19204809/26/19201009/27/1912409/28/19 0009 NA 147* < [...] PGY-5 Otolaryngology/ Head & Neck Surgery Pager [phone] Diamond Granados PA - 09/28/2019 7:59 AM [...] Department of Surgery Mail Code: L611 [address] [place] [address] Aggie Bradley M D - 09/27/2019 10:03 [...] [place] in 2 weeks AGGIE SIMPSON MD [id number] [address] [place] [address] Nik Renee MD,Ph D - 09/27/2019 9:56 [...] with ENT for the skull fractures - Scott per NRU - MRIs over night: will [...] and procedures. Nik Shaffer MD, PhD, FACS ticket dispatcher Division of Trauma, Critical Care & Acute Care Surgery [facility] [phone] Ole Mason MD - 09/27/2019 8:20 AM [...] Shift I/O/Drains Last 3 Completed Shifts 09/27 0701 - 09/27 1500 In: 3 [I.V.:3] Out: 45 [Urine:45] 09/26 0701 - 09/27 0700 In: 1732.2 [I.V.:1472.2] Out: 1546 [Urine:1290; Drains:250] No data recorded No data recorded Labs: Complete Blood Count/Coags Recent Labs 09/25/19202009/25/194 09/26/1941809/26/19 0809/27/19 0125 WBC 8.02 9.55 -- -- 9.06 HB 10.3* 9.7* -- -- 7.9* HCT 31.0* 29.4* 29.8* 28.8* 24.2* PLT 191 190 -- -- 155 Invalid input(s): INR CSF Results No results for input(s): WBCCSF, RBCCSF, GLUCOSECSF, PROTEINCSF in the last 8640 hours. Chemistry Recent Labs 09/25/19204809/26/1941809/26/19201009/27/19 0125 NA 147* 149* [...] extubate Please contact the neurosurgery on-call pager [phone] with questions. Ole Kay M.D. Neurosurgery PGY-2 [...] any additions or exceptions. Héctor Bennett MD Sales And Service Officer - Skull base and Cerebrovascular Neurosurgery Department of Neurological Lunch Wagon OperatorSales And Service Officer - Interventional Neuroradiology Presley Rosen Department of Interventional Radiology [facility] Jah Corcoran MD - 09/27/2019 7:12 [...] (or 3 results) Recent Labs 09/25/19202009/25/19 2344 09/26/199 09/26/19 0847 [...] PGY-5 Otolaryngology/ Head & Neck Surgery Pager [phone] Diamond Granados PA - 09/27/2019 6:55 AM PSTFormatting of this note might be different from the nitin ginal. Trauma/Surgery Intensive Care Unit Progress Note Date: [...] Department of Surgery Mail Code: L611 [address] [place] [address] Emilia Paul M D - 09/27/2019 1:30 [...] MD PGY-2, Otorhinolaryngology/Head and Neck Surgery Pager: [phone] Consult/Night/Weekend Pager: [phone] Nik Renee MD,Ph D - 09/26/2019 11:45 [...] and procedures. Nik Shaffer MD, PhD, FACS ticket dispatcher Division of Trauma, Critical Care & Acute Care Surgery [facility] [phone] Earlene Walter MD - 09/26/2019 11:15 AM [...] ointment Both Eyes Q6H Labs: reviewed by mn Chemistries: Last 72 Hours (or 3 results): [...] today Earlene Faustin MD Otolaryngology, PGY-4 Pager [phone] Associated attestation - Cordell Hernandez MD - 10/04/2019 1:55 PM PSTATTENDING ATTESTATION: I have personally seen and examined this patient with our resident team. I have reviewed e patient's medical record, and pertinent laboratory and radiologic studies. I agree with e assessment and plan of care documented by the resident. Cordell Hernandez MD Clinical Fellow Division of Facial Plastic and Reconstructive Surgery Department of Otolaryngology - Head and Neck Surgery [facility] Aggie Simpson MD - 09/26/2019 8:08 [...] [place] in 2 weeks AGGIE SIMPSON MD [id number] [address] [place] [address] Joana Briceño M D - [...] exam, I will repeat the neuro exam rajesh ann this afternoon HEENT: complex frontotemporal scalp laceration [...] TSICU for neuromonitoring Joana Cheney MD (p) [phone] Associated attestation - Nik Shaffer MD,PhD - 09/26/2019 9:35 PM PSTEmergency General Young rgery/Trauma Attending Addendum Date of Service: 09/26/2019 I saw and examined Sonia Benton ([id number]) with the resident and agree with the assessm ent and plan as outlined in this note and participated in the planning of care. Nik Shaffer MD, PhD, FACS ticket dispatcher Division of Trauma, Critical Care & Acute Care Surgery [facility] [phone] Ole Kay MD - 09/26/2019 6:26 AM [...] 3 Completed Shifts 09/25 2301 - 09/26 700 In: 1282.4 [I.V.:916.4] Out: 705 [Urine:355; Drains:350] 09/24 2301 - 09/25 230 In: 531.1 [I.V.:181.1] Out: 1470 [Urine:820; Drains:500] No data recorded No data recorded Labs: Complete Blood Count/Coags Recent Labs 09/25/19202009/25/194 09/26/199 WBC 8.02 9.55 -- HB 10.3* 9.7* -- HCT 31.0* 29.4* 29.8* PLT 191 190 -- Invalid input(s): INR CSF Results No results for input(s): WBCCSF, RBCCSF, GLUCOSECSF, PROTEINCSF in the last 8640 hours. Chemistry Recent Labs 09/25/19204809/26/19 0419 NA 147* 149* [...] extubate Please contact the neurosurgery on-call pager [phone] with questions. Ole Kay M.D. Neurosurgery PGY-2 documented in this enc ounter Plan of Treatment +--------+---------+ + + + | Date | Type | Specialty | Care Team | Description | +--------+---------+ + + + | 08/23/ | Office | Plastic Surgery | Paul Herrera, | | 2019 | Visit | | ,PhD [address] | | | | | | [place], [place] | | | | | | [address] | | | | | | [phone] | | | | | | | [...] | | 10/04/2019 until | | | [facility] | | | discontinued, 1 | [...] | Results for this | | BY PCR NASAL ONLY | e | 6:12 PM [...] | | Results for this | | CROSSSOO ESTEBANI | e | 11:09 AM | | [...] presented. | | | |Final signature: Abdirahman Owne MD 10/13/2019 3:30 PM | |Preliminary: Enrique [...] Note | + + | Service Account, Midatech Res In Interface - 10/13/2019 4:14 PM [...] | + + + + + | [facility] | [address] | [place] [address] | | | SERVICES, CORE | [address] | | | + + + + + X-RAY PORTABLE CHEST 1 VIEW (10/12/2019 9:05 AM PST) + + | Specimen | + + | | + + + + + | Narrative | Performed At | + + + | EXAM: AK CHEST 1 VIEW HISTORY: cough, fever COMPARISON: [...] Interface - 10/12/2019 10:09 AM PST EXAM: AK CHEST 1 | | VIEW HISTORY: cough, [...] + | [facility] | [address] | [place] [address] | | | [place] | | | [...] | | | LABORATORY | | | ENRIKE CASTA[place]EDA | + + + + + + + + | Performing | Address | City/State/Zipcode | Phone Number | | Organization | | | | + + + + + | [facility] | [address] | [place] [address] | | | SERVICES, ENRIKE | [address] | | | + + + + + CULTURE, BLOOD BACTI & YEAST [facility] (10/12/2019 7:23 AM PST) + + + [...] LABORATORY | [address] | [place] [address] | | | SERVICES, CORE | [address] [...] [facility] | [address] | [place] [address] | | | SERVICES, CORE | [address] [...] | | | LABORATORY | | | [place] | | | SERVICES, | | | [...] MDRD equation recommended by the National | [facility] | | Kidney Disease Education Program. [...] | + + + + + | [facility] | [address] | [place] [address] | | | SERVICES, CORE | PARK [...] | + + + + + | [facility] | [address] [facility] | [place] [address] | | | SERVICES, CORE | PARK [...] | + + + + + | [facility] | [address] | [place] [address] | | | SERVICES, CORE | [address] [...] | | | LABORATORY | | | [place] | | | SERVICES, | | | [...] | 17 | 8 - 25 | [facility] | [...] MDRD equation recommended by the National | [facility] | | Kidney Disease Education Program. [...] [facility] | [address] | [place] [address] | | | SERVICES, CORE | [address] [...] [facility] | [address] | [place] [address] | | | SERVICES, CORE | [address] [...] | | | LABORATORY | | | [place] | | | SERVICES, | | | [...] MDRD equation recommended by the National | [facility] | | Kidney Disease Education Program. [...] | + + + + + | [facility] | [address] | [place] [address] | | | GARRY, ENRIKE | [address] [...] | + + + + + | [facility] | [address] | [place] [address] | | | ENRIKE CASTAÑEDA | [address] | | | + [...] | | | LABORATORY | | | MAC[place] | | | SERVICES, | | | [...] | + + + + + | [facility] | [address] | [place] [address] | | | SERVICES, ENRIKE | [address] | | | + + + + + CT HEAD AND MAXFACIAL WO CONT AND 3D (10/07/2019 4:09 PM PST) + + | Specimen | + + | | + + + + + | Narrative | Performed At | + + + | EXAM: CT HEAD AND FACE WITH 3D RECONSTRUCTIONS HISTORY: Post-op | [facility] | | s/p ORIF COMPARISON: 09/26/2019 TECHNIQUE: [...] Preliminary: Dariel Faustin MD Dictation initiated: Dariel Faustin MD 10/07/2019 7:36 PM | | + + [...] [facility] | [address] | [place] [address] | | | SERVICES, CORE | [address] [...] + | [facility] | [address] | [place], [place] | | | [facility] BO[facility] OF CARE | [address] | [address] | | | TESTS | | | [...] (H) | 70 - 99 mg/dL | [facility] - | | | GLUCOSE, | [...] [facility] | [address] | [place], [place] | | | EMMY POINT OF CARE | [address] | [address] | | | TESTS | | | [...] [facility] | [address] | [place] [address] | | | SERVICES, | [address] [...] [facility] | [address] | [place] [address] | | | SERVICES, | [address] [...] [facility] | [address] | [place] [address] | | | SERVICES, CORE | [address] [...] | | | LABORATORY | | | MACANESE | | | SERVICES, | | | [...] 34 (H) | 8 - 25 | [facility] [...] MDRD equation recommended by the National | [facility] | | Kidney Disease Education Program. [...] | + + + + + | [facility] | [address] [facility] | [place] [address] | | | [facility], [facility] | [address] | | | + [...] Note | + + | Service Account, RaditenKsolar Res In Interface - 10/05/2019 11:05 AM PST [...] edited the report. I agree with t abiel report as now presented. | + + [...] + + | [facility] | [address] [facility] | [place] [address] | | | SERVICES, CORE | [address] [...] | | | LABORATORY | | | MACANESE | | | SERVICES, | | | [...] MDRD equation recommended by the National | [facility] | | Kidney Disease Education Program. [...] | + + + + + | [facility] | [address] | [place] [address] | | | SERVICES, [facility] | [address] | | | + + + + + X-RAY ABD LTD FEEDING TUBE EVAL PORTABLE (10/05/2019 12:45 AM PST) + + | Specimen | + + | | + + + + + | Narrative | Performed At | + + + | EXAM: AK OTONIEL ROSALES FEEDING TUBE EVAL INDICATION: 29M s/p DHT [...] the report as now presented. Final signature: Barbara Chris | | 10/05/2019 10:30 AM Preliminary: Neil Vaughan MD | | | 10/05/2019 10:15 AM Dictation initiated: Neil Vaughan MD | | | 10/05/2019 9:01 AM | | + + + + + | Procedure Note | + + | Service Account, Radiant Res In Interface - 10/05/2019 10:31 AM PST EXAM: AK ABD LTD | | FEEDING TUBE EVAL [...] | | | POC | | | [place], [place] | | | | | | [...] + | [facility] | [address] | [place], [place] | | | ALEXIS BOOTH OF [place] | [facility] | [address] | | | TESTS | | | | + + + + + CAPILLARY BLOOD GLUCOSE (NO CHG), POC (10/04/2019 8:46 PM PST) + +-------+ + + + | Component | Value | Ref Range | Performed | Pathologist | | | | | At | Signature | + +-------+ + + + | BLOOD | 98 | 70 - 99 mg/dL | [facility] - | | | GLUCOSE, | [...] | + + + + + | [facility] | [address] | [place], [place] | | | A[facility] BOOTH OF [facility] | [address] | [address] | | | TESTS | | | [...] Note | + + | Service Account, Midatech Res In Interface - 10/04/2019 9:55 AM [...] Dobbs MD 10/04/2019 9:54 AM | |Preliminary: Neli Vaughan MD | |Dictation initiated: Neil Vaughan [...] | + + + + + | [facility] | [address] | [place] [address] | | | SERVICES, CORE | EM[address] [...] [facility] | [address] | [place] [address] | | | SERVICES, CORE | PARK [...] | + + + + + | [facility] | [address] [facility] | [place] [address] | | | SERVICES, CORE | [address] [...] | + + + + + | [facility] | [address] | [place] [address] | | | SERVICES, CORE | [address] [...] | | | LABORATORY | | | MACANESE | | | SERVICES, | | | [...] MDRD equation recommended by the National | [facility] | | Kidney Disease Education Program. [...] | + + + + + | [facility] | [address] | [place] [address] | | | SERVICES, CORE | EMILIA [...] (H) | 70 - 99 mg/dL | [facility] - | | | GLUCOSE, | [...] + + + | [facility] | [address] | [place], [place] | | | ALEXIS BOOTH OF CARE | [address] | [address] | | | TESTS | | | [...] + + + + | [facility] | 437 | ms | [facility] [...] + + + + + | [facility] | [address] | [place], [place] | | | CARDIOLOGY | [address] | [address] | | + + + + + X-RAY PORTABLE CHEST 1 VIEW (10/03/2019 8:15 AM PST) + + | Specimen | + + | | + + + + + | Narrative | Performed At | + + + | EXAM: AK CHEST 1 VIEW HISTORY: hypoxia COMPARISON: | [facility] | | 10/01/2019, 09/30/2019, CT from 09/28/2019 FINDINGS: Feeding | RADIOLOGY VOICE | | tube coursing into the stomach beyond the fytpu-te-glad. Lung | RECOGNITION 2 | | volumes [...] Flores MD 10/03/2019 9:43 AM Preliminary: Janneth | | | MD Mark Dictation initiated: Janneth Flores MD 10/03/2019 | | | 9:40 AM | | + + + + + | Procedure Note | + + | Service Account, Radiant Res In Interface - 10/03/2019 9:44 AM PST EXAM: AK CHEST 1 | | VIEW HISTORY: hypoxia COMPARISON: 10/01/2019, 09/30/2019, CT from 09/28/2019 FINDINGS: | | Feeding tube coursing into the stomach beyond the xuuit-ed-ebxr. Lung volumes are small | | with [...] presented. | | | |Final signature: Janneth Florse MD 10/03/2019 9:43 AM | |Preliminary: Janneth [...] | + + + + + | [facility] | [address] | [place] [address] | | | SERVICES, CORE | [address] [...] [facility] | [address] | [place] [address] | | | SERVICES, CORE | EMILIA [...] | | | LABORATORY | | | MAC[place]ESE | | | SERVICES, | | | [...] MDRD equation recommended by the National | [facility] | | Kidney Disease Education Program. [...] [facility] | [address] | [place] [address] | | | SERVICES, CORE | PARK [...] [facility] | [address] | [place] [address] | | | SERVICES, CORE | PARK [...] | | | LABORATORY | | | MACANESE | | | SERVICES, | | | [...] MDRD equation recommended by the National | [facility] | | Kidney Disease Education Program. Estimated [...] | + + + + + | [facility] | [address] | [place] [address] | | | SERVICES, ENRIKE | [address] | | | [...] | + + + + + | [facility] | [address] | [place] [address] | | | ENRIKE CASTAÑEDA | [address] | | | + [...] | | Previous result was | | GARRY, | | | | blank on 10/01/2019 [...] | + + + + + | [facility] | [address] | [place] [address] | | | SERVICES, CORE | EMIL[address] [...] [facility] | [address] | [place] [address] | | | SERVICES, [facility] | [address] | | | + [...] diaphragm and beyond the | | | afdpq-ql-ridj. Stable dense left lower lobe retrocardiac | [...] Chau MD | | | Dictation initiated: Zakia Chau MD 10/01/2019 8:29 AM | | + + + + + | Procedure Note | + + | Service Account, Midatech Res In Interface - 10/01/2019 10:02 AM PST EXAM: CHEST 1 | | VIEW HISTORY: evaluate for pulmonary edema, pneumonia, LLL COMPARISON: 09/30/2019 | | FINDINGS: Endotracheal tube has been removed. Enteric tube has been removed. Feeding | | tube with tip below the diaphragm and beyond the ezwvb-jp-clvn. Stable dense left lower | | lobe [...] [facility] | [address] | [place] [address] | | | SERVICES, CORE | [address] [...] + | [facility] | [address] | [place], [place] | | | CARDIOLOGY | [address] | [address] | | + + + + + [...] | + + + + + | [facility] | [address] | [place] [address] | | | SERVICES, CORE | EMILIA [...] [facility] | [address] | [place] [address] | | | SERVICES, CORE | EMILIA [...] | + + + + + | [facility] | [address] [facility] | [place] [address] | | | SERVICES, CORE | [address] [...] | | | LABORATORY | | | MACANESE | | | SERVICES, | | | [...] MDRD equation recommended by the National | [facility] | | Kidney Disease Education Program. Estimated [...] | + + + + + | [facility] | [address] | [place] [address] | | | SERVICES, CORE | EMILIA [...] + + + + + | [facility] | [address] | [place], [place] | | | WARREN BOOTH | [address] | [address] | | | TESTS | | | [...] Noel MD 10/01/2019 9:28 AM Preliminary: Enrique | | | MD Bert Dictation initiated: Enrique Noel MD | | | 10/01/2019 9:27 AM | | + + + + + | Procedure Note | + + | Service Account, Radiant Res In Interface - 10/01/2019 9:29 AM [...] [facility] | [address] | [place] [address] | | | SERVICES, CORE | [address] | | | + + + + + CULTURE, BLOOD BACTI & YEAST [facility] (09/30/2019 8:39 PM PST) + + + [...] | + + + + + | [facility] | [address] | [place] [address] | | | SERVICES, CORE | EMILIA [...] | + + + + + | [facility] | [address] | [place] [address] | | | SERVICES, CORE | PARK [...] | + + + + + | [facility] | [address] | [place] [address] | | | SERVICES, ENRIKE | [address] | | | [...] + + | [facility] | [address] [facility] | [place] [address] | | | SERVICES, CORE | PARK [...] [facility] | [address] | [place] [address] | | | SERVICES, CORE | [address] | | | + + + + + X-RAY PORTABLE CHEST 1 VIEW (09/30/2019 11:01 AM PST) + + | Specimen | + + | | + + + + + | Narrative | Performed At | + + + | EXAM: AK CHEST 1 VIEW HISTORY: interval assessment | [...] Service Account, Radiant Res In Interface - 09/30/2019 12:07 PM PST EXAM: AK CHEST 1 | | VIEW HISTORY: interval [...] | + + + + + | [facility] | [address] [facility] | [place] [address] | | | SERVICES, CORE | PARK [...] [facility] | [address] | [place] [address] | | | SERVICES, CORE | PARK [...] | + + + + + | [facility] | [address] | [place] [address] | | | SERVICES, CORE | [address] [...] collection time. | LABORATORY | | | ENRIKE CASTAÑEDA | + + + + + + + + | Performing | Address | City/State/Zipcode | Phone Number | | Organization | | | | + + + + + | [facility] | [address] | [place] [address] | | | ENRIKE CASTAÑEDA | [address] | | | + [...] | | | LABORATORY | | | [place] | | | SERVICES, | | | [...] | + + + + + | [facility] | [address] [address] [facility] [address] | [place] [address] | | | ENRIKE CASTAÑEDA | [address] | | | + [...] | + + + + + | [facility] | [address] | [place] [address] | | | SERVICES, CORE | EMILIA [...] Preliminary: Janneth Flores MD Dictation initiated: Janneth | | | MD Mark 09/29/2019 10:05 AM | | + + [...] [facility] | [address] | [place] [address] | | | SERVICES, CORE | PARK [...] [facility] | [address] | [place] [address] | | | SERVICES, CORE | PARK [...] | | | LABORATORY | | | [place] | | | SERVICES, | | | [...] MDRD equation recommended by the National | [facility] | | Kidney Disease Education Program. Estimated GFR Interpretive | LABORATORY | | Information: <60 mL/min/1.73 sq m Chronic Kidney | SERVICES, [facility] | | Disease <15 mL/min/1.73 sq m [...] | + + + + + | [facility] | [address] | [place] [address] | | | ENRIKE CASTAÑEDA | PARK [...] | + + + + + | [facility] | [address] [facility] | [place] [address] | | | GARRY, ENRIKE | [address] [...] correct patient, procedure, | | | equipment, ground crewman aircraft support and site/side marked as required. With | | | questions refer to [facility] policy: Indications:: Diagnostic and | | [...] | + + + + + | [facility] | [address] | [place] [address] | | | SERVICES, CORE | [address] [...] hematoma identified. Discussed with | | | Hornell PA at 1347 on 09/28/[address] Nuñez. [...] Note | + + | Service Account, RaditenKsolar Res In Interface - 09/28/2019 1:53 PM [...] PM Preliminary: Willie Nuñez MD Dictation initiated: Barbara Luz MD 09/28/2019 12:45 PM | | | |BONES [...] + | [facility] | [address] | [place] [address] | | | SERVICES, CORE | [address] | | | + + + + + CULTURE, BLOOD BACTI & YEAST [facility] (09/28/2019 11:39 AM PST) + + + [...] | + + + + + | [facility] | [address] | [place] [address] | | | SERVICES, CORE | EMIL[address] [...] + + + + | PRODUCT | [id number] | | [facility] | | | UNIT [...] + + + + | EXPIRATION | [id number] | | [facility] | | | DATE [...] + + + + | BLOOD | [id number] | | [facility] | | | PRODUCT [...] [facility] | [address] | [place] [address] | | | SERVICES, | [address] [...] + + + + | PRODUCT | [id number] | | [facility] | | | UNIT [...] + + + + | EXPIRATION | [id number] | | [facility] | | | DATE [...] + + + + | BLOOD | [id number] | | [facility] | | | PRODUCT [...] [facility] | [address] | [place] [address] | | | SERVICES, | [address] [...] Note | + + | Service Account, Wannyi In Interface - 09/28/2019 10:53 AM PST [...] [facility] | [address] | [place] [address] | | | SERVICES, CORE | PARK [...] | + + + + + | [facility] | [address] | [place] [address] | | | SERVICES, CORE | [address] [...] necessary, edited the report. I agree with jeffy report as now presented. | | | [...] Note | + + | Service Account, Midatech Res In Interface - 09/28/2019 8:42 AM [...] + + + + | PRODUCT | [id number] | | [facility] | | | UNIT [...] + + + + | EXPIRATION | [id number] | | [facility] | | | DATE [...] + + + + | BLOOD | [id number] | | [facility] | | | PRODUCT [...] [facility] | [address] | [place] [address] | | | SERVICES, | [address] [...] [facility] | [address] | [place] [address] | | | SERVICES, | [address] [...] | + + + + + | [facility] | [address] | [place] [address] | | | SERVICES, | [address] [...] + + + + | PRODUCT | [id number] | | [facility] | | | UNIT [...] + + + + | EXPIRATION | [id number] | | [facility] | | | DATE [...] + + + + | BLOOD | [id number] | | [facility] | | | PRODUCT [...] | + + + + + | [facility] | [address] | [place] [address] | | | SERVICES, | [address] [...] [facility] | [address] | [place] [address] | | | SERVICES, CORE | PARK [...] | | | LABORATORY | | | MACANESE | | | SERVICES, | | | [...] MDRD equation recommended by the National | [facility] | | Kidney Disease Education Program. [...] [facility] | [address] | [place] [address] | | | SERVICES, CORE | [address]IL[address] [...] [facility] | [address] | [place] [address] | | | SERVICES, CORE | [address] | | | + + + + + X-RAY PORTABLE CHEST 1 VIEW (09/27/2019 8:05 AM PST) + + | Specimen | + + | | + + + + + | Narrative | Performed At | + + + | EXAM: AK CHEST 1 VIEW HISTORY: pneumonia COMPARISON: | [...] Note | + + | Service Account, Global Registry of Biorepositoriesant Res In Interface - 09/27/2019 8:35 AM PST EXAM: AK CHEST 1 | | VIEW HISTORY: pneumonia [...] | + + + + + | [facility] | [address] | [place] [address] | | | [place] | | | | + + + + + MRI BRACHIAL PLEX LT WWO CON (09/27/2019 6:14 AM PST) + + | [...] Note | + + | Service Account, Midatech Res In Interface - 09/27/2019 7:31 AM [...] | + + + + + | [facility] | [address] | [place] [address] | | | SERVICES, CORE | [address] [...] | + + + + + | [facility] | [address] | [place] [address] | | | SERVICES, CORE | [address] [...] | | | LABORATORY | | | [place] | | | SERVICES, | | | [...] MDRD equation recommended by the National | [facility] | | Kidney Disease Education Program. [...] | + + + + + | [facility] | [address] | [place] [address] | | | SERVICES, CORE | [address] [...] [facility] | [address] | [place] [address] | | | SERVICES, CORE | PARK [...] | | | LABORATORY | | | MACANESE | | | SERVICES, | | | [...] | + + + + + | [facility] | [address] | [place] [address] | | | SERVICES, ENRIKE | [address] [...] initiated: Ary | | MD Julia 09/26/2019 9:10 AM | |IMPRESSION: | | [...] [facility] | [address] | [place] [address] | | | SERVICES, CORE | PARK [...] mech. valves (2.5 - 3.5) INR | ENRIKE CASTAÑEDA | + + + + + + + + | Performing | Address | City/State/Zipcode | Phone Number | | Organization | | | | + + + + + | [facility] | [address] | [place] [address] | | | ENRIKE CASTAÑEDA | [address] | | | + [...] | + + + + + | [facility] | [address] | [place] [address] | | | SERVICES, CORE | [address] [...] | + + | Service Account, Mercy Res In Interface - 09/26/2019 11:04 AM [...] MD 09/26/2019 10:15 AM Dictation initiated: Ary Dumont MD 09/26/2019 8:43 AM | |IMPRESSION: | | [...] | | | LABORATORY | | | [place] | | | SERVICES, | | | [...] MDRD equation recommended by the National | [facility] | | Kidney Disease Education Program. [...] | + + + + + | [facility] | [address] | [place] [address] | | | SERVICES, CORE | PARK [...] (L) | 41.0 - 53.0 % | [facility] | | | | | | LABORATORY [...] | + + + + + | [facility] | [address] | [place] [address] | | | SERVICES, CORE | EMIL[address] [...] B: | | | | | | Environmental Operations/CS | | | | + + + + + + | NOROXYCODON | <20 | ng/mL | [facility] | | | E, URN, | | | REG UNIV | | | QUANT | | | PTH - INTFC | | + + + + + + | NOROXYMORPH | <20 | ng/mL | [facility] | | | ONE, URN, | | | REG UNIV | [...] | | | QUANT | Manuela Bailey, [facility] [place] | | PTH - INTFC | | | | [phone] | | | | | | [phone]. | | | | | | Burton [...] [facility] | [address] | [place], [place] | | | UNIV PTH - INTFC | | [address] | | + + + + + [...] | + + + + + | [facility] | [address] | [place] [address] | | | SERVICES, CORE | PARK [...] [facility] | [address] | [place] [address] | | | SERVICES, | [address] [...] [facility] | [address] | [place] [address] | | | SERVICES, CORE | EMIL[address] [...] [facility] | [address] | [place] [address] | | | SERVICES, | [address] [...] | + + + + + | [facility] | [address] | [place] [address] | | | GARRY, | [address] | | | | [...] [facility] | [address] | [place] [address] | | | SERVICES, CORE | PARK [...] | + + + + + | [facility] | [address] | [place] [address] | | | SERVICES, CORE | [address] [...] Note | + + | Service Account, Midatech Res In Interface - 09/25/2019 10:04 PM [...] |Preliminary: Cori Calix MD | |Dictation initiated: Croi Calix MD 09/25/2019 10:00 PM | + [...] report for confirmation Vein | | | mortgage 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 technique: [place] Technique Techique: The standard | | | [...] At | + + + | Raji Powell MD 09/25/2019 9:19 PM ARTERIAL LINE Performed | | | by: Raji Powell MD Authorized by: Raji Llamas MD Emergent | | | situation Patient identity confirmed per policy: Yes | | | Indications: Beat to beat blood pressure monitoring Diagnosis | | | indicating procedure: Trauma Location performed: 8C Operators: | | | Resident Attending physically present: Yes Resident name: | | | Raji dwight Skin Preparation: Chloraprep Protective barrier: | | [...] [facility] | [address] | [place] [address] | | | SERVICES, CORE | PARK [...] [facility] | [address] | [place] [address] | | | SERVICES, CORE | PARK [...] | + + + + + | [facility] | [address] | [place] [address] | | | SERVICES, CORE | EMIL[address] [...] (A) | 5 - 10 Minutes | [facility] - | | | CITRATED | | | [facility] | | | | | | ALEXIS BOOTH | | | | | | OF CARE | | | | | | TESTS | | + + + + + + | K - | 1.1 | 1 - 3 Minutes | [facility] - | | | CITRATED | | | [facility] | | | | | | HILL, POINT | | | | | | OF CARE | | | | | | TESTS | | + + + + + + | ANGLE - | 77.2 (A) | 53 - 72 Degrees | [facility] - | | | CITRATED | | | [facility] | | | | | | H[place], POINT | | | | | | OF CARE | | | | | | TESTS | | + + + + + + | MAXIMUM | 67.3 | 55 - 70 mm | [facility] - | | | AMPLITUDE - | | | [facility] | | | CITRATED | | | HILL, POINT | | | | | | OF CARE | | | | | | TESTS | | + + + + + + | LY 30 | 0.3 | 0 - 8 % | [facility] - | | | | | | [facility] | | | | | | [place], POINT | | | | | | OF CARE | | | | | | TESTS | | + + + + + + | CLOT INDEX | 3.3 (A) | -3 - 3 | [facility] - | | | | | | [place] | | | | | | EMMY, [...] + + + | [facility] | [address] | [place], [place] | | | ALEXIS [facility] | [facility] | [address] | | | TESTS | | | | + + + + + CTA NECK W CONTRAST (09/25/2019 7:56 PM PST) + + | Specimen | + + | | + + + + + | Narrative | Performed At | + + + | EXAM: CTA NECK HISTORY: TRAUMA ACTIVATION PAGE [id number] | [facility] | | COMPARISON: None. TECHNIQUE: [...] NECK | | HISTORY: TRAUMA ACTIVATION PAGE [id number] COMPARISON: None. TECHNIQUE: CT angiogram of the [...] Garza MD Dictation initiated: | | | eBto Garza MD 09/25/2019 8:07 PM | | + + + + ------+ | Procedure Note | + ------+ | Service Account, Mercy [place] In Interface - 09/26/2019 9:27 AM PST [...] TRAUMA ACTIVATION | [facility] | | PAGE [id number] COMPARISON: None. TECHNIQUE: CT of the head [...] maxillary soft | | | tissues and windows technical specialist space. PARANASAL SINUSES: Acute blood products | [...] Note | + + | Service Account, Wannyi In Interface - 09/26/2019 9:[address] HEAD AND FACE | | WITHOUT CONTRAST HISTORY: TRAUMA ACTIVATION PAGE [id number] COMPARISON: None. TECHNIQUE: CT | | of [...] left maxillary soft tissues and | | windows technical specialist space.PARANASAL SINUSES: Acute blood products are noted [...] AM Preliminary: Beto Garza MD Dictation initiated: Bteo Garza MD 09/25/2019 8:24 PM | |VERTEBRAE: No fractures or destructive changes. | |PARASPINAL SOFT TISSUES: Mildly displaced posterior 10th and 11th rib fractures. See [facility] te dictation for compete lung and chest [...] TRAUMA ACTIVATION | [facility] | | PAGE [id number] COMPARISON: None. TECHNIQUE: CT of the head [...] maxillary soft | | | tissues and windows technical specialist space. PARANASAL SINUSES: Acute blood products | [...] Note | + + | Service Account, Wannyi In Interface - 09/26/2019 9:[address] HEAD AND FACE | | WITHOUT CONTRAST HISTORY: TRAUMA ACTIVATION PAGE [id number] COMPARISON: None. TECHNIQUE: CT | | of [...] left maxillary soft tissues and | | windows technical specialist space.PARANASAL SINUSES: Acute blood products are noted [...] + + + + | PRODUCT | [id number] | | [facility] | | | UNIT [...] + + + + | EXPIRATION | [id number] | | [facility] | | | DATE [...] + + + + | BLOOD | [id number] | | [facility] | | | PRODUCT [...] | + + + + + | [facility] | [address] | [place] [address] | | | SERVICES, | [address] [...] + + + + | PRODUCT | [id number] | | [facility] | | | UNIT [...] + + + + | EXPIRATION | [id number] | | [facility] | | | DATE [...] + + + + | BLOOD | [id number] | | [facility] | | | PRODUCT [...] | + + + + + | [facility] | [address] | [place] [address] | | | SERVICES, | [address] [...] + + + + | PRODUCT | [id number] | | [facility] | | | UNIT [...] + + + + | EXPIRATION | [id number] | | [facility] | | | DATE [...] + + + + | BLOOD | [id number] | | [facility] | | | PRODUCT [...] | + + + + + | [facility] | [address] | [place] [address] | | | SERVICES, | [address] [...] + + + + | PRODUCT | [id number] | | [facility] | | | UNIT [...] + + + + | EXPIRATION | [id number] | | [facility] | | | DATE [...] + + + + | BLOOD | [id number] | | [facility] | | | PRODUCT [...] [facility] | [address] | [place] [address] | | | SERVICES, | [address] [...] + + + + | PRODUCT | [id number] | | [facility] | | | UNIT [...] + + + + | EXPIRATION | [id number] | | [facility] | | | DATE [...] + + + + | BLOOD | [id number] | | [facility] | | | PRODUCT [...] [facility] | [address] | [place] [address] | | | SERVICES, | [address] [...] +------+------+ +-------+ + +---+---+ | Given | 10/14/20 [...] | | TWICE DAILY, First dose on Thu | | 19 9:23 | | | [...] +---+---+ | | | +---+---+ + +-------+ +---------+---+------+ | bacitracin ointment | Given | 09/26/20 | 1 strip | | Face | | INTRAPROCEDURE PRN, Starting Mon | | 19 10:21 | | | | | 09/26/19 at 2221, Until Tue | | PM PST | | | | | 09/27/19 at 0010 | | | | | | + +-------+ +---------+---+------+ +---+---+ | | | +---+---+ + +-------+ [...] +-------+ +-------+---+---------+ +-------+ +-------+---+---------+ | Given | 10/12/ | 40 mg | | Abdomen | | | 19 9:21 | | | | | | PM PST | | | | +-------+ +-------+---+---------+ | Given | 10/11/ | 40 mg | | Abdomen | [...] | | | | | NEEDED, Starting Cecile 09/29/19 at | | | | | | | 0947, Until Thu10/14/19 at 2059, | | | [...] | | +---+---+ + +-------+ +--------+---+---+ | | Given | 10/14/20 | 0.5 | | | | [id number] | | 19 9:23 | inches | [...] | | | | 10/14/19 at 2059, | | | | | [...] | | | | | 09/25/19 at 2016, Until Fri | | | | | [...]
--- OUTSIDE RECORDS SUMMARY | ~2020-05-07 | XMS | Encounter Summary ---
Demographics + + + | Address | [address] | | | [place] [address] | + + + | Home Phone [...] + + | Author | [facility] | + + + | Organization | [facility] | + + + | Address | Unknown | + + + | Phone | Unavailable | + + + Support + + + + + | Name | Relationship | Address | Phone | + + + + + | Kaila Oates | ECON | [place] | | | | | [address] | | + + + + + Care Team Providers + +------+ + | Care Utilization Review Coordinator Name | Role | Phone | + +------+ + | Tomasz Solis MD | PCP | | + +------+ + Encounter Details +--------+ + + + + | Date | Type | Department | Care Team | Description | +--------+ + + + + | 03/31/ | MyChart | Plastic and | Paul Herrera, | RE: prescription | | 2020 | Encounter | Reconstructive | ,PhD [address] | | | | | Surgery at [facility] [address] [place], [place] | | | | | [address] [facility] | [address] | | | | | for Health and | [phone] | | | | | [facility] [address], | | | | | | 5th Floor | | | | | | [place], [place] | | | | | | [address] | | | | | | [phone] | | | +--------+ + + + [...] | 2020 | Visit | | ,PhD [address] | | | | | | [place], [place] | | | | | | [address] | | | | | | [phone] | | | | | | | | +--------+---------+ + + + documented as of this encounter Visit Diagnoses Not on filedocumented in this encounter"
--- OUTSIDE RECORDS SUMMARY | ~2020-05-07 | XMS | Encounter Summary ---
Demographics + + + | Address | [address] | | | [place] [address] | + + + | Home Phone [...] | Author | [facility] [employer] [facility] | + + + | Organization | [facility] | + + + | Address | Unknown | + + + | Phone | Unavailable | + + + Support + + + + + | Name | Relationship | Address | Phone | + + + + + | Kaila Oates | ECON | [place] | | | | | [address] | | + + + + + Care Team Providers + +------+ + | Care Order Builder Loader Name | Role | Phone | + +------+ + | Tomasz Solis MD | PCP | | + +------+ + Encounter Details +--------+ + + + + | Date | Type | Department | Care Team | Description | +--------+ + + + + | 04/08/ | MyChart | Neurology Movement | Carissa Hernandez MD | eye surgery | | 2020 | Encounter | Disorders Clinic at | [address] | | | | | [facility] | [address] [place], | | | | | and Healing [address] | [place] [address] | | | | | [address] [facility] | [phone] | | | | | Health and Healing, | | | | | | Building [address], | | | | | | Floor [place], [place] | | | | | | [address] | | | | | | [phone] | | | +--------+ + + + [...] | | | | | | [place], [place] | | | | | | [address] | | | | | | [phone] | | | | | | | | +--------+---------+ + + + documented as of this encounter Visit Diagnoses Not on filedocumented in this encounter"
--- OUTSIDE RECORDS SUMMARY | ~2020-05-07 | XMS | Encounter Summary ---
Demographics + + + | Address | [address] | | | [place] [address] | + + + | Home Phone | | + + + | Preferred Language | Unknown | + + + | Marital Status | Single | + + + | Gnosticist Affiliation | NON | + + + | Race | or | + + + | Ethnic Group | Not or | + + + Author + + + | Author | [facility] [employer] [facility] | + + + | Organization | [facility] [employer] [facility] | + + + | Address | Unknown | + + + | Phone | Unavailable | + + + Support + + + + + | Name | Relationship | Address | Phone | + + + + + | Kaila Oates | ECON | [place] | | | | | [address] | | + + + + + Care Team Providers + +------+ + | Care Dye Range Feeder Name | Role | Phone | + +------+ + | Tomasz Solis MD | PCP | | + +------+ + Encounter Details +--------+ + + + + | Date | Type | Department | Care Team | Description | +--------+ + + + + | 04/08/ | MyChart | Otolaryngology | Hernandez, Cordell S, MD | plastic surgery | | 2020 | Encounter | Facial Plastics & | [address] | | | | | Reconstructive | [address], | | | | | Services at [facility] | [place] [address] | | | | | [address] | [phone] | | | | | [facility] | | | | | | and Healing, | | | | | | Building [address], 5th | | | | | | Floor [place], [place] | | | | | | [address] | | | | | | [phone] | | | +--------+ + + + [...] | 2020 | Visit | | ,PhD [address] | | | | | | [place], [place] | | | | | | [address] | | | | | | [phone] | | | | | | | | +--------+---------+ + + + documented as of this encounter Visit Diagnoses Not on filedocumented in this encounter"
--- OUTSIDE RECORDS SUMMARY | ~2020-05-07 | XMS | Encounter Summary ---
Demographics + + + | Address | [address] | | | [place] [address] | + + + | Home Phone | | + + + | Preferred Language | Unknown | + + + | Marital Status | Single | + + + | Sikhism Affiliation | NON | + + + [...] [place] | | | | | [address] | | + + + + + Care Team Providers + +------+ + | Care Intermediate Card Tender Name | Role | Phone | + +------+ + | Tomasz Solis MD | PCP | | + +------+ + Encounter Details +--------+--------+ + + + | Date | Type | Department | Care Team | Description | +--------+--------+ + + + | 11/15/ | Travel | | | | | [...] | | | | | | [place], [place] | | | | | | [address] | | | | | | [phone] | | | | | | | | +--------+---------+ + + + documented as of this encounter Visit Diagnoses Not on filedocumented in this encounter"
--- OUTSIDE RECORDS SUMMARY | ~2020-05-07 | XMS | Encounter Summary ---
Demographics + + + | Address | [address] | | | [place] [address] | + + + | Home Phone [...] + + | Author | [facility] | + + + | Organization | [facility] Schedule C Systems [facility] | + + + | Address | Unknown | + + + | Phone | Unavailable | + + + Support + + + + + | Name | Relationship | Address | Phone | + + + + + | Kaila Oates | ECON | [place] | | | | | [address] | | + + + + + Care Team Providers + +------+ + | Care Garde Manger Name | Role | Phone | + [...] | | | | | left, | [place], [place] | [place] | | | | | initial | [address] | [address] | | | | | encounter | Phone: | Phone: | | | | | left | [phone] | [phone] | | | | | brachial | Fax: | Fax: | | | | | plexus | [phone] | [phone] | | | | | reconstructi | | | | | | | on with | | | | | | | nerve graft | | | | | | | - [address], | | | | | | | [address], | | | | | | | [address], | | | | | | | [address], | | | | | | | [id number] | | | | | | | Procedures | | | | | | | REQUEST TO | | | | | | | SURGERY | | | | | | | TOOL SMITH | | | +--------+--------+ + + + [...] | | | | | plexus, | [facility] [place] | [facility] | | | | | subsequent | [address] | Health and | | | | | encounter | Phone: | Healing, | | | | | Procedures | [phone] | Building 1, | | | | | CONSULT TO | Fax: | 5th Floor | | | | | SURGERY - | [phone] | [place], [place] | | | | | PLASTICS | | [address] | | | | | | | Phone: | | | | | | | [phone] | + +--------+ + + + + [...] left, | | | | Surgery at [facility] [address] | [place], [place] | initial encounter | | | | [address] [facility] | [address] | (Primary Dx) | | | | for Health and | [phone] | | | | | Healing, Building 1, | | | | | | 5th Floor | | | | | | [place], [place] | | | | | | [address] | | | | | | [phone] | | | +--------+---------+ + + + [...] evaluated b y pain management. 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 Right hand dominant. Past Medical History: Diagnosis Date Known health problems: none Except as documented above Past Surgical History Procedure Laterality Date [place] teeth extraction Current Outpatient Medications on File [...] intake sheet and will be scanned into [employer]. There are no pertinent positive findings. 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 Finger extension only through intrinsics + froments 2-pt normal, though occasional errors ulnar Impression Clinical exam suggests some C7, C8 function, though MRI suggests avulsions C6,7,8 Taken together, most likely pathology is C5 rupture, C6,C7 [id number], C8 avulsi on, intact T1 Severe injury [...] | 2019 | Visit | | ,PhD [address] | | | | | | [place], [place] | | | | | | [address] | | | | | | [phone] | | | | | | | | +--------+---------+ + + + documented as of this encounter Visit Diagnoses + + | Diagnosis | + + | Brachial plexus injury, left, initial encounter - Primary | + + documented in this encounter"
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
--- OUTSIDE RECORDS SUMMARY | ~2020-05-07 | XMS | Encounter Summary ---
Demographics + + + | Address | [address] | | | [place] [address] | + + + | Home Phone [...] + + | Author | [facility] | + + + | Organization | [facility] | + + + | Address | Unknown | + + + | Phone | Unavailable | + + + Support + + + + + | Name | Relationship | Address | Phone | + + + + + | Kaila Oates | ECON | [place] | | | | | [address] | | + + + + + Care Team Providers + +------+ + | Care Spice Fumigator Name | Role | Phone | + +------+ + | Tomasz Solis MD | PCP | | + +------+ + Reason for Visit + + + | Reason | Comments | + + + | Questions About | | | Diagnosis | | + + + Encounter Details +--------+ + + + + | Date | Type | Department | Care Team | Description | +--------+ + + + + | 10/21/ | Telephone | Neurology Movement | Carissa Hernandez MD | Questions About | | 2019 | | Disorders Clinic at | [address] [facility] | Diagnosis | | | | [place] [facility] | [facility], | | | | | and Healing [address] | [place] [address] | | | | | [facility] for | [phone] | | | | | Health and Healing, | | | | | | [facility] | | | | | | [place], [place] | | | | | | [address] | | | | | | [phone] | | | +--------+ + + + [...] | 2020 | Visit | | MDPhD [address] | | | | | | [place] [facility] [place] | | | | | | [address] | | | | | | [phone] | | | | | | | | +--------+---------+ + + + documented as of this encounter Visit Diagnoses Not on filedocumented in this encounter"
--- OUTSIDE RECORDS SUMMARY | ~2020-05-07 | XMS | Encounter Summary ---
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 01209/28/19 0009 09/28/19 0854 WBC 9.06 10.54 9.44 HB 7.9* 6.4* 6.6* HCT 24.2* 19.7* 20.4* PLT 155 187 161 Chemistries: Last 72 Hours (or 3 results): Recent Labs 09/25/19204809/26/19201009/27/195 09/28/19 0009 NA 147* < > 145 [...] PGY-5 Otolaryngology/ Head & Neck Surgery Pager [phone] Diamond Granados PA - 09/28/2019 7:59 AM [...] Department of Surgery Mail Code: L611 [address] [place] [address] Aggie Bradley M D - 09/27/2019 10:03 [...] [place] in 2 weeks AGGIE SIMPSON MD [id number] [address] [place] [address] Nik Renee MD,Ph D - 09/27/2019 9:56 [...] and procedures. Nik Shaffer MD, PhD, FACS yarn sizer Division of Trauma, Critical Care & Acute Care Surgery [facility] [phone] Ole Mason MD - 09/27/2019 8:20 AM [...] Complete Blood Count/Coags Recent Labs 09/25/19202009/25/194 09/26/1941809/26/19 0847 09/27/19 0125 WBC 8.02 9.55 -- [...] extubate Please contact the neurosurgery on-call pager [phone] with questions. Ole Kay M.D. Neurosurgery PGY-2 [...] any additions or exceptions. Héctor Bennett MD Cathode Builder - Skull base and Cerebrovascular Neurosurgery Department of Neurological Car PainterCathode Builder - Interventional Neuroradiology Presley Rosen Department of Interventional Radiology [facility] Jah Corcoran MD - 09/27/2019 7:12 AM [...] Labs 09/25/19202009/25/19 2344 09/26/19 0419 09/26/19 0847 09/27/19 0125 WBC 8.02 9.55 -- -- 9.06 HB 10.3* 9.7* -- -- 7.9* HCT 31.0* 29.4* 29.8* 28.8* 24.2* PLT 191 190 -- -- 155 Chemistries: Last 72 Hours (or 3 results): Recent Labs 09/25/19204809/26/19 0419 09/26/19201009/27/19 0125 NA 147* 149* 145 146* [...] PGY-5 Otolaryngology/ Head & Neck Surgery Pager [phone] iamond Espinoza PA - 09/27/2019 6:55 AM PSTFormatting of [...] Department of Surgery Mail Code: L611 [address] [place] [address] Emilia Paul M D - 09/27/2019 1:30 [...] MD PGY-2, Otorhinolaryngology/Head and Neck Surgery Pager: [phone] Consult/Night/Weekend Pager: [phone] Nik Renee MD,Ph D - 09/26/2019 11:45 [...] and procedures. Nik Shaffer MD, PhD, FACS yarn sizer Division of Trauma, Critical Care & Acute Care Surgery [facility] [phone] Earlene Walter MD - 09/26/2019 11:15 AM [...] ointment Both Eyes Q6H Labs: reviewed by me Chemistries: Last 72 Hours (or 3 results): [...] today Earlene Faustin MD Otolaryngology, PGY-4 Pager [phone] Associated attestation - Cordell Hernandez MD - [...] Otolaryngology - Head and Neck Surgery [facility] Aggie Simpson MD - 09/26/2019 8:08 AM [...] [place] in 2 weeks AGGIE SIMPSON MD [id number] [address] [place] [address] Joana Briceño M D - 09/26/2019 7:01 [...] I will repeat the neuro exam la seth this afternoon HEENT: complex frontotemporal scalp laceration [...] TSICU for neuromonitoring Joana Cheney MD (p) [phone] Associated attestation - Nik Shaffer MD,PhD - 09/26/2019 9:35 PM PSTEmergen General Young [facility]/Trauma Attending Addendum Date of Service: 09/26/2019 I saw and examined Sonia Benton ([id number]) with the resident and agree with the assessm ent and plan as outlined in this note and participated in the planning of care. Nik Shaffer MD, PhD, FACS yarn sizer Division of Trauma, Critical Care & Acute Care Surgery [facility] [phone] Ole Kay MD - 09/26/2019 6:26 AM [...] 705 [Urine:355; Drains:350] 09/24 2301 - 09/25 2300 In: 531.1 [I.V.:181.1] Out: 1470 [Urine:820; Drains:500] No data recorded No data recorded Labs: Complete Blood Count/Coags Recent Labs 09/25/19202009/25/19 2344 09/26/19 0419 WBC 8.02 9.55 -- HB 10.3* 9.7* [...] extubate Please contact the neurosurgery on-call pager [phone] with questions. Ole Kay M.D. Neurosurgery PGY-2 documented in this enc ounter Plan of Treatment +--------+---------+ + + + | Date | Type | Specialty | Care Team | Description | +--------+---------+ + + + | 08/23/ | Office | Plastic Surgery | Paul Herrera, | | | 2019 | Visit | | ,PhD [address] | | | | | | [place], [place] | | | | | | [address] | | | | | | [phone] | | | | | | | [...] | | 10/04/2019 until | | | [facility] | | | discontinued, 1 | [...] Account, Radiant Res In Interface - 10/13/2019 4:14 PM [...] | + + + + + | [facility] | [address] | [place] [address] | | | SERVICES, CORE | [address] [...] Note | + + | Service Account, [email or web address] Res In Interface - 10/12/2019 10:09 AM [...] Briceño MD 10/12/2019 10:08 AM | |Preliminary: mEi Briceño MD | |Dictation initiated: Emi Briceño [...] + | [facility] | [address] | [place] [address] | | | [place] | | | [...] [facility] | [address] | [place] [address] | | | ENRIKE CASTAÑEDA | [address] | | | + [...] [facility] | [address] | [place] [address] | | | SERVICES, CORE | PARK [...] [facility] | [address] | [place] [address] | | | SERVICES, CORE | PARK [...] | | | LABORATORY | | | GERMAN | | | SERVICES, | | | [...] MDRD equation recommended by the National | [facility] | | Kidney Disease Education Program. [...] [facility] | [address] | [place] [address] | | | SERVICES, CORE | PARK [...] [facility] | [address] | [place] [address] | | | SERVICES, CORE | PARK [...] [facility] | [address] | [place] [address] | | | SERVICES, CORE | PARK [...] | | | LABORATORY | | | GERMAN | | | SERVICES, | | | [...] MDRD equation recommended by the National | [facility] | | Kidney Disease Education Program. [...] [facility] | [address] | [place] [address] | | | SERVICES, CORE | PARK [...] [facility] | [address] | [place] [address] | | | SERVICES, CORE | PARK [...] | | | LABORATORY | | | GERMAN | | | SERVICES, | | | [...] MDRD equation recommended by the National | [facility] | | Kidney Disease Education Program. [...] | + + + + + | [facility] | [address] | [place] [address] | | | SERVICES, CORE | PARK [...] | + + + + + | [facility] | [address] | [place] [address] | | | SERVICES, CORE | PARK [...] | | | LABORATORY | | | GERMAN | | | SERVICES, | | | [...] | + + + + + | [facility] | [address] | [place] [address] | | | SERVICES, ENRIKE | [address] | | | + [...] Faustin MD 10/07/2019 7:41 PM Preliminary: Dariel Faustin MD Dictation initiated: [...] [facility] | [address] | [place] [address] | | | SERVICES, CORE | PARK [...] | [facility] | [address] | [place], [place] | | | EMMY POINT OF CARE | [address] | [address] | | | TESTS | | | [...] | [facility] | [address] | [place], [place] | | | EMMY POINT OF CARE | [address] | [address] | | | TESTS | | | [...] [facility] | [address] | [place] [address] | | | SERVICES, | [address] [...] + + | [facility] | [address] | [place] [address] | | | SERVICES, | [address] [...] [facility] | [address] | [place] [address] | | | SERVICES, CORE | PARK [...] | | | LABORATORY | | | GERMAN | | | SERVICES, | | | [...] MDRD equation recommended by the National | [facility] | | Kidney Disease Education Program. [...] | + + + + + | [facility] | [address] | [place] [address] | | | SERVICES, [facility] | [address] | | | + [...] Note | + + | Service Account, [email or web address] Res In Interface - 10/05/2019 11:05 AM [...] | + + + + + | [facility] | [address] | [place] [address] | | | SERVICES, [facility] | [address] | | | + [...] | | | LABORATORY | | | GERMAN | | | SERVICES, | | | [...] MDRD equation recommended by the National | [facility] | | Kidney Disease Education Program. [...] | + + + + + | [facility] | [address] | [place] [address] | | | SERVICES, CORE | [address] | | | + + + + + X-RAY ABD LTD FEEDING TUBE EVAL PORTABLE (10/05/2019 12:45 AM PST) + + | Specimen | + + | | + + + + + | Narrative | Performed At | + + + | EXAM: [place] ABD LTD FEEDING TUBE EVAL INDICATION: 29M s/p JACQUES | [facility] | | placement traumatic brain [...] - 10/05/2019 10:31 AM PST EXAM: [place] ABD LTD | | FEEDING TUBE EVAL [...] | [facility] | [address] | [place], [place] | | | ALEXIS BOOTH OF CARE | [facility] | [address] | | | TESTS | | | | + + + + + CAPILLARY BLOOD GLUCOSE (NO CHG), POC (10/04/2019 8:46 PM PST) + +-------+ + + + | Component | Value | Ref Range | Performed | Pathologist | | | | | At | Signature | + +-------+ + + + | BLOOD | 98 | 70 - 99 mg/dL | [facility] - | | | GLUCOSE, | | [...] | [facility] | [address] | [place], [place] | | | EMMY POINT OF CARE | [address] | [address] | | | TESTS | | | | + + + + + X-RAY ABD LTD FEEDING TUBE JORGE LAL (10/04/2019 8:43 AM PST) + + | [...] Note | + + | Service Account, [email or web address] Res In Interface - 10/04/2019 9:55 AM [...] 4.0 | LABORATORY | | mmol/L | ENRIKE CASTA[address]EDA | + + + + + + + + | Performing | Address | City/State/Zipcode | Phone Number | | Organization | | | | + + + + + | [facility] | [address] | [place] [address] | | | ENRIKE CASTAÑEDA | [address] | | | + [...] [facility] | [address] | [place] [address] | | | SERVICES, CORE | PARK [...] | + + + + + | [facility] | [address] | [place] [address] | | | SERVICES, CORE | [address] [...] | + + + + + | [facility] | [address] | [place] [address] | | | SERVICES, CORE | [address] [...] | | | LABORATORY | | | GERMAN | | | SERVICES, | | | [...] MDRD equation recommended by the National | [facility] | | Kidney Disease Education Program. [...] | + + + + + | [facility] | [address] | [place] [address] | | | SERVICES, CORE | HENRY [...] (H) | 70 - 99 mg/dL | [facility] - | | | GLUCOSE, | [...] | [facility] | [address] | [place], [place] | | | EMMY POINT OF CARE | [address] | [address] | | | TESTS | | | [...] + + + + + + | GERI-MINNA | 437 | ms | [facility] [...] + | [facility] | [address] | [place], [place] | | | CARDIOLOGY | [address] | [address] | | + + + + + [...] tube coursing into the stomach beyond the hmxkd-lv-vulf. Lung | RECOGNITION 2 | | volumes [...] tube coursing into the stomach beyond the frmzw-yn-lokm. Lung volumes are small | | with [...] | + + + + + | [facility] | [address] | [place] [address] | | | SERVICES, CORE | HENRY [...] | + + + + + | [facility] | [address] | [place] [address] | | | SERVICES, CORE | HENRY [...] | | | LABORATORY | | | GERMAN | | | SERVICES, | | | [...] MDRD equation recommended by the National | [facility] | | Kidney Disease Education Program. [...] [facility] | [address] | [place] [address] | | | SERVICES, CORE | PARK [...] [facility] | [address] | [place] [address] | | | SERVICES, CORE | PARK [...] | | | LABORATORY | | | GERMAN | | | SERVICES, | | | [...] | + + + + + | [facility] | [address] | [place] [address] | | | SERVICES, ENRIKE | [address] | | | + [...] | + + + + + | [facility] | [address] | [place] [address] | | | ENRIKE CASTAÑEDA | [address] | | | + [...] | + + + + + | [facility] | [address] | [place] [address] | | | SERVICES, CORE | HENRY [...] | + + + + + | [facility] | [address] | [place] [address] | | | SERVICES, [facility] | [address] | | | + + + + + X-RAY CHEST 1 VIEW (10/01/2019 3:59 AM PST) + + | Specimen | + + | | + + + + + | Narrative | Performed At | + + + | EXAM: CHEST 1 VIEW HISTORY: evaluate for pulmonary edema, | [facility] | | pneumonia, LLL COMPARISON: 09/30/2019 FINDINGS: | RADIOLOGY VOICE | | Endotracheal tube has been removed. Enteric tube has been removed. | RECOGNITION 2 | | Feeding tube with tip below the diaphragm and beyond the | | | erngg-we-crnn. Stable dense left lower lobe retrocardiac | [...] Note | + + | Service Account, [email or web address] Res In Interface - 10/01/2019 10:02 AM PST EXAM: CHEST 1 | | VIEW HISTORY: evaluate for pulmonary edema, pneumonia, LLL COMPARISON: 09/30/2019 | | FINDINGS: Endotracheal tube has been removed. Enteric tube has been removed. Feeding | | tube with tip below the diaphragm and beyond the gdsza-dq-vang. Stable dense left lower | | lobe [...] | + + + + + | [facility] | [address] | [place] [address] | | | SERVICES, CORE | [address] | | | + + + + + 12 LEAD ECG (10/01/2019 2:45 AM PST) + + + + + + | Component | Value | Ref Range | Performed | Pathologist | | | | | At | Signature | + + + + + + | VENTRICULAR | 85 | bpm | [facility] | | | RATE | | [...] + | [facility] | [address] | [place], [place] | | | CARDIOLOGY | [address] | [address] | | + + + + + [...] | + + + + + | [facility] | [address] | [place] [address] | | | SERVICES, CORE | [address] [...] [facility] | [address] | [place] [address] | | | SERVICES, CORE | PARK [...] | + + + + + | [facility] | [address] | [place] [address] | | | SERVICES, CORE | [address] [...] | | | LABORATORY | | | GERMAN | | | SERVICES, | | | [...] | + + + + + | [facility] | [address] | [place] [address] | | | SERVICES, CORE | [address]RY [...] | [facility] | [address] | [place], [place] | | | ALEXIS BOOTH OF CARE | [address] | [address] | | | TESTS | | | [...] [facility] | [address] | [place] [address] | | | SERVICES, CORE | [address] | | | + + + + + CULTURE, BLOOD BACTI & YEAST [facility] (09/30/2019 8:39 PM PST) + + + [...] | + + + + + | [facility] | [address] | [place] [address] | | | SERVICES, CORE | [address]ENRY [...] | + + + + + | [facility] | [address] | [place] [address] | | | SERVICES, ENRIKE | [address] | | | + [...] | + + + + + | [facility] | [address] | [place] [address] | | | SERVICES, CORE | HENRY [...] [facility] | [address] | [place] [address] | | | SERVICES, CORE | PARK [...] [facility] | [address] | [place] [address] | | | SERVICES, CORE | [address] [...] Service Account, [facility] Res In Interface - 09/30/2019 12:07 PM [...] | + + + + + | [facility] | [address] | [place] [address] | | | SERVICES, CORE | PARK [...] [facility] | [address] | [place] [address] | | | SERVICES, CORE | PARK [...] | + + + + + | [facility] | [address] | [place] [address] | | | SERVICES, ENRIKE | [address] | | | + [...] [facility] | [address] | [place] [address] | | | SERVICES, ENRIKE | [address] | | | + [...] | | | LABORATORY | | | GERMAN | | | SERVICES, | | | [...] | + + + + + | [facility] | [address] | [place] [address] | | | SERVICES, ENRIKE | [address] | | | + [...] | + + + + + | [facility] | [address] | [place] [address] | | | SERVICES, CORE | [address] [...] | + + + + + | [facility] | [address] | [place] [address] | | | SERVICES, CORE | PARK [...] [facility] | [address] | [place] [address] | | | SERVICES, CORE | PARK [...] | | | LABORATORY | | | GERMAN | | | SERVICES, | | | [...] MDRD equation recommended by the National | [facility] | | Kidney Disease Education Program. Estimated GFR Interpretive | LABORATORY | | Information: <60 mL/min/1.73 sq m Chronic Kidney | SERVICES, [facility] | | Disease <15 mL/min/1.73 sq m [...] | + + + + + | [facility] | [address] | [place] [address] | | | GARRY, ENRIKE | [address] | | | + [...] | + + + + + | [facility] | [address] | [place] [address] | | | SERVICES, ENRIKE | [address] | | | + + + + + BRONCHOSCOPY (09/28/2019 4:16 PM PST) + + + | Narrative | Performed At | + + + | Sasha Harrington MD 09/28/2019 6:29 PM BRONCHOSCOPY | | | Performed by: Sasha Harrington MD Authorized by: Corina Stacy MD | | | Written consent obtained: Yes Consent given by: Next of kin | | | Patient identity confirmed per policy: Yes Procedural pause: | | | Immediately prior to the procedure a pause per universal protocol | | | was called . A pause verifies correct patient, procedure, | | | equipment, support teacher and site/side marked as required. With | | | questions refer to [facility] policy: Indications:: Diagnostic and | | | [...] | + + + + + | [facility] | [address] | [place] [address] | | | SERVICES, CORE | [address] [...] Note | + + | Service Account, [email or web address] Res In Interface - 09/28/2019 1:53 PM [...] + + CULTURE, BLOOD BACTI & YEAST [facility] (09/28/2019 11:39 AM PST) + + + [...] + + | [facility] | [address] | [place] [address] | | | SERVICES, CORE | [address] | | | + + + + + CULTURE, BLOOD BACTI & YEAST [facility] (09/28/2019 11:39 AM PST) + + + [...] | + + + + + | [facility] | [address] | [place] [address] | | | SERVICES, ENRIKE | [address] | | | + [...] + + + + | PRODUCT | [id number] | | [facility] | | | UNIT [...] + + + + | EXPIRATION | [id number] | | [facility] | | | DATE [...] + + + + | BLOOD | [id number] | | [facility] | | | PRODUCT [...] [facility] | [address] | [place] [address] | | | SERVICES, | [address] [...] + + + + | PRODUCT | [id number] | | [facility] | | | UNIT [...] + + + + | EXPIRATION | [id number] | | [facility] | | | DATE [...] + + + + | BLOOD | [id number] | | [facility] | | | PRODUCT [...] [facility] | [address] | [place] [address] | | | SERVICES, | [address] [...] Note | + + | Service Account, [email or web address] Res In Interface - 09/28/2019 10:53 AM PST [...] [facility] | [address] | [place] [address] | | | SERVICES, CORE | [address] [...] | + + + + + | [facility] | [address] | [place] [address] | | | SERVICES, CORE | [address] [...] Note | + + | Service Account, [email or web address] Res In Interface - 09/28/2019 8:42 AM [...] + + + + | PRODUCT | [id number] | | [facility] | | | UNIT [...] + + + + | EXPIRATION | [id number] | | [facility] | | | DATE [...] + + + + | BLOOD | [id number] | | [facility] | | | PRODUCT [...] | + + + + + | [facility] | [address] | [place] [address] | | | SERVICES, | [address] | | | | TRANSFUSION MEDICINE [...] [facility] | [address] | [place] [address] | | | SERVICES, | [address] [...] | + + + + + | [facility] | [address] | [place] [address] | | | SERVICES, | [address] | | | | TRANSFUSION MEDICINE [...] + + + + | PRODUCT | [id number] | | [facility] | | | UNIT [...] + + + + | EXPIRATION | [id number] | | [facility] | | | DATE [...] + + + + | BLOOD | [id number] | | [facility] | | | PRODUCT [...] | + + + + + | [facility] | [address] | [place] [address] | | | SERVICES, | [address] | | | | TRANSFUSION MEDICINE [...] | + + + + + | [facility] | [address] | [place] [address] | | | SERVICES, CORE | [address] [...] | | | LABORATORY | | | GERMAN | | | SERVICES, | | | [...] MDRD equation recommended by the National | [facility] | | Kidney Disease Education Program. [...] [facility] | [address] | [place] [address] | | | SERVICES, CORE | PARK [...] [facility] | [address] | [place] [address] | | | SERVICES, CORE | [address] [...] | RADIOLOGY VOICE | | above the kameorn. Right subclavian central venous catheter with tip [...] Account, Radiant Res In Interface - 09/27/2019 8:35 AM [...] | + + + + + | [facility] | [address] | [place] [address] | | | [place] | | | | + + + + + MRI BRACHIAL PLEX LT CHARLOTTE WHITTINGTON (09/27/2019 6:14 AM PST) [...] Note | + + | Service Account, [employer] Res In Interface - 09/27/2019 7:31 AM [...] | + + + + + | [facility] | [address] | [place] [address] | | | SERVICES, CORE | [address] [...] 2.6 mg/dL | [facility] | | | LASMA | | | [...] [facility] | [address] | [place] [address] | | | ENRIKE CASTAÑEDA | [address] | | | + [...] | | | LABORATORY | | | GERMAN | | | SERVICES, | | | [...] MDRD equation recommended by the National | IASU | | Kidney Disease Education Program. Estimated [...] | + + + + + | [facility] | [address] | [place] [address] | | | SERVICES, CORE | HENRY [...] + + | [facility] | [address] | [place] [address] | | | SERVICES, CORE | PARK [...] | | | LABORATORY | | | GERMAN | | | SERVICES, | | | [...] | + + + + + | [facility] | [address] | [place] [address] | | | SERVICES, ENRIKE | [address] | | | + [...] Note | + + | Service Account, [employer] Res In Interface - 09/26/2019 11:04 AM [...] + + | [facility] | [address] | [place] [address] | | | SERVICES, CORE | [address] | | | + + + + + INR (09/26/2019 8:47 AM PST) + +-------+ + + + | Component | Value | Ref Range | Performed | Pathologist | | | | | At | Signature | + +-------+ + + + | INR | 1.18 | 0.90 - 1.20 INR | [facility] | | | | | | [...] | + + + + + | [facility] | [address] | [place] [address] | | | SERVICES, CORE | PARK [...] | + + + + + | [facility] | [address] | [place] [address] | | | SERVICES, CORE | HENRY [...] initiated: Ary | Barbara Dumont MD 09/26/2019 8:43 AM | |IMPRESSION: [...] | | | LABORATORY | | | GERMAN | | | SERVICES, | | | [...] MDRD equation recommended by the National | [facility] | | Kidney Disease Education Program. [...] | + + + + + | [facility] | [address] | [place] [address] | | | SERVICES, CORE | PARK [...] | + + + + + | [facility] | [address] | [place] [address] | | | SERVICES, CORE | HENRY [...] B: | | | | | | Stereobot/CS | | | | + + + [...] | ng/mL | [facility] | | | ONEMARIA EUGENIA, | [facility],[address] | | REG UNIV | | | QUANT | Manuela Bailey, [facility] | | PTH - INT[facility] | | | | [address] | | | | | | [phone].[email or web address]. | | | | | | Burton [...] [facility] | [address] | [place], [place] | | | UNIV PTH - INTFC | | [address] | | + + + + + [...] | + + + + + | [facility] | [address] | [place] [address] | | | SERVICES, CORE | PARK [...] + + | [facility] | [address] | [place] [address] | | | SERVICES, | [address] [...] | + + + + + | [facility] | [address] | [place] [address] | | | SERVICES, CORE | PARK [...] [facility] | [address] | [place] [address] | | | SERVICES, | [address] [...] | + + + + + | [facility] | [address] | [place] [address] | | | SERVICES, | [address] | | | | TRANSFUSION MEDICINE [...] [facility] | [address] | [place] [address] | | | SERVICES, ENRIKE | [address] | | | [...] | + + + + + | [facility] | [address] | [place] [address] | | | SERVICES, CORE | HENRY [...] Note | + + | Service Account, [email or web address] Res In Interface - 09/25/2019 10:04 PM [...] report for confirmation Vein | | | caddie technique: [place] Technique Techique: The standard | | | [...] [facility] | [address] | [place] [address] | | | SERVICES, CORE | HENRY [...] + + | [facility] | [address] | [place] [address] | | | SERVICES, CORE | PARK [...] | + + + + + | [facility] | [address] | [place] [address] | | | SERVICES, CORE | HENRY [...] [facility] | | | | | | [facility] | | | | | | OF CARE | | | | | | TESTS | | + + + + + + | K - | 1.1 | 1 - 3 Minutes | [facility] - | | | CITRATED | | | [place] | | | | | | [facility] | | | | | | OF CARE | | | | | | TESTS | | + + + + + + | ANGLE - | 77.2 (A) | 53 - 72 Degrees | [facility] - | | | CITRATED | | | [place] | | | | | | [facility] | | | | | | OF CARE | | | | | | TESTS | | + + + + + + | MAXIMUM | 67.3 | 55 - 70 mm | [facility] - | | | AMPLITUDE - | | | [place] | | | CITRATED | | | [facility] | | | | | | OF CARE | | | | | | TESTS | | + + + + + + | LY 30 | 0.3 | 0 - 8 % | [facility] - | | | | | | [place] | | | | | | [facility] | | | | | | OF CARE | | | | | | TESTS | | + + + + + + | CLOT INDEX | 3.3 (A) | -3 - 3 | [facility] - | | | | | | [facility] | | | [...] at 2:59 PM CORINA | | | Y MD JOSEPH | | + + + + + + + + | Performing | Address | City/State/Zipcode | Phone Number | | Organization | | | | + + + + + | [facility] | [address] | [place], [place] | | | [facility] | [address] | [address] | | | TESTS | | | | + + + + + CTA NECK W CONTRAST (09/25/2019 7:56 PM PST) + + | Specimen | + + | | + + + + + | Narrative | Performed At | + + + | EXAM: CTA NECK HISTORY: TRAUMA ACTIVATION PAGE [id number] | [facility] | | COMPARISON: None. TECHNIQUE: [...] Note | + + | Service Account, [employer] In Interface - 09/26/2019 9:00 AM PST EXAM: CTA NECK | | HISTORY: TRAUMA ACTIVATION PAGE [id number] COMPARISON: None. TECHNIQUE: CT angiogram of the [...] FACE WITHOUT CONTRAST HISTORY: TRAUMA ACTIVATION | [facility] | | PAGE [id number] COMPARISON: None. TECHNIQUE: CT of the head [...] maxillary soft | | | tissues and automatic engraver space. PARANASAL SINUSES: Acute blood products | [...] Note | + + | Service Account, [email or web address] Res In Interface - 09/26/2019 9:[address] HEAD AND FACE | | WITHOUT CONTRAST HISTORY: TRAUMA ACTIVATION PAGE [id number] COMPARISON: None. 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.PARANASAL SINUSES: Acute blood products are noted [...] presented. Final signature: Jose Isabel MD 09/26/2019 8:02 AM Preliminary: Barbara Reina MD Dictation initiated: Beto Garza MD 09/25/2019 | [...] Garza MD Dictation initiated: Beto Garza MD 09/25/2019 8:24 PM | |VERTEBRAE: No fractures or destructive changes. | |PARASPINAL SOFT TISSUES: Mildly displaced posterior 10th and 11th rib fractures. [facility] te dictation for compete lung and chest [...] FACE WITHOUT CONTRAST HISTORY: TRAUMA ACTIVATION | [facility] | | PAGE [id number] COMPARISON: None. TECHNIQUE: CT of the head [...] maxillary soft | | | tissues and automatic engraver space. 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.PARANASAL SINUSES: Acute blood products are noted [...] + + + + | PRODUCT | [id number] | | [facility] | | | UNIT [...] + + + + | EXPIRATION | [id number] | | [facility] | | | DATE [...] + + + + | BLOOD | [id number] | | [facility] | | | PRODUCT [...] | + + + + + | [facility] | [address] | [place] [address] | | | SERVICES, | [address] | | | | TRANSFUSION MEDICINE [...] + + + + | PRODUCT | [id number] | | [facility] | | | UNIT [...] + + + + | EXPIRATION | [id number] | | [facility] | | | DATE [...] + + + + | BLOOD | [id number] | | [facility] | | | PRODUCT [...] | + + + + + | [facility] | [address] | [place] [address] | | | SERVICES, | [address] | | | | TRANSFUSION MEDICINE [...] + + + + | PRODUCT | [id number] | | [facility] | | | UNIT [...] + + + + | EXPIRATION | [id number] | | [facility] | | | DATE [...] + + + + | BLOOD | [id number] | | [facility] | | | PRODUCT [...] | + + + + + | [facility] | [address] | [place] [address] | | | SERVICES, | [address] [...] + + + + | PRODUCT | [id number] | | [facility] | | | UNIT [...] + + + + | EXPIRATION | [id number] | | [facility] | | | DATE [...] + + + + | BLOOD | [id number] | | [facility] | | | PRODUCT [...] [facility] | [address] | [place] [address] | | | SERVICES, | [address] [...] + + + + | PRODUCT | [id number] | | [facility] | | | UNIT [...] + + + + | EXPIRATION | [id number] | | [facility] | | | DATE [...] + + + + | BLOOD | [id number] | | [facility] | | | PRODUCT [...] [facility] | [address] | [place] [address] | | | SERVICES, | [address] [...] +---+---+ | | | +---+---+ + +-------+ +---------+---+ + | bacitracin ointment | Given | 10/07/20 | 1 strip | | Surgical | | INTRAPROCEDURE PRN, Starting Fri | | 19 2:20 | | | Site | | 10/07/19 at 0220, Until Fri | | AM PST | | | | | 10/07/19 at 0401 | | | | | | + +-------+ +---------+---+ + +---+---+ | | | +---+---+ + +-------+ [...] | +---+---+ + +-------+ +-------+---+ + | balanced salt (BSS) ophthalmic | Given | 10/07/20 | 15 mL | | Surgical | | irrigation INTRAPROCEDURE PRN, | | 19 2:21 | | | Site | | Starting Cecile 10/06/19 at 2303, | | AM PST | | | | | Until Thu10/07/19 at 0222 | | | | | | + +-------+ +-------+---+ + +-------+ +-------+---+ + | Given | 10/06/20 | 15 mL | | Surgical | | | 19 11:03 | | | Site | | | PM PST | | | | +-------+ +-------+---+ + +---+---+ | | | +---+---+ + +-------+ [...] | | | DAILY, First dose on Thu | | AM PST | | | [...] | | | | NEEDED, Starting 09/27/19 at | | | | | | | 0128, Until Thu10/14/19 at 2058, | | | | | | | hypertension, first line | | | | | | + +-------+ +-------+---+---+ +-------+ +-------+---+---+ | Given | 09/27/20 | 10 mg | | | | | 19 1:38 | | | | | | AM PST | | | | +-------+ +-------+---+---+ +---+---+ | | | +---+---+ + +-------+ +------+---+ + | lidocaine-EPINEPHrine | Given | 10/07/20 | 3 mL | | Surgical | | (XYLOCAINE WITH EPINEPHRINE) 1 | | 19 2:01 | | | Site | | %-1:100,000 injection | | AM PST | | | | | INTRAPROCEDURE PRN, Starting Cecile | | | | | | | 10/06/19 at 2303, Until Fri | | | | | | | 10/07/19 at 0222 | | | | | | + +-------+ +------+---+ + +-------+ +------+---+ + | Given | 10/06/20 | 5 mL | | Surgical | | | 19 11:03 | | | Site | | | PM PST | | | | +-------+ +------+---+ + +---+---+ | | | +---+---+ + +-------+ [...] 10/14/20 | 0.5 | | | | zriypgpg-fyinkzjnb-njvqqffvocrby | | 19 9:23 | inches | [...] | | | | | NEEDED, Starting 10/07/19 at | | | | | | | 1233, Until 10/14/19 at 2058, | | | | [...] | | | | | modification) on [facility] 10/13/19 at | | | | | [...]
--- OUTSIDE RECORDS SUMMARY | ~2020-05-07 | XMS | Clinical Summary ---
Demographics + + + | Address | [address] | | | [place] [address] | + + + | Home Phone | | + + + | Preferred Language | Unknown | + + + | Marital Status | Single | + + + | Church Affiliation | Unknown | + + + | Race | Unknown | + + + | Ethnic Group | Unknown | + + + Author + + + | Author | [facility] | | | and [place] | + + + | Organization | [facility] | | | and [place] | [...] Team Providers + +------+ + | Care Vice President Of Software Development Name | Role | Phone | + +------+ + | Tomasz Solis MD | PCP | | + +------+ + Allergies Not on File Medications Not on file Active Problems Not on file Encounters +--------+ + + + + | Date | Type | Specialty | Care Team | Description | +--------+ + + + + | 02/05/ | Hospital | Radiology | Denise Nicole, | Brachial plexus | | 2019 | Encounter | | [place] | injury, left, | | | | | | subsequent | | | | | | encounter; 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 | | | | | | cervical spinal | | | | | | cord, subsequent | | | | | | encounter (HCC); | | | | | | Other nondisplaced | | | | | | fracture of seventh | | | | | | cervical vertebra, | | | | | | subsequent encounter | | | | | | for fracture with | | | | | | routine healing | +--------+ + + + + | 02/05/ | Hospital | Radiology | Cordell Dangelo, | Encounter for | | 2020 | Encounter | | MD | imaging to screen | | | | | | for metal prior to | | | | | | MRI | +--------+ + + + + from Last 3 Months Social History + +-------+ +--------+------+ | Tobacco [...] on file | | + + + Last Filed Vital Signs Not on file Plan of Treatment + + + + + | Health Maintenance | Due Date | Last | Comments | | | | Done | | + + + + + | Vaccine: Influenza | | 10/08/20 | | | (#1) | 0 | 10 | | + + + + + | Vaccine: | | 10/08/20 | | | Dtap/Tdap/Td (7 - | 0 | 10, | | | Td) | | 07/20/20 | | | | | 00, | | | | | 07/17/19 | | | | | 95, | | | | | Addition | | | | | al | | | | | history | | | | | exists | | + + + + + Implants + +------+------+ +--------+--------+--------+ | Implanted | Type | Area | Manufacture | Device | Shelf | Model | | | | | r | | Expira | / | | | | | | Identi | tion | Serial | | | | | | fier | Date | / Lot | + +------+------+ +--------+--------+--------+ | Facial Bone Plates | | | | | | | + +------+------+ +--------+--------+--------+ + + | Description:Titanium facial | | bone reconstruction at [facility]. | | Prior mri done at [facility] Feb | | 20. 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 Paraspinal musculature and paravertebral soft | | | tissues: Mild soft tissue edema on the left side in the lower | | | cervical spine | | + + + + + | Procedure Note | + + | Suraj, Rad Results In - 02/06/2020 1:46 PM PDT | | MRI [...] to the | | cord on the line server sequence likely related to chronic hemosiderin | [...] | | | + +---------+ + + from Last 3 Months Insurance + +--------+ +--------+ +---------+--------+ | Payer | Benefi | Subscriber | Effect | Phone | Address | Type | | | t Plan | ID | jalen | | | | | | / | | Dates | | | | | | Group | | | | | | + +--------+ +--------+ +---------+--------+ | [employer] | [place] | | Effect | | | Indemn | | SERVICE | | | jalen | | | ity | | | [place] | | for | | | | | | [place] | | all | | | | | | | | dates | | | | + +--------+ +--------+ +---------+--------+ | [employer] | MEDICA | [id number] | 01/24/20 | [phone] | | Medica | | | [place] | | 20-Pre | 2 | | id | | | PLUS | | sent | | | | + +--------+ +--------+ +---------+--------+ + +--------+ +--------+ + + | Guarantor Name | Accoun | Relation to | Date | Phone | Billing Address | | | t Type | Patient | of | | | | | | | | | | + +--------+ +--------+ + + | Rakan Oates | Person | Self | [birth year] | [address] | | | al/Fam | | 1989 | [phone] | [place] [address] | | | any | | | 1 (Home) | | + +--------+ +--------+ + + | Rakan Oates | Person | Self | [birth year] | | [address] | | | al/Fam | | 1989 | [phone] | [place] [address] | | | any | | | 1 (Home) | | + +--------+ +--------+ + + | Rakan Oates | Third | Self | [birth year] | | [address] | | | Alliance Party | | 1989 | [phone] | [place] [address] | | | Liabil | | | 2 (Home) | | | | ity | | | | | + +--------+ +--------+ + + Advance Directives + + + + + | Type | Date Recorded | Patient | 

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
--- OUTSIDE RECORDS SUMMARY | ~2020-05-07 | XMS | Encounter Summary ---
Demographics + + + | Address | [address] | | | [place] [address] | + + + | Home Phone [...] Author | [facility] | + + + | Organization | [facility] | + + + | Address | Unknown | + + + | Phone | Unavailable | + + + Support + + + + + | Name | Relationship | Address | Phone | + + + + + | Kaila Oates | ECON | [place] | | | | | [address] | | + + + + + Care Team Providers + +------+ + | Care Flame Cutting Machine Operator Name | Role | Phone | + +------+ + | Tomasz Solis MD | PCP | | + +------+ + Encounter Details +--------+ + + + + | Date | Type | Department | Care Team | Description | +--------+ + + + + | 10/06/ | Procedure | [facility] [id number] | | | | 2019 | Pass | [address] | | | | | | [facility] | | | | | | [facility] Admitting | | | | | | Desk Located on the | | | | | | 9th floor | | | | | | [place], [place] | | | | | | [address] | | | +--------+ + + + [...] | Visit | | PhD PATRICIA [address] | | | | | | [place], [place] | | | | | | [address] | | | | | | [phone] | | | | | | | | +--------+---------+ + + + documented as of this encounter Visit Diagnoses Not on filedocumented in this encounter"
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
--- OUTSIDE RECORDS SUMMARY | ~2020-05-07 | XMS | Encounter Summary ---
Demographics + + + | Address | [address] | | | [place] [address] | + + + | Home Phone | | + + + | Preferred Language | Unknown | + + + | Marital Status | Single | + + + | Adventist Affiliation | NON | + + + | Race | or | + + + | Ethnic Group | Not or | + + + Author + + + | Author | On License 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 | | | | | | syndrome, | Fax: | | | | | | subsequent | [phone] | | | | | | encounter [...] | | | | | | [place] | | | | | | | [...] | | | | | plexus, | [place], [place] | [facility] | | | | | subsequent | [address] | Health and | | | | | encounter | Phone: | Healing, | | | | | Procedures | [phone] | Building 1, | | | | | CONSULT TO | Fax: | 5th Floor | | | | | SURGERY - | [phone] | [place], [place] | | | | | PLASTICS | | [address] | | | | | | | Phone: | | | | | | | [phone] | + +--------+ + + + + [...] | | and Healing [address] | [place], [place] | fracture of seventh | | | | [address] [facility] | [address] | cervical vertebra | | | | Health and Healing, | [phone] | with routine | | | | Building | | healing, subsequent | | | | Floor [place], [place] | | encounter (Primary | | | | [address] | | Dx); Back pain, | | | | [phone] | | unspecified back | | | [...] encounter | | | | | | ([facility]) | +--------+---------+ + + + [...] none Past Surgical History Procedure Laterality Date [place] teeth extraction Current Outpatient Medications on File [...] file Gets together: Not on file Attends amish service: Not on file Active member of [...] ri ght Deltoid/Abduction L 0/5 R 5/5 Trimmer Machine strength L 3/5 R 5/5 Station and [...] | 2019 | Visit | | ,PhD [address] | | | | | | [place] [facility] [place] | | | | | | [address] | | | | | | [phone] | | | | | | | [...]
--- OUTSIDE RECORDS SUMMARY | ~2020-05-07 | XMS | Encounter Summary ---
Demographics + + + | Address | [address] | | | [place] [address] | + + + | Home Phone [...] + | Author | [facility] | + + + | Organization | [facility] | + + + | Address | Unknown | + + + | Phone | Unavailable | + + + Support + + + + + | Name | Relationship | Address | Phone | + + + + + | Kaila Oates | ECON | [place] | | | | | [address] | | + + + + + Care Team Providers + +------+ + | Care Legal Instruments Examiner Name | Role | Phone | + +------+ + | Tomasz Solis MD | PCP | | + +------+ + Encounter Details +--------+ + + + + | Date | Type | Department | Care Team | Description | +--------+ + + + + | 09/25/ | Procedure | Diagnostic Imaging | | | | 2019 | Pass | Services at [facility] | | | | | | [address] | | | | | | Emilia SUBRAMANIAN | | | | | | [address] | | | | | | [place], [place] | | | | | | [address] | | | | | | [phone] | | | +--------+ + + + [...] | | | | | | [place], [place] | | | | | | [address] | | | | | | [phone] | | | | | | | | +--------+---------+ + + + documented as of this encounter Visit Diagnoses Not on filedocumented in this encounter"
--- OUTSIDE RECORDS SUMMARY | ~2020-05-07 | XMS | Encounter Summary ---
Demographics + + + | Address | [address] | | | [place] [address] | + + + | Home Phone [...] Author | [facility] | + + + | Organization | [facility] | + + + | Address | Unknown | + + + | Phone | Unavailable | + + + Support + + + + + | Name | Relationship | Address | Phone | + + + + + | Kaila Oates | ECON | [place] | | | | | [address] | | + + + + + Care Team Providers + +------+ + | Care Online Community Manager Name | Role | Phone | + +------+ + | Tomasz Solis MD | PCP | | + +------+ + Encounter Details +--------+ + + + + | Date | Type | Department | Care Team | Description | +--------+ + + + + | 03/01/ | Document-Sc | Health Information | Unknown . | | | 2020 | anned | Services [address] | | | | | [address] | | | | | | Mailcode: OP17A | | | | | | [facility] | | | | | | [place], [place] | | | | | | [address] | | | | | | [phone] | | | +--------+ + + + [...] | | | | | | [place], [place] | | | | | | [address] | | | | | | [phone] | | | | | | | | +--------+---------+ + + + documented as of this encounter Visit Diagnoses Not on filedocumented in this encounter"
--- OUTSIDE RECORDS SUMMARY | ~2020-05-07 | XMS | Encounter Summary ---
Demographics + + + | Address | [address] | | | [place] [address] | + + + | Home Phone [...] + | Author | [facility] | + + + | Organization | [facility] | + + + | Address | Unknown | + + + | Phone | Unavailable | + + + Support + + + + + | Name | Relationship | Address | Phone | + + + + + | Kaila Oates | ECON | [place] | | | | | [address] | | + + + + + Care Team Providers + +------+ + | Care Clerical Stock Inspector Name | Role | Phone | [...] | | | | | Surgery at [facility] [address] [place], [place] | | | | | [address] [facility] | [address] | | | | | for Health and | [phone] | | | | | Healing, Building 1, | | | | | | 5th Floor | | | | | | [place], [place] | | | | | | [address] | | | | | | [phone] | | | +--------+ + + + [...] | 2020 | Visit | | ,PhD [address] | | | | | | [place], [place] | | | | | | [address] | | | | | | [phone] | | | | | | | | +--------+---------+ + + + documented as of this encounter Visit Diagnoses Not on filedocumented in this encounter"
--- OUTSIDE RECORDS SUMMARY | ~2020-05-07 | XMS | Encounter Summary ---
Demographics + + + | Address | [address] | | | [place] [address] | + + + | Home Phone [...] Author + + + | Author | [facility] | + + + | Organization | [facility] [facility] | + + + | Address | Unknown | + + + | Phone | Unavailable | + + + Support + + + + + | Name | Relationship | Address | Phone | + + + + + | Kaila Oates | ECON | [place] | | | | | [address] | | + + + + + Care Team Providers + +------+ + | Care Manager Action Name | Role | Phone | + +------+ + | Tomasz Solis MD | PCP | | + +------+ + Encounter Details +--------+ + + + + | Date | Type | Department | Care Team | Description | +--------+ + + + + | 04/12/ | MyChart | Plastic and | Paul Herrera, | RE: therapy | | 2020 | Encounter | Reconstructive | ,PhD [address] | | | | | Surgery at [facility] [address] [place], [place] | | | | | [address] [facility] | [address] | | | | | for Health and | [phone] | | | | | Healing, [facility] 1, | | | | | | 5th Floor | | | | | | [facility] [place] | | | | | | [address] | | | | | | [phone] | | | +--------+ + + + [...] | | | | | | [place], [place] | | | | | | [address] | | | | | | [phone] | | | | | | | | +--------+---------+ + + + documented as of this encounter Visit Diagnoses Not on filedocumented in this encounter"
--- OUTSIDE RECORDS SUMMARY | ~2020-05-07 | XMS | Encounter Summary ---
Demographics + + + | Address | [address] | | | [place] [address] | + + + | Home Phone | | + + + | Preferred Language | Unknown | + + + | Marital Status | Single | + + + | Samaritan Affiliation | NON | + + + [...] [place] | | | | | [address] | | + + + + + Care Team Providers + +------+ + | Care Dictaphone Mechanic Name | Role | Phone | [...] | | | | | [place] | | | | | | [address] | | | | | | [phone] | | | | | | | | +--------+---------+ + + + documented as of this encounter Visit Diagnoses Not on filedocumented in this encounter"
--- OUTSIDE RECORDS SUMMARY | ~2020-05-07 | XMS | Encounter Summary ---
Demographics + + + | Address | [address] | | | [place] [address] | + + + | Home Phone [...] + | Author | [facility] | + + + | Organization | [facility] | + + + | Address | Unknown | + + + | Phone | Unavailable | + + + Support + + + + + | Name | Relationship | Address | Phone | + + + + + | Kaila Oates | ECON | [place] | | | | | [address] | | + + + + + Care Team Providers + +------+ + | Care Media Promoter Name | Role | Phone | + +------+ + | Tomasz Solis MD | PCP | | + +------+ + Encounter Details +--------+ + + + + | Date | Type | Department | Care Team | Description | +--------+ + + + + | 09/27/ | Ophth Exam | [facility] | Moy Gastelum MD, | | | 2019 | | [place]/Ophthalmol | MTR [address] [facility] | | | | | ogy at [facility] [address] | | | | | [address] [facility] for | [place], [place] | | | | | Health and Healing, | [address] | | | | | [facility] | [phone] | | | | | Floor [place], [place] | | | | | | [address] | | | | | | [phone] | | | +--------+ + + + [...] | 2019 | Visit | | ,PhD [address] | | | | | | [place], [place] | | | | | | [address] | | | | | | [phone] | | | | | | | | +--------+---------+ + + + documented as of this encounter Visit Diagnoses Not on filedocumented in this encounter"
--- OUTSIDE RECORDS SUMMARY | ~2020-05-07 | XMS | Encounter Summary ---
Demographics + + + | Address | [address] | | | [place] [address] | + + + | Home Phone [...] [place] | | | | | [address] | | + + + + + Care Team Providers + +------+ + | Care Ply Splicer Name | Role | Phone | + [...] as of this encounter Progress Notes Interface, Machine Shorthand Reporter In - 05/14/2006 2:04 AM PDT [id number] CHETAN SCOTT [id number] Referred From and Faxed To: Referred To: [...] bleeding, and the patient was taken to [facility] Emergency Department via ambulance. The patient was [...] M.D. Tam Bryant MD, MPH, FACS Director, [facility] Professor of Otolaryngology/Head and Neck Surgery / [id number] / [id number] / [id number] / Electronically signed by Tam Bryant 05-13-2006 12:16:08 PM documented i n this encounter Plan of Treatment +--------+---------+ + + + | Date | Type | Specialty | Care Team | Description | +--------+---------+ + + + | 08/23/ | Office | Plastic Surgery | Paul Herrera, | | | 2019 | Visit | | ,PhD [address] | | | | | | [place], [place] | | | | | | [address] | | | | | | [phone] | | | | | | | | +--------+---------+ + + + documented as of this encounter Visit Diagnoses Not on filedocumented in this encounter"
--- OUTSIDE RECORDS SUMMARY | ~2020-05-07 | XMS | Encounter Summary ---
Demographics + + + | Address | [address] | | | [place] [address] | + + + | Home Phone [...] Author + + + | Author | [facility] | + + + | Organization | [facility] [employer] [facility] | + + + | Address | Unknown | + + + | Phone | Unavailable | + + + Support + + + + + | Name | Relationship | Address | Phone | + + + + + | Kaila Oates | ECON | [place] | | | | | [address] | | + + + + + Care Team Providers + +------+ + | Care Inspector Aligning Name | Role | Phone | + [...] + + + + | 03/06/ | Hospital | [facility] [address] | Paul Herrera, | | | 2019 - | Encounter | [address] | ,PhD [address] | | | | | [place], | [place], [place] | | | 03/07/ | | [place] [address] | [address] | | | 2019 | | [phone] | [phone] | | | | | | | [...] might be different fr om the original. [facility] DISCHARGE SUMMARY & INTERDISCIPLINARY INSTRUCTIONS Patient: Rakan Oates CSN: [id number] Admission Date: 03/06/2020 Discharge Date: 03/07/2020 Attending Physician: Paul Herrera MD PCP: Tomasz Solis MD Service: [facility] Division of Plastic & Reconstructive Surgery [...] Borrero MD Plastic Surgery, R1 03/07/2020 Pager #[phone] Diet Regular Resume regular diet. Healthy choices [...] feel free to call our office at [phone] with any questions. Call our office immediately [...] threatening emergency or think you may need [facility] health care. Medication List CHANGE how you take [...] through Care Everywhere.Splint or Immob ilizer Use (Maldivian)documented in this encounter Medications at Time of [...] 1 tablet by | | 0 | // | | | oral tablet extended | [...] 1 packet and | | 0 | 05//20 | | | glycol 17 gram oral [...] SURGERY PROGRESS NOTE: Hospital Day:1 Resident Author: Mounika Acuna MD Interval Hx: S/p L supraclavicular [...] DC home today Mounika Acuna MD Pager #:[phone] 7:42 AM [facility] Division of Plastic & Reconstructive Surgery documented [...] | | | | | | [place], [place] | | | | | | [address] | | | | | | [phone] | | | | | | | [...] [facility] | [address] | [place] [address] | | | SERVICES CORE | [address] | | | [...] + + + + + + | [facility] | 421 | ms | [facility] [...] | ECG | Electronically signed | | MARILYNN ABELT | | | IMPRESSION | by: LEAINE ESTRADA | | OF | | | [...] + | [facility] | [address] | [place], [place] | | | CARDIOLOGY | [address] | [address] | | + + + + + [...] + | [facility] | [address] | [place] [address] | | | SERVICES, CORE | PARK [...] | | | LABORATORY | | | BRITISH | | | SERVICES, | | | [...] MDRD equation recommended by the National | [facility] | | Kidney Disease Education Program. [...] | + + + + + | [facility] | [address] | [place] [address] | | | ENRIKE CASTAÑEDA | [address] [...] (H) | 70 - 99 mg/dL | [facility] - | | | GLUCOSE, | [...] LARA | [address] | [place], [place] | | | ALEXIS BOOTH OF CARE | [address] | [address] | | | TESTS | | | | + + + + + CARDIOLOGY (03/06/2020 12:00 AM PDT) + + + | Narrative | Performed At | + + + | | | + + + documented in this encounter Visit Diagnoses + + | Diagnosis | + + | Injury of brachial plexus, subsequent encounter - Primary | + + | Brachial plexus disorders [...] | | | | | 03/06/20 at 2100, Until | | | | [...]
--- OUTSIDE RECORDS SUMMARY | ~2020-05-07 | XMS | Encounter Summary ---
Demographics + + + | Address | [address] | | | [place] [address] | + + + | Home Phone [...] + | Author | [facility] [employer] [facility] | + + + | Organization | [facility] [employer] [facility] | + + + | Address | Unknown | + + + | Phone | Unavailable | + + + Support + + + + + | Name | Relationship | Address | Phone | + + + + + | Kaila Oates | ECON | [place] | | | | | [address] | | + + + + + Care Team Providers + +------+ + | Care Palm And Back Forger Name | Role | Phone | + [...] Tobin | | | | | [facility] | Emilia Cancino [facility] | | | | | Hospital Admitting | [place] [address] | | | | | Desk Located on the | [phone] | | | | | 9th floor | | | | | | [facility] [place] | Quentin Harrison CRNA | | | | | [address] | [address] | | | | | | [place] | | | | | | [place] [address] | | | | | | [phone] | | | | | | | [...] + | Urethr | 03/06/20; 0800; H. Jr, | 03/06/20 0800 by | 03/06/20 [address] [...] | | | | | | [place], [place] | | | | | | [address] | | | | | | [phone] | | | | | | | [...]
--- OUTSIDE RECORDS SUMMARY | ~2020-05-07 | XMS | Encounter Summary ---
Demographics + + + | Address | [address] | | | [place] [address] | + + + | Home Phone | | + + + | Preferred Language | Unknown | + + + | Marital Status | Single | + + + | Hindu Affiliation | NON | + + + | Race | or | + + + | Ethnic Group | Not or | + + + Author + + + | Author | [facility] [facility] | + + + | Organization | [facility] | + + + | Address | Unknown | + + + | Phone | Unavailable | + + + Support + + + + + | Name | Relationship | Address | Phone | + + + + + | Kaila Oates | ECON | [place] | | | | | [address] | | + + + + + Care Team Providers + +------+ + | Care Catalyst Supervisor Name | Role | Phone | + +------+ + | Tomasz Solis MD | PCP | | + +------+ + Encounter Details +--------+ + + + + | Date | Type | Department | Care Team | Description | +--------+ + + + + | 09/27/ | Ophth Exam | [facility] | Moy Gastelum MD, | | | 2019 | | [place]/Ophthalmol | MTR [address] [facility] | | | | | ogy at [facility] [address] | | | | | [address] [facility] for | [place], [place] | | | | | Health and Healing, | [address] | | | | | [facility] | [phone] | | | | | Floor [place], [place] | | | | | | [address] | | | | | | [phone] | | | +--------+ + + + [...] | 2019 | Visit | | ,PhD [address] | | | | | | [place], [place] | | | | | | [address] | | | | | | [phone] | | | | | | | | +--------+---------+ + + + documented as of this encounter Visit Diagnoses Not on filedocumented in this encounter"
--- OUTSIDE RECORDS SUMMARY | ~2020-05-07 | XMS | Encounter Summary ---
Demographics + + + | Address | [address] | | | [place] [address] | + + + | Home Phone [...] Author | [facility] [employer] [facility] | + + + | Organization | [facility] [facility] | + + + | Address | Unknown | + + + | Phone | Unavailable | + + + Support + + + + + | Name | Relationship | Address | Phone | + + + + + | Kaila Oates | ECON | [place] | | | | | [address] | | + + + + + Care Team Providers + +------+ + | Care Quilt Sewer Name | Role | Phone | + [...] | [address] | [place], | | | | | Mailcode: CH6A | [place] [address] | | | | | [place], [place] | | | | | | [address] | | | | | | [phone] | | | +--------+ + + + [...] | | | | | | [place], [place] | | | | | | [address] | | | | | | [phone] | | | | | | | | +--------+---------+ + + + documented as of this encounter Visit Diagnoses Not on filedocumented in this encounter"
--- OUTSIDE RECORDS SUMMARY | ~2020-05-07 | XMS | Encounter Summary ---
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 [...] + | [facility] | [address] | [place] [address] | | | [place] | | | [...] [facility] | [address] | [place] [address] | | | ENRIKE CASTAÑEDA | [address] [...] [facility] | [address] | [place] [address] | | | SERVICES, CORE | PARK [...] [facility] | [address] | [place] [address] | | | SERVICES, CORE | PARK [...] | | | LABORATORY | | | [facility] | | | SERVICES, | | | [...] MDRD equation recommended by the National | [facility] | | Kidney Disease Education Program. Estimated [...] [facility] | [address] | [place] [address] | | | SERVICES, CORE | PARK [...] [facility] | [address] | [place] [address] | | | SERVICES, CORE | PARK [...] [facility] | [address] | [place] [address] | | | SERVICES, CORE | PARK [...] | | | LABORATORY | | | [facility] | | | SERVICES, | | | [...] MDRD equation recommended by the National | [facility] | | Kidney Disease Education Program. Estimated [...] [facility] | [address] | [place] [address] | | | SERVICES, CORE | PARK [...] [facility] | [address] | [place] [address] | | | SERVICES, CORE | PARK [...] | | | LABORATORY | | | [facility] | | | SERVICES, | | | [...] MDRD equation recommended by the National | [facility] | | Kidney Disease Education Program. Estimated [...] | + + + + + | [facility] | [address] | [place] [address] | | | SERVICES, CORE | PARK [...] | + + + + + | [facility] | [address] | [place] [address] | | | SERVICES, CORE | PARK [...] | | | LABORATORY | | | [facility] | | | SERVICES, | | | [...] | + + + + + | [facility] | [address] | [place] [address] | | | SERVICES, ENRIKE | HENRY [...] [facility] | [address] | [place] [address] | | | SERVICES, CORE | PARK [...] [facility] | [address] | [place], [place] | | | EMMY POINT OF CARE | [address] | [address] | | | TESTS | | | [...] [facility] | [address] | [place], [place] | | | EMMY POINT OF CARE | [address] | [address] | | | TESTS | | | [...] [facility] | [address] | [place] [address] | | | SERVICES, | [address] [...] [facility] | [address] | [place] [address] | | | SERVICES, | [address] [...] [facility] | [address] | [place] [address] | | | SERVICES, CORE | PARK [...] | | | LABORATORY | | | [facility] | | | SERVICES, | | | [...] MDRD equation recommended by the National | [facility] | | Kidney Disease Education Program. Estimated [...] | + + + + + | [facility] | [address] | [place] [address] | | | SERVICES, [facility] | [address] | | | + [...] Note | + + | Service Account, HotLink Res In Interface - 10/05/2019 11:05 AM [...] | + + + + + | [facility] | [address] | [place] [address] | | | SERVICES, [facility] | [address] | | | + [...] | | | LABORATORY | | | [facility] | | | SERVICES, | | | [...] MDRD equation recommended by the National | [facility] | | Kidney Disease Education Program. Estimated [...] | + + + + + | [facility] | [address] | [place] [address] | | | SERVICES, CORE | [address] | | | + + + + + X-RAY ABD LTD FEEDING TUBE EVAL PORTABLE (10/05/2019 12:45 AM PST) + + | Specimen | + + | | + + + + + | Narrative | Performed At | + + + | EXAM: RI ABD LTD FEEDING TUBE EVAL INDICATION: 31M [...] Interface - 10/05/2019 10:31 AM PST EXAM: RI ABD LTD | | FEEDING TUBE EVAL [...] [facility] | [address] | [place], [place] | | | ALEXIS BOOTH OF CARE | [facility] | [address] | | | TESTS | | | [...] [facility] | [address] | [place], [place] | | | EMMY POINT OF CARE | [address] | [address] | | | TESTS | | | [...] Note | + + | Service Account, HotLink Res In Interface - 10/04/2019 9:55 AM [...] [facility] | [address] | [place] [address] | | | ENRIKE CASTAÑEDA | [address] [...] [facility] | [address] | [place] [address] | | | SERVICES, CORE | PARK [...] | + + + + + | [facility] | [address] | [place] [address] | | | SERVICES, CORE | [address] [...] | + + + + + | [facility] | [address] | [place] [address] | | | SERVICES, CORE | [address] [...] | | | LABORATORY | | | [facility] | | | SERVICES, | | | [...] MDRD equation recommended by the National | [facility] | | Kidney Disease Education Program. Estimated [...] | + + + + + | [facility] | [address] | [place] [address] | | | SERVICES, CORE | [address] [...] (H) | 70 - 99 mg/dL | [facility] - | | | GLUCOSE, | | [...] [facility] | [address] | [place], [place] | | | EMMY POINT OF CARE | [address] | [address] | | | TESTS | | | [...] DEPT OF | [address] | [place], [place] | | | CARDIOLOGY | [address] | [address] | | + + + + + X-RAY PORTABLE CHEST 1 VIEW (10/03/2019 8:15 AM PST) + + | Specimen | + + | | + + + + + | Narrative | Performed At | + + + | EXAM: RI CHEST 1 VIEW HISTORY: hypoxia COMPARISON: | [facility] | | 10/01/2019, 09/30/2019, CT from 09/28/2019 FINDINGS: Feeding | RADIOLOGY VOICE | | tube coursing into the stomach beyond the jzqjr-ot-weum. Lung | RECOGNITION 2 | | volumes [...] Interface - 10/03/2019 9:44 AM PST EXAM: RI CHEST 1 | | VIEW HISTORY: hypoxia COMPARISON: 10/01/2019, 09/30/2019, CT from 09/28/2019 FINDINGS: | | Feeding tube coursing into the stomach beyond the ozinx-eg-efoz. Lung volumes are small | | with [...] | + + + + + | [facility] | [address] | [place] [address] | | | SERVICES, CORE | [address]ENRY [...] | + + + + + | [facility] | [address] | [place] [address] | | | SERVICES, CORE | [address] [...] | | | LABORATORY | | | [facility] | | | SERVICES, | | | [...] MDRD equation recommended by the National | [facility] | | Kidney Disease Education Program. Estimated [...] [facility] | [address] | [place] [address] | | | SERVICES, CORE | PARK [...] [facility] | [address] | [place] [address] | | | SERVICES, CORE | PARK [...] | | | LABORATORY | | | [facility] | | | SERVICES, | | | [...] | + + + + + | [facility] | [address] | [place] [address] | | | SERVICES, ENRIKE | [address] [...] | + + + + + | [facility] | [address] | [place] [address] | | | ENRIKE CASTAÑEDA | [address]EN[address] [...] | + + + + + | [facility] | [address] | [place] [address] | | | SERVICES, CORE | [address] [...] | + + + + + | [facility] | [address] | [place] [address] | | | SERVICES, [facility] | [address] | | | + + + + + X-RAY CHEST 1 VIEW (10/01/2019 3:59 AM PST) + + | Specimen | + + | | + + + + + | Narrative | Performed At | + + + | EXAM: CHEST 1 VIEW HISTORY: evaluate for pulmonary edema, | [facility] | | pneumonia, LLL COMPARISON: 09/30/2019 FINDINGS: | RADIOLOGY VOICE | | Endotracheal tube has been removed. Enteric tube has been removed. | RECOGNITION 2 | | Feeding tube with tip below the diaphragm and beyond the | | | ijlzd-pn-gmwe. Stable dense left lower lobe retrocardiac | [...] Note | + + | Service Account, HotLink Res In Interface - 10/01/2019 10:02 AM PST EXAM: CHEST 1 | | VIEW HISTORY: evaluate for pulmonary edema, pneumonia, LLL COMPARISON: 09/30/2019 | | FINDINGS: Endotracheal tube has been removed. Enteric tube has been removed. Feeding | | tube with tip below the diaphragm and beyond the mqypo-zy-lsmw. Stable dense left lower | | lobe [...] | + + + + + | [facility] | [address] | [place] [address] | | | SERVICES, CORE | HENRY [...] + | [facility] | [address] | [place], [place] | | | CARDIOLOGY | [address] | [address] | | + + + + + [...] | + + + + + | [facility] | [address] | [place] [address] | | | SERVICES, CORE | [address] [...] [facility] | [address] | [place] [address] | | | SERVICES, CORE | PARK [...] | + + + + + | [facility] | [address] | [place] [address] | | | SERVICES, CORE | [address]EN[address] [...] | | | LABORATORY | | | [facility] | | | SERVICES, | | | [...] | + + + + + | [facility] | [address] | [place] [address] | | | SERVICES, CORE | HENRY [...] [facility] | [address] | [place], [place] | | | ALEXIS BOOTH OF CARE | [address] | [address] | | | TESTS | | | [...] [facility] | [address] | [place] [address] | | | SERVICES, CORE | PARK [...] | + + + + + | [facility] | [address] | [place] [address] | | | SERVICES, CORE | [address] [...] | + + + + + | [facility] | [address] | [place] [address] | | | SERVICES, ENRIKE | [address] [...] | + + + + + | [facility] | [address] | [place] [address] | | | SERVICES, CORE | [address]EN[address] [...] [facility] | [address] | [place] [address] | | | SERVICES, CORE | PARK [...] [facility] | [address] | [place] [address] | | | SERVICES, CORE | [address] | | | + + + + + X-RAY PORTABLE CHEST 1 VIEW (09/30/2019 11:01 AM PST) + + | Specimen | + + | | + + + + + | Narrative | Performed At | + + + | EXAM: RI CHEST 1 VIEW HISTORY: interval assessment | [...] Interface - 09/30/2019 12:07 PM PST EXAM: RI CHEST 1 | | VIEW HISTORY: interval [...] MD 09/30/2019 12:06 PM | |Preliminary: Aaron Moerl MD | |Dictation initiated: Aaron Morel MD [...] | + + + + + | [facility] | [address] | [place] [address] | | | SERVICES, CORE | PARK [...] [facility] | [address] | [place] [address] | | | SERVICES, CORE | PARK [...] | + + + + + | [facility] | [address] | [place] [address] | | | SERVICES, ENRIKE | HENRY [...] time. | LABORATORY | | | ENRIKE CASTAÑEAD | + + + + + + + + | Performing | Address | City/State/Zipcode | Phone Number | | Organization | | | | + + + + + | [facility] | [address] | [place] [address] | | | SERVICES, ENRIKE | [address] [...] | | | LABORATORY | | | [facility] | | | SERVICES, | | | [...] | + + + + + | [facility] | [address] | [place] [address] | | | SERVICES, ENRIKE | [address] [...] | + + + + + | [facility] | [address] | [place] [address] | | | SERVICES, CORE | [address] [...] | + + + + + | [facility] | [address] | [place] [address] | | | SERVICES, CORE | PARK [...] [facility] | [address] | [place] [address] | | | SERVICES, CORE | PARK [...] | | | LABORATORY | | | [facility] | | | SERVICES, | | | [...] MDRD equation recommended by the National | [facility] | | Kidney Disease Education Program. Estimated GFR Interpretive | LABORATORY | | Information: <60 mL/min/1.73 sq m Chronic Kidney | SERVICES, [facility] | | Disease <15 mL/min/1.73 sq m [...] | + + + + + | [facility] | [address] | [place] [address] | | | GARRY, ENRIKE | [address]ENRY [...] | + + + + + | [facility] | [address] | [place] [address] | | | SERVICES, ENRIKE | [address] [...] correct patient, procedure, | | | equipment, telecommunications support and site/side marked as required. With | | | questions refer to [facility] policy: Indications:: Diagnostic and | | | [...] | + + + + + | [facility] | [address] | [place] [address] | | | SERVICES, CORE | [address]ENRY [...] Note | + + | Service Account, HotLink Res In Interface - 09/28/2019 1:53 PM [...] Nuñez MD 09/28/2019 1:52 PM | |Preliminary: Wlilie Nuñez MD | |Dictation initiated: Willie Nuñez [...] [facility] | [address] | [place] [address] | | | SERVICES, CORE | PARK [...] | + + + + + | [facility] | [address] | [place] [address] | | | SERVICES, ENRIKE | HENRY [...] + + + + | PRODUCT | [id number] | | [facility] | | | UNIT [...] + + + + | EXPIRATION | [id number] | | [facility] | | | DATE [...] + + + + | BLOOD | [id number] | | [facility] | | | PRODUCT [...] [facility] | [address] | [place] [address] | | | SERVICES, | [address] [...] + + + + | PRODUCT | [id number] | | [facility] | | | UNIT [...] + + + + | EXPIRATION | [id number] | | [facility] | | | DATE [...] + + + + | BLOOD | [id number] | | [facility] | | | PRODUCT [...] [facility] | [address] | [place] [address] | | | SERVICES, | [address] [...] Note | + + | Service Account, HotLink Res In Interface - 09/28/2019 10:53 AM [...] [facility] | [address] | [place] [address] | | | SERVICES, CORE | PARK [...] | + + + + + | [facility] | [address] | [place] [address] | | | SERVICES, CORE | [address]ENRY [...] Note | + + | Service Account, HotLink Res In Interface - 09/28/2019 8:42 AM [...] + + + + | PRODUCT | [id number] | | [facility] | | | UNIT [...] + + + + | EXPIRATION | [id number] | | [facility] | | | DATE [...] + + + + | BLOOD | [id number] | | [facility] | | | PRODUCT [...] | + + + + + | [facility] | [address] | [place] [address] | | | SERVICES, | [address] [...] [facility] | [address] | [place] [address] | | | SERVICES, | [address] [...] | + + + + + | [facility] | [address] | [place] [address] | | | SERVICES, | [address] [...] + + + + | PRODUCT | [id number] | | [facility] | | | UNIT [...] + + + + | EXPIRATION | [id number] | | [facility] | | | DATE [...] + + + + | BLOOD | [id number] | | [facility] | | | PRODUCT [...] | + + + + + | [facility] | [address] | [place] [address] | | | SERVICES, | [address] [...] | + + + + + | [facility] | [address] | [place] [address] | | | SERVICES, CORE | PARK [...] | | | LABORATORY | | | [facility] | | | SERVICES, | | | [...] MDRD equation recommended by the National | [facility] | | Kidney Disease Education Program. Estimated [...] [facility] | [address] | [place] [address] | | | SERVICES, CORE | PARK [...] [facility] | [address] | [place] [address] | | | SERVICES, CORE | [address] | | | + + + + + X-RAY PORTABLE CHEST 1 VIEW (09/27/2019 8:05 AM PST) + + | Specimen | + + | | + + + + + | Narrative | Performed At | + + + | EXAM: RI CHEST 1 VIEW HISTORY: pneumonia COMPARISON: | [...] Interface - 09/27/2019 8:35 AM PST EXAM: RI CHEST 1 | | VIEW HISTORY: pneumonia [...] | + + + + + | [facility] | [address] | [place] [address] | | | [place] | | | | + + + [...] Note | + + | Service Account, @Payant Res In Interface - 09/27/2019 7:31 AM [...] | + + + + + | [facility] | [address] | [place] [address] | | | SERVICES, CORE | [address] [...] [facility] | [address] | [place] [address] | | | ENRIKE CASTAÑEDA | [address] [...] | | | LABORATORY | | | [facility] | | | SERVICES, | | | [...] MDRD equation recommended by the National | [facility] | | Kidney Disease Education Program. Estimated [...] | + + + + + | [facility] | [address] | [place] [address] | | | SERVICES, CORE | [address]RY [...] [facility] | [address] | [place] [address] | | | SERVICES, CORE | PARK [...] | | | LABORATORY | | | [facility] | | | SERVICES, | | | [...] | + + + + + | [facility] | [address] | [place] [address] | | | SERVICES, ENRIKE | [address] [...] Note | + + | Service Account, RadiEcosia Res In Interface - 09/26/2019 11:04 AM [...] LABORATORY | [address] | [place] [address] | | | SERVICES, CORE | [address] | | | + + + + + INR (09/26/2019 8:47 AM PST) + +-------+ + + + | Component | Value | Ref Range | Performed | Pathologist | | | | | At | Signature | + +-------+ + + + | INR | 1.18 | 0.90 - 1.20 INR | [facility] | | | | | | LABORATORY [...] | + + + + + | [facility] | [address] | [place] [address] | | | SERVICES, CORE | PARK [...] | + + + + + | [facility] | [address] | [place] [address] | | | SERVICES, CORE | [address]ENRY [...] | | | LABORATORY | | | [facility] | | | SERVICES, | | | [...] MDRD equation recommended by the National | [facility] | | Kidney Disease Education Program. Estimated [...] | + + + + + | [facility] | [address] | [place] [address] | | | SERVICES, CORE | PARK [...] | + + + + + | [facility] | [address] | [place] [address] | | | SERVICES, CORE | [address] [...] B: | | | | | | ConsiderC/CS | | | | + + + [...] | | | QUANT | Manuela Bailey, [facility],[place] | | PTH - [facility] | | | | [phone] | | | | | | [phone][employer] | | | | | | [...] [facility] | [address] | [place], [place] | | | UNIV PTH - [facility] | | [address] | | + + + + + [...] | + + + + + | [facility] | [address] | [place] [address] | | | SERVICES, CORE | PARK [...] [facility] | [address] | [place] [address] | | | SERVICES, | [address] [...] | + + + + + | [facility] | [address] | [place] [address] | | | SERVICES, CORE | PARK [...] [facility] | [address] | [place] [address] | | | SERVICES, | [address] [...] | + + + + + | [facility] | [address] | [place] [address] | | | SERVICES, | [address] [...] [facility] | [address] | [place] [address] | | | SERVICES, ENRIKE | PARK [...] | + + + + + | [facility] | [address] | [place] [address] | | | SERVICES, CORE | [address] [...] Note | + + | Service Account, HotLink Res In Interface - 09/25/2019 10:04 PM [...] report for confirmation 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 | [place], [place] | | | [facility]LEX[facility] | [address] | [address] | | | TESTS | | | | + + + + + CTA NECK W CONTRAST (09/25/2019 7:56 PM PST) + + | Specimen | + + | | + + + + + | Narrative | Performed At | + + + | EXAM: CTA NECK HISTORY: TRAUMA ACTIVATION PAGE [id number] | [facility] | | COMPARISON: None. TECHNIQUE: [...] Note | + + | Service Account, Cisiv In Interface - 09/26/2019 9:00 AM PST EXAM: CTA NECK | | HISTORY: TRAUMA ACTIVATION PAGE [id number] COMPARISON: None. TECHNIQUE: CT angiogram of the [...] FACE WITHOUT CONTRAST HISTORY: TRAUMA ACTIVATION | [facility] | | PAGE [id number] COMPARISON: None. TECHNIQUE: CT of the head [...] maxillary soft | | | tissues and fusion juncture grinder space. PARANASAL SINUSES: Acute blood products | [...] Note | + + | Service Account, HotLink Res In Interface - 09/26/2019 9:[address] HEAD AND FACE | | WITHOUT CONTRAST HISTORY: TRAUMA ACTIVATION PAGE [id number] COMPARISON: None. TECHNIQUE: CT | | of [...] left maxillary soft tissues and | | fusion juncture grinder space.PARANASAL SINUSES: Acute blood products are noted [...] posterior 10th and 11th rib fractures. See [facility] te dictation for compete lung and [...] FACE WITHOUT CONTRAST HISTORY: TRAUMA ACTIVATION | [facility] | | PAGE [id number] COMPARISON: None. TECHNIQUE: CT of the head [...] maxillary soft | | | tissues and fusion juncture grinder space. PARANASAL SINUSES: Acute blood products | [...] Note | + + | Service Account, Cisiv In Interface - 09/26/2019 9:[address] HEAD AND FACE | | WITHOUT CONTRAST HISTORY: TRAUMA ACTIVATION PAGE [id number] COMPARISON: None. TECHNIQUE: CT | | of [...] left maxillary soft tissues and | | fusion juncture grinder space.PARANASAL SINUSES: Acute blood products are noted [...] + + + + | PRODUCT | [id number] | | [facility] | | | UNIT [...] + + + + | EXPIRATION | [id number] | | [facility] | | | DATE [...] + + + + | BLOOD | [id number] | | [facility] | | | PRODUCT [...] | + + + + + | [facility] | [address] | [place] [address] | | | SERVICES, | [address] [...] + + + + | PRODUCT | [id number] | | [facility] | | | UNIT [...] + + + + | EXPIRATION | [id number] | | [facility] | | | DATE [...] + + + + | BLOOD | [id number] | | [facility] | | | PRODUCT [...] | + + + + + | [facility] | [address] | [place] [address] | | | SERVICES, | [address] [...] + + + + | PRODUCT | [id number] | | [facility] | | | UNIT [...] + + + + | EXPIRATION | [id number] | | [facility] | | | DATE [...] + + + + | BLOOD | [id number] | | [facility] | | | PRODUCT [...] | + + + + + | [facility] | [address] | [place] [address] | | | SERVICES, | [address] [...] + + + + | PRODUCT | [id number] | | [facility] | | | UNIT [...] + + + + | EXPIRATION | [id number] | | [facility] | | | DATE [...] + + + + | BLOOD | [id number] | | [facility] | | | PRODUCT [...] [facility] | [address] | [place] [address] | | | SERVICES, | [address] [...] + + + + | PRODUCT | [id number] | | [facility] | | | UNIT [...] + + + + | EXPIRATION | [id number] | | [facility] | | | DATE [...] + + + + | BLOOD | [id number] | | [facility] | | | PRODUCT [...] [facility] | [address] | [place] [address] | | | SERVICES, | [address] [...] 10/14/20 | 0.5 | | | | [id number]-[id number] | | 19 9:23 | inches | [...] | | | | | modification) on [facility] 10/13/19 at | | | | [...]
--- OUTSIDE RECORDS SUMMARY | ~2020-05-07 | XMS | Encounter Summary ---
Demographics + + + | Address | [address] | | | [place] [address] | + + + | Home Phone [...] Author + + + | Author | [facility] | + + + | Organization | [facility] | + + + | Address | Unknown | + + + | Phone | Unavailable | + + + Support + + + + + | Name | Relationship | Address | Phone | + + + + + | Kaila Oates | ECON | [place] | | | | | [address] | | + + + + + Care Team Providers + +------+ + | Care Gold Miner Name | Role | Phone | + +------+ + | Tomasz Solis MD | PCP | | + +------+ + Encounter Details +--------+ + + + + | Date | Type | Department | Care Team | Description | +--------+ + + + + | 09/27/ | Procedure | Diagnostic Imaging | | | | 2019 | Pass | Services at [facility] | | | | | | [address] | | | | | | Emilia SUBRAMANIAN | | | | | | [address] | | | | | | [place], [place] | | | | | | [address] | | | | | | [phone] | | | +--------+ + + + [...] | | | | | | Pamela [place], [place] | | | | | | [address] | | | | | | [phone] | | | | | | | | +--------+---------+ + + + documented as of this encounter Visit Diagnoses Not on filedocumented in this encounter"
--- OUTSIDE RECORDS SUMMARY | ~2020-05-07 | XMS | Encounter Summary ---
Demographics + + + | Address | [address] | | | [place] [address] | + + + | Home Phone | | + + + | Preferred Language | Unknown | + + + | Marital Status | Single | + + + | Druze Affiliation | NON | + + + | Race | or | + + + | Ethnic Group | Not or | + + + Author + + + | Author | [facility] | + + + | Organization | [facility] | + + + | Address | Unknown | + + + | Phone | Unavailable | + + + Support + + + + + | Name | Relationship | Address | Phone | + + + + + | Kaila Oates | ECON | [place] | | | | | [address] | | + + + + + Care Team Providers + +------+ + | Care Poultry And Fish Butcher Name | Role | Phone | + [...] | | plexopathy | [address] | | | | | Left arm | [address] | [address] [place] | | | | | weakness | [place], [place] | Research | | | | | Closed | [address] | Center | | | | | nondisplaced | Phone: | [place], [place] | | | | | fracture of | [phone] | [address] | | | | | seventh | Fax: | Phone: | | | | | cervical | [phone] | [phone] | | | | | vertebra, | | Fax: | | | | | unspecified | | [phone] | | | | | fracture | [...] | | | | | | CON [place] MRI | | | | | | | UPPER EXTR, | | | | | | | W/CONTRAST | | | +--------+--------+ + + + + Reason for Visit Diagnostic Testing (Routine) +--------+--------+ + + + + | Status | Reason | Specialty | Diagnoses / | Referred By | Referred To | | | | | Procedures | Contact | Contact | +--------+--------+ + + + + | Closed | | Radiology | Diagnoses | Nicole, | [facility] | | | | | Brachial | KATHYA Camacho | [address] | | | | | plexopathy | [address] | | | | | Left arm | [address] | Rd [place] | | | | | weakness | [place], [place] | Research | | | | | Closed | [address] | Center | | | | | nondisplaced | Phone: | [place], [place] | | | | | fracture of | [phone] | [address] | | | | | seventh | Fax: | Phone: | | | | | cervical | [phone] | [phone] | | | | | vertebra, | | Fax: | | | | | unspecified | | [phone] | | | | | fracture | [...] | | | | | | CON [place] MRI | | | | | | | UPPER EXTR, | | | | | | | W/CONTRAST | | | +--------+--------+ + + + + Encounter Details +--------+ + + + + | Date | Type | Department | Care Team | Description | +--------+ + + + + | 12/18/ | Hospital | Diagnostic Imaging | Bonnie Denise Bart, | | | 2019 | Encounter | Services at [facility] | [place] [address] | | | | | [address] | [place], [place] | | | | | Emilia Cancino [place] | [address] | | | | | [facility] | [phone] | | | | | [place], [place] | | | | | | [address] | | | | | | [phone] | | | +--------+ + + + [...] + + + | Blood Pressure | - | - | | + + + + + | Pulse | - | - | | + [...] + + + + | Weight | 83 kg (182 lb 15.7 | 12/19/2019 5:40 PM | | | | oz) | PST | | + + + + + | Height | - | - | | + + + + + | Body Mass Index | 25.61 | 11/15/2019 11:45 AM | | | [...] | | | | | | [place]ela [place], [place] | | | | | | [address] | | | | | | [phone] | | | | | | | | +--------+---------+ + + + documented as of this encounter Procedures + +--------+ + + + | Procedure Name | Priori | Date/Time | Associated Diagnosis | Comments | | | ty | | | | + +--------+ + + + | MRI BRACHIAL PLEX LT | Routin | 12/19/2019 | Brachial | Results for this | | WWO CON | e | 6:26 PM | plexopathy Left arm | procedure are in the | | | | PST | weakness Closed | results section. | | | | | nondisplaced | | | | | | fracture of seventh | | | | | | cervical vertebra, | | | | | | unspecified fracture | | | | | | morphology, initial | | | | | | encounter (HCC) | | + +--------+ + + + documented in this encounter Results MRI BRACHIAL PLEX LT [facility] CON (12/19/2019 6:26 PM PST) + + [...] | Diagnosis | + + | Brachial plexopathy Brachial plexus lesions | + + | Left arm weakness Other musculoskeletal symptoms referable to limbs | + + | Closed nondisplaced fracture of seventh cervical vertebra, unspecified fracture | | morphology, initial encounter (HCC) | + + documented in this encounter Administered Medications + +---------+ +-------+------+------+ | Medication Order | MAR | Action | Dose | Rate | Site | | | Action | Date | | | | + +---------+ +-------+------+------+ | gadoterate meglumine (DOTAREM) | IV Push | 12/19/19 | 16 mL | | | | 0.5 mmol/mL (376.9 mg/mL) | | 20 6:12 | | | | | injection 16 mL 16 mL, | | PM PST | | | | | intravenous, ONCE, 1 dose, Mon | | | | | | | 12/19/19 at 1815 | | | | | | + +---------+ +-------+------+------+ +---+---+ | | | +---+---+ documented in this encounter"
--- OUTSIDE RECORDS SUMMARY | ~2020-05-07 | XMS | Encounter Summary ---
Demographics + + + | Address | [address] | | | [place] [address] | + + + | Home Phone [...] + + | Author | [facility] | + + + | Organization | [facility] [employer] [facility] | + + + | Address | Unknown | + + + | Phone | Unavailable | + + + Support + + + + + | Name | Relationship | Address | Phone | + + + + + | Kaila Oates | ECON | [place] | | | | | [address] | | + + + + + Care Team Providers + +------+ + | Care Card Folder Name | Role | Phone | + [...] | | | Reconstructive | Emilia Cancino [place], | | | | | Services at [facility] | [place] [address] | | | | | [address] | [phone] | | | | | [facility] | | | | | | and Healing, | | | | | | Building [address], 5th | | | | | | Floor [place], [place] | | | | | | [address] | | | | | | [phone] | | | +--------+ + + + [...] | 2020 | Visit | | ,PhD [address] | | | | | | [place], [place] | | | | | | [address] | | | | | | [phone] | | | | | | | | +--------+---------+ + + + documented as of this encounter Visit Diagnoses Not on filedocumented in this encounter"
--- OUTSIDE RECORDS SUMMARY | ~2020-05-07 | XMS | Encounter Summary ---
Demographics + + + | Address | [address] | | | [place] [address] | + + + | Home Phone | | + + + | Preferred Language | Unknown | + + + | Marital Status | Single | + + + | Religion Affiliation | NON | + + + | Race | or | + + + | Ethnic Group | Not or | + + + Author + + + | Author | [facility] | + + + | Organization | [facility] | + + + | Address | Unknown | + + + | Phone | Unavailable | + + + Support + + + + + | Name | Relationship | Address | Phone | + + + + + | Kaila Oates | ECON | [place] | | | | | [address] | | + + + + + Care Team Providers + +------+ + | Care Tennis Ball Coverer Hand Name | Role | Phone | + [...] | | Rd Mailcode: [id number] | [place], [place] | | | | | [place], [place] | [address] | | | | | [address] | | | | | | [phone] | | | +--------+ + + + [...] | | | | | Pamela [place], [place] | | | | | | [address] | | | | | | [phone] | | | | | | | [...] the | | | | | | [id number]. | | | | | | Vertebral [...] | + +---------+ + + | [facility] DEPARTMENT OF | | | | | RADIOLOGY | | | | + +---------+ + + documented in this encounter Visit Diagnoses Not on filedocumented in this encounter"
--- OUTSIDE RECORDS SUMMARY | ~2020-05-07 | XMS | Encounter Summary ---
Demographics + + + | Address | [address] | | | [place] [address] | + + + | Home Phone | | + + + | Preferred Language | Unknown | + + + | Marital Status | Single | + + + | Taoist Affiliation | NON | + + + | Race | or | + + + | Ethnic Group | Not or | + + + Author + + + | Author | [facility] | + + + | Organization | [facility] | + + + | Address | Unknown | + + + | Phone | Unavailable | + + + Support + + + + + | Name | Relationship | Address | Phone | + + + + + | Kaila Oates | ECON | [place] | | | | | [address] | | + + + + + Care Team Providers + +------+ + | Care Contract Loader Name | Role | Phone | + +------+ + | Tomasz Solis MD | PCP | | + +------+ + Encounter Details +--------+ + + + + | Date | Type | Department | Care Team | Description | +--------+ + + + + | 04/30/ | Hospital | Registration [address] | Andre, | | | 2005 | Activity | [address] | MD [address] | | | | [address] Mailcode: RPB07 | [facility] | | | | | [place], [place] | Road [place], [place] | | | | | [address] | [id number] | | | | | [phone] | | | +--------+ + + + [...] | | | | | | [place]ela [place], [place] | | | | | | [address] | | | | | | [phone] | | | | | | | | +--------+---------+ + + + documented as of this encounter Procedures + +--------+ + + + | Procedure Name | Priori | Date/Time | Associated Diagnosis | Comments | | | ty | | | | + +--------+ + + + | CT LARYNX WO | Urgent | 04/30/2006 | | Results for this | | CONTRAST | | 10:10 AM | | procedure are in the | | | | PDT | | results section. | + +--------+ + + + documented in this encounter Results CT LARYNX WO CONTRAST (04/30/2006 10:10 AM PDT) + + + + + + | Component | Value | Ref Range | Performed | Pathologist | | | | | At | Signature | + + + + + + | CT LARYNX | Radiologist 1: GIO | | | | | WO CONTRAST | [facility] Ferrer | | | | | | James-Radiologist 2: | | | | | | [facility] LARYNX | | | [...] | | | | | arch of [id number] | | | | | | fracture [...] | | + +---------+ + + | [facility] DEPARTMENT | | | | | RADIOLOGY | | | | + +---------+ + + documented in this encounter Visit Diagnoses Not on filedocumented in this encounter"
--- OUTSIDE RECORDS SUMMARY | ~2020-05-07 | XMS | Encounter Summary ---
Demographics + + + | Address | [address] | | | [place] [address] | + + + | Home Phone [...] + | Author | [facility] | + + + | Organization | [facility] | + + + | Address | Unknown | + + + | Phone | Unavailable | + + + Support + + + + + | Name | Relationship | Address | Phone | + + + + + | Kaila Oates | ECON | [place] | | | | | [address] | | + + + + + Care Team Providers + +------+ + | Care Sand Analyst Name | Role | Phone | + +------+ + | Tomasz Solis MD | PCP | | + +------+ + Encounter Details +--------+ + + + + | Date | Type | Department | Care Team | Description | +--------+ + + + + | 09/26/ | Procedure | 6A Intra Op [address] | | | | 2019 | Pass | [address] | | | | | | [place]ak MERINO Yossi | | | | | | Hospital Admitting | | | | | | Desk Located on the | | | | | | 9th floor | | | | | | [place], [place] | | | | | | [address] | | | +--------+ + + + [...] | | | | | | [place]ela [place], [place] | | | | | | [address] | | | | | | [phone] | | | | | | | | +--------+---------+ + + + documented as of this encounter Visit Diagnoses Not on filedocumented in this encounter"
--- OUTSIDE RECORDS SUMMARY | ~2020-05-07 | XMS | Encounter Summary ---
Demographics + + + | Address | [address] | | | [place] [address] | + + + | Home Phone [...] + | Author | [facility] | + + + | Organization | [facility] | + + + | Address | Unknown | + + + | Phone | Unavailable | + + + Support + + + + + | Name | Relationship | Address | Phone | + + + + + | Kaila Oates | ECON | [place] | | | | | [address] | | + + + + + Care Team Providers + +------+ + | Care House Worker General Name | Role | Phone | + [...] floor | | | | | | [place], [place] | | | | | | [address] | | | +--------+ + + + [...] | | | | | | [place], [place] | | | | | | [address] | | | | | | [phone] | | | | | | | | +--------+---------+ + + + documented as of this encounter Visit Diagnoses Not on filedocumented in this encounter"
--- OUTSIDE RECORDS SUMMARY | ~2020-05-07 | XMS | Encounter Summary ---
Demographics + + + | Address | [address] | | | [place] [address] | + + + | Home Phone [...] + + | Author | [facility] | + + + | Organization | [facility] | + + + | Address | Unknown | + + + | Phone | Unavailable | + + + Support + + + + + | Name | Relationship | Address | Phone | + + + + + | Kaila Oates | ECON | [place], [place] | | | | | [address] | | + + + + + Care Team Providers + +------+ + | Care Steam Powerplant Supervisor Name | Role | Phone | + +------+ + PCP | Unavailable | + +------+ + Encounter Details +--------+ + + + + | Date | Type | Department | Care Team | Description | +--------+ + + + + | 04/30/ | ED Progress | [facility] | Report, Emergency | ED Progress Note | | 2005 | | MEDICINE | Services | | | | Note-Transc | | | | | | ribed | | | | +--------+ + + [...] | 2020 | Visit | | ,PhD [address] | | | | | | [place], [place] | | | | | | [address] | | | | | | [phone] | | | | | | | | +--------+---------+ + + + documented as of this encounter Visit Diagnoses Not on filedocumented in this encounter"
--- OUTSIDE RECORDS SUMMARY | ~2020-05-07 | XMS | Encounter Summary ---
Demographics + + + | Address | [address] | | | [place] [address] | + + + | Home Phone [...] Author + + + | Author | [facility] | + + + | Organization | [facility] [employer] [facility] | + + + | Address | Unknown | + + + | Phone | Unavailable | + + + Support + + + + + | Name | Relationship | Address | Phone | + + + + + | Kaila Oates | ECON | [place] | | | | | [address] | | + + + + + Care Team Providers + +------+ + | Care Hardware Assembler Name | Role | Phone | + [...] + + + + | 09/26/ | Anesthesia | 6A Intra Op 3181 | Rizwana Cortez MD | | | 2019 | Event | [address] | [address] | | | | | [facility] | Emilia Cancino [place], | | | | | Hospital Admitting | [place] [address] | | | | | Desk Located on the | [phone] | | | | | 9th floor | | | | | | [facility] [place] | Brittny Monge | | | | | [address] | C, FINANCIAL SALES ASSISTANT [address] | | | | | | [address] | | | | | | [place], [place] | | | | | | [address] | | | | | | [phone] | | | | | | | | +--------+ + + + + Anesthesia Record + + + + + | Procedure Name | Responsible | Anesthesia Start | Anesthesia Stop Time | | | Anesthesiologist | Time | | + + + + + | COMPLEX LEFT FACIAL | Rizwana Cortez MD | 09/26/192049 | 09/27/1930 | | LACERATION REPAIR, | | | | | LEFT FACIAL NERVE | | | | | EXPLORATION (Left | | | | | Face) | | | | + + + + + +----+---+ + + | Da | T | Event | Comment | | te | i | | | | | m | | | | | e | | | +----+---+ + + | 12 | 2 | Eq Check | Anesthesia machine checked Equipment verified | | /0 | 0 | | | | 9/ | 1 | | | | 20 | 5 | | | | 19 | | | | +----+---+ + + | | 2 | Pt. Check | Prior to anesthesia start, pt. Identified, examined, chart | | | 0 | | reviewed, PARQ held, anesthetic plan made or approved by | | | 1 | | attending anesthesiologist. NPO status confirmed as appropriate | | | 5 | | for procedure Preoperative evaluation: unchanged | +----+---+ + + | | 2 | An Start | | | | 0 | | | | | 5 | | | | | 0 | | | +----+---+ + + | | 2 | An Start | | | | 1 | Data | | | | 0 | | | | | 3 | | | +----+---+ + + | | 2 | Vitals | Monitors applied Vital signs checked Patient ready for anesthesia | | | 1 | Checked | | | | 0 | | | | | 3 | | | +----+---+ + + | | 2 | Ready | | | | 1 | | | | | 1 | | | | | 6 | | | +----+---+ + + | | 2 | Abx | | | | 1 | Administere | | | | 1 | d | | | | 8 | | | +----+---+ + + | | 2 | Incision | | | | 1 | | | | | 4 | | | | | 3 | | | +----+---+ + + | 12 | 0 | Surgery end | | | /1 | 0 | | | | 0/ | 0 | | | | 20 | 0 | | | | 19 | | | | +----+---+ + + | | 0 | an stop | | | | 0 | data | | | | 0 | | | | | 3 | | | +----+---+ + + | | 0 | OR to | Patient transported to ICU with continuous monitoring, intubated | | | 0 | ICU/Handoff | and ventilated, handoff given to ICU team. | | | 2 | | | | | 7 | | | +----+---+ + + | | 0 | SBAR | ICU Handoff | | | 0 | | | | | 2 | | | | | 8 | | | +----+---+ + + | | 0 | Anesthesia | | | | 0 | End | | | | 2 | | | | | 9 | | | +----+---+ + + +------+ | Meds | +------+ + + + | Name | Total | + + + | propofol (DIPRIVAN) 200 mg | 933,156 mcg | + + + | fentaNYL INF | 596.67 mcg | + + + | ceFAZolin | 2,000 mg | + + + | lactated ringers IV | 0 mL | + + + + + | Name | + + | O2 FR Avance (Total Liters) | + + | Air FR Avance (l/min) | + + | Insp Iso | + + | Et Iso | + + + + | No [...] +--------+ + + + | Periph | 09/25/19; Left; Hand; 16 g; No; | 09/25/19 0000 by | 09/28/19 1800 by | | eral | Positive; 09/28/19; 1800; | Gregorio Dumas RN | Marguerite Arthur RN | | IV | Drainage, Catheter damage | | | +--------+ + + + | Periph | 09/25/19; Left; Forearm; 20 g; | 09/25/19 0000 by | 10/06/19 0800 by | | eral | No; Positive; 10/06/19; 0800; No | Gregorio Dumas RN | Saroj Ruggiero RN | | IV | longer present | | | +--------+ + + + | ETT | 09/25/19; Endotracheal Tube; 7.5; | 09/25/19 0000 by | 09/30/19 1230 by | | | Oral; Cuffed; 09/30/19; 1230 | Astrid Faye RN | Karla Rodriguez RN | +--------+ + + + | Centra | 09/25/19; Right; Subclavian; | 09/25/19 0000 by | 09/28/19 1600 by | | l Line | 09/28/19; 1600; Per order | Astrid Faye RN | Marguerite Arthur RN | | - | | | | | Triple | | | | | Lumen | | | | +--------+ + + + | Naso/O | 09/25/19; Oral; 09/30/19; 1230 | 09/25/19 0000 by | 09/30/19 1230 by | | ro | | Astrid Faye RN | Karla Rodriguez RN | | Tube | | | | +--------+ + + + | Arteri | 09/25/19; 1957; Standard; Left; | 09/25/191957 by | 09/28/191154 by | | al | Radial; 20g; 09/28/19; 1154; Per | Astrid Faye RN | Marguerite Arthur RN | | Line | order | | | +--------+ + + + | Periph | 09/25/191999; Left; | 09/25/191999 by | 10/04/192129 by | | eral | Antecubital; 18 g; None; No; | Aye Witt RN | Kristen Carcamo RN | | IV | Positive; 10/04/192129; | | | | | Discharge, Site problems | | | +--------+ + + + | Periph | 09/25/19; 2213; Right; Anterior; | 09/25/192213 by | 10/06/19619 by | | eral | Antecubital; 16 g; No; 10/06/19; | Aye Witt RN | Kwan Hargrove RN | | IV | 0620 | | | +--------+ + + + | Urethr | 09/26/19; 0117; Astrid Faye RN; | 09/26/19 0117 by | 10/04/19 1044 by | | al | 1; Temp-probe Guerda; 10 mL; | Aye Witt RN | Cecilia Mak RN | | Cathet | 10/04/19; 1044; Per order | | | | er | | | [...] | | | | | | [place], [place] | | | | | | [address] | | | | | | [phone] | | | | | | | [...] | ceFAZolin (ANCEF) injection | Given | 09/26/20 | 2,000 mg | | | | intravenous, INTRAPROCEDURE PRN, | | 19 9:18 | | | | | Starting 09/26/19 at 2118, | | PM PST | | | | | Until 09/27/19 at 0009 | | | | | | + +--------+ + +------+------+ +---+---+ | | | +---+---+ + +---------+ +--------+ +---+ | fentaNYL (SUBLIMAZE) 2500 | New Bag | 09/26/20 | 200 | 20 mL/hr | | | mcg/250 mL (10 mcg/mL) IV | | 19 9:04 | mcg/hr | | | | infusion (RTU) INTRAPROCEDURE | | PM PST | | | | | CONTINUOUS PRN, Starting Mon | | | | | | | 09/26/19 at 2104, Until Thu | | | | | | | 09/27/19 at 8 | | | | | | + +---------+ +--------+ +---+ +---+---+ | | | +---+---+ + + + + +---+---+ | propofol (DIPRIVAN) 200 mg | Rate/Dos | 09/26/20 | 50 | | | | INTRAPROCEDURE CONTINUOUS PRN, | e Change | 19 10:33 | mcg/kg/m | | | | Starting 09/26/19 at 2105, | | PM PST | in | | | | Until Thu09/27/19 at 000 | | | | | | + + + + +---+---+ + + + +---+---+ | Rate/Dose Change | 09/26/20 | 80 | | | | | 19 9:37 | mcg/kg/m | | | | | PM PST | in | | | + + + +---+---+ | New Bag | 09/26/20 | 50 | | | | | 19 9:05 | mcg/kg/m | | | | | PM PST | in | | | + + + +---+---+ +---+---+ | | | +---+---+ documented in this encounter
--- OUTSIDE RECORDS SUMMARY | ~2020-05-07 | XMS | Encounter Summary ---
Demographics + + + | Address | [address] | | | [place] [address] | + + + | Home Phone | | + + + | Preferred Language | Unknown | + + + | Marital Status | Single | + + + | Presybeterian Affiliation | NON | + + + | Race | or | + + + | Ethnic Group | Not or | + + + Author + + + | Author | [facility] | + + + | Organization | [facility] | + + + | Address | Unknown | + + + | Phone | Unavailable | + + + Support + + + + + | Name | Relationship | Address | Phone | + + + + + | Kaila Oates | ECON | [place] | | | | | [address] | | + + + + + Care Team Providers + +------+ + | Care Jacquard Loom Card Changer Name | Role | Phone | + +------+ + | Tomasz Solis MD | PCP | | + +------+ + Reason for Visit + + + | Reason | Comments | + + + | Scheduling | COVID-19 precautions | + + + Encounter Details +--------+ + + + + | Date | Type | Department | Care Team | Description | +--------+ + + + + | 12/29/ | Telephone | Neurology Movement | Carissa Hernandez MD | Scheduling (COVID-19 | | 2020 | | Disorders Clinic at | [address] [facility] | precautions) | | | | [facility] | [facility], | | | | | and Healing [address] | [place] [address] | | | | | [address] [facility] | [phone] | | | | | Health and Healing, | | | | | | [facility] | | | | | | [place], [place] | | | | | | [address] | | | | | | [phone] | | | +--------+ + + + [...] | 2020 | Visit | | ,PhD [address] | | | | | | [place], [place] | | | | | | [address] | | | | | | [phone] | | | | | | | | +--------+---------+ + + + documented as of this encounter Visit Diagnoses Not on filedocumented in this encounter"
--- OUTSIDE RECORDS SUMMARY | ~2020-05-07 | XMS | Encounter Summary ---
Demographics + + + | Address | [address] | | | [place] [address] | + + + | Home Phone | | + + + | Preferred Language | Unknown | + + + | Marital Status | Single | + + + | Jainism Affiliation | NON | + + + | Race | or | + + + | Ethnic Group | Not or | + + + Author + + + | Author | [facility] | + + + | Organization | [facility] | + + + | Address | Unknown | + + + | Phone | Unavailable | + + + Support + + + + + | Name | Relationship | Address | Phone | + + + + + | Kaila Oates | ECON | [place] | | | | | [address] | | + + + + + Care Team Providers + +------+ + | Care Concrete Smoother Name | Role | Phone | + +------+ + | Tomasz Solis MD | PCP | | + +------+ + Encounter Details +--------+ + + + + | Date | Type | Department | Care Team | Description | +--------+ + + + + | 10/11/ | Ophth Exam | [facility] | Kyree Moran, | | | 2019 | | [place]/[facility]hthalmol | [address] [facility] | | | | | kelli at [facility] [address] | [address] | | | | | [facility] | [place], [place] | | | | | Health and Healing, | [address] | | | | | [facility] | [phone] | | | | | Floor [place], [place] | | | | | | [address] | | | | | | [phone] | | | +--------+ + + + [...] | 2019 | Visit | | ,PhD [address] | | | | | | [place], [place] | | | | | | [address] | | | | | | [phone] | | | | | | | | +--------+---------+ + + + documented as of this encounter Visit Diagnoses Not on filedocumented in this encounter"
--- OUTSIDE RECORDS SUMMARY | ~2020-05-07 | XMS | Encounter Summary ---
Demographics + + + | Address | [address] | | | [place] [address] | + + + | Home Phone [...] + + | Author | [facility] [employer] [facility] | + + + | Organization | [facility] [employer] [facility] | + + + | Address | Unknown | + + + | Phone | Unavailable | + + + Support + + + + + | Name | Relationship | Address | Phone | + + + + + | Kaila Oates | ECON | [place] | | | | | [address] | | + + + + + Care Team Providers + +------+ + | Care Qa Automation Developer Name | Role | Phone | [...] Activity | [address] | MD [address] | | | | | [address] Mailcode: [id number] | [facility] | | | | | [place], [place] | Road [place], [place] | | | | | [address] | [id number] | | | | | [phone] | | | +--------+ + + + [...] | | | | | | [place], [place] | | | | | | [address] | | | | | | [phone] | | | | | | | [...] | | | | | arch of [id number] | | | | | | fracture [...] | | + +---------+ + + | [facility] DEPARTMENT | | | | | RADIOLOGY | | | | + +---------+ + + documented in this encounter Visit Diagnoses Not on filedocumented in this encounter"
--- OUTSIDE RECORDS SUMMARY | ~2020-05-07 | XMS | Encounter Summary ---
Demographics + + + | Address | [address] | | | [place] [address] | + + + | Home Phone [...] + | Author | [facility] | + + + | Organization | [facility] | + + + | Address | Unknown | + + + | Phone | Unavailable | + + + Support + + + + + | Name | Relationship | Address | Phone | + + + + + | Kaila Oates | ECON | [place] | | | | | [address] | | + + + + + Care Team Providers + +------+ + | Care Loom Fixer Apprentice Name | Role | Phone | + [...] | | | | | Staff | [facility] | | | | | | [address] | | | | | | [facility] | | | | | | and Healing, | | | | | | [address] | | | | | | [place], [place] | | | | | | [address] | | | | | | [phone] | | | +--------+ + + + [...] | | | | | | [place] [facility] [place] | | | | | | [address] | | | | | | [phone] | | | | | | | [...] | | its performance characteristics determined by [employer]. It | | | has not been [...] [facility] | [address] | [place] [address] | | | MICROBIOLOGY LAB | [address] | | | + + + + + | [facility] | [address] | [place], [place] | | | MICROBIOLIGY LAB | [address] | [address], [place] | | + + + + + documented in this encounter Visit Diagnoses + + | Diagnosis | + + | Encounter for screening for other viral diseases - Primary | + + documented in this encounter"
--- OUTSIDE RECORDS SUMMARY | ~2020-05-07 | XMS | Encounter Summary ---
Demographics + + + | Address | [address] | | | [place] [address] | + + + | Home Phone | | + + + | Preferred Language | Unknown | + + + | Marital Status | Single | + + + | Congregation Affiliation | NON | + + + | Race | or | + + + | Ethnic Group | Not or | + + + Author + + + | Author | [facility] [employer] [facility] | + + + | Organization | [facility] | + + + | Address | Unknown | + + + | Phone | Unavailable | + + + Support + + + + + | Name | Relationship | Address | Phone | + + + + + | Kaila Oates | ECON | [place] | | | | | [address] | | + + + + + Care Team Providers + +------+ + | Care Intensive Care Ambulance Paramedic Name | Role | Phone | + [...] | | | | | [place] [address] | | | +--------+ + + + [...] | | | | | | [place], [place] | | | | | | [address] | | | | | | [phone] | | | | | | | | +--------+---------+ + + + documented as of this encounter Visit Diagnoses Not on filedocumented in this encounter"
--- OUTSIDE RECORDS SUMMARY | ~2020-05-07 | XMS | Encounter Summary ---
Demographics + + + | Address | [address] | | | [place] [address] | + + + | Home Phone [...] [place] | | | | | [address] | | + + + + + Care Team Providers + +------+ + | Care Nurse Gynecology Name | Role | Phone | + +------+ + | Tomasz Solis MD | PCP | | + +------+ + Encounter Details +--------+--------+ + + + | Date | Type | Department | Care Team | Description | +--------+--------+ + + + | 03/06/ | Travel | | | | | [...] | 2020 | Visit | | ,PhD [address] | | | | | | [place], [place] | | | | | | [address] | | | | | | [phone] | | | | | | | | +--------+---------+ + + + documented as of this encounter Visit Diagnoses Not on filedocumented in this encounter"
--- OUTSIDE RECORDS SUMMARY | ~2020-05-07 | XMS | Encounter Summary ---
Demographics + + + | Address | [address] | | | [place] [address] | + + + | Home Phone [...] Author + + + | Author | [facility] | + + + | Organization | [facility] | + + + | Address | Unknown | + + + | Phone | Unavailable | + + + Support + + + + + | Name | Relationship | Address | Phone | + + + + + | Kaila Oates | ECON | [place] | | | | | [address] | | + + + + + Care Team Providers + +------+ + | Care Calender Worker Helper Name | Role | Phone | + +------+ + | Tomasz Solis MD | PCP | | + +------+ + Encounter Details +--------+ + + + + | Date | Type | Department | Care Team | Description | +--------+ + + + + | 03/07/ | Pharmacy | Outpatient Retail | | | | 2019 | Visit | [facility] | | | | | | [address] | | | | | | [address] [place], [place] | | | | | | [address] | | | | | | [phone] | | | +--------+ + + + [...] | | | | | | [place] | | | | | | [address] | | | | | | [phone] | | | | | | | | +--------+---------+ + + + documented as of this encounter Visit Diagnoses Not on filedocumented in this encounter"
--- OUTSIDE RECORDS SUMMARY | ~2020-05-07 | XMS | Encounter Summary ---
Demographics + + + | Address | [address] | | | [place] [address] | + + + | Home Phone [...] Author + + + | Author | [facility] | + + + | Organization | [facility] | + + + | Address | Unknown | + + + | Phone | Unavailable | + + + Support + + + + + | Name | Relationship | Address | Phone | + + + + + | Kaila Oates | ECON | [place] | | | | | [address] | | + + + + + Care Team Providers + +------+ + | Care Rock Lather Name | Role | Phone | + [...] Pharmacy | | | | | | [address] | | | | | | [address] [place], [place] | | | | | | [address] | | | | | | [phone] | | | +--------+ + + + [...] | | | | | | [place] | | | | | | [address] | | | | | | [phone] | | | | | | | | +--------+---------+ + + + documented as of this encounter Visit Diagnoses Not on filedocumented in this encounter"
--- OUTSIDE RECORDS SUMMARY | ~2020-05-07 | XMS | Encounter Summary ---
Demographics + + + | Address | [address] | | | [place] [address] | + + + | Home Phone [...] Author + + + | Author | [facility] [employer] [facility] | + + + | Organization | [facility] [email or web address] [facility] | + + + | Address | Unknown | + + + | Phone | Unavailable | + + + Support + + + + + | Name | Relationship | Address | Phone | + + + + + | Kaila Oates | ECON | [place] | | | | | [address] | | + + + + + Care Team Providers + +------+ + | Care Purchasing Contracting Clerk Name | Role | Phone | + +------+ + | Tomasz Solis MD | PCP | | + +------+ + Encounter Details +--------+ + + + + | Date | Type | Department | Care Team | Description | +--------+ + + + + | 11/15/ | Procedure | Diagnostic Imaging | | | | 2019 | Pass | Services at [facility] | | | | | | [address] | | | | | | [address] | | | | | | [facility] | | | | | | [place], [place] | | | | | | [address] | | | | | | [phone] | | | +--------+ + + + [...] | 2019 | Visit | | ,PhD [address] | | | | | | [place], [place] | | | | | | [address] | | | | | | [phone] | | | | | | | | +--------+---------+ + + + documented as of this encounter Visit Diagnoses Not on filedocumented in this encounter"
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
--- OUTSIDE RECORDS SUMMARY | ~2020-05-07 | XMS | Encounter Summary ---
Demographics + + + | Address | [address] | | | [place] [address] | + + + | Home Phone [...] | [facility] | + + + | Organization | [facility] | + + + | Address | Unknown | + + + | Phone | Unavailable | + + + Support + + + + + | Name | Relationship | Address | Phone | + + + + + | Kaila Oates | ECON | [place], [place] | | | | | [address] | | + + + + + Care Team Providers + +------+ + | Care Hog Confinement System Manager Name | Role | Phone | [...] | 2020 | Visit | | ,PhD [address] | | | | | | [place], [place] | | | | | | [address] | | | | | | [phone] | | | | | | | | +--------+---------+ + + + documented as of this encounter Visit Diagnoses Not on filedocumented in this encounter"
--- OUTSIDE RECORDS SUMMARY | ~2020-05-07 | XMS | Encounter Summary ---
Demographics + + + | Address | [address] | | | [place] [address] | + + + | Home Phone [...] [place] | | | | | [address] | | + + + + + Care Team Providers + +------+ + | Care It Infrastructure Engineer Name | Role | Phone | [...] | | | | | | [place], [place] | | | | | | [address] | | | | | | [phone] | | | | | | | | +--------+---------+ + + + documented as of this encounter Visit Diagnoses Not on filedocumented in this encounter"
--- OUTSIDE RECORDS SUMMARY | ~2020-05-07 | XMS | Encounter Summary ---
Demographics + + + | Address | [address] | | | [place] [address] | + + + | Home Phone | | + + + | Preferred Language | Unknown | + + + | Marital Status | Single | + + + | Faith Affiliation | NON | + + + | Race | or | + + + | Ethnic Group | Not or | + + + Author + + + | Author | [facility] | + + + | Organization | [facility] | + + + | Address | Unknown | + + + | Phone | Unavailable | + + + Support + + + + + | Name | Relationship | Address | Phone | + + + + + | Kaila Oates | ECON | [place] | | | | | [address] | | + + + + + Care Team Providers + +------+ + | Care Senior Director Finance Name | Role | Phone | + [...] | | | | | weakness | [place], [place] | Research | | | | | Closed | [address] | Center | | | | | nondisplaced | Phone: | [place], [place] | | | | | fracture of | [phone] | [address] | | | | | seventh | Fax: | Phone: | | | | | cervical | [phone] | [phone] | | | | | vertebra, | | Fax: | | | | | unspecified | | [phone] | | | | | fracture | [...] | | | | | | [facility] | | | | | | [...] | | and Healing [address] | [place], [place] | cervical vertebra, | | | | [address] [facility] | [address] | unspecified fracture | | | | [facility] He[facility], | [phone] | morphology, initial | | | | Building | | encounter (HCC) | | | | Floor [place], [place] | | (Primary Dx); Neck | | | | [address] | | pain; Back pain, | | | | [phone] | | unspecified back | | | [...] encounter | | | | | | ([facility]); Left arm | | | | | | weakness; Fracture | | | | | | of lumbar spine | | | | | | without cord injury, | | | | | | closed, initial | | | | | | encounter ([facility]) | +--------+---------+ + + + Social [...] none Past Surgical History Procedure Laterality Date [place] teeth extraction Current Outpatient Medications on File [...] file Gets together: Not on file Attends holiness service: Not on file Active member of [...] and right Deltoid/Abduction L 0/5 R 5/5 Assembler Mechanical Ordnance strength L 3/5 R 5/5 Station and [...] reassessment and imaging. Because he lives in [facility], we will try to coordinate same day [...] Bowel/bladder function changes). I spent 55 minutes [id number] with the patient. I spent more than [...] | | | | | | [place], [place] | | | | | | [address] | | | | | | [phone] | | | | | | | [...]
--- OUTSIDE RECORDS SUMMARY | ~2020-05-07 | XMS | Encounter Summary ---
Demographics + + + | Address | [address] | | | [place] [address] | + + + | Home Phone [...] + + | Author | [facility] | + + + | Organization | [facility] | + + + | Address | Unknown | + + + | Phone | Unavailable | + + + Support + + + + + | Name | Relationship | Address | Phone | + + + + + | Kaila Oates | ECON | [place] | | | | | [address] | | + + + + + Care Team Providers + +------+ + | Care Marble Setter Name | Role | Phone | + [...] [facility] [address] [place], [place] | | | | | [address] [facility] | [address] | | | | | for Health and | [phone] | | | | | Healing, [facility] 1, | | | | | | 5th Floor | | | | | | [facility] [place] | | | | | | [address] | | | | | | [phone] | | | +--------+ + + + [...] | | | | | | [place], [place] | | | | | | [address] | | | | | | [phone] | | | | | | | | +--------+---------+ + + + documented as of this encounter Visit Diagnoses Not on filedocumented in this encounter"
--- OUTSIDE RECORDS SUMMARY | ~2020-05-07 | XMS | Encounter Summary ---
Demographics + + + | Address | [address] | | | [place] [address] | + + + | Home Phone [...] Author + + + | Author | Replaced By [facility] [employer] [facility] | + + + | Organization | Replaced By [facility] [employer] [facility] | + + + | Address | Unknown | + + + | Phone | Unavailable | + + + Support + + + + + | Name | Relationship | Address | Phone | + + + + + | Kaila Oates | ECON | [place] | | | | | [address] | | + + + + + Care Team Providers + +------+ + | Care Network Architect Name | Role | Phone | + +------+ + | Tomasz Solis MD | PCP | | + +------+ + Encounter Details +--------+ + + + + | Date | Type | Department | Care Team | Description | +--------+ + + + + | 04/10/ | Documentati | [facility] | Denise Nicole, | | | 2020 | on | [facility] [address] | [place] [address] | | | | | Ave [place] for | [place], [place] | | | | | Health and Healing, | [address] | | | | | [facility] 1 | [phone] | | | | | [place], [place] | | | | | | [address] | | | | | | [phone] | | | +--------+ + + + [...] | | | | | | [place], [place] | | | | | | [address] | | | | | | [phone] | | | | | | | | +--------+---------+ + + + documented as of this encounter Visit Diagnoses Not on filedocumented in this encounter"
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
--- OUTSIDE RECORDS SUMMARY | ~2020-05-07 | XMS | Encounter Summary ---
Demographics + + + | Address | [address] | | | [place] [address] | + + + | Home Phone [...] + + | Author | [facility] | + + + | Organization | [facility] | + + + | Address | Unknown | + + + | Phone | Unavailable | + + + Support + + + + + | Name | Relationship | Address | Phone | + + + + + | Kaila Oates | ECON | [place] | | | | | [address] | | + + + + + Care Team Providers + +------+ + | Care Organic Chemistry Professor Name | Role | Phone | + [...] | | | | [address] [place] for | [place], [place] | | | | | Health and Healing, | [address] | | | | | [facility] | [phone] | | | | | Floor [place], [place] | | | | | | [address] | | | | | | [phone] | | | +--------+ + + + [...] | 2020 | Visit | | ,PhD [address] | | | | | | [place], [place] | | | | | | [address] | | | | | | [phone] | | | | | | | [...]
--- OUTSIDE RECORDS SUMMARY | ~2020-05-07 | XMS | Encounter Summary ---
Demographics + + + | Address | [address] | | | [place] [address] | + + + | Home Phone [...] + | Author | [facility] | + + + | Organization | [facility] | + + + | Address | Unknown | + + + | Phone | Unavailable | + + + Support + + + + + | Name | Relationship | Address | Phone | + + + + + | Kaila Oates | ECON | [place] | | | | | [address] | | + + + + + Care Team Providers + +------+ + | Care Regulatory Product Manager Name | Role | Phone | + +------+ + | Tomasz Solis MD | PCP | | + +------+ + Encounter Details +--------+ + + + + | Date | Type | Department | Care Team | Description | +--------+ + + + + | 09/26/ | Procedure | Diagnostic Imaging | | | | 2019 | Pass | Services at [facility] | | | | | | [address] | | | | | | [place] | | | | | | [facility] | | | | | | [place], [place] | | | | | | [address] | | | | | | [phone] | | | +--------+ + + + [...] | Visit | | MDPhD [address] | | | | | | [place], [place] | | | | | | [address] | | | | | | [phone] | | | | | | | | +--------+---------+ + + + documented as of this encounter Visit Diagnoses Not on filedocumented in this encounter"
--- OUTSIDE RECORDS SUMMARY | ~2020-05-07 | XMS | Encounter Summary ---
Demographics + + + | Address | [address] | | | [place] [address] | + + + | Home Phone | | + + + | Preferred Language | Unknown | + + + | Marital Status | Single | + + + | Yazidi Affiliation | NON | + + + | Race | or | + + + | Ethnic Group | Not or | + + + Author + + + | Author | [facility] [facility] | + + + | Organization | [facility] | + + + | Address | Unknown | + + + | Phone | Unavailable | + + + Support + + + + + | Name | Relationship | Address | Phone | + + + + + | Kaila Oates | ECON | [place] | | | | | [address] | | + + + + + Care Team Providers + +------+ + | Care Hotel Maintenance Engineer Name | Role | Phone | [...] + + | 03/06/ | Hospital | [facility] [address] | Paul Herrera, | | | 2019 - | Encounter | [address] | ,PhD [address] | | | | | [place], | [place], [place] | | | 03/07/ | | [place] [address] | [address] | | | 2019 | | [phone] | [phone] | | | | | | | [...] might be different fr om the original. [facility] DEPART[facility] OF ORTHOPAEDICS & REHABIL[facility]ATION INPATIENT HOSPITAL DISCHARGE SUMMARY & INTERDISCIPLINARY INSTRUCTIONS Patient: Rakan Oates CSN: [id number] Admission Date: 03/06/2020 Discharge Date: 03/07/2020 Attending Physician: Paul Herrera MD PCP: Tomasz Solis MD Service: [facility] Division of Plastic & Reconstructive Surgery Diagnoses [...] Borrero MD Plastic Surgery, R1 03/07/2020 Pager #[phone] Diet Regular Resume regular diet. Healthy choices [...] feel free to call our office at [phone] with any questions. Call our office immediately [...] threatening emergency or think you may need [facility] care. Medication List CHANGE how [...] through Care Everywhere.Splint or Immob ilizer Use ([place])documented in this encounter Medications at Time of [...] DC home today Mounika Acuna MD Pager #:[phone] 7:42 AM [facility] Division of Plastic & Reconstructive Surgery [...] | | | | | | [place], [place] | | | | | | [address] | | | | | | [phone] | | | | | | | [...] [facility] | [address] | [place] [address] | | | SERVICES CORE | HENRY [...] ABELT | | | IMPRESSION | by: ELAINE [...] DEPT OF | [address] | [place], [place] | | | CARDIOLOGY | [address] | [address] | | + + + + + [...] [facility] | [address] | [place] [address] | | | SERVICES, CORE | PARK [...] | | | LABORATORY | | | FILIPINO | | | SERVICES, | | | [...] MDRD equation recommended by the National | [facility] | | Kidney Disease Education Program. Estimated [...] | + + + + + | [facility] | [address] | [place] [address] | | | ENRIKE CASTAÑEDA | HENRY [...] (H) | 70 - 99 mg/dL | [facility] - | | | GLUCOSE, | | [...] LARA | [address] | [place], [place] | | | ALEXIS BOOTH OF CARE | [address] | [address] | | | TESTS | | | [...]
--- OUTSIDE RECORDS SUMMARY | ~2020-05-07 | XMS | Encounter Summary ---
Demographics + + + | Address | [address] | | | [place] [address] | + + + | Home Phone [...] | [facility] | + + + | Organization | [facility] [employer] [facility] | + + + | Address | Unknown | + + + | Phone | Unavailable | + + + Support + + + + + | Name | Relationship | Address | Phone | + + + + + | Kaila Oates | ECON | [place] | | | | | [address] | | + + + + + Care Team Providers + +------+ + | Care Packing Line Operator Name | Role | Phone | + +------+ + | Tomasz Solis MD | PCP | | + +------+ + Encounter Details +--------+ + + + + | Date | Type | Department | Care Team | Description | +--------+ + + + + | 11/15/ | Procedure | Diagnostic Imaging | | | | 2019 | Pass | Services at [facility] | | | | | | [address] | | | | | | [place] | | | | | | [facility] | | | | | | [place], [place] | | | | | | [address] | | | | | | [phone] | | | +--------+ + + + [...] | 2019 | Visit | | ,PhD [address] | | | | | | [place], [place] | | | | | | [address] | | | | | | [phone] | | | | | | | | +--------+---------+ + + + documented as of this encounter Visit Diagnoses Not on filedocumented in this encounter"
--- OUTSIDE RECORDS SUMMARY | ~2020-05-07 | XMS | Encounter Summary ---
Demographics + + + | Address | [address] | | | [place] [address] | + + + | Home Phone [...] Author + + + | Author | [facility] | + + + | Organization | [facility] [employer] [facility] | + + + | Address | Unknown | + + + | Phone | Unavailable | + + + Support + + + + + | Name | Relationship | Address | Phone | + + + + + | Kaila Oates | ECON | [place] | | | | | [address] | | + + + + + Care Team Providers + +------+ + | Care Bird Sitter Name | Role | Phone | + +------+ + | Tomasz Solis MD | PCP | | + +------+ + Encounter Details +--------+ + + + + | Date | Type | Department | Care Team | Description | +--------+ + + + + | 03/23/ | MyChart | Plastic and | Paul Herrera, | RE: hand pain | | 2020 | Encounter | Reconstructive | ,PhD [address] | | | | | Surgery at [facility] [address] | [address] [place], [place] | | | | | [address] [facility] | [address] | | | | | for Health and | [phone] | | | | | Healing, [facility] 1, | | | | | | 5th Floor | | | | | | [place], [place] | | | | | | [address] | | | | | | [phone] | | | +--------+ + + + [...] | | | | | | [place], [place] | | | | | | [address] | | | | | | [phone] | | | | | | | | +--------+---------+ + + + documented as of this encounter Visit Diagnoses Not on filedocumented in this encounter"
--- OUTSIDE RECORDS SUMMARY | ~2020-05-07 | XMS | Encounter Summary ---
Demographics + + + | Address | [address] | | | [place] [address] | + + + | Home Phone | | + + + | Preferred Language | Unknown | + + + | Marital Status | Single | + + + | Buddhist Affiliation | NON | + + + | Race | or | + + + | Ethnic Group | Not or | + + + Author + + + | Author | [facility] | + + + | Organization | [facility] | + + + | Address | Unknown | + + + | Phone | Unavailable | + + + Support + + + + + | Name | Relationship | Address | Phone | + + + + + | Kaila Oates | ECON | [place] | | | | | [address] | | + + + + + Care Team Providers + +------+ + | Care Remote Sensing Advisor Name | Role | Phone | + +------+ + | Tomasz Solis MD | PCP | | + +------+ + Encounter Details +--------+ + + + + | Date | Type | Department | Care Team | Description | +--------+ + + + + | 09/25/ | Procedure | Diagnostic Imaging | | | | 2019 | Pass | Services at [facility] | | | | | | [address] | | | | | | [place] | | | | | | [address] | | | | | | [place], [place] | | | | | | [address] | | | | | | [phone] | | | +--------+ + + + [...] | | | | | | [place], [place] | | | | | | [address] | | | | | | [phone] | | | | | | | | +--------+---------+ + + + documented as of this encounter Visit Diagnoses Not on filedocumented in this encounter"
--- OUTSIDE RECORDS SUMMARY | ~2020-05-07 | XMS | Encounter Summary ---
Demographics + + + | Address | [address] | | | [place] [address] | + + + | Home Phone [...] Author + + + | Author | [facility] | + + + | Organization | [facility] | + + + | Address | Unknown | + + + | Phone | Unavailable | + + + Support + + + + + | Name | Relationship | Address | Phone | + + + + + | Kaila Oates | ECON | [place] | | | | | [address] | | + + + + + Care Team Providers + +------+ + | Care Certified Surgical First Assistant Name | Role | Phone | + +------+ + | Tomasz Solis MD | PCP | | + +------+ + Encounter Details +--------+ + + + + | Date | Type | Department | Care Team | Description | +--------+ + + + + | 03/01/ | Anesthesia | Preoperative | Margto Lind, | | | 2020 | Event | [facility] at | ANP [address] [facility] | | | | | [facility] | [facility] | | | | | [address] | [place], [place] | | | | | [facility] | [address] | | | | | and Daniel, | [phone] | | | | | [address] | | | | | | [place], [place] | | | | | | [address] | | | | | | [phone] | | | +--------+ + + + + Anesthesia Record + + + + + | Procedure Name | Responsible | Anesthesia Start | Anesthesia Stop Time | | | Anesthesiologist | Time | | + + + + + | PREANESTHETIC | | | | | EVALUATION | | | | + + + + + + + | No events on file. | + + +------+ | Meds | +------+ + + + No medications | on file. | + + + + + | No agents on file. | + + + + | No blood administrations on file. | + + + + | No LDAs on file. | + + documented in this encounter Social [...] | 2020 | Visit | | ,PhD [address] | | | | | | [place], [place] | | | | | | [address] | | | | | | [phone] | | | | | | | | +--------+---------+ + + + documented as of this encounter Visit Diagnoses Not on filedocumented in this encounter"
--- OUTSIDE RECORDS SUMMARY | ~2020-05-07 | XMS | Encounter Summary ---
Demographics + + + | Address | [address] | | | [place] [address] | + + + | Home Phone [...] [place] | | | | | [address] | | + + + + + Care Team Providers + +------+ + | Care Plant Care Worker Name | Role | Phone [...] | 2020 | Visit | | ,PhD [address] | | | | | | [place], [place] | | | | | | [address] | | | | | | [phone] | | | | | | | | +--------+---------+ + + + documented as of this encounter Visit Diagnoses Not on filedocumented in this encounter"
--- OUTSIDE RECORDS SUMMARY | ~2020-05-07 | XMS | Encounter Summary ---
Demographics + + + | Address | [address] | | | [place] [address] | + + + | Home Phone | | + + + | Preferred Language | Unknown | + + + | Marital Status | Single | + + + | Adventism Affiliation | NON | + + + | Race | or | + + + | Ethnic Group | Not or | + + + Author + + + | Author | Replaced By [facility] | + + + | Organization | Replaced By [facility] [employer] [facility] | + + + | Address | Unknown | + + + | Phone | Unavailable | + + + Support + + + + + | Name | Relationship | Address | Phone | + + + + + | Kaila Oates | ECON | [place] | | | | | [address] | | + + + + + Care Team Providers + +------+ + | Care Photographers' Model Name | Role | Phone | + [...] | | | | | weakness | [place], [place] | Research | | | | | Closed | [address] | Center | | | | | nondisplaced | Phone: | [place], [place] | | | | | fracture of | [phone] | [address] | | | | | seventh | Fax: | Phone: | | | | | cervical | [phone] | [phone] | | | | | vertebra, | | Fax: | | | | | unspecified | | [phone] | | | | | fracture | [...] | | | | | | CON DE MRI | | | | | | [...] Left arm | [address] | [address] [place] | | | | | weakness | [place], [place] | Research | | | | | Closed | [address] | Center | | | | | nondisplaced | Phone: | [place], [place] | | | | | fracture of | [phone] | [address] | | | | | seventh | Fax: | Phone: | | | | | cervical | [phone] | [phone] | | | | | vertebra, | | Fax: | | | | | unspecified | | [phone] | | | | | fracture | [...] | | | | | | CON DE MRI | | | | | | [...] | 2019 | Encounter | Services at [facility] | [place] [address] | | | | | [address] | [place], [place] | | | | | [place] | [address] | | | | | [facility] | [phone] | | | | | [place], [place] | | | | | | [address] | | | | | | [phone] | | | +--------+ + + + [...] | | | | | | [place], [place] | | | | | | [address] | | | | | | [phone] | | | | | | | [...] this encounter Results MRI BRACHIAL PLEX LT [facility] CON (12/19/2019 6:26 PM PST) + [...]
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
--- OUTSIDE RECORDS SUMMARY | ~2020-05-07 | XMS | Encounter Summary ---
Demographics + + + | Address | [address] | | | [place] [address] | + + + | Home Phone | | + + + | Preferred Language | Unknown | + + + | Marital Status | Single | + + + | Mandaen Affiliation | NON | + + + | Race | or | + + + | Ethnic Group | Not or | + + + Author + + + | Author | [facility] [employer] [facility] | + + + | Organization | [facility] [employer] [facility] | + + + | Address | Unknown | + + + | Phone | Unavailable | + + + Support + + + + + | Name | Relationship | Address | Phone | + + + + + | Kaila Oates | ECON | [place] | | | | | [address] | | + + + + + Care Team Providers + +------+ + | Care Pattern Worker Name | Role | Phone | [...] | | | | [address] [facility] for | [place], [place] | | | | | Health and Healing, | [address] | | | | | [facility] | [phone] | | | | | Floor [place], [place] | | | | | | [address] | | | | | | [phone] | | | +--------+ + + + [...] | | | | | [place], [place] | | | | | | [address] | | | | | | [phone] | | | | | | | | +--------+---------+ + + + documented as of this encounter Procedures + +--------+ + + + | Procedure Name | Priori | Date/Time | Associated Diagnosis | Comments | | | ty | | | | + +--------+ + + + | X-RAY SPINE | Routin | 11/15/2019 | Back pain, | Results for this | | LUMBOSACRAL 2 VIEWS | e | 11:38 AM | unspecified back | procedure are in the | | | | PST | location, | results section. | | | | | unspecified back | | | | | | pain laterality, | | | | | | unspecified | | | | | | chronicity | | + +--------+ + + + documented in this encounter Results X-RAY SPINE LUMBOSACRAL 2 VIEWS (11/15/2019 11:38 [...] | | Emi Briceño MD Dictation initiated: Barbara Abarca MD 11/15/2019 12:04 PM | | + + [...]
--- OUTSIDE RECORDS SUMMARY | ~2020-05-07 | XMS | Encounter Summary ---
Demographics + + + | Address | [address] | | | [place] [address] | + + + | Home Phone [...] + + | Author | [facility] [employer] [facility] | + + + | Organization | [facility] | + + + | Address | Unknown | + + + | Phone | Unavailable | + + + Support + + + + + | Name | Relationship | Address | Phone | + + + + + | Kaila Oates | ECON | [place] | | | | | [address] | | + + + + + Care Team Providers + +------+ + | Care Fruit Trimmer Name | Role | Phone | + +------+ + | Tomasz Solis MD | PCP | | + +------+ + Encounter Details +--------+ + + + + | Date | Type | Department | Care Team | Description | +--------+ + + + + | 09/25/ | Ophth Exam | [facility] | Lynne Lazo MD | | | 2019 | | [place]/Ophthalmol | [address] | | | | | ogy at [address] | [place], [place] | | | | | [address] [facility] | [address] | | | | | Health and Healing, | [phone] | | | | | [facility] | | | | | | Floor [place], [place] | | | | | | [address] | | | | | | [phone] | | | +--------+ + + + [...] | | | | | | [place], [place] | | | | | | [address] | | | | | | [phone] | | | | | | | | +--------+---------+ + + + documented as of this encounter Visit Diagnoses Not on filedocumented in this encounter"
--- OUTSIDE RECORDS SUMMARY | ~2020-05-07 | XMS | Encounter Summary ---
Demographics + + + | Address | [address] | | | [place] [address] | + + + | Home Phone | | + + + | Preferred Language | Unknown | + + + | Marital Status | Single | + + + | Baptist Affiliation | NON | + + + | Race | or | + + + | Ethnic Group | Not or | + + + Author + + + | Author | [facility] [employer] [facility] | + + + | Organization | [facility] | + + + | Address | Unknown | + + + | Phone | Unavailable | + + + Support + + + + + | Name | Relationship | Address | Phone | + + + + + | Kaila Oates | ECON | [place] | | | | | [address] | | + + + + + Care Team Providers + +------+ + | Care Director Building Name | Role | Phone | + +------+ + | Tomasz Solis MD | PCP | | + +------+ + Encounter Details +--------+ + + + + | Date | Type | Department | Care Team | Description | +--------+ + + + + | 10/01/ | Ophth Exam | [facility] | Kyree Moran, | | | 2019 | | [employer]/[facility] | [address] [facility] | | | | | kelli at [facility] [address] | [address]o | | | | | [address] [facility] for | [place], [place] | | | | | Health and Healing, | [address] | | | | | [facility] | [phone] | | | | | Floor [place], [place] | | | | | | [address] | | | | | | [phone] | | | +--------+ + + + [...] | 2019 | Visit | | ,PhD [address] | | | | | | [place], [place] | | | | | | [address] | | | | | | [phone] | | | | | | | | +--------+---------+ + + + documented as of this encounter Visit Diagnoses Not on filedocumented in this encounter"
--- OUTSIDE RECORDS SUMMARY | ~2020-05-07 | XMS | Encounter Summary ---
Demographics + + + | Address | [address] | | | [place] [address] | + + + | Home Phone [...] Author + + + | Author | [facility] [employer] [facility] | + + + | Organization | [facility] | + + + | Address | Unknown | + + + | Phone | Unavailable | + + + Support + + + + + | Name | Relationship | Address | Phone | + + + + + | Kiala Oates | ECON | [place] | | | | | [address] | | + + + + + Care Team Providers + +------+ + | Care Fiction And Nonfiction Writer Prose Name | Role | Phone | + [...] pictures | | | | Surgery at [facility] [address] [place], [place] | | | | | [address] [facility] | [address] | | | | | for Health and | [phone] | | | | | Healing, Building 1, | | | | | | 5th Floor | | | | | | [facility] [place] | | | | | | [address] | | | | | | [phone] | | | +--------+ + + + [...] | 2019 | Visit | | ,PhD [address] | | | | | | [place] [facility] [place] | | | | | | [address] | | | | | | [phone] | | | | | | | | +--------+---------+ + + + documented as of this encounter Visit Diagnoses Not on filedocumented in this encounter"
--- OUTSIDE RECORDS SUMMARY | ~2020-05-07 | XMS | Encounter Summary ---
Demographics + + + | Address | [address] | | | [place] [address] | + + + | Home Phone [...] Author + + + | Author | [facility] [employer] [facility] | + + + | Organization | [facility] [employer] [facility] | + + + | Address | Unknown | + + + | Phone | Unavailable | + + + Support + + + + + | Name | Relationship | Address | Phone | + + + + + | Kaila Oates | ECON | [place] | | | | | [address] | | + + + + + Care Team Providers + +------+ + | Care Pattern Marker Name | Role | Phone | + +------+ + | Tomasz Solis MD | PCP | | + +------+ + Encounter Details +--------+ + + + + | Date | Type | Department | Care Team | Description | +--------+ + + + + | 03/01/ | Anesthesia | Preoperative | Margot Lind, | | | 2020 | Event | [facility] at | ANP [address] [facility] | | | | | [facility] | [facility] | | | | | [address] | [place], [place] | | | | | [facility] | [address] | | | | | and Daniel, | [phone] | | | | | [address] | | | | | | [place], [place] | | | | | | [address] | | | | | | [phone] | | | +--------+ + + + [...] | 2020 | Visit | | ,PhD [address] | | | | | | [place], [place] | | | | | | [address] | | | | | | [phone] | | | | | | | | +--------+---------+ + + + documented as of this encounter Visit Diagnoses Not on filedocumented in this encounter"
--- OUTSIDE RECORDS SUMMARY | ~2020-05-07 | XMS | Encounter Summary ---
Demographics + + + | Address | [address] | | | [place] [address] | + + + | Home Phone | | + + + | Preferred Language | Unknown | + + + | Marital Status | Single | + + + | Amish Affiliation | NON | + + + | Race | or | + + + | Ethnic Group | Not or | + + + Author + + + | Author | [facility] [employer] [facility] | + + + | Organization | [facility] [employer] [facility] | + + + | Address | Unknown | + + + | Phone | Unavailable | + + + Support + + + + + | Name | Relationship | Address | Phone | + + + + + | Kaila Oates | ECON | [place] | | | | | [address] | | + + + + + Care Team Providers + +------+ + | Care Taxi Driver Name | Role | Phone | + +------+ + | Tomasz Solis MD | PCP | | + +------+ + Encounter Details +--------+ + + + + | Date | Type | Department | Care Team | Description | +--------+ + + + + | 03/08/ | Telephone | Plastic and | Paul Herrera, | | | 2020 | | Reconstructive | ,PhD [address] | | | | | Surgery at [facility] [address] [place], [place] | | | | | [address] [facility] | [address] | | | | | for Health and | [phone] | | | | | Healing, [facility] 1, | | | | | | 5th Floor | | | | | | [place], [place] | | | | | | [address] | | | | | | [phone] | | | +--------+ + + + [...] | | | | | | [place], [place] | | | | | | [address] | | | | | | [phone] | | | | | | | | +--------+---------+ + + + documented as of this encounter Visit Diagnoses Not on filedocumented in this encounter"
--- OUTSIDE RECORDS SUMMARY | ~2020-05-07 | XMS | Encounter Summary ---
Demographics + + + | Address | [address] | | | [place] [address] | + + + | Home Phone [...] | Author | [facility] [employer] [facility] | + + + | Organization | [facility] [employer] [facility] | + + + | Address | Unknown | + + + | Phone | Unavailable | + + + Support + + + + + | Name | Relationship | Address | Phone | + + + + + | Kaila Oates | ECON | [place] | | | | | [address] | | + + + + + Care Team Providers + +------+ + | Care Manpower Development Specialist Manager Name | Role | Phone | [...] AND | | | | Surgery at [facility] [address] | [address] [place], [place] | [employer] | | | | [address] [place] | [address] | | | | | for Health and | [phone] | | | | | Healing, Building 1, | | | | | | 5th Floor | | | | | | [place], [place] | | | | | | [address] | | | | | | [phone] | | | +--------+ + + + [...] | | | | | | [place], [place] | | | | | | [address] | | | | | | [phone] | | | | | | | | +--------+---------+ + + + documented as of this encounter Visit Diagnoses Not on filedocumented in this encounter"
--- OUTSIDE RECORDS SUMMARY | ~2020-05-07 | XMS | Encounter Summary ---
Demographics + + + | Address | [address] | | | [place] [address] | + + + | Home Phone [...] | Author | [facility] [employer] [facility] | + + + | Organization | [facility] [employer] [facility] | + + + | Address | Unknown | + + + | Phone | Unavailable | + + + Support + + + + + | Name | Relationship | Address | Phone | + + + + + | Kaila Oates | ECON | [place] | | | | | [address] | | + + + + + Care Team Providers + +------+ + | Care Rug Inspector Helper Name | Role | Phone | [...] | | | | [address] [facility] | [place], [place] | | | | | Health and Healing, | [address] | | | | | [facility] | [phone] | | | | | Floor [place], [place] | | | | | | [address] | | | | | | [phone] | | | +--------+ + + + [...] | 2020 | Visit | | ,PhD [address] | | | | | | [place], [place] | | | | | | [address] | | | | | | [phone] | | | | | | | [...]
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
--- OUTSIDE RECORDS SUMMARY | ~2020-05-07 | XMS | Encounter Summary ---
Demographics + + + | Address | [address] | | | [place] [address] | + + + | Home Phone [...] Author + + + | Author | [facility] | + + + | Organization | [facility] | + + + | Address | Unknown | + + + | Phone | Unavailable | + + + Support + + + + + | Name | Relationship | Address | Phone | + + + + + | Kaila Oates | ECON | [place] | | | | | [address] | | + + + + + Care Team Providers + +------+ + | Care Instructor Kindergarten Name | Role | Phone | + [...] | | | | | Surgery at [facility] [address] [place], [place] | | | | | [address] [facility] | [address] | | | | | for Health and | [phone] | | | | | Healing, [facility] 1, | | | | | | 5th Floor | | | | | | [place], [place] | | | | | | [address] | | | | | | [phone] | | | +--------+ + + + [...] | | | | | | [place], [place] | | | | | | [address] | | | | | | [phone] | | | | | | | | +--------+---------+ + + + documented as of this encounter Visit Diagnoses Not on filedocumented in this encounter"
--- OUTSIDE RECORDS SUMMARY | ~2020-05-07 | XMS | Encounter Summary ---
Demographics + + + | Address | [address] | | | [place] [address] | + + + | Home Phone [...] + + | Author | [facility] | + + + | Organization | [facility] | + + + | Address | Unknown | + + + | Phone | Unavailable | + + + Support + + + + + | Name | Relationship | Address | Phone | + + + + + | Kaila Oates | ECON | [place] | | | | | [address] | | + + + + + Care Team Providers + +------+ + | Care Welt Sewer Name | Role | Phone | [...] | | | | [facility] [place] for | [place], [place] | | | | | Health and Healing, | [address] | | | | | [facility] | [phone] | | | | | Floor [place], [place] | | | | | | [address] | | | | | | [phone] | | | +--------+ + + + [...] | | | | | [place], [place] | | | | | | [address] | | | | | | [phone] | | | | | | | [...]
--- OUTSIDE RECORDS SUMMARY | ~2020-05-07 | XMS | Encounter Summary ---
Demographics + + + | Address | [address] | | | [place] [address] | + + + | Home Phone [...] Author + + + | Author | [facility] | + + + | Organization | [facility] [employer] [facility] | + + + | Address | Unknown | + + + | Phone | Unavailable | + + + Support + + + + + | Name | Relationship | Address | Phone | + + + + + | Kaila Oates | ECON | [place] | | | | | [address] | | + + + + + Care Team Providers + +------+ + | Care Supervisor Building Maintenance Name | Role | Phone | + [...] | | | | | Surgery at [facility] [address] [place], [place] | | | | | [address] [facility] | [address] | | | | | for Health and | [phone] | | | | | [facility] 1, | | | | | | 5th Floor | | | | | | [place], [place] | | | | | | [address] | | | | | | [phone] | | | +--------+ + + + [...] 08/23/ | Office | Plastic Surgery | Pual Herrera, | | | 2020 | Visit | | ,PhD [address] | | | | | | [place], [place] | | | | | | [address] | | | | | | [phone] | | | | | | | | +--------+---------+ + + + documented as of this encounter Visit Diagnoses Not on filedocumented in this encounter"
--- OUTSIDE RECORDS SUMMARY | ~2020-05-07 | XMS | Encounter Summary ---
Demographics + + + | Address | [address] | | | [place] [address] | + + + | Home Phone [...] Author | [facility] | + + + | Organization | [facility] | + + + | Address | Unknown | + + + | Phone | Unavailable | + + + Support + + + + + | Name | Relationship | Address | Phone | + + + + + | Kaila Oates | ECON | [place] | | | | | [address] | | + + + + + Care Team Providers + +------+ + | Care Event Management Consultant Name | Role | Phone | + +------+ + | Tomasz Solis MD | PCP | | + +------+ + Encounter Details +--------+ + + + + | Date | Type | Department | Care Team | Description | +--------+ + + + + | 10/01/ | Ophth Exam | [facility] | Kyree Moran, | | | 2019 | | [place]/[facility]hthalmol | [address] [facility] | | | | | kelli at [facility] [address] | Mahad Nieto | | | | | [address] [facility] for | [place], [place] | | | | | Health and Healing, | [address] | | | | | [facility] | [phone] | | | | | Floor [place], [place] | | | | | | [address] | | | | | | [phone] | | | +--------+ + + + [...] | 2019 | Visit | | ,PhD [address] | | | | | | [place], [place] | | | | | | [address] | | | | | | [phone] | | | | | | | | +--------+---------+ + + + documented as of this encounter Visit Diagnoses Not on filedocumented in this encounter"
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
--- OUTSIDE RECORDS SUMMARY | ~2020-05-07 | XMS | Encounter Summary ---
Demographics + + + | Address | [address] | | | [place] [address] | + + + | Home Phone [...] [place] | | | | | [address] | | + + + + + Care Team Providers + +------+ + | Care Manager Community Outreach Name | Role | Phone | + [...] | | | | | | [place], [place] | | | | | | [address] | | | | | | [phone] | | | | | | | | +--------+---------+ + + + documented as of this encounter Visit Diagnoses Not on filedocumented in this encounter"
--- OUTSIDE RECORDS SUMMARY | ~2020-05-07 | XMS | Encounter Summary ---
Demographics + + + | Address | [address] | | | [place] [address] | + + + | Home Phone [...] + | Author | [facility] | + + + | Organization | [facility] [facility] | + + + | Address | Unknown | + + + | Phone | Unavailable | + + + Support + + + + + | Name | Relationship | Address | Phone | + + + + + | Kaila Oates | ECON | [place] | | | | | [address] | | + + + + + Care Team Providers + +------+ + | Care Wine Manager Name | Role | Phone | + +------+ + | Tomasz Solis MD | PCP | | + +------+ + Encounter Details +--------+ + + + + | Date | Type | Department | Care Team | Description | +--------+ + + + + | 03/01/ | Document-Sc | Health Information | Unknown . | | | 2020 | anned | Services [address] | | | | [address] | | | | | | Mailcode: [id number] | | | | | | [facility] | | | | | | [place], [place] | | | | | | [address] | | | | | | [phone] | | | +--------+ + + + [...] | | | | | | [place], [place] | | | | | | [address] | | | | | | [phone] | | | | | | | | +--------+---------+ + + + documented as of this encounter Visit Diagnoses Not on filedocumented in this encounter"
--- OUTSIDE RECORDS SUMMARY | ~2020-05-07 | XMS | Encounter Summary ---
Demographics + + + | Address | [address] | | | [place] [address] | + + + | Home Phone [...] Author | [facility] | + + + | Organization | [facility] | + + + | Address | Unknown | + + + | Phone | Unavailable | + + + Support + + + + + | Name | Relationship | Address | Phone | + + + + + | Kaila Oates | ECON | [place] | | | | | [address] | | + + + + + Care Team Providers + +------+ + | Care Sheet Manufacturing Supervisor Name | Role | Phone | + +------+ + | Tomasz Solis MD | PCP | | + +------+ + Encounter Details +--------+ + + + + | Date | Type | Department | Care Team | Description | +--------+ + + + + | 09/28/ | Procedure | Diagnostic Imaging | | | | 2019 | Pass | Services at [facility] | | | | | | [address] | | | | | | [place] | | | | | | [address] | | | | | | [place], [place] | | | | | | [address] | | | | | | [phone] | | | +--------+ + + + [...] | | | | | | [place], [place] | | | | | | [address] | | | | | | [phone] | | | | | | | | +--------+---------+ + + + documented as of this encounter Visit Diagnoses Not on filedocumented in this encounter"
--- OUTSIDE RECORDS SUMMARY | ~2020-05-07 | XMS | Encounter Summary ---
Demographics + + + | Address | [address] | | | [place] [address] | + + + | Home Phone [...] + | Author | [facility] [facility] | + + + | Organization | [facility] | + + + | Address | Unknown | + + + | Phone | Unavailable | + + + Support + + + + + | Name | Relationship | Address | Phone | + + + + + | Kaila Oates | ECON | [place] | | | | | [address] | | + + + + + Care Team Providers + +------+ + | Care Central Office Installer Name | Role | Phone | [...] [address] | | | | | [facility] | [address] [place], | | | | | and Healing [address] | [place] [address] | | | | | [address] [facility] for | [phone] | | | | | Health and Healing, | | | | | | Building 1, | | | | | | Floor [place], [place] | | | | | | [address] | | | | | | [phone] | | | +--------+ + + + [...] | | | | | | [place], [place] | | | | | | [address] | | | | | | [phone] | | | | | | | | +--------+---------+ + + + documented as of this encounter Visit Diagnoses Not on filedocumented in this encounter"
--- OUTSIDE RECORDS SUMMARY | ~2020-05-07 | XMS | Encounter Summary ---
Demographics + + + | Address | [address] | | | [place] [address] | + + + | Home Phone [...] Author + + + | Author | [facility] [employer] [facility] | + + + | Organization | [facility] | + + + | Address | Unknown | + + + | Phone | Unavailable | + + + Support + + + + + | Name | Relationship | Address | Phone | + + + + + | Kaila Oates | ECON | [place] | | | | | [address] | | + + + + + Care Team Providers + +------+ + | Care Senior Drafter Name | Role | Phone | + [...] | | | Surgery at [facility] [address] [facility] [place] | | | | | [address] [facility] | [address] | | | | | for Health and | [phone] | | | | | Healing, Building 1, | | | | | | 5th Floor | | | | | | [place], [place] | | | | | | [address] | | | | | | [phone] | | | +--------+ + + + [...] | 2020 | Visit | | ,PhD [address] | | | | | | [place], [place] | | | | | | [address] | | | | | | [phone] | | | | | | | | +--------+---------+ + + + documented as of this encounter Visit Diagnoses Not on filedocumented in this encounter"
--- OUTSIDE RECORDS SUMMARY | ~2020-05-07 | XMS | Encounter Summary ---
Demographics + + + | Address | [address] | | | [place] [address] | + + + | Home Phone [...] Author + + + | Author | [facility] | + + + | Organization | [facility] [employer] [facility] | + + + | Address | Unknown | + + + | Phone | Unavailable | + + + Support + + + + + | Name | Relationship | Address | Phone | + + + + + | Kaila Oates | ECON | [place] | | | | | [address] | | + + + + + Care Team Providers + +------+ + | Care Technical Agronomist Name | Role | Phone | + [...] surgery | | 2020 | Encounter | [place]/Ophthalmol | [address] | | | | | ogy at [facility] [address] | [address] [address] [place], | | | | | [facility] | [place] [address] | | | | | Health and Healing, | [phone] | | | | | [facility] | | | | | | Floor [place], [place] | | | | | | [address] | | | | | | [phone] | | | +--------+ + + + [...] | 2019 | Visit | | ,PhD [address] | | | | | | [place], [place] | | | | | | [address] | | | | | | [phone] | | | | | | | | +--------+---------+ + + + documented as of this encounter Visit Diagnoses Not on filedocumented in this encounter"
--- OUTSIDE RECORDS SUMMARY | ~2020-05-07 | XMS | Encounter Summary ---
Demographics + + + | Address | [address] | | | [place] [address] | + + + | Home Phone [...] [place] | | | | | [address] | | + + + + + Care Team Providers + +------+ + | Care Dairy Supplies Sales Representative Name | Role | Phone | + [...] | 2020 | Visit | | ,PhD [address] | | | | | | [place], [place] | | | | | | [address] | | | | | | [phone] | | | | | | | | +--------+---------+ + + + documented as of this encounter Visit Diagnoses Not on filedocumented in this encounter"
--- OUTSIDE RECORDS SUMMARY | ~2020-05-07 | XMS | Encounter Summary ---
Demographics + + + | Address | [address] | | | [place] [address] | + + + | Home Phone [...] + + + | Author | [facility] | + + + | Organization | [facility] [employer] [facility] | + + + | Address | Unknown | + + + | Phone | Unavailable | + + + Support + + + + + | Name | Relationship | Address | Phone | + + + + + | Kaila Oates | ECON | [place] | | | | | [address] | | + + + + + Care Team Providers + +------+ + | Care Herbarium Worker Name | Role | Phone | [...] | | | | | plexus, | [place], [place] | [facility] | | | | | subsequent | [address] | Health and | | | | | encounter | Phone: | Healing, | | | | | Procedures | [phone] | Building 1, | | | | | CONSULT TO | Fax: | 5th Floor | | | | | SURGERY - | [phone] | [place], [place] | | | | | PLASTICS | | [address] | | | | | | | Phone: | | | | | | | [phone] | + +--------+ + + + + Encounter Details +--------+---------+ + + + | Date | Type | Department | Care Team | Description | +--------+---------+ + + + | 03/26/ | Office | Plastic and | Paul Herrera, | Brachial plexus | | 2020 | Visit | Reconstructive | ,PhD [address] | injury, left, | | | | Surgery at [facility] [address] | [place], [place] | initial encounter | | | | [address] [facility] | [address] | (Primary Dx); Postop | | | | for Health and | [phone] | check | | | | Healing, Building 1, | | | | | | 5th Floor | | | | | | [place], [place] | | | | | | [address] | | | | | | [phone] | | | +--------+---------+ + + + [...] | 2019 | Visit | | ,PhD [address] | | | | | | [place] [facility] [place] | | | | | | [address] | | | | | | [phone] | | | | | | | | +--------+---------+ + + + documented as of this encounter Visit Diagnoses + + | Diagnosis | + + | Brachial plexus injury, left, initial encounter - Primary | + + | Postop check Follow-up examination, following unspecified surgery | + + documented in this encounter
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
--- OUTSIDE RECORDS SUMMARY | ~2020-05-07 | XMS | Encounter Summary ---
Demographics + + + | Address | [address] | | | [place] [address] | + + + | Home Phone [...] [place] | | | | | [address] | | + + + + + Care Team Providers + +------+ + | Care Acid Polymerization Operator Name | Role | Phone | [...] | | | | | | [place], [place] | | | | | | [address] | | | | | | [phone] | | | | | | | | +--------+---------+ + + + documented as of this encounter Visit Diagnoses Not on filedocumented in this encounter"
--- OUTSIDE RECORDS SUMMARY | ~2020-05-07 | XMS | Encounter Summary ---
Demographics + + + | Address | [address] | | | [place] [address] | + + + | Home Phone [...] | Author | [facility] | + + + | Organization | [facility] [employer] [facility] | + + + | Address | Unknown | + + + | Phone | Unavailable | + + + Support + + + + + | Name | Relationship | Address | Phone | + + + + + | Kaila Oates | ECON | [place] | | | | | [address] | | + + + + + Care Team Providers + +------+ + | Care Doughnut Machine Operator Name | Role | Phone [...] | | Disorders Clinic at | [address] [facility] | Diagnosis | | | | [place] for [facility] | [facility], | | | | | and Healing [address] | [place] [address] | | | | | [address] [facility] for | [phone] | | | | | Health and Healing, | | | | | | [facility] | | | | | | [place], [place] | | | | | | [address] | | | | | | [phone] | | | +--------+ + + + [...] | 2020 | Visit | | MDPhD [address] | | | | | | [place] [facility] [place] | | | | | | [address] | | | | | | [phone] | | | | | | | | +--------+---------+ + + + documented as of this encounter Visit Diagnoses Not on filedocumented in this encounter"
--- OUTSIDE RECORDS SUMMARY | ~2020-05-07 | XMS | Encounter Summary ---
Demographics + + + | Address | [address] | | | [place] [address] | + + + | Home Phone [...] + | Author | [facility] | + + + | Organization | [facility] [employer] [facility] | + + + | Address | Unknown | + + + | Phone | Unavailable | + + + Support + + + + + | Name | Relationship | Address | Phone | + + + + + | Kaila Oates | ECON | [place] | | | | | [address] | | + + + + + Care Team Providers + +------+ + | Care Audit Practice Intern Name | Role | Phone | + [...] Ave | | | | | [address] [place] for | [place], [place] | | | | | Health and Healing, | [address] | | | | | [facility] 1 | [phone] | | | | | [place], [place] | | | | | | [address] | | | | | | [phone] | | | +--------+ + + + [...] | | | | | | [place], [place] | | | | | | [address] | | | | | | [phone] | | | | | | | | +--------+---------+ + + + documented as of this encounter Visit Diagnoses Not on filedocumented in this encounter"
--- OUTSIDE RECORDS SUMMARY | ~2020-05-07 | XMS | Encounter Summary ---
Demographics + + + | Address | [address] | | | [place] [address] | + + + | Home Phone [...] Author + + + | Author | [facility] [facility] | + + + | Organization | [facility] [facility] | + + + | Address | Unknown | + + + | Phone | Unavailable | + + + Support + + + + + | Name | Relationship | Address | Phone | + + + + + | Kaila Oates | ECON | [place] | | | | | [address] | | + + + + + Care Team Providers + +------+ + | Care Burr Filer Name | Role | Phone | + [...] | | | | Felipe | [address] [facility], | | | | | Services at [facility] | [place] [address] | | | | | [address] | [phone] | | | | | [facility] | | | | | | and Healing, | | | | | | Building [address], 5th | | | | | | Floor [place], [place] | | | | | | [address] | | | | | | [phone] | | | +--------+ + + + [...] | 2020 | Visit | | MDPhD [address] | | | | | | [place], [place] | | | | | | [address] | | | | | | [phone] | | | | | | | | +--------+---------+ + + + documented as of this encounter Visit Diagnoses Not on filedocumented in this encounter"
--- OUTSIDE RECORDS SUMMARY | ~2020-05-07 | XMS | Encounter Summary ---
Demographics + + + | Address | [address] | | | [place] [address] | + + + | Home Phone [...] + + + | Author | [facility] | + + + | Organization | [facility] [employer] [facility] | + + + | Address | Unknown | + + + | Phone | Unavailable | + + + Support + + + + + | Name | Relationship | Address | Phone | + + + + + | Kaila Oates | ECON | [place] | | | | | [address] | | + + + + + Care Team Providers + +------+ + | Care Plastic Parts Designer Name | Role | Phone | + +------+ + | Tomasz Solis MD | PCP | | + +------+ + Encounter Details +--------+ + + + + | Date | Type | Department | Care Team | Description | +--------+ + + + + | 09/27/ | Procedure | Diagnostic Imaging | | | | 2019 | Pass | Services at [facility] | | | | | | [address] | | | | | | [place] | | | | | | [address] | | | | | | [place], [place] | | | | | | [address] | | | | | | [phone] | | | +--------+ + + + [...] | | | | | | [place], [place] | | | | | | [address] | | | | | | [phone] | | | | | | | | +--------+---------+ + + + documented as of this encounter Visit Diagnoses Not on filedocumented in this encounter"
--- OUTSIDE RECORDS SUMMARY | ~2020-05-07 | XMS | Encounter Summary ---
Demographics + + + | Address | [address] | | | [place] [address] | + + + | Home Phone | | + + + | Preferred Language | Unknown | + + + | Marital Status | Single | + + + | Jewish Affiliation | NON | + + + | Race | or | + + + | Ethnic Group | Not or | + + + Author + + + | Author | [facility] | + + + | Organization | [facility] | + + + | Address | Unknown | + + + | Phone | Unavailable | + + + Support + + + + + | Name | Relationship | Address | Phone | + + + + + | Kaila Oates | ECON | [place] | | | | | [address] | | + + + + + Care Team Providers + +------+ + | Care Reel Hooker Name | Role | Phone | + +------+ + | oTmasz Solis MD | PCP | | + [...] | Disorders Clinic at | [address] [facility] | precautions) | | | | [facility] | [facility], | | | | | and Healing [address] | [place] [address] | | | | | [address] [place] [facility] | [phone] | | | | | Health and Healing, | | | | | | [facility] | | | | | | [place], [place] | | | | | | [address] | | | | | | [phone] | | | +--------+ + + + [...] | 2020 | Visit | | ,PhD [address] | | | | | | [place], [place] | | | | | | [address] | | | | | | [phone] | | | | | | | | +--------+---------+ + + + documented as of this encounter Visit Diagnoses Not on filedocumented in this encounter"
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
--- OUTSIDE RECORDS SUMMARY | ~2020-05-07 | XMS | Encounter Summary ---
Demographics + + + | Address | [address] | | | [place] [address] | + + + | Home Phone [...] [place] | | | | | [address] | | + + + + + Care Team Providers + +------+ + | Care Latin Professor Name | Role | Phone | [...] | | | | | | [place], [place] | | | | | | [address] | | | | | | [phone] | | | | | | | | +--------+---------+ + + + documented as of this encounter Visit Diagnoses Not on filedocumented in this encounter"
--- OUTSIDE RECORDS SUMMARY | ~2020-05-07 | XMS | Encounter Summary ---
Demographics + + + | Address | [address] | | | [place] [address] | + + + | Home Phone [...] Author | [facility] | + + + | Organization | [facility] | + + + | Address | Unknown | + + + | Phone | Unavailable | + + + Support + + + + + | Name | Relationship | Address | Phone | + + + + + | Kaila Oates | ECON | [place] | | | | | [address] | | + + + + + Care Team Providers + +------+ + | Care Software Clerk Name | Role | Phone | + +------+ + | Tomasz Solis MD | PCP | | + +------+ + Encounter Details +--------+ + + + + | Date | Type | Department | Care Team | Description | +--------+ + + + + | 04/10/ | Video/TeleH | Orthopaedics at | Denise Nicole, | | | 2019 | ealth-Sched | [facility] | [place] [address] | | | | uled | and Healing [address] | [place], [place] | | | | | [address] [facility] | [address] | | | | | Health and Healing, | [phone] | | | | | [facility] | | | | | | Floor [place], [place] | | | | | | [address] | | | | | | [phone] | | | +--------+ + + + [...] cox located at the distant site of [facility]. The patient stated they were located at home a me in the [facility] at the time of the virtual visit. The names of all persons partic ipating in the virtual visit and their roles are: NA I have spent a total of 8 minutes on this patient's care today. This time includes the vir tual visit [id number]-el-cokm time with the patient as well as [...] Recently underwent following procedures with Dr Herrera ([facility]) on 03/06. He recovering well. 1. Left [...] (HCC) Past Surgical History Procedure Laterality Date Ora teeth extraction Repair of complex laceration of [...] file Gets together: Not on file Attends zoroastrian service: Not on file Active member of [...] ri ght Deltoid/Abduction L 0/5 R 5/5 Trencher Driver strength L 3/5 R 5/5 Station and [...] | | | | | | [place], [place] | | | | | | [address] | | | | | | [phone] | | | | | | | | +--------+---------+ + + + documented as of this encounter Visit Diagnoses + + | Diagnosis | + + | Closed nondisplaced fracture of seventh cervical vertebra with routine healing, | | unspecified fracture morphology, subsequent encounter - Primary | + + documented in this encounter"
--- OUTSIDE RECORDS SUMMARY | ~2020-05-07 | XMS | Encounter Summary ---
Demographics + + + | Address | [address] | | | [place] [address] | + + + | Home Phone [...] [place] | | | | | [address] | | + + + + + Care Team Providers + +------+ + | Care Filenet Architect Name | Role | Phone | [...] | 2020 | Visit | | ,PhD [address] | | | | | | [place], [place] | | | | | | [address] | | | | | | [phone] | | | | | | | | +--------+---------+ + + + documented as of this encounter Visit Diagnoses Not on filedocumented in this encounter"
--- OUTSIDE RECORDS SUMMARY | ~2020-05-07 | XMS | Encounter Summary ---
Demographics + + + | Address | [address] | | | [place] [address] | + + + | Home Phone | | + + + | Preferred Language | Unknown | + + + | Marital Status | Single | + + + | Spiritism Affiliation | NON | + + + | Race | or | + + + | Ethnic Group | Not or | + + + Author + + + | Author | [facility] [[facility] | + + + | Organization | [facility] | + + + | Address | Unknown | + + + | Phone | Unavailable | + + + Support + + + + + | Name | Relationship | Address | Phone | + + + + + | Kaila Oates | ECON | [place] | | | | | [address] | | + + + + + Care Team Providers + +------+ + | Care Harvest Field Ticketer Name | Role | Phone | + [...] floor | | | | | | [place], [place] | | | | | | [address] | | | +--------+ + + + [...] | | | | | | [place], [place] | | | | | | [address] | | | | | | [phone] | | | | | | | | +--------+---------+ + + + documented as of this encounter Visit Diagnoses Not on filedocumented in this encounter"
--- OUTSIDE RECORDS SUMMARY | ~2020-05-07 | XMS | Encounter Summary ---
Demographics + + + | Address | [address] | | | [place] [address] | + + + | Home Phone [...] + + | Author | [facility] [employer] [facility] | + + + | Organization | [facility] [facility] | + + + | Address | Unknown | + + + | Phone | Unavailable | + + + Support + + + + + | Name | Relationship | Address | Phone | + + + + + | Kaila Oates | ECON | [place] | | | | | [address] | | + + + + + Care Team Providers + +------+ + | Care Offset Plate Maker Name | Role | Phone | + [...] Tobin | | | | | [facility] | Emilia Cancino [place], | | | | | Hospital Admitting | [place] [address] | | | | | Desk Located on the | [phone] | | | | | 9th floor | | | | | | [facility] [place] | Brittny Monge | | | | | [address] | C, PILOT INSTRUCTOR [address] | | | | | | [address] | | | | | | [place], [place] | | | | | | [address] | | | | | | [phone] | | | | | | | [...] | | | | | | [place], [place] | | | | | | [address] | | | | | | [phone] | | | | | | | [...]
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
--- OUTSIDE RECORDS SUMMARY | ~2020-05-07 | XMS | Encounter Summary ---
Demographics + + + | Address | [address] | | | [place] [address] | + + + | Home Phone [...] [place] | | | | | [address] | | + + + + + Care Team Providers + +------+ + | Care Organ Tuner Electronic Name | Role | Phone | + [...] | 2019 | Visit | | ,PhD [address] | | | | | | [place], [place] | | | | | | [address] | | | | | | [phone] | | | | | | | | +--------+---------+ + + + documented as of this encounter Visit Diagnoses Not on filedocumented in this encounter"
--- OUTSIDE RECORDS SUMMARY | ~2020-05-07 | XMS | Encounter Summary ---
Demographics + + + | Address | [address] | | | [place] [address] | + + + | Home Phone [...] + + | Author | [facility] | + + + | Organization | [facility] | + + + | Address | Unknown | + + + | Phone | Unavailable | + + + Support + + + + + | Name | Relationship | Address | Phone | + + + + + | Kaila Oates | ECON | [place] | | | | | [address] | | + + + + + Care Team Providers + +------+ + | Care Road Patcher Name | Role | Phone | + +------+ + | Tomasz Solis MD | PCP | | + +------+ + Encounter Details +--------+ + + + + | Date | Type | Department | Care Team | Description | +--------+ + + + + | 09/28/ | Procedure | Diagnostic Imaging | | | | 2019 | Pass | Services at [facility] | | | | | | [address] | | | | | | Emilia SUBRAMANIAN | | | | | | [address] | | | | | | [place], [place] | | | | | | [address] | | | | | | [phone] | | | +--------+ + + + [...] | | | | | | [place], [place] | | | | | | [address] | | | | | | [phone] | | | | | | | | +--------+---------+ + + + documented as of this encounter Visit Diagnoses Not on filedocumented in this encounter"
--- OUTSIDE RECORDS SUMMARY | ~2020-05-07 | XMS | Encounter Summary ---
Demographics + + + | Address | [address] | | | [place] [address] | + + + | Home Phone [...] [place] | | | | | [address] | | + + + + + Care Team Providers + +------+ + | Care Law Instructor Name | Role | Phone | [...] | 2019 | Visit | | ,PhD [address] | | | | | | [place], [place] | | | | | | [address] | | | | | | [phone] | | | | | | | | +--------+---------+ + + + documented as of this encounter Visit Diagnoses Not on filedocumented in this encounter"
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
--- OUTSIDE RECORDS SUMMARY | ~2020-05-07 | XMS | Encounter Summary ---
Demographics + + + | Address | [address] | | | [place] [address] | + + + | Home Phone | | + + + | Preferred Language | Unknown | + + + | Marital Status | Single | + + + | Jain Affiliation | NON | + + + | Race | or | + + + | Ethnic Group | Not or | + + + Author + + + | Author | [facility] | + + + | Organization | [facility] | + + + | Address | Unknown | + + + | Phone | Unavailable | + + + Support + + + + + | Name | Relationship | Address | Phone | + + + + + | Kaila Oates | ECON | [place] | | | | | [address] | | + + + + + Care Team Providers + +------+ + | Care Implementation Manager Name | Role | Phone | [...] | | | | [address] [place] for | [place], [place] | | | | | Health and Healing, | [address] | | | | | [facility] | [phone] | | | | | Floor [place], [place] | | | | | | [address] | | | | | | [phone] | | | +--------+ + + + [...] | | | | | | [place], [place] | | | | | | [address] | | | | | | [phone] | | | | | | | [...]
--- OUTSIDE RECORDS SUMMARY | ~2020-05-07 | XMS | Encounter Summary ---
Demographics + + + | Address | [address] | | | [place] [address] | + + + | Home Phone [...] Author + + + | Author | [facility] [employer] [facility] | + + + | Organization | [facility] | + + + | Address | Unknown | + + + | Phone | Unavailable | + + + Support + + + + + | Name | Relationship | Address | Phone | + + + + + | Kaila Oates | ECON | [place] | | | | | [address] | | + + + + + Care Team Providers + +------+ + | Care Scanning Coordinator Name | Role | Phone | [...] RECONSTRUCTION WITH | | | | [facility]ak [facility] Yossi | [place], [place] | NERVE TRANSFER | | | | Hospital Admitting | [address] | | | | | Desk Located on the | [phone] | | | | | 9th floor | | | | | | [place], [place] | | | | | | [address] | | | +--------+---------+ + + + [...] different fr om the original. [facility] DISCHARGE SUMMARY & INTERDISCIPLINARY INSTRUCTIONS Patient: Rakan Oates CSN: [id number] Admission Date: 03/06/2020 Discharge Date: 03/07/2020 Attending Physician: Paul Herrera MD PCP: Tomasz Solis MD Service: [facility] Division of Plastic & Reconstructive Surgery Diagnoses [...] Borrero MD Plastic Surgery, R1 03/07/2020 Pager #[phone] Diet Regular Resume regular diet. Healthy choices [...] feel free to call our office at [phone] with any questions. Call our office immediately [...] emergency or think you may need [facility] care. Medication List CHANGE how you [...] through Care Everywhere.Splint or Immob ilizer Use (Kiswahili)documented in this encounter Medications at Time of [...] DC home today Mounika Acuna MD Pager #:[phone] 7:42 AM [facility] Division of Plastic & Reconstructive Surgery [...] | | | | | | [place], [place] | | | | | | [address] | | | | | | [phone] | | | | | | | [...] | + + + + + | [facility] LABORATORY | [address] | [place] [address] | | | SERVICES, CORE | HENRY [...] + | [facility] | [address] [facility] | [place], [place] | | | CARDIOLOGY | [address] | [address] | | + + + + + [...] + | [facility] | [address] | [place] [address] | | | SERVICES, CORE | PARK [...] | | | LABORATORY | | | V[place] | | | SERVICES, | | | [...] MDRD equation recommended by the National | [facility] | | Kidney Disease Education Program. Estimated [...] | + + + + + | [facility] | [address] | [place] [address] | | | SERVICES, CORE | HENRY [...] (H) | 70 - 99 mg/dL | [facility] - | | | GLUCOSE, | | [...] LARA | [address] | [place], [place] | | | ALEXIS BOOTH OF KALLIE | [facility] | [address] | | | TESTS | | | [...]
--- OUTSIDE RECORDS SUMMARY | ~2020-05-07 | XMS | Encounter Summary ---
Demographics + + + | Address | [address] | | | [place] [address] | + + + | Home Phone [...] Author + + + | Author | [facility] | + + + | Organization | [facility] | + + + | Address | Unknown | + + + | Phone | Unavailable | + + + Support + + + + + | Name | Relationship | Address | Phone | + + + + + | Kaila Oates | ECON | [place] | | | | | [address] | | + + + + + Care Team Providers + +------+ + | Care Orthotic Finish Grinding Technician Name | Role | Phone | + [...] | | | | | plexus, | [place], [place] | [facility] for | | | | | subsequent | [address] | Health and | | | | | encounter | Phone: | Healing, | | | | | Procedures | [phone] | Building [address], | | | | | CONSULT TO | Fax: | 5th Floor | | | | | SURGERY - | [phone] | [place], [place] | | | | | PLASTICS | | [address] | | | | | | | Phone: | | | | | | | [phone] | + +--------+ + + + + Encounter Details +--------+ + + + + | Date | Type | Department | Care Team | Description | +--------+ + + + + | 03/01/ | Telephone-S | Plastic and | Paul Herrera, | | | 2020 | cheduled | Reconstructive | ,PhD [address] | | | | | Surgery at [facility] [address] [facility] [place] | | | | | [address] [place] | [address] | | | | | for Health and | [phone] | | | | | [facility], | | | | | | [address] [place] [address] | | | | | | [place], [place] | | | | | | [address] | | | | | | [phone] | | | +--------+ + + + [...] provider located at the distant site of [facility]. T he patient stated they were located at the originating site of home and were in the state of [place] at the time of the telephone visit. [...] | | | | | [place], [place] | | | | | | [address] | | | | | | [phone] | | | | | | | | +--------+---------+ + + + documented as of this encounter Visit Diagnoses + + | Diagnosis | + + | Brachial plexus injury, left, initial encounter - Primary | + + documented in this encounter"
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
--- OUTSIDE RECORDS SUMMARY | ~2020-05-07 | XMS | Encounter Summary ---
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 Benton ([id number]) with the resident and agree with the assessm ent and plan as outlined in this note and participated in the planning of care. Nik Shaffer MD, PhD, FACS special procedures technologist Division of Trauma, Critical Care & Acute Care Surgery [facility] [place] [phone] Ole Kay MD - 09/26/2019 6:26 AM [...] extubate Please contact the neurosurgery on-call pager [phone] with questions. Ole Kay M.D. Neurosurgery PGY-2 documented in this enc ounter Plan of Treatment +--------+---------+ + + + | Date | Type | Specialty | Care Team | Description | +--------+---------+ + + + | 08/23/ | Office | Plastic Surgery | Paul Herrera, | | | 2019 | Visit | | ,PhD [address] | | | | | | [place] | | | | | | [address] | | | | | | [phone] | | | | | | | [...] Note | + + | Service Account, [employer] Res In Interface - 10/13/2019 4:14 PM [...] [facility] | [address] | [place] [address] | | | SERVICES, CORE | [address] | | | + + + + + X-RAY PORTABLE CHEST 1 VIEW (10/12/2019 9:05 AM PST) + + | Specimen | + + | | + + + + + | Narrative | Performed At | + + + | EXAM: AZ CHEST 1 VIEW HISTORY: cough, fever COMPARISON: [...] Interface - 10/12/2019 10:09 AM PST EXAM: AZ CHEST 1 | | VIEW HISTORY: cough, [...] - | | | | | | [facility] [place] | | + + + + + [...] + | [facility] | [address] | [place] [address] | | | [place] | | | [...] [facility] | [address] | [place] [address] | | | SERVICES, CORE | PARK [...] | + + + + + | [facility] | [address] | [place] [address] | | | SERVICES, ENRIKE | [address] | | | + + + [...] | + + + + + | [facility] | [address] | [place] [address] | | | SERVICES, CORE | [address]IL[address] [...] | | | LABORATORY | | | [facility] | | | SERVICES, | | | [...] MDRD equation recommended by the National | [facility] | | Kidney Disease Education Program. Estimated [...] | + + + + + | [facility] | [address] | [place] [address] | | | SERVICES, CORE | EMILIA [...] [facility] | [address] | [place] [address] | | | SERVICES, CORE | PARK [...] | + + + + + | [facility] | [address] | [place] [address] | | | SERVICES, CORE | EMILIA [...] | | | LABORATORY | | | [place] | | | SERVICES, | | | [...] | 17 | 8 - 25 | [facility] | | | INE RATIO | | [...] | + + + + + | [facility] | [address] | [place] [address] | | | SERVICES, CORE | EMILIA [...] | + + + + + | [facility] | [address] | [place] [address] | | | SERVICES, CORE | EMILIA [...] | | | LABORATORY | | | [place] | | | SERVICES, | | | [...] MDRD equation recommended by the National | [facility] | | Kidney Disease Education Program. Estimated [...] | + + + + + | [facility] | [address] | [place] [address] | | | SERVICES, CORE | PARK [...] [facility] | [address] | [place] [address] | | | SERVICES, CORE | PARK [...] (H) | 70 - 99 mg/dL | [facility] | | | PLASMA | | | [...] | | | LABORATORY | | | [place] | | | SERVICES, | | | [...] | + + + + + | [facility] | [address] | [place] [address] | | | SERVICES, CORE | [address] | | | + + + + + CT HEAD AND MAXFACIAL WO CONT AND 3D (10/07/2019 4:09 PM PST) + + | Specimen | + + | | + + + + + | Narrative | Performed At | + + + | EXAM: CT HEAD AND FACE WITH 3D RECONSTRUCTIONS HISTORY: Post-op | [facility] | | s/p ORIF COMPARISON: 09/26/2019 TECHNIQUE: [...] | + + + + + | [facility] | [address] | [place] [address] | | | SERVICES, CORE | EMILIA [...] [facility] | [address] | [place], [place] | | | EMMY POINT OF CARE | [address] | [address] | | | TESTS | | | [...] [facility] | [address] | [place], [place] | | | EMMY POINT OF CARE | [address] | [address] | | | TESTS | | | [...] [facility] | [address] | [place] [address] | | | SERVICES, | [address] [...] [facility] | [address] | [place] [address] | | | SERVICES, | [address] [...] | + + + + + | [facility] | [address] | [place] [address] | | | SERVICES, ENRIKE | EMILIA [...] | | | LABORATORY | | | [place] | | | SERVICES, | | | [...] 34 (H) | 8 - 25 | [facility] | | | INE RATIO | | [...] MDRD equation recommended by the National | [facility] | | Kidney Disease Education [...] | + + + + + | [facility] | [address] | [place] [address] | | | SERVICES, CORE | EMILIA [...] Note | + + | Service Account, [employer] In Interface - 10/05/2019 11:05 AM PST [...] [facility] | [address] | [place] [address] | | | GARRY, CORE | P[address] [...] | | | LABORATORY | | | [place] | | | SERVICES, | | | [...] MDRD equation recommended by the National | [facility] | | Kidney Disease Education [...] | + + + + + | [facility] | [address] | [place] [address] | | | SERVICES, CORE | [address] | | | + + + + + X-RAY ABD LTD FEEDING TUBE EVAL PORTABLE (10/05/2019 12:45 AM PST) + + | Specimen | + + | | + + + + + | Narrative | Performed At | + + + | EXAM: AZ ABD LTD FEEDING TUBE EVAL INDICATION: 31M [...] Interface - 10/05/2019 10:31 AM PST EXAM: AZ OTONIEL LTD | | FEEDING TUBE EVAL [...] [facility] | [address] | [place], [place] | | | ALEXIS BOOTH OF [place] | [address] | [address] | | | TESTS | | | [...] [facility] | [address] | [place], [place] | | | ALEXIS BOOTH OF CARE | [address] | [address] | | | TESTS | | | [...] [facility] | [address] | [place] [address] | | | SERVICES, CORE | PARK [...] | + + + + + | [facility] | [address] | [place] [address] | | | SERVICES, CORE | EMILIA [...] [facility] | [address] | [place] [address] | | | SERVICES, CORE | [address] [...] [facility] | [address] | [place] [address] | | | SERVICES, CORE | EMILIA [...] | | | LABORATORY | | | [place] | | | SERVICES, | | | [...] | + + + + + | [facility] | [address] | [place] [address] | | | ENRIKE CASTAÑEDA | [address] [...] - [facility] | [address] | [place], [place] | | | EMMY [place] SAL[place] OF [facility] | [address] | [address] | | | TESTS | | | [...] + | [facility] | [address] | [place], [place] | | | CARDIOLOGY | [address] | [address] | | + + + + + X-RAY PORTABLE CHEST 1 VIEW (10/03/2019 8:15 AM PST) + + | Specimen | + + | | + + + + + | Narrative | Performed At | + + + | EXAM: AZ CHEST 1 VIEW HISTORY: hypoxia COMPARISON: | [facility] | | 10/01/2019, 09/30/2019, CT from 09/28/2019 FINDINGS: Feeding | RADIOLOGY VOICE | | tube coursing into the stomach beyond the oykkj-rn-whmn. Lung | RECOGNITION 2 | | volumes [...] Interface - 10/03/2019 9:44 AM PST EXAM: AZ CHEST 1 | | VIEW HISTORY: hypoxia COMPARISON: 10/01/2019, 09/30/2019, CT from 09/28/2019 FINDINGS: | | Feeding tube coursing into the stomach beyond the mwovk-zu-icfu. Lung volumes are small | | with [...] [facility] | [address] | [place] [address] | | | SERVICES, CORE | PARK [...] [facility] | [address] | [place] [address] | | | GARRY, CORE | [address] [...] | | | LABORATORY | | | [facility] | | | SERVICES, | | | [...] 9 | 4 - 11 mmol/L | [facility] | | | GAP(ALB | | | [...] | + + + + + | [facility] | [address] | [place] [address] | | | SERVICES, CORE | EMILIA [...] | + + + + + | [facility] | [address] | [place] [address] | | | SERVICES, CORE | EMILIA [...] | | | LABORATORY | | | [place] | | | SERVICES, | | | [...] MDRD equation recommended by the National | [facility] | | Kidney Disease Education [...] | + + + + + | [facility] | [address] | [place] [address] | | | GARRY, CORE | PARK [...] | + + + + + | [facility] | [address] | [place] [address] | | | SERVICES, CORE | EMILIA [...] [facility] | [address] | [place] [address] | | | SERVICES, CORE | PARK [...] | + + + + + | [facility] | [address] | [place] [address] | | | SERVICES, ENRIKE | EMILIA [...] diaphragm and beyond the | | | smgou-vt-stoa. Stable dense left lower lobe retrocardiac | [...] tip below the diaphragm and beyond the ilref-zu-nmfw. Stable dense left lower | | lobe [...] | + + + + + | [facility] | [address] | [place] [address] | | | GARRY, ENRIKE | EMILIA [...] [facility] | [address] | [place], [place] | | | CARDIOLOGY | [address] | [address] | | + + + + + [...] | + + + + + | [facility] | [address] | [place] [address] | | | SERVICES, CORE | EMILIA [...] | + + + + + | [facility] | [address] | [place] [address] | | | SERVICES, CORE | PARK [...] [facility] | [address] | [place] [address] | | | SERVICES, CORE | [address] [...] | | | LABORATORY | | | [place] | | | SERVICES, | | | [...] MDRD equation recommended by the National | [facility] | | Kidney Disease Education [...] | + + + + + | [facility] | [address] | [place] [address] | | | GARRY, ENRIKE | PARK [...] + + | [facility] | [address] [facility] [address] | [place], [place] | | | ALEXIS BOOTH OF [facility] | [address] | [address] | | | TESTS | | | [...] Note | + + | Service Account, [employer] Res In Interface - 10/01/2019 9:29 AM [...] | + + + + + | [facility] | [address] | [place] [address] | | | GARRY, ENRIKE | EMILIA [...] [facility] | [address] | [place] [address] | | | SERVICES, CORE | PARK [...] [facility] | [address] | [place] [address] | | | SERVICES, CORE | PARK [...] LABORATORY | [address] | [place] [address] | | | GARRY, CORE | PARK [...] | + + + + + | [facility] | [address] | [place] [address] | | | SERVICES, CORE | EMILIA [...] | + + + + + | [facility] | [address] | [place] [address] | | | SERVICES, CORE | [address] | | | + + + + + X-RAY PORTABLE CHEST 1 VIEW (09/30/2019 11:01 AM PST) + + | Specimen | + + | | + + + + + | Narrative | Performed At | + + + | EXAM: AZ CHEST 1 VIEW HISTORY: interval assessment | [...] Note | + + | Service Account, [employer] Res In Interface - 09/30/2019 12:07 PM PST EXAM: AZ CHEST 1 | | VIEW HISTORY: interval [...] [facility] | [address] | [place] [address] | | | SERVICES, CORE | PARK [...] [facility] | [address] | [place] [address] | | | SERVICES, CORE | EMILIA [...] [facility] | [address] | [place] [address] | | | SERVICES, CORE | PARK [...] | + + + + + | [facility] | [address] | [place] [address] | | | SERVICES, CORE | EMILIA [...] | | | LABORATORY | | | [facility] | | | SERVICES, | | | [...] [facility] | [address] | [place] [address] | | | SERVICES, CORE | [address]ARK [...] [facility] | [address] | [place] [address] | | | SERVICES, CORE | EMILIA [...] Preliminary: Janneth Flores MD Dictation initiated: Janneth Jimenez | Barbara Flores MD 09/29/2019 10:05 AM [...] | + + + + + | [facility] | [address] | [place] [address] | | | SERVICES, CORE | EMILIA [...] | + + + + + | [facility] | [address] | [place] [address] | | | SERVICES, CORE | EMILIA [...] | | | LABORATORY | | | [place] | | | SERVICES, | | | [...] MDRD equation recommended by the National | [facility] | | Kidney Disease Education [...] | + + + + + | [facility] | [address] | [place] [address] | | | SERVICES, CORE | EMILIA [...] [facility] | [address] | [place] [address] | | | SERVICES, CORE | PARK [...] correct patient, procedure, | | | equipment, desktop support associate and site/side marked as required. With | | | questions refer to [facility] policy: Indications:: Diagnostic and | | [...] [facility] | [address] | [place] [address] | | | GARRY, CORE | PARK [...] | + + + + + | [facility] | [address] | [place] [address] | | | SERVICES, CORE | EMILIA [...] [facility] | [address] | [place] [address] | | | SERVICES, CORE | PARK [...] + + + + | PRODUCT | [id number] | | [facility] | | | UNIT [...] + + + + | EXPIRATION | [id number] | | [facility] | | | DATE [...] + + + + | BLOOD | [id number] | | [facility] | | | PRODUCT [...] [facility] | [address] | [place] [address] | | | SERVICES, | [address] [...] + + + + | PRODUCT | [id number] | | [facility] | | | UNIT [...] + + + + | EXPIRATION | [id number] | | [facility] | | | DATE [...] + + + + | BLOOD | [id number] | | [facility] | | | PRODUCT [...] | + + + + + | [facility] | [address] | [place] [address] | | | SERVICES, | [address] [...] Note | + + | Service Account, Mrecy [employer] In Interface - 09/28/2019 10:53 AM PST [...] | + + + + + | [facility] | [address] | [place] [address] | | | SERVICES, CORE | EMILIA [...] [facility] | [address] | [place] [address] | | | SERVICES, CORE | EMILIA [...] + + + + | PRODUCT | [id number] | | [facility] | | | UNIT [...] + + + + | EXPIRATION | [id number] | | [facility] | | | DATE [...] + + + + | BLOOD | [id number] | | [facility] | | | PRODUCT [...] [facility] | [address] | [place] [address] | | | SERVICES, | [address] [...] | + + + + + | [facility] | [address] | [place] [address] | | | SERVICES, | [address] [...] [facility] | [address] | [place] [address] | | | SERVICES, | [address] [...] + + + + | PRODUCT | [id number] | | [facility] | | | UNIT [...] + + + + | EXPIRATION | [id number] | | [facility] | | | DATE [...] + + + + | BLOOD | [id number] | | [facility] | | | PRODUCT [...] [facility] | [address] | [place] [address] | | | SERVICES, | [address] [...] [facility] | [address] | [place] [address] | | | SERVICES, CORE | [address] [...] | | | LABORATORY | | | [facility] | | | SERVICES, | | | [...] (H) | 4 - 11 mmol/L | [facility] | | | GAP(ALB | | | [...] | + + + + + | [facility] | [address] | [place] [address] | | | SERVICES, CORE | EMILIA [...] [facility] | [address] | [place] [address] | | | SERVICES, CORE | [address] | | | + + + + + X-RAY PORTABLE CHEST 1 VIEW (09/27/2019 8:05 AM PST) + + | Specimen | + + | | + + + + + | Narrative | Performed At | + + + | EXAM: AZ CHEST 1 VIEW HISTORY: pneumonia COMPARISON: | [...] Note | + + | Service Account, [employer] In Interface - 09/27/2019 8:35 AM PST EXAM: AZ CHEST 1 | | VIEW HISTORY: pneumonia [...] + | [facility] | [address] | [place] [address] | | | [place] | | | | + + + [...] [facility] | [address] | [place] [address] | | | SERVICES, CORE | PARK [...] + + | [facility] | [address] | [place] [address] | | | SERVICES, CORE | [address] [...] | | | LABORATORY | | | [place] | | | SERVICES, | | | [...] MDRD equation recommended by the National | [facility] | | Kidney Disease Education [...] | + + + + + | [facility] | [address] | [place] [address] | | | SERVICES, CORE | PARK [...] | + + + + + | [facility] | [address] | [place] [address] | | | SERVICES, CORE | EMILIA [...] | | | LABORATORY | | | [place] | | | SERVICES, | | | [...] MDRD equation recommended by the National | [facility] | | Kidney Disease Education [...] | + + + + + | [facility] | [address] | [place] [address] | | | SERVICES, CORE | EMILIA [...] | + + + + + | [facility] | [address] | [place] [address] | | | SERVICES, CORE | EMILIA [...] | + + + + + | [facility] | [address] | [place] [address] | | | SERVICES, CORE | PARK [...] | + + + + + | [facility] | [address] | [place] [address] | | | SERVICES, CORE | EMILIA [...] | | | LABORATORY | | | [place] | | | SERVICES, | | | [...] | + + + + + | [facility] | [address] | [place] [address] | | | SERVICES, CORE | EMILIA [...] [facility] | [address] | [place] [address] | | | SERVICES, CORE | PARK [...] B: | | | | | | [employer]CS | | | | + + + [...] | Manuela Bailey, [facility] | | PTH - [facility] | | | | [phone] | | | | | | [phone].[employer]. | | | | | | Burton [...] [facility] | [address] | [place], [place] | | | UNIV PTH - [facility] | | [address] | | + + + + + [...] + + | [facility] | [address] | [place] [address] | | | SERVICES, CORE | EMILIA [...] | + + + + + | [facility] | [address] | [place] [address] | | | SERVICES, | [address] [...] [facility] | [address] | [place] [address] | | | SERVICES, CORE | PARK [...] | + + + + + | [facility] | [address] | [place] [address] | | | SERVICES, | [address] [...] | + + + + + | [facility] | [address] | [place] [address] | | | SERVICES, | [address] [...] | + + + + + | [facility] | [address] | [place] [address] | | | SERVICES, CORE | EMILIA [...] [facility] | [address] | [place] [address] | | | SERVICES, CORE | [address]ARK [...] report for confirmation Vein | | | supervisor data processing technique: [employer] Tech[employer]: The standard | | | [...] | + + + + + | [facility] | [address] | [place] [address] | | | SERVICES, CORE | EMILIA [...] [facility] | [address] | [place] [address] | | | SERVICES, CORE | PARK [...] [facility] | [address] | [place] [address] | | | SERVICES, CORE | PARK [...] + + | [facility] | [address] | [place], [place] | | | EMMY [place] SAL[place] OF [facility] | [address] | [address] | | | TESTS | | | | + + + + + CTA NECK W CONTRAST (09/25/2019 7:56 PM PST) + + | Specimen | + + | | + + + + + | Narrative | Performed At | + + + | EXAM: CTA NECK HISTORY: TRAUMA ACTIVATION PAGE [id number] | [facility] | | COMPARISON: None. TECHNIQUE: [...] NECK | | HISTORY: TRAUMA ACTIVATION PAGE [id number] COMPARISON: None. TECHNIQUE: CT angiogram of the [...] Note | + ------+ | Service Account, [employer] Res In Interface - 09/26/2019 9:27 AM [...] TRAUMA ACTIVATION | [facility] | | PAGE [id number] COMPARISON: None. TECHNIQUE: CT of the head [...] maxillary soft | | | tissues and window shade cutter space. PARANASAL SINUSES: Acute blood products | [...] | WITHOUT CONTRAST HISTORY: TRAUMA ACTIVATION PAGE [id number] COMPARISON: None. TECHNIQUE: CT | | of [...] left maxillary soft tissues and | | window shade cutter space.PARANASAL SINUSES: Acute blood products are noted [...] TRAUMA ACTIVATION | [facility] | | PAGE [id number] COMPARISON: None. TECHNIQUE: CT of the head [...] maxillary soft | | | tissues and window shade cutter space. PARANASAL SINUSES: Acute blood products | [...] | WITHOUT CONTRAST HISTORY: TRAUMA ACTIVATION PAGE [phone] COMPARISON: None. TECHNIQUE: CT | | of [...] left maxillary soft tissues and | | window shade cutter space.PARANASAL SINUSES: Acute blood products are noted [...] 09/26/2019 8:45 AM | |Dictation initiated: Royce Prui MD 09/25/2019 8:09 PM | + + [...] + + + + | PRODUCT | [id number] | | [facility] | | | UNIT [...] + + + + | EXPIRATION | [id number] | | [facility] | | | DATE [...] + + + + | BLOOD | [id number] | | [facility] | | | PRODUCT [...] [facility] | [address] | [place] [address] | | | SERVICES, | [address] [...] + + + + | PRODUCT | [id number] | | [facility] | | | UNIT [...] + + + + | EXPIRATION | [id number] | | [facility] | | | DATE [...] + + + + | BLOOD | [id number] | | [facility] | | | PRODUCT [...] [facility] | [address] | [place] [address] | | | SERVICES, | [address] [...] + + + + | PRODUCT | [id number] | | [facility] | | | UNIT [...] + + + + | EXPIRATION | [id number] | | [facility] | | | DATE [...] + + + + | BLOOD | [id number] | | [facility] | | | PRODUCT [...] | + + + + + | [facility] | [address] | [place] [address] | | | SERVICES, | [address] [...] + + + + | PRODUCT | [id number] | | [facility] | | | UNIT [...] + + + + | EXPIRATION | [id number] | | [facility] | | | DATE [...] + + + + | BLOOD | [id number] | | [facility] | | | PRODUCT [...] [facility] | [address] | [place] [address] | | | SERVICES, | [address] [...] + + + + | PRODUCT | [id number] | | [facility] | | | UNIT [...] + + + + | EXPIRATION | [id number] | | [facility] | | | DATE [...] + + + + | BLOOD | [id number] | | [facility] | | | PRODUCT [...] | + + + + + | [facility] | [address] | [place] [address] | | | SERVICES, | [address] [...] | | | | | NEEDED, Starting [facility] 09/29/19 at | | | | | [...] | | | | | | per [facility] protocol | | | | | | [...] 10/14/20 | 0.5 | | | | ctgrzqep-hgvwoswvn-pqzcfyrpnkbdz | | 19 9:23 | inches | [...] | | | | ONCE, 1 dose, [facility] 09/29/19 at | | AM PST | | | | | 0600 | | | | | | + +-------+ +--------+---+---+ +---+---+ | | | +---+---+ + +-------+ +--------+---+---+ | potassium chloride (KLOR-CON) | Given | 09/30/20 | 40 mEq | | | | packet 40 mEq 40 mEq, feeding | | 19 6:43 | | | | | tube, ONCE, [address] dose, [facility] 09/30/19 | | AM PST [...] | | | | | | dose, [facility] 09/28/19 at 0515 | | [...] | | | | | | dose, [facility] 09/29/19 at 0600 | | | | [...] injection | | | 1 dose, Starting [facility] 09/25/19 at | | | 1857, Until [facility] 09/25/19 at 1916 | | + +---+ [...] | | | | | | | [place] 09/25/19 at 1945, Until Wed | | [...] | | modification) on [facility] 09/29/19 at | | | | | [...]
--- OUTSIDE RECORDS SUMMARY | ~2020-05-07 | XMS | Encounter Summary ---
Demographics + + + | Address | [address] | | | [place] [address] | + + + | Home Phone | | + + + | Preferred Language | Unknown | + + + | Marital Status | Single | + + + | Rastafari Affiliation | NON | + + + | Race | or | + + + | Ethnic Group | Not or | + + + Author + + + | Author | [facility] [employer] [facility] | + + + | Organization | [facility] [employer] [facility] | + + + | Address | Unknown | + + + | Phone | Unavailable | + + + Support + + + + + | Name | Relationship | Address | Phone | + + + + + | Kaila Oates | ECON | [place] | | | | | [address] | | + + + + + Care Team Providers + +------+ + | Care Planning Lead Name | Role | Phone | + [...] | Event | JENNIFFER Nieto | RMD [address] | | | | | [facility] | [address] | | | | | Hospital Admitting | [place], [place] | | | | | Desk Located on the | [address] | | | | | 9th floor | [phone] | | | | | [place], [place] | | | | | | [address] | Brittny Monge | | | | | | TRICIA Stephenson [address] | | | | | | [address] | | | | | | [place], [place] | | | | | | [address] | | | | | | [phone] | | | | | | | [...] Hermila Bryant RN | | IV | (MS); No; Positive; 10/07/19; | | | | [...] | | Oral; Cuffed; 10/07/19; [address] | [address] | | +--------+ + + + | [...] | 2020 | Visit | | ,PhD [address] | | | | | | [place], [place] | | | | | | [address] | | | | | | [phone] | | | | | | | [...]
--- OUTSIDE RECORDS SUMMARY | ~2020-05-07 | XMS | Encounter Summary ---
Demographics + + + | Address | [address] | | | [place] [address] | + + + | Home Phone [...] Author + + + | Author | [facility] [id number] [facility] | + + + | Organization | [facility] | + + + | Address | Unknown | + + + | Phone | Unavailable | + + + Support + + + + + | Name | Relationship | Address | Phone | + + + + + | Kaila Oates | ECON | [place] | | | | | [address] | | + + + + + Care Team Providers + +------+ + | Care Customer Service Coordinator Name | Role | Phone | [...] | | | | | Surgery at [facility] [address] [place], [place] | | | | | [address] [facility] | [address] | | | | | for Health and | [phone] | | | | | Healing, [facility] 1, | | | | | | 5th Floor | | | | | | [place], [place] | | | | | | [address] | | | | | | [phone] | | | +--------+ + + + [...] [place] | | | | | | [address] | | | | | | [phone] | | | | | | | | +--------+---------+ + + + documented as of this encounter Visit Diagnoses Not on filedocumented in this encounter"
--- OUTSIDE RECORDS SUMMARY | ~2020-05-07 | XMS | Encounter Summary ---
Demographics + + + | Address | [address] | | | [place] [address] | + + + | Home Phone | | + + + | Preferred Language | Unknown | + + + | Marital Status | Single | + + + | Uatsdin Affiliation | NON | + + + | Race | or | + + + | Ethnic Group | Not or | + + + Author + + + | Author | [facility] [employer] [facility] | + + + | Organization | [facility] | + + + | Address | Unknown | + + + | Phone | Unavailable | + + + Support + + + + + | Name | Relationship | Address | Phone | + + + + + | Kaila Oates | ECON | [place] | | | | | [address] | | + + + + + Care Team Providers + +------+ + | Care Wool Hat Finisher Name | Role | Phone | [...] | | | | | Surgery at [facility] [address] [place], [place] | | | | | [address] [facility] | [address] | | | | | for Health and | [phone] | | | | | Healing, [facility] 1, | | | | | | 5th Floor | | | | | | [facility] [place] | | | | | | [address] | | | | | | [phone] | | | +--------+ + + + [...] | | | | | | [place], [place] | | | | | | [address] | | | | | | [phone] | | | | | | | | +--------+---------+ + + + documented as of this encounter Visit Diagnoses Not on filedocumented in this encounter"
--- OUTSIDE RECORDS SUMMARY | ~2020-05-07 | XMS | Encounter Summary ---
Demographics + + + | Address | [address] | | | [place] [address] | + + + | Home Phone [...] + + + | Author | [facility] | + + + | Organization | [facility] [employer] [facility] | + + + | Address | Unknown | + + + | Phone | Unavailable | + + + Support + + + + + | Name | Relationship | Address | Phone | + + + + + | Kaila Oates | ECON | [place] | | | | | [address] | | + + + + + Care Team Providers + +------+ + | Care Local Delivery Driver Name | Role | Phone | [...] (Primary Dx); Injury | | | | [facility][Note 3] | [address] | of cervical spinal | | | | [address] | [place], [place] | cord, sequela (HCC); | | | | [facility] | [address] | Cervical dystonia; | | | | and Healing, | [phone] | 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 [facility] has a process for determining what next steps you should take, and if there are concerns for possible Covid-19 infection, we will work to determine if it is safe to keep your surgery date. As part of [facility]'s efforts to keep patients and visitors safe, this is the current visitatio n policy--no visitors except in rare circumstances. If you are not having respiratory symptoms or concerning close contacts but would like to c ancel/postpone your surgery, please contact your surgeon directly. More information can be found here: [email or web address]. Pre-surgery "homework" * Unless otherwise instructed [...] your surgery. Surgery check-in location: Admitting - [facility], ninth floor lob Surgery Check in Time: [...] ch as Uber/Lyft), or public transportation. An Uber/Lyft/party bus driver does not count as the responsible [...] it is after office hours, call the [facility] lathe operator at [phone] and ask them to page him or h er. Service animals Not allowed in the following areas: ? 6A ? 11B PCU ? [facility] Pre/Post-op ? [facility] During Cov-19 Operations: Visitor guidelines: No visitors [...] subsequent LUE weakness. Office visit with Ortho keyru e 2 months post-injury reports that patient [...] on day of surgery (unless done at [facility] with Covid testing). 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 [facility] Visit conducted as a phone visit due [...] based on this patients comorbid conditions and vnh-ai-qznsyeq care coordination needs Medication management recommendations: The [...] patient's care. L[facility] [place] [address] [phone] (fax) do cumented in this encounter Plan of Treatment +--------+---------+ + + + | Date | Type | Specialty | Care Team | Description | +--------+---------+ + + + | 08/23/ | Office | Plastic Surgery | Paul Herrera, | | | 2019 | Visit | | ,PhD [address] | | | | | | [place], [place] | | | | | | [address] | | | | | | [phone] | | | | | | | [...] [facility] | [address] | [place] [address] | | | SERVICES, CORE | PARK [...] | | | LABORATORY | | | CHINESE | | | SERVICES, | | | [...] MDRD equation recommended by the National | [facility] | | Kidney Disease Education Program. [...] | + + + + + | [facility] | [address] | [place] [address] | | | GARRY, ENRIKE | HENRY [...]
--- OUTSIDE RECORDS SUMMARY | ~2020-05-07 | XMS | Encounter Summary ---
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 [address] | [place] [address] | | | SERVICES, CORE | EMILIA [...] | | | LABORATORY | | | ARM[facility] | | | SERVICES, | | | [...] MDRD equation recommended by the National | [facility] | | Kidney Disease Education Program. Estimated [...] | + + + + + | [facility] | [address] | [place] [address] | | | SERVICES, CORE | P[address] [...] | + + + + + | [facility] | [address] [facility] | [place] [address] | | | SERVICES, CORE | P[address] [...] | + + + + + | [facility] | [address] | [place] [address] | | | SERVICES, CORE | [address] [...] | | | LABORATORY | | | ARMENIAN | | | SERVICES, | | | [...] MDRD equation recommended by the National | [facility] | | Kidney Disease Education Program. Estimated [...] [facility] | [address] | [place] [address] | | | SERVICES, CORE | P[address] [...] [facility] | [address] | [place] [address] | | | SERVICES, CORE | [address] [...] | | | LABORATORY | | | ARMENIAN | | | SERVICES, | | | [...] MDRD equation recommended by the National | [facility] | | Kidney Disease Education Program. Estimated [...] | + + + + + | [facility] | [address] | [place] [address] | | | GARRY, ENRIKE | EMILIA [...] | + + + + + | [facility] | [address] | [place] [address] | | | ENRIKE CASTAÑEDA | EMILIA [...] | | | LABORATORY | | | ARMENIAN | | | SERVICES, | | | [...] | + + + + + | [facility] | [address] | [place] [address] | | | SERVICES, ENRIKE | EMILIA [...] [facility] | [address] | [place] [address] | | | SERVICES, CORE | EMILIA [...] [facility] | [address] | [place], [place] | | | [facility] BO[facility] CARE | [address] | [address] | | | TESTS | | | [...] (H) | 70 - 99 mg/dL | [facility] - | | | GLUCOSE, | | [...] [facility] | [address] | [place], [place] | | | EMMY POINT OF CARE | [address] | [address] | | | TESTS | | | [...] [facility] | [address] | [place] [address] | | | SERVICES, | [address] [...] [facility] | [address] | [place] [address] | | | SERVICES, | [address] [...] [facility] | [address] | [place] [address] | | | SERVICES, CORE | [address] [...] | | | LABORATORY | | | ARMENIAN | | | SERVICES, | | | [...] MDRD equation recommended by the National | [facility] | | Kidney Disease Education Program. Estimated [...] | + + + + + | [facility] | [address] [facility] | [place] [address] | | | [facility] | [address] | | | + [...] Note | + + | Service Account, RadiTervela Res In Interface - 10/05/2019 11:05 AM [...] + + | [facility] | [address] [facility] | [place] [address] | | | SERVICES, CORE | [address] [...] | | | LABORATORY | | | ARMENIAN | | | SERVICES, | | | [...] MDRD equation recommended by the National | [facility] | | Kidney Disease Education Program. Estimated [...] | + + + + + | [facility] | [address] | [place] [address] | | | SERVICES, [facility] | [address] | | | + + + + + X-RAY ABD LTD FEEDING TUBE EVAL PORTABLE (10/05/2019 12:45 AM PST) + + | Specimen | + + | | + + + + + | Narrative | Performed At | + + + | EXAM: NC OTONIEL ROSALES FEEDING TUBE EVAL INDICATION: 31M [...] Interface - 10/05/2019 10:31 AM PST EXAM: NC ABD LTD | | FEEDING TUBE EVAL [...] [facility] | [address] | [place], [place] | | | ALEXIS BOOTH OF [facility]IE | [facility] | [address] | | | TESTS | | | | + + + + + CAPILLARY BLOOD GLUCOSE (NO CHG), POC (10/04/2019 8:46 PM PST) + +-------+ + + + | Component | Value | Ref Range | Performed | Pathologist | | | | | At | Signature | + +-------+ + + + | BLOOD | 98 | 70 - 99 mg/dL | [facility] - | | | GLUCOSE, | | [...] + + + | [facility] | [address] | [place], [place] | | | ALEXIS [facility]OTH OF [facility] | [address] | [address] | | | TESTS | | | [...] Note | + + | Service Account, De Correspondent Res In Interface - 10/04/2019 9:55 AM [...] | + + + + + | [facility] | [address] | [place] [address] | | | SERVICES, CORE | EMILIA [...] [facility] | [address] | [place] [address] | | | SERVICES, CORE | [address] [...] | + + + + + | [facility] | [address] [facility] | [place] [address] | | | SERVICES, CORE | EMILIA [...] | + + + + + | [facility] | [address] | [place] [address] | | | SERVICES, CORE | EMILIA [...] | | | LABORATORY | | | ARMENIAN | | | SERVICES, | | | [...] MDRD equation recommended by the National | [facility] | | Kidney Disease Education Program. Estimated [...] | + + + + + | [facility] | [address] | [place] [address] | | | SERVICES, CORE | EMILIA [...] (H) | 70 - 99 mg/dL | [facility] - | | | GLUCOSE, | | [...] + + + | [facility] | [address] | [place], [place] | | | [facility] CARE | [address] | [address] | | | TESTS | | | [...] + | [facility] | [address] | [place], [place] | | | CARDIOLOGY | [address] | [address] | | + + + + + X-RAY PORTABLE CHEST 1 VIEW (10/03/2019 8:15 AM PST) + + | Specimen | + + | | + + + + + | Narrative | Performed At | + + + | EXAM: NC CHEST 1 VIEW HISTORY: hypoxia COMPARISON: | [facility] | | 10/01/2019, 09/30/2019, CT from 09/28/2019 FINDINGS: Feeding | RADIOLOGY VOICE | | tube coursing into the stomach beyond the jazuv-vk-vert. Lung | RECOGNITION 2 | | volumes [...] Interface - 10/03/2019 9:44 AM PST EXAM: NC CHEST 1 | | VIEW HISTORY: hypoxia COMPARISON: 10/01/2019, 09/30/2019, CT from 09/28/2019 FINDINGS: | | Feeding tube coursing into the stomach beyond the mhmjm-pk-kgre. Lung volumes are small | | with [...] | + + + + + | [facility] | [address] | [place] [address] | | | SERVICES, CORE | EMILIA [...] [facility] | [address] | [place] [address] | | | SERVICES, CORE | EMILIA [...] | | | LABORATORY | | | ARMENIAN | | | SERVICES, | | | [...] MDRD equation recommended by the National | [facility] | | Kidney Disease Education Program. Estimated [...] [facility] | [address] | [place] [address] | | | SERVICES, CORE | [address] [...] [facility] | [address] | [place] [address] | | | SERVICES, CORE | [address] [...] | | | LABORATORY | | | ARMENIAN | | | SERVICES, | | | [...] MDRD equation recommended by the National | [facility] | | Kidney Disease Education Program. Estimated [...] | + + + + + | [facility] | [address] | [place] [address] | | | SERVICES, ENRIKE | EMILIA [...] | + + + + + | [facility] | [address] | [place] [address] | | | ENRIKE CASTAÑEDA | EMILIA [...] | + + + + + | [facility] | [address] | [place] [address] | | | SERVICES, CORE | EMILIA [...] [facility] | [address] | [place] [address] | | | SERVICES, [facility] | [address] | | | + [...] diaphragm and beyond the | | | fmebx-ce-sxdz. Stable dense left lower lobe retrocardiac | [...] Note | + + | Service Account, De Correspondent Res In Interface - 10/01/2019 10:02 AM PST EXAM: CHEST 1 | | VIEW HISTORY: evaluate for pulmonary edema, pneumonia, LLL COMPARISON: 09/30/2019 | | FINDINGS: Endotracheal tube has been removed. Enteric tube has been removed. Feeding | | tube with tip below the diaphragm and beyond the txuby-il-tcum. Stable dense left lower | | lobe [...] [facility] | [address] | [place] [address] | | | SERVICES, CORE | EMILIA [...] DEPT OF | [address] | [place], [place] | | | CARDIOLOGY | [address] | [address] | | + + + + + [...] | + + + + + | [facility] | [address] | [place] [address] | | | SERVICES, CORE | EMILIA [...] [facility] | [address] | [place] [address] | | | SERVICES, CORE | EMILIA [...] | + + + + + | [facility] | [address] [facility] | [place] [address] | | | SERVICES, CORE | [address]IL[address] [...] | | | LABORATORY | | | ARMENIAN | | | SERVICES, | | | [...] MDRD equation recommended by the National | [facility] | | Kidney Disease Education Program. Estimated [...] | + + + + + | [facility] | [address] | [place] [address] | | | SERVICES, CORE | EMILIA [...] [facility] | [address] | [place], [place] | | | W[facility]EN BOOTH | [address] | [address] | | | TESTS | | | [...] + | [facility] | [address] | [place] [address] | | | SERVICES, CORE | [address] | | | + + + + + CULTURE, BLOOD BACTI & YEAST [facility] (09/30/2019 8:39 PM PST) + + + [...] | + + + + + | [facility] | [address] | [place] [address] | | | SERVICES, CORE | EMILIA [...] | + + + + + | [facility] | [address] | [place] [address] | | | SERVICES, CORE | [address] [...] | + + + + + | [facility] | [address] | [place] [address] | | | SERVICES, ENRIKE | EMILIA [...] + + | [facility] | [address] [facility] | [place] [address] | | | SERVICES, CORE | [address] [...] [facility] | [address] | [place] [address] | | | SERVICES, CORE | [address] | | | + + + + + X-RAY PORTABLE CHEST 1 VIEW (09/30/2019 11:01 AM PST) + + | Specimen | + + | | + + + + + | Narrative | Performed At | + + + | EXAM: NC CHEST 1 VIEW HISTORY: interval assessment | [...] Interface - 09/30/2019 12:07 PM PST EXAM: NC CHEST 1 | | VIEW HISTORY: interval [...] | + + + + + | [facility] | [address] [facility] | [place] [address] | | | SERVICES, CORE | [address] [...] [facility] | [address] | [place] [address] | | | SERVICES, CORE | [address] [...] | + + + + + | [facility] | [address] | [place] [address] | | | SERVICES, CORE | EMILIA [...] [facility] | [address] | [place] [address] | | | ENRIKE CASTAÑEDA | EMILIA [...] | | | LABORATORY | | | ARMENIAN | | | SERVICES, | | | [...] | + + + + + | [facility] | [address] [facility] | [place] [address] | | | ENRIKE CASTAÑEDA | EMILIA [...] | + + + + + | [facility] | [address] | [place] [address] | | | SERVICES, CORE | EMILIA [...] [facility] | [address] | [place] [address] | | | SERVICES, CORE | [address] [...] [facility] | [address] | [place] [address] | | | SERVICES, CORE | [address] [...] | | | LABORATORY | | | ARMENIAN | | | SERVICES, | | | [...] MDRD equation recommended by the National | [facility] | | Kidney Disease Education Program. Estimated GFR Interpretive | LABORATORY | | Information: <60 mL/min/1.73 sq m Chronic Kidney | SERVICES, [facility] | | Disease <15 mL/min/1.73 sq m [...] | + + + + + | [facility] | [address] | [place] [address] | | | ENRIKE CASTAÑEDA | [address] [...] | + + + + + | [facility] | [address] [facility] [facility] | [place] [address] | | | GARRY, ENRIKE | [address]IL[address] [...] correct patient, procedure, | | | equipment, business support manager and site/side marked as required. With | | | questions refer to [facility] policy: Indications:: Diagnostic and | | | [...] | + + + + + | [facility] | [address] | [place] [address] | | | SERVICES, CORE | [address] [...] hematoma identified. Discussed with | | | Yale PA at 1347 on 09/28/[address] [...] Note | + + | Service Account, RadiTervela Res In Interface - 09/28/2019 1:53 PM [...] [facility] | [address] | [place] [address] | | | SERVICES, CORE | [address] | | | + + + + + CULTURE, BLOOD BACTI & YEAST [facility] (09/28/2019 11:39 AM PST) + + + [...] + + + + + | [facility] | [address] | [place] [address] | | | SERVICES, CORE | EMILIA [...] + + + + | PRODUCT | [id number] | | [facility] | | | UNIT [...] + + + + | EXPIRATION | [id number] | | [facility] | | | DATE [...] + + + + | BLOOD | [id number] | | [facility] | | | PRODUCT [...] [facility] | [address] | [place] [address] | | | SERVICES, | [address] [...] + + + + | PRODUCT | [id number] | | [facility] | | | UNIT [...] + + + + | EXPIRATION | [id number] | | [facility] | | | DATE [...] + + + + | BLOOD | [id number] | | [facility] | | | PRODUCT [...] [facility] | [address] | [place] [address] | | | SERVICES, | [address] [...] Note | + + | Service Account, ScaleGrid In Interface - 09/28/2019 10:53 AM PST [...] [facility] | [address] | [place] [address] | | | SERVICES, CORE | PARK [...] | + + + + + | [facility] | [address] | [place] [address] | | | SERVICES, CORE | [address] [...] 09/28/2019 10:23 AM | |Dictation initiated: Teodora Ltaif MD 09/28/2019 7:15 AM | + + [...] Note | + + | Service Account, De Correspondent Res In Interface - 09/28/2019 8:42 AM [...] | report as now presented. Final signature: rBiseyda Genao MD 09/28/2019 8:41 AM | | [...] + + + + | PRODUCT | [id number] | | [facility] | | | UNIT [...] + + + + | EXPIRATION | [id number] | | [facility] | | | DATE [...] + + + + | BLOOD | [id number] | | [facility] | | | PRODUCT [...] [facility] | [address] | [place] [address] | | | SERVICES, | [address] [...] [facility] | [address] | [place] [address] | | | SERVICES, | [address] [...] | + + + + + | [facility] | [address] | [place] [address] | | | SERVICES, | [address] [...] + + + + | PRODUCT | [id number] | | [facility] | | | UNIT [...] + + + + | EXPIRATION | [id number] | | [facility] | | | DATE [...] + + + + | BLOOD | [id number] | | [facility] | | | PRODUCT [...] | + + + + + | [facility] | [address] | [place] [address] | | | SERVICES, | [address] [...] [facility] | [address] | [place] [address] | | | SERVICES, CORE | [address] [...] | | | LABORATORY | | | ARMENIAN | | | SERVICES, | | | [...] MDRD equation recommended by the National | [facility] | | Kidney Disease Education Program. Estimated [...] [facility] | [address] | [place] [address] | | | SERVICES, CORE | [address] [...] [facility] | [address] | [place] [address] | | | SERVICES, CORE | [address] | | | + + + + + X-RAY PORTABLE CHEST 1 VIEW (09/27/2019 8:05 AM PST) + + | Specimen | + + | | + + + + + | Narrative | Performed At | + + + | EXAM: NC CHEST 1 VIEW HISTORY: pneumonia COMPARISON: | [...] Note | + + | Service Account, Generateant Res In Interface - 09/27/2019 8:35 AM PST EXAM: NC CHEST 1 | | VIEW HISTORY: pneumonia [...] | + + + + + | [facility] - | [address] | [place] [address] | | | [place] | | | | + + + [...] Note | + + | Service Account, De Correspondent Res In Interface - 09/27/2019 7:31 AM [...] | + + + + + | [facility] | [address] | [place] [address] | | | SERVICES, CORE | [address] | | | + + + [...] | + + + + + | [facility] | [address] | [place] [address] | | | SERVICES, CORE | [address] [...] | | | LABORATORY | | | ARMENIAN | | | SERVICES, | | | [...] MDRD equation recommended by the National | [facility] | | Kidney Disease Education Program. Estimated [...] | + + + + + | [facility] | [address] | [place] [address] | | | SERVICES, CORE | [address] [...] [facility] | [address] | [place] [address] | | | SERVICES, CORE | [address] [...] | | | LABORATORY | | | ARMENIAN | | | SERVICES, | | | [...] | + + + + + | [facility] | [address] | [place] [address] | | | SERVICES, ENRIKE | [address]IL[address] [...] [facility] | [address] | [place] [address] | | | SERVICES, CORE | [address] [...] [facility] | [address] | [place] [address] | | | ENRIKE CASTAÑEDA | EMILIA [...] | + + + + + | [facility] | [address] | [place] [address] | | | SERVICES, CORE | [address] [...] AM | | | Dictation initiated: Ary Duomnt MD 09/26/2019 8:43 AM | | + [...] | | | LABORATORY | | | ARMENIAN | | | SERVICES, | | | [...] MDRD equation recommended by the National | [facility] | | Kidney Disease Education Program. Estimated [...] | + + + + + | [facility] | [address] | [place] [address] | | | SERVICES, CORE | [address] [...] (L) | 41.0 - 53.0 % | [facility] | | | | | | LABORATORY [...] | + + + + + | [facility] | [address] | [place] [address] | | | SERVICES, CORE | [address] [...] B: | | | | | | [employer] | | | | + + + [...] | | QUANT | Manuela Bailey, [facility] [place] | | PTH - [facility] | | | | [address] | | | | | | [phone]. | | | | | | Burton [...] [facility] | [address] | [place], [place] | | | UNIV PTH - INTFC | | [address] | | + + + + + [...] | + + + + + | [facility] | [address] | [place] [address] | | | SERVICES, CORE | [address] [...] [facility] | [address] | [place] [address] | | | SERVICES, | [address] [...] [facility] | [address] | [place] [address] | | | SERVICES, CORE | [address] [...] [facility] | [address] | [place] [address] | | | SERVICES, | [address] [...] | + + + + + | [facility] | [address] | [place] [address] | | | GARRY, | [address] [...] [facility] | [address] | [place] [address] | | | SERVICES, CORE | [address] [...] | + + + + + | [facility] | [address] | [place] [address] | | | SERVICES, CORE | [address] [...] Note | + + | Service Account, De Correspondent Res In Interface - 09/25/2019 10:04 PM [...] report for confirmation Vein | | | enchilada maker technique: [employer] Techique: The standard | | | [...] [facility] | [address] | [place] [address] | | | SERVICES, CORE | [address] [...] [facility] | [address] | [place] [address] | | | SERVICES, CORE | [address] [...] | + + + + + | [facility] | [address] | [place] [address] | | | SERVICES, CORE | [address] [...] + + + | [facility] | [address] | [place], [place] | | | ALEXIS BOOTH OF [facility] | [facility] | [address] | | | TESTS | | | | + + + + + CTA NECK W CONTRAST (09/25/2019 7:56 PM PST) + + | Specimen | + + | | + + + + + | Narrative | Performed At | + + + | EXAM: CTA NECK HISTORY: TRAUMA ACTIVATION PAGE [id number] | [facility] | | COMPARISON: None. TECHNIQUE: [...] NECK | | HISTORY: TRAUMA ACTIVATION PAGE [id number] COMPARISON: None. TECHNIQUE: CT angiogram of the [...] TRAUMA ACTIVATION | [facility] | | PAGE [id number] COMPARISON: None. TECHNIQUE: CT of the head [...] maxillary soft | | | tissues and therapeutic riding instructor space. PARANASAL SINUSES: Acute blood products | [...] Note | + + | Service Account, ScaleGrid In Interface - 09/26/2019 9:[address] HEAD AND FACE | | WITHOUT CONTRAST HISTORY: TRAUMA ACTIVATION PAGE [id number] COMPARISON: None. TECHNIQUE: CT | | of [...] left maxillary soft tissues and | | therapeutic riding instructor space.PARANASAL SINUSES: Acute blood products are noted [...] posterior 10th and 11th rib fractures. See [facility] te dictation for compete lung and [...] TRAUMA ACTIVATION | [facility] | | PAGE [id number] COMPARISON: None. TECHNIQUE: CT of the head [...] maxillary soft | | | tissues and therapeutic riding instructor space. PARANASAL SINUSES: Acute blood products | [...] Note | + + | Service Account, ScaleGrid In Interface - 09/26/2019 9:[address] HEAD AND FACE | | WITHOUT CONTRAST HISTORY: TRAUMA ACTIVATION PAGE [id number] COMPARISON: None. TECHNIQUE: CT | | of [...] left maxillary soft tissues and | | therapeutic riding instructor space.PARANASAL SINUSES: Acute blood products are noted [...] + + + + | PRODUCT | [id number] | | [facility] | | | UNIT [...] + + + + | EXPIRATION | [id number] | | [facility] | | | DATE [...] + + + + | BLOOD | [id number] | | [facility] | | | PRODUCT [...] | + + + + + | [facility] | [address] | [place] [address] | | | SERVICES, | [address] [...] + + + + | PRODUCT | [id number] | | [facility] | | | UNIT [...] + + + + | EXPIRATION | [id number] | | [facility] | | | DATE [...] + + + + | BLOOD | [id number] | | [facility] | | | PRODUCT [...] | + + + + + | [facility] | [address] | [place] [address] | | | SERVICES, | [address] [...] + + + + | PRODUCT | [id number] | | [facility] | | | UNIT [...] + + + + | EXPIRATION | [id number] | | [facility] | | | DATE [...] + + + + | BLOOD | [id number] | | [facility] | | | PRODUCT [...] | + + + + + | [facility] | [address] | [place] [address] | | | SERVICES, | [address] [...] + + + + | PRODUCT | [id number] | | [facility] | | | UNIT [...] + + + + | EXPIRATION | [id number] | | [facility] | | | DATE [...] + + + + | BLOOD | [id number] | | [facility] | | | PRODUCT [...] [facility] | [address] | [place] [address] | | | SERVICES, | [address] [...] + + + + | PRODUCT | [id number] | | [facility] | | | UNIT [...] + + + + | EXPIRATION | [id number] | | [facility] | | | DATE [...] + + + + | BLOOD | [id number] | | [facility] | | | PRODUCT [...] [facility] | [address] | [place] [address] | | | SERVICES, | [address] [...] 10/14/20 | 0.5 | | | | ahkejwab-fvujpicuf-lolswyduwupon | | 19 9:23 | inches | [...]
--- OUTSIDE RECORDS SUMMARY | ~2020-05-07 | XMS | Clinical Summary ---
Demographics + + + | Address | [address] | | | [place] [address] | + + + | Home Phone | | + + + | Preferred Language | Unknown | + + + | Marital Status | Single | + + + | Restorationism Affiliation | NON | + + + [...] [place] | | | | | [address] | | + + + + + Care Team Providers + +------+ + | Care Company Dancer Name | Role | Phone | + +------+ + | Tomasz Solis MD | PCP | | + +------+ + Source Comments MARILYNN is fully live on both Health system Ambulatory and Health system InPatient.[facility] Allergies No Known Allergies Medications + + [...] | | | | | cord, sequela ([facility]); | | | | | | [...] | 2019 | Visit | | MDPhD [address] | | | | | | [place], [place] | | | | | | [address] | | | | | | [phone] | | | | | | | [...] | | | | | | | [id number]: Qty: 2 on | | | | | | | | 10/06/2019 by Cordell Hernandez, | | | | | | | | MD at [facility] REV LOC | | | | | [...] | | | | | | | [id number]: Qty: 4 on | | | | | | | | 10/06/2019 by Cordell Hernandez, | | | | | | | | MD at [facility] REV LOC | | | | | | | + +------+-------+ +--------+--------+--------+ | Plate Large .8mm 20 Hole | | N/A: | [employer] | | | 04.503 | | Adaption Bone Matrixmidface | | Head | | | | .396 / | | Titanium Nonsterile Gold - | | | | | | / | | [id number]: Qty: 1 on | | | | | | | | 10/06/2019 by Cordell Hernandez, | | | | | | | | MD at [facility] INPATIENT REV LOC | | | | [...] | + + + + + | [facility] | [address] | [place] [address] | | | SERVICES, CORE | HENRY [...] + | [facility] | [address] | [place], [place] | | | CARDIOLOGY | [address] | [address] | | + + + + + [...] [facility] | [address] | [place] [address] | | | SERVICES, CORE | PARK [...] | | | LABORATORY | | | PANAMANIAN | | | SERVICES, | | | [...] MDRD equation recommended by the National | [facility] | | Kidney Disease Education Program. [...] | + + + + + | [facility] | [address] | [place] [address] | | | SERVICES, CORE | HENRY [...] (H) | 70 - 99 mg/dL | [facility] - | | | GLUCOSE, | [...] LARA | [address] | [place], [place] | | | ALEXIS BOOTH OF [place]IE | [address] | [address] | | | TESTS | | | [...] | | its performance characteristics determined by [employer] ([employer]). It | | | has not been [...] [facility] | [address] | [place] [address] | | | MICROBIOLOGY LAB | [address] | | | + + + + + | [facility] | [address] | [place], [place] | | | MICROBIOLIGY LAB | [address] | [address], [place] | | + + + + [...] | | | LABORATORY | | | PANAMANIAN | | | SERVICES, | | | [...] | + + + + + | [facility] | [address] | [place] [address] | | | SERVICES, CORE | HENRY [...] | OHP | [id number] | Effect | [phone] | [address] Medica | | | PLUS | | jalen | [phone] | [phone] | id | | | OPEN | | for | | [place], [place] | | | | CARD | | all | | [id number] | | | | | | dates | | | | + +--------+ +--------+ + +--------+ | [employer]ICAID [place] | OHP | [id number] | | [id number] | [address] | [address] | | | PLUS | | [phone] | 6 | [phone] | id | | | OPEN | | esent | | [place], [place] | | | | CARD | | | | [phone] | | + +--------+ +--------+ + +--------+ | [facility] | EMIRATI | [id number] | Effect | | | [...] Person | Self | [birth year] | | [address] | | | al/Juan R | | 1990 | [phone] | [place] [address] | | | any | | | 2 (Home) | | + +--------+ +--------+ + + | Rakan Oates | Person | Self | [birth year] | | [address] | | | al/Fam | | 1989 | [phone] | [place] [address] | | | any | | | 2 (Home) | | + +--------+ +--------+ + + | Rakan Oates | Third | Self | [birth year] | | [address] | | | Republican | | 1989 | [phone] | [place] [address] | | | Liabil | | | [...]
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
[2020-05-07] MEDS ORDERED: OXYCODONE HCL5 MG PO (10:53)
[2020-05-07] MEDS ORDERED: GABAPENTIN300 MG PO (10:53)
[2020-05-07] MEDS ORDERED: MORPHINE SULFAT30 M2 PO (10:53)
[2020-05-07] MEDS ORDERED: BACLOFEN5 MG PO (10:54)
[2020-05-07] MEDS ORDERED: ONDANSETRON ODT8 MG PO (16:07)
== END 2020-05-07 16:18 | disposition home or self-care (01) ==
LOC: ED 10:44
DX: K52.9 Noninfective gastroenteritis and colitis, unspecified (principal)
CPT/HCPCS: 80053; 81001; 83690; 85025; 96361; 96374; 96375; 99284-25; J1790; J2270; J2405; J7030

== ENCOUNTER 2020-09-09 12:01 | Emergency (ER) | payer OTHER ==
[~2020-09-09] VITALS: Ht 180.3 cm; Wt 86.2 kg
[~2020-09-09 12:01] MED LIST changes: +BACLOFEN5 MG PO; +GABAPENTIN300 MG PO; +MORPHINE SULFAT30 M2 PO; +ONDANSETRON ODT8 MG PO; +OXYCODONE HCL5 MG PO
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
[2020-09-09] MEDS ORDERED: PROMETHAZINE HC25 M1 PO (18:05)
[2020-09-09] MEDS ORDERED: ONDANSETRON ODT8 MG PO (18:05)
== END 2020-09-09 18:15 | disposition home or self-care (01) ==
LOC: ED 12:01
DX: U07.1 COVID-19 (principal); K29.70 Gastritis, unspecified, without bleeding
CPT/HCPCS: 80053; 81001; 83690; 83735; 85025; 96374; 96375; 99284-25; C9803; J1790; J1885; J2405; J7030; J7040; U0003

== ENCOUNTER 2023-01-15 09:19 | Emergency (ER) | payer OTHER ==
[~2023-01-15] VITALS: Ht 180.3 cm; Wt 86.2 kg
[~2023-01-15 09:19] MED LIST changes: +PROMETHAZINE HC25 M1 PO
--- OUTSIDE RECORDS SUMMARY | 2023-01-15 09:22 | XMS ---
PreManage Notification: SONIA BENTON Security Invasive Cardiovascular Technologist Events No recent Security Events currently on file [place]IA MET - [facility]ARE PROVIDERS ISAIAH SOSA Community Health Worker 08/24/2020-Current PHONE: [phone] MERRY RUIZ [facility] 05/21/2019-Current PHONE: Unknown Berna has no Care Guidelines for this patient. Care History Medical/Surgical 05/08/2020 [facility] - PATIENT IS [facility] ELIGIBLE, \T\middot;\T\nbsp; PLEASE REFER PATIENT TO [facility] FOR NON EMERGENT MEDICAL NEEDS. \T\middot;\T\nbsp; [facility] CAN SEE PATIENTS SAME DAY FOR APTS IF PATIENT CALLS FIRST THING IN THE MORNING. E.D. VISIT COUNT (12 MO.) 1 SRAVANI Torres TOTAL 1 NOTE: Visits indicate total known visits. ED/UCC VISIT TRACKING (12 MO.) 01/15/2023 09:20 [place] TYPE: Emergency COMPLAINT: - ABD/BACK PAIN INPATIENT VISIT TRACKING (12 MO.) No inpatient visits to display in this time frame [email or web address]
[2023-01-15] MEDS ORDERED: PANTOPRAZOLE SO40 MG PO (11:55)
== END 2023-01-15 12:12 | disposition home or self-care (01) ==
LOC: ED 09:19
DX: K21.9 Gastro-esophageal reflux disease without esophagitis (principal); K76.0 Fatty (change of) liver, not elsewhere classified; Z79.899 Other long term (current) drug therapy
CPT/HCPCS: 36415; 76705; 80053; 81003; 83690; 85025; 96374; 99284-25; J1885

== ENCOUNTER 2023-10-14 19:08 | Emergency (ER) | payer OTHER ==
[~2023-10-14] VITALS: Ht 180.3 cm; Wt 90.7 kg
[~2023-10-14 19:08] MED LIST changes: +PANTOPRAZOLE SO40 MG PO
[2023-10-14 20:38] LABS: INFLUENZA B NAA NEGATIVE (NEGATIVE); RESPIRATORY SYNCYTIAL VIR NAA NEGATIVE (NEGATIVE)
[2023-10-14 20:48] LABS: HEMATOCRIT 50.6 % (35.0-50.0); HEMOGLOBIN 16.4 g/dL (12.0-18.0); MCH 25.9 (27-36); MCHC 32.4 g/dl (30-36); PLATELET COUNT 504 K/uL (140-440); RBC 6.32 M/ul (4.3-5.7); RDW 15.5 (10.5-15.0)
[2023-10-14 21:05] LABS: EOSINOPHILS, MANUAL DIFF 1; LYMPHOCYTES, MANUAL DIFF 6; MONOCYTES, MANUAL DIFF 8; NEUTROPHILS, MANUAL DIFF 85
[2023-10-14 21:07] LABS: ALBUMIN 5.9 g/dL (3.4-5.0); ALBUMIN/GLOBULIN RATIO 1.34 (1.1-2.4); ANION GAP 20.9 (7-21); BILIRUBIN, TOTAL 0.8 ng/dL (0.2-1.0); BUN/CREATININE RATIO 9.45 (6.0-28.6); CALCIUM 10.4 mg/dL (8.5-10.1); CREATININE, SERUM 2.01 mg/dL (0.70-1.30); POTASSIUM 5.9 mmol/L (3.5-5.1); PROTEIN, TOTAL 10.3 g/dL (6.4-8.2)
[2023-10-14 22:27] LABS: BASOPHILS 0.2 % (0-2); EOSINOPHILS 0.3 % (0-6); HEMATOCRIT 40.4 % (35.0-50.0); LYMPHOCYTES 2.5 % (24-44); MCH 25.9 (27-36); MCHC 32.2 g/dl (30-36); MCV 80.4 fl (81-99); MONOCYTES 2.7 % (0-12); NEUTROPHILS 94.3 % (39-80); PLATELET COUNT 380 K/uL (140-440); RBC 5.03 M/ul (4.3-5.7); RDW 15.3 (10.5-15.0)
[2023-10-14 22:29] LABS: ANION GAP 17.5 (7-21); BUN/CREATININE RATIO 12.58 (6.0-28.6); CALCIUM 8.6 mg/dL (8.5-10.1); CREATININE, SERUM 1.51 mg/dL (0.70-1.30); POTASSIUM 5.5 mmol/L (3.5-5.1)
[2023-10-14] MEDS ORDERED: ONDANSETRON ODT8 MG PO (22:33)
[2023-10-14] MEDS ORDERED: CYCLOBENZAPRINE10 MG PO (22:33)
[2023-10-14 22:51] VITALS: BP 121/75
== END 2023-10-14 22:52 | disposition home or self-care (01) ==
LOC: ED 19:08
PROVIDERS: Family Medicine
DX: B34.9 Viral infection, unspecified (principal); Z79.899 Other long term (current) drug therapy; Z11.52 Encounter for screening for COVID-19
CPT/HCPCS: 36415; 71045; 80048; 80053; 85025; 87502; 96374; 96375; 99283-25; A9270; C9803; J2270; J2405; J7121; U0002